=== PATIENT | male | born 1975 | race Native Hawaiian/Other Pacific Islander ===

== ENCOUNTER → 2016-10-19 | Outpatient (CLI) | payer OTHER ==
[2016-10-19 09:04] LABS: ALT 27 U/L (21-72); AST 29 U/L (17-59); Alkaline Phosphatase 66 U/L (38-126); Anion Gap 12 mmol/L; Blood Urea Nitrogen 9 mg/dL (9-20); Carbon Dioxide 27 mmol/L (22-30); Chloride 110 mmol/L (98-107); Glucose 103 mg/dL (74-99); Non-African American GFR(MDRD) >60 (>60 ml/min/1.73 sqM); Potassium 4.8 mmol/L (3.5-5.1); Sodium 149 mmol/L (137-145); Total Bilirubin 0.7 mg/dL (0.2-1.3); Total Protein 7.7 g/dL (6.3-8.2)
[2016-10-19 09:37] LABS: Basophils % (A) 1 %; CH 33.6; CHCM 33.1; Eosinophils % (A) 0 %; HCT 46.9 % (39.0-53.0); HDW 2.73; HGB 15.5 gm/dL (13.0-17.5); Luc # (Auto) 0.09; Luc % (Auto) 3; Lymphocytes # (A) 1.4 k/uL (1.0-4.8); Lymphocytes % (A) 52 %; MCH 33.7 pg (25.0-35.0); MCHC 33.1 g/dL (31.0-37.0); Macrocytosis Slight; Mean Platelet Volume 8.9; Monocytes # (A) 0.3 k/uL (0-1.0); Monocytes % (A) 10 %; Neutrophils # (A) 0.9 k/uL (1.3-7.7); Neutrophils % (A) 34 %; RDW 13.1 % (11.5-15.5); WBC 2.6 k/uL (3.8-10.6); WBC (Perox) 2.38
[2016-10-19 09:59] LABS: Manual Review Performed
[2016-10-20 14:12] LABS: LOG HIV Copies/mL 1.99 (<1.60)
== END | disposition home or self-care (01) ==
LOC: LABWHC1 08:13
PROVIDERS: ATTEND Internal Medicine Infectious Disease
DX: B20 Human immunodeficiency virus [HIV] disease (principal)
CPT/HCPCS: 36415; 80053; 85025; 86360; 87536

== ENCOUNTER → 2017-07-19 | Outpatient (CLI) | payer OTHER ==
[2017-07-19 16:52] LABS: ALT 57 U/L (21-72); AST 40 U/L (17-59); Alkaline Phosphatase 74 U/L (38-126); Anion Gap 10 mmol/L; Blood Urea Nitrogen 13 mg/dL (9-20); Calcium 9.1 mg/dL (8.4-10.2); Carbon Dioxide 25 mmol/L (22-30); Chloride 111 mmol/L (98-107); Glucose 89 mg/dL (74-99); Non-African American GFR(MDRD) >60 (>60 ml/min/1.73 sqM); Potassium 4.9 mmol/L (3.5-5.1); Sodium 146 mmol/L (137-145); Total Bilirubin 0.4 mg/dL (0.2-1.3); Total Protein 8.2 g/dL (6.3-8.2)
[2017-07-19 17:05] LABS: Anisocytosis Slight; Basophils % (A) 1 %; CH 30.2; CHCM 32.3; Eosinophils % (A) 1 %; HCT 39.7 % (39.0-53.0); HDW 3.05; Luc # (Auto) 0.08; Luc % (Auto) 2; Lymphocytes # (A) 1.3 k/uL (1.0-4.8); Lymphocytes % (A) 37 %; MCH 30.8 pg (25.0-35.0); MCHC 32.6 g/dL (31.0-37.0); MCV 94.3 fL (80.0-100.0); Mean Platelet Volume 8.9; Monocytes # (A) 0.4 k/uL (0-1.0); Monocytes % (A) 11 %; Neutrophils # (A) 1.7 k/uL (1.3-7.7); Neutrophils % (A) 48 %; RBC 4.21 m/uL (4.30-5.90); WBC 3.5 k/uL (3.8-10.6); WBC (Perox) 3.41
[2017-07-21 14:24] LABS: LOG HIV Copies/mL 5.24 (<1.60)
== END | disposition home or self-care (01) ==
LOC: LABWHC1 16:07
PROVIDERS: ATTEND Internal Medicine Infectious Disease
DX: B20 Human immunodeficiency virus [HIV] disease (principal)
CPT/HCPCS: 36415; 80053; 80074; 85025; 86360; 87536; 87901

== ENCOUNTER 2017-09-04 17:13 | Emergency (ER) | payer OTHER ==
[2017-09-04 17:28] VITALS: BP 129/84; PULSE 85; RESP 18; TEMP 99
--- NOTE | 2017-09-04 17:50 | XR ---
EXAMINATION TYPE: XR hand complete RT DATE OF EXAM: 09/04/2017 COMPARISON: 07/13/2014 HISTORY: Pain TECHNIQUE: 3 views FINDINGS: There is deformity of the distal fifth metacarpal related to old healed fracture. I see no acute fracture nor dislocation. Joint spaces are normal. IMPRESSION: Old metacarpal fracture. No change compared to old exam. No acute abnormality.
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
== END 2017-09-04 18:09 | disposition home or self-care (01) ==
LOC: EC 17:13
DX: S60.221A Contusion of right hand, initial encounter (principal); G40.909 Epilepsy, unspecified, not intractable, without status epilepticus; F17.200 Nicotine dependence, unspecified, uncomplicated; Z79.899 Other long term (current) drug therapy; Y04.0XXA Assault by unarmed brawl or fight, initial encounter; Y92.89 Other specified places as the place of occurrence of the external cause
CPT/HCPCS: 99283

== ENCOUNTER 2017-09-28 21:00 | Emergency (ER) | payer OTHER ==
[2017-09-28 21:06] VITALS: TEMP 97.8
[2017-09-28] MEDS ORDERED: ORPHENADRINE 30 MG/ML 2 ML VIAL IVP STA (21:26)
--- NOTE | 2017-09-28 21:36 | ED ---
General Adult HPI - General Chief complaint: Headache Stated complaint: muscle spasm Time Seen by Provider: 09/28/17 21:13 Source: patient, EMS, RN notes reviewed Mode of arrival: EMS Limitations: no limitations - History of Present Illness Initial comments: 42-year-old male presents emergency department with chief complaint of right- sided muscle spasm. Patient states that his aunt called 911 because she was concerned because have any seizure. Patient states that he does have a history of seizures but he was not having seizure. Patient states just having muscle spasms to the right side of his body. Patient denies any falls, stridor or injuries. Patient states this happened some time. Patient states this time they do seem to be improved. Patient denies any other symptoms at this time. Patient denies any recent fever, chills, shortness of breath, chest pain, back pain, abdominal pain, nausea vomiting, numbness or tingling, dysuria or hematuria, constipation or diarrhea, headaches or visual changes, or any other current symptoms. - Related Data Home Medications Medication Instructions Recorded Confirmed Mirtazapine 45 mg PO HS PRN 05/20/14 09/28/17 Divalproex ER [Depakote ER] 250 mg PO BID 09/04/17 09/28/17 Elviteg/Rowan/Emtric/Tenofo Dis 1 tab PO DAILY 09/04/17 09/28/17 [Stribild Tablet] Albuterol Sulfate [Proair Hfa] 2 puff INHALATION RT-Q6H PRN 09/28/17 09/28/17 Pregabalin [Lyrica] 75 mg PO BID 09/28/17 09/28/17 Allergies Allergy/AdvReac Type Severity Reaction Status Date / Time No Known Allergies Allergy Verified 09/28/17 21:33 Review of Systems ROS Statement: Those systems with pertinent positive or pertinent negative responses have been documented in the HPI. ROS Other: All systems not noted in ROS Statement are negative. 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 History of Any Multi-Drug Resistant Organisms: None Reported Past Surgical History: Joint Replacement Additional Past Surgical History / Comment(s): hip replaced, ankle pins placed Past Psychological History: No Psychological Hx Reported Smoking Status: Current every day smoker Past Alcohol Use History: Occasional Past Drug Use History: Marijuana - Past Family History Mother Family Medical History: Diabetes Mellitus General Exam Limitations: no limitations General appearance: alert, in no apparent distress Head exam: Present: atraumatic, normocephalic, normal inspection ENT exam: Present: normal exam, mucous membranes moist Neck exam: Present: normal inspection. Absent: tenderness, meningismus, lymphadenopathy Respiratory exam: Present: normal lung sounds bilaterally. Absent: respiratory distress, wheezes, rales, rhonchi, stridor Cardiovascular Exam: Present: regular rate, normal rhythm, normal heart sounds. Absent: systolic murmur, diastolic murmur, rubs, gallop, clicks Extremities exam: Present: normal inspection, full ROM, normal capillary refill. Absent: tenderness, pedal edema, joint swelling, calf tenderness Back exam: Present: normal inspection Neurological exam: Present: alert, oriented X3 Psychiatric exam: Present: normal affect, normal mood Skin exam: Present: warm, dry, intact, normal color. Absent: rash Course Vital Signs 09/28/17 21:02 Temperature 97.8 F Pulse Rate 78 Respiratory 24 Rate Blood Pressure 123/70 O2 Sat by Pulse 96 Oximetry Medical Decision Making - Medical Decision Making 42-year-old male presents emergency Department chief complaint of right-sided muscle spasm. Patient with history of muscle spasm states this is much like his typical episode. This time he is feeling much better is up walking and moving around the room. This time we discussed jail. We discussed return parameters and follow-up and all questions. Patient stated he understood he is given this plan. This time they will be discharged. Disposition Clinical Impression: Muscle spasm Narrative: right sided Disposition: HOME SELF-CARE Condition: Stable Instructions: Muscle Spasm (ED) Additional Instructions: Please use medication as discussed. Please follow up with family doctor if symptoms have not improved over the next two days. Please return to the emergency room if your symptoms increase or worsen or for any other concerns. Referrals: Vitaly Conde MD [Primary Care Provider] - 1-2 days Time of Disposition: 22:30
[2017-09-28 22:44] VITALS: BP 111/66; PULSE 77; RESP 16
== END 2017-09-28 22:44 | disposition home or self-care (01) ==
LOC: EC 21:00
DX: M62.838 Other muscle spasm (principal); G40.909 Epilepsy, unspecified, not intractable, without status epilepticus; F17.200 Nicotine dependence, unspecified, uncomplicated; Z21 Asymptomatic human immunodeficiency virus [HIV] infection status; Z79.899 Other long term (current) drug therapy
CPT/HCPCS: 99284; 96374; J2360

== ENCOUNTER 2017-11-10 10:50 | Emergency (ER) | payer OTHER ==
[2017-11-10 10:59] VITALS: RESP 16; TEMP 97.5
[2017-11-10] MEDS ORDERED: HYDROcodone/APAP 5-325MG 1 EACH TAB PO STA (11:47)
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
--- NOTE | 2017-11-10 12:32 | US ---
EXAMINATION TYPE: US scrotum with doppler. Grayscale and color Doppler Duplex imaging performed of t shwetha scrotum. DATE OF EXAM: 11/10/2017 COMPARISON: NONE CLINICAL HISTORY: Left testicular Pain 2 days, swelling . EXAM MEASUREMENTS: TESTICLES: Right Testicle: 4.2 x 3.3 x 3.0 cm Left Testicle: 4.1 x 2.8 x 2.9 cm EPIDIDYMIS HEAD: Right Epididymis: 1.6 cm Left Epididymis: 1.4 cm Doppler performed to assess for testicular vascularity; good bilateral color flow and waveforms are s een. There is no evidence of testicular torsion. Presence of hydroceles: Yes, bilateral. Larger on the left Presence of varicoceles: No Cystic area visualized right epididymal head measuring 0.6 x 0.5 cm. Left epididymis and left testicl e appear hypervascular compared to the right. IMPRESSION: 1. No evidence for torsion. 2. Bilateral hydroceles. 3. Epididymal head cyst. 4. Correlate for left-sided epididymoorchitis.
[2017-11-10 13:17] VITALS: BP 110/59; PULSE 85
[2017-11-10 13:18] LABS: Appearance,Urine Clear (Clear); Bilirubin,Urine Negative (Negative); Blood,Urine Negative (Negative); Color,Urine Yellow; Glucose,Urine (UA) Negative (Negative); Ketones,Urine Negative (Negative); Leukocyte Esterase,Urine Negative (Negative); Nitrite,Urine Negative (Negative); Protein,Urine Trace (Negative); Specific Gravity,Urine 1.023 (1.001-1.035)
[2017-11-10] MEDS ORDERED: AZITHROMYCIN 250 MG TAB PO STA (13:21)
[2017-11-10] MEDS ORDERED: cefTRIAXone 250 MG VIAL IM STA (13:21)
[2017-11-12 08:32] LABS: C. trachomatis,PCR Negative (Neg,Equiv); Chlamydia trachomatis Source Urine; N. gonorrhoeae,PCR Negative (Neg,Equiv); Neisseria Source Urine
== END 2017-11-10 14:18 | disposition home or self-care (01) ==
LOC: EC 10:50
DX: N45.1 Epididymitis (principal); G40.909 Epilepsy, unspecified, not intractable, without status epilepticus; Z21 Asymptomatic human immunodeficiency virus [HIV] infection status; F17.200 Nicotine dependence, unspecified, uncomplicated; Z79.899 Other long term (current) drug therapy
CPT/HCPCS: 81003; 87491; 87591; 87086; 93975; 76870; 99284; 96372; J0696

== ENCOUNTER → 2017-12-14 | Outpatient (CLI) | payer OTHER ==
[2017-12-14 10:52] LABS: Basophils % (A) 1 %; Eosinophils % (A) 1 %; HCT 42.4 % (39.0-53.0); HGB 14.4 gm/dL (13.0-17.5); Lymphocytes # (A) 1.6 k/uL (1.0-4.8); Lymphocytes % (A) 45 %; MCH 32.3 pg (25.0-35.0); MCHC 34.1 g/dL (31.0-37.0); MCV 94.8 fL (80.0-100.0); Mean Platelet Volume 7.9; Monocytes # (A) 0.3 k/uL (0-1.0); Monocytes % (A) 9 %; Neutrophils # (A) 1.5 k/uL (1.3-7.7); Neutrophils % (A) 42 %; Platelet Count 167 k/uL (150-450); RBC 4.47 m/uL (4.30-5.90); RDW 13.7 % (11.5-15.5); WBC 3.5 k/uL (3.8-10.6)
[2017-12-14 10:57] LABS: ALT 19 U/L (21-72); AST 18 U/L (17-59); Albumin 3.9 g/dL (3.5-5.0); Alkaline Phosphatase 65 U/L (38-126); Anion Gap 10 mmol/L; Blood Urea Nitrogen 8 mg/dL (9-20); Calcium 9.4 mg/dL (8.4-10.2); Carbon Dioxide 30 mmol/L (22-30); Chloride 105 mmol/L (98-107); Glucose 98 mg/dL (74-99); Potassium 4.8 mmol/L (3.5-5.1); Sodium 145 mmol/L (137-145); Total Bilirubin 0.4 mg/dL (0.2-1.3); Total Protein 7.3 g/dL (6.3-8.2)
[2017-12-15 12:34] LABS: T4/T8 Ratio (CD4:CD8) 0.2 (1.0-3.7)
[2017-12-15 14:02] LABS: HIV-1 RNA DETECTED (Not detected); HIV-1 RNA, Quant 43 Copies/mL (<40)
== END | disposition home or self-care (01) ==
LOC: LABWHC1 10:10
PROVIDERS: ATTEND Internal Medicine Infectious Disease
DX: B20 Human immunodeficiency virus [HIV] disease (principal)
CPT/HCPCS: 36415; 80053; 85025; 86360; 87536

== ENCOUNTER → 2018-04-11 | Outpatient (CLI) | payer OTHER ==
[2018-04-11 12:02] LABS: ALT 17 U/L (21-72); AST 16 U/L (17-59); Albumin 3.6 g/dL (3.5-5.0); Alkaline Phosphatase 81 U/L (38-126); Anion Gap 2 mmol/L; Blood Urea Nitrogen 10 mg/dL (9-20); Carbon Dioxide 27 mmol/L (22-30); Chloride 110 mmol/L (98-107); Glucose 108 mg/dL (74-99); Potassium 4.7 mmol/L (3.5-5.1); Sodium 139 mmol/L (137-145); Total Bilirubin 0.2 mg/dL (0.2-1.3); Total Protein 6.6 g/dL (6.3-8.2)
[2018-04-11 12:05] LABS: Basophils % (A) 1 %; Eosinophils # (A) 0.1 k/uL (0-0.7); Eosinophils % (A) 3 %; HCT 44.8 % (39.0-53.0); HGB 14.3 gm/dL (13.0-17.5); Lymphocytes % (A) 27 %; MCH 30.6 pg (25.0-35.0); MCHC 31.8 g/dL (31.0-37.0); MCV 96.3 fL (80.0-100.0); Mean Platelet Volume 8.1; Monocytes # (A) 0.3 k/uL (0-1.0); Monocytes % (A) 8 %; Neutrophils # (A) 2.2 k/uL (1.3-7.7); Neutrophils % (A) 59 %; Platelet Count 174 k/uL (150-450); RBC 4.66 m/uL (4.30-5.90); RDW 13.5 % (11.5-15.5); WBC 3.7 k/uL (3.8-10.6)
[2018-04-12 12:25] LABS: T4/T8 Ratio (CD4:CD8) 0.3 (1.0-3.7)
[2018-04-12 15:50] LABS: HIV-1 RNA Not detected (Not detected); HIV-1 RNA, Quant <40 Copies/mL (<40)
== END | disposition home or self-care (01) ==
LOC: LABWHC1 11:05
PROVIDERS: ATTEND Internal Medicine Infectious Disease
DX: B20 Human immunodeficiency virus [HIV] disease (principal)
CPT/HCPCS: 36415; 80053; 85025; 86360; 86709; 87536

== ENCOUNTER → 2018-06-27 | Outpatient (CLI) | payer OTHER ==
[2018-06-27 10:44] LABS: Basophils % (A) 0 %; Eosinophils # (A) 0.1 k/uL (0-0.7); Eosinophils % (A) 2 %; HCT 43.4 % (39.0-53.0); HGB 14.2 gm/dL (13.0-17.5); Lymphocytes # (A) 1.6 k/uL (1.0-4.8); Lymphocytes % (A) 22 %; MCH 32.3 pg (25.0-35.0); MCHC 32.7 g/dL (31.0-37.0); Mean Platelet Volume 7.3; Monocytes # (A) 0.5 k/uL (0-1.0); Monocytes % (A) 8 %; Neutrophils # (A) 4.7 k/uL (1.3-7.7); Neutrophils % (A) 66 %; Platelet Count 208 k/uL (150-450); RBC 4.38 m/uL (4.30-5.90); RDW 14.1 % (11.5-15.5); WBC 7.2 k/uL (3.8-10.6)
[2018-06-27 17:53] LABS: Albumin 3.8 g/dL (3.80-4.90); Albumin/Globulin Ratio 1.52 (1.20-2.10); Anion Gap 6.8 mmol/L (4.00-12.00); Calcium 8.7 mg/dL (8.7-10.3); Carbon Dioxide 27.2 mmol/L (21.6-31.8); Globulin 2.5 g/dL (2.1-3.7); Potassium 4.6 mmol/L (3.5-5.5); Total Bilirubin 0.1 mg/dL (0.3-1.2); Total Protein 6.3 g/dL (6.2-8.2)
[2018-06-28 10:58] LABS: T4/T8 Ratio (CD4:CD8) 0.4 (1.0-3.7)
[2018-06-28 15:09] LABS: HIV-1 RNA DETECTED (Not detected); HIV-1 RNA, Quant <40 Copies/mL (<40)
== END ==
LOC: LABWHC1 10:13
PROVIDERS: ATTEND Internal Medicine Infectious Disease
DX: B20 Human immunodeficiency virus [HIV] disease (principal)
CPT/HCPCS: 36415; 80053; 85025; 86360; 87536

== ENCOUNTER 2018-07-06 10:43 | Emergency (ER) | payer OTHER ==
[2018-07-06 11:13] VITALS: BP 113/68; PULSE 82; RESP 16; TEMP 98.3
--- NOTE | 2018-07-06 13:43 | ED ---
General Adult HPI - General Chief complaint: Urogenital Stated complaint: Upper leg pain Time Seen by Provider: 07/06/18 13:07 Source: patient, RN notes reviewed Mode of arrival: ambulatory - History of Present Illness Initial comments: Patient 42-year-old male significant past medical history for HIV, presented to the emergency room today with a chief complaint of mass to the right groin. Patient states that he noticed a small bump charting for 5 days ago. Patient states that his symptoms have large. He states it is mildly tender. There is some warmth. States currently on antibiotics of Bactrim that was started by his infectious disease doctor. Patient denies any other complaints or symptoms. Patient denies any recent fever, chills, shortness of breath, chest pain, back pain, abdominal pain, nausea or vomiting, numbness or tingling, dysuria or hematuria, constipation or diarrhea, headaches or visual changes, or any other complaints. - Related Data Home Medications Medication Instructions Recorded Confirmed Divalproex ER [Depakote ER] 250 mg PO BID 09/04/17 07/06/18 Elviteg/Rowan/Emtric/Tenofo Dis 1 tab PO DAILY 09/04/17 07/06/18 [Stribild Tablet] Divalproex ER [Depakote ER] 500 mg PO BID 07/06/18 07/06/18 Sulfamethox-Tmp 400-80Mg [Bactrim 2 tab PO Q12HR 07/06/18 07/06/18 SS 400-80 mg] Allergies Allergy/AdvReac Type Severity Reaction Status Date / Time No Known Allergies Allergy Verified 07/06/18 13:41 Review of Systems ROS Statement: Those systems with pertinent positive or pertinent negative responses have been documented in the HPI. ROS Other: All systems not noted in ROS Statement are negative. 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 Eye: Pupils are equal, round and reactive to light. Extra-ocular movements are intact. No nystagmus. There is normal conjunctiva bilaterally. No signs of icterus. Ears, nose, mouth and throat: There are moist mucous membranes and no oral lesions. Neck: The neck is supple, there is no tenderness or JVD. Cardiovascular: There is a regular rate and rhythm. No murmur, rub or gallop is appreciated. Respiratory: Lungs are clear to auscultation, respirations are non-labored, breath sounds are equal. No wheezes, stridor, rales, or rhonchi. Gastrointestinal: Soft, non-distended, non-tender abdomen without masses or organomegaly noted. There is no rebound or guarding present. No CVA tenderness. Musculoskeletal: Normal ROM, no tenderness. Sensation intact. Strength 5/5. Pulses equal bilaterally 2+. Neurological: A&O x 3. CN II-XII intact, There are no obvious motor or sensory deficits. Coordination appears grossly intact. Speech is normal. Skin: Skin is warm and dry and no rashes or lesions are noted. Psychiatric: Cooperative, appropriate mood & affect, normal judgment. : Last measuring approximately 2-3 cm across. Mild tenderness. No fluctuance. No increased redness. Course Vital Signs 07/06/18 11:08 Temperature 98.3 F Pulse Rate 82 Respiratory 16 Rate Blood Pressure 113/68 O2 Sat by Pulse 96 Oximetry Medical Decision Making - Medical Decision Making Patient presented to the emergency room for mass to the right groin. Ultrasound was performed to show vascular lesion. Case was discussed with attending physician Dr. Shaffer who did discuss case with Dr. Conde patient follows up with due to his history of HIV. States she was aware that there was a area to the right groin. States that most about bigger over the last few days for the patient to come to the hospital. Recommends testing for gonorrhea chlamydial and treating. Urine sample was obtained showing no sign of infection. Cultures are pending. Patient was given doses of Rocephin and azithromycin here in emergency room. Patient was going to be discharged to continue to follow up Dr. Conde. He did not want to wait for discharge instructions. 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 Patient left prior to discharge instructions. - Lab Data Lab Results 07/06/18 Range/Units 15:14 Urine Color Yellow Urine Appearance Clear (Clear) Urine pH 6.5 (5.0-8.0) Ur Specific [place] 1.021 (1.001-1.035) Urine Protein Trace H (Negative) Urine Glucose (UA) Negative (Negative) Urine Ketones Trace H (Negative) Urine Blood Negative (Negative) Urine Nitrite Negative (Negative) Urine Bilirubin Negative (Negative) Urine Urobilinogen 2.0 (<2.0) mg/dL Ur Leukocyte Esterase Negative (Negative) Disposition Clinical Impression: Right groin mass Disposition: HOME SELF-CARE Condition: Good Is patient prescribed a controlled substance at d/c from ED?: No Referrals: None,Stated [Primary Care Provider] - 1-2 days
--- NOTE | 2018-07-06 14:19 | US ---
EXAMINATION TYPE: US groin RT DATE OF EXAM: 07/06/2018 COMPARISON: NONE CLINICAL HISTORY: Pain. Right groin palpable lump x 2 days with slight discomfort. Redness to area. No injury. No surgeries to given area per patient. Superficial vascular lesion seen anterior to CFV= 5.2 x 3.5 x 1.8 cm. Possible vascular stalk seen, image 9. IMPRESSION: 1. Nonspecific vascular lesion in right groin may reflect that.
[2018-07-06] MEDS ORDERED: AZITHROMYCIN 500 MG TAB PO STA (14:36)
[2018-07-06] MEDS ORDERED: cefTRIAXone 250 MG VIAL IM STA (14:36)
[2018-07-06 15:36] LABS: Appearance,Urine Clear (Clear); Bilirubin,Urine Negative (Negative); Blood,Urine Negative (Negative); Color,Urine Yellow; Glucose,Urine (UA) Negative (Negative); Ketones,Urine Trace (Negative); Leukocyte Esterase,Urine Negative (Negative); Nitrite,Urine Negative (Negative); PH, Urine 6.5 (5.0-8.0); Protein,Urine Trace (Negative); Specific Gravity,Urine 1.021 (1.001-1.035)
[2018-07-07 12:54] LABS: C. trachomatis,PCR Negative (Neg,Equiv); Chlamydia trachomatis Source Urine; N. gonorrhoeae,PCR Negative (Neg,Equiv); Neisseria Source Urine
== END 2018-07-06 15:59 | disposition home or self-care (01) ==
LOC: EC 10:43
DX: R19.03 Right lower quadrant abdominal swelling, mass and lump (principal); G40.909 Epilepsy, unspecified, not intractable, without status epilepticus; F17.200 Nicotine dependence, unspecified, uncomplicated; Z21 Asymptomatic human immunodeficiency virus [HIV] infection status; Z79.899 Other long term (current) drug therapy; Z96.649 Presence of unspecified artificial hip joint
CPT/HCPCS: 99284; 96372; 81003; 87491; 87591; 76882; J0696

== ENCOUNTER → 2018-10-10 | Outpatient (CLI) | payer OTHER ==
[2018-10-10 10:20] LABS: Basophils % (A) 1 %; Eosinophils # (A) 0.2 k/uL (0-0.7); Eosinophils % (A) 3 %; HGB 14.9 gm/dL (13.0-17.5); Lymphocytes # (A) 1.4 k/uL (1.0-4.8); Lymphocytes % (A) 25 %; MCHC 31.7 g/dL (31.0-37.0); MCV 100.8 fL (80.0-100.0); Macrocytosis Slight; Monocytes # (A) 0.3 k/uL (0-1.0); Monocytes % (A) 6 %; Neutrophils # (A) 3.4 k/uL (1.3-7.7); Neutrophils % (A) 64 %; Platelet Count 218 k/uL (150-450); RBC 4.66 m/uL (4.30-5.90); RDW 13.9 % (11.5-15.5); WBC 5.3 k/uL (3.8-10.6)
[2018-10-10 16:39] LABS: Albumin 4.5 g/dL (3.80-4.90); Albumin/Globulin Ratio 1.67 (1.60-3.17); Anion Gap 4.6 mmol/L (4.00-12.00); Calcium 9.5 mg/dL (8.7-10.3); Carbon Dioxide 25.4 mmol/L (21.6-31.8); Globulin 2.7 g/dL (1.6-3.3); Potassium 5.1 mmol/L (3.5-5.5); Total Bilirubin 0.4 mg/dL (0.3-1.2); Total Protein 7.2 g/dL (6.2-8.2)
[2018-10-11 12:52] LABS: T4/T8 Ratio (CD4:CD8) 0.3 (1.0-3.7)
[2018-10-12 14:20] LABS: HIV-1 RNA Not detected (Not detected); HIV-1 RNA, Quant <40 Copies/mL (<40)
== END | disposition home or self-care (01) ==
LOC: LABWHC1 09:44
PROVIDERS: ATTEND Internal Medicine Infectious Disease
DX: B20 Human immunodeficiency virus [HIV] disease (principal)
CPT/HCPCS: 36415; 80053; 85025; 86360; 87536

== ENCOUNTER → 2019-04-18 | Outpatient (CLI) | payer OTHER ==
--- NOTE | 2019-04-18 15:16 | XR ---
EXAMINATION TYPE: XR Hip Complete RT DATE OF EXAM: 04/18/2019 CLINICAL HISTORY: Aseptic necrosis per order. Right hip pain for months. TECHNIQUE: AP and frogleg views of the right hip are obtained. COMPARISON: None. FINDINGS: There is no acute fracture/dislocation evident in the right hip. The joint space in the r ight hip appears within normal limits. There is subchondral lucency along superior aspect femoral he ad with subchondral cystic change suspected . Femoral head shape is maintained. The overlying soft ti ssue appears unremarkable. IMPRESSION: There is suggestion of avascular necrosis in the right hip with suspicious superior subc hondral curvilinear lucency. Findings can be confirmed with MRI if desired.
[2019-04-18 15:18] LABS: Basophils % (A) 0 %; Eosinophils # (A) 0.1 k/uL (0-0.7); Eosinophils % (A) 2 %; HCT 43.7 % (39.0-53.0); HGB 14.5 gm/dL (13.0-17.5); Lymphocytes # (A) 1.2 k/uL (1.0-4.8); Lymphocytes % (A) 24 %; MCH 33.2 pg (25.0-35.0); MCHC 33.2 g/dL (31.0-37.0); MCV 99.9 fL (80.0-100.0); Monocytes # (A) 0.4 k/uL (0-1.0); Monocytes % (A) 8 %; Neutrophils % (A) 63 %; Platelet Count 213 k/uL (150-450); RBC 4.37 m/uL (4.30-5.90); RDW 14.7 % (11.5-15.5); WBC 4.8 k/uL (3.8-10.6)
[2019-04-18 18:45] LABS: African American GFR (CKD) 93.5 (60.0-200.0); Albumin 4.2 g/dL (3.80-4.90); Albumin/Globulin Ratio 1.75 (1.60-3.17); Anion Gap 2.9 mmol/L (4.00-12.00); Calcium 9.4 mg/dL (8.7-10.3); Carbon Dioxide 25.1 mmol/L (21.6-31.8); Globulin 2.4 g/dL (1.6-3.3); Potassium 4.5 mmol/L (3.5-5.5); Total Bilirubin 0.3 mg/dL (0.3-1.2); Total Protein 6.6 g/dL (6.2-8.2)
[2019-04-19 11:25] LABS: T4/T8 Ratio (CD4:CD8) 0.4 (1.0-3.7)
== END | disposition home or self-care (01) ==
LOC: LABWHC1 14:40
PROVIDERS: ATTEND Internal Medicine Infectious Disease
DX: M87.00 Idiopathic aseptic necrosis of unspecified bone (principal); B20 Human immunodeficiency virus [HIV] disease
CPT/HCPCS: 36415; 73502; 80053; 85025; 86360; 87536

== ENCOUNTER → 2020-05-26 | Outpatient (CLI) | payer OTHER ==
[2020-05-26 12:20] LABS: Basophils # (A) 0.1 k/uL (0-0.2); Basophils % (A) 1 %; Eosinophils # (A) 0.3 k/uL (0-0.7); Eosinophils % (A) 4 %; HGB 16.3 gm/dL (13.0-17.5); Lymphocytes # (A) 1.3 k/uL (1.0-4.8); Lymphocytes % (A) 21 %; MCH 33.1 pg (25.0-35.0); MCHC 32.6 g/dL (31.0-37.0); MCV 101.5 fL (80.0-100.0); Macrocytosis Slight; Mean Platelet Volume 8.9; Monocytes # (A) 0.5 k/uL (0-1.0); Monocytes % (A) 8 %; Neutrophils # (A) 3.9 k/uL (1.3-7.7); Neutrophils % (A) 63 %; Platelet Count 193 k/uL (150-450); Potassium 4.2 mmol/L (3.5-5.1); RBC 4.92 m/uL (4.30-5.90); RDW 13.5 % (11.5-15.5); WBC 6.2 k/uL (3.8-10.6)
[2020-05-26 12:27] LABS: INR 0.9 (<1.2); Partial Thromboplastin Time 26.5 sec (22.0-30.0); Prothrombin Time 9.8 sec (9.0-12.0)
== END | disposition home or self-care (01) ==
LOC: LABPAT 10:02
PROVIDERS: ATTEND Orthopaedic Surgery
DX: Z01.818 Encounter for other preprocedural examination (principal); Z01.812 Encounter for preprocedural laboratory examination; M16.11 Unilateral primary osteoarthritis, right hip
CPT/HCPCS: 36415; 80051; 85025; 85610; 85730; 86850; 86900; 86901; 87070; 93005

== ENCOUNTER 2020-06-01 05:45 | Day surgery (SDC) | payer OTHER ==
[2020-05-26 13:20] VITALS: BMI 28.5
--- NOTE | 2020-05-31 11:49 | HP ---
HISTORY AND PHYSICAL REASON FOR ADMISSION: Surgery 06/01/2020 HISTORY OF PRESENT ILLNESS: Jose Houser is a 44-year-old patient seen with symptomatic right hip osteoarthritis. After treatment options were discussed with him, he elected to proceed with right total hip arthroplasty. Consent was obtained. PAST MEDICAL HISTORY: HIV and asthma. PAST SURGICAL HISTORY: Left total hip arthroplasty. MEDICATIONS: Clobetasol, meloxicam, ProAir, Stribild. ALLERGIES: None reported. SOCIAL HISTORY: Smokes 1/2 pack cigarettes daily. PHYSICAL EXAMINATION: Evaluation of the right hip: His range of motion is limited with severe pain. There is a positive hip impingement sign. Straight leg raise negative. Diffuse tenderness about the hip girdle. Distal neurovascular exam is intact. RADIOGRAPHS: Radiographs of the right hip revealed severe osteoarthritic changes as well as evidence for avascular necrosis. IMPRESSION: 1. Right hip osteoarthritis/avascular necrosis. 2. History of HIV. PLAN: Right total hip arthroplasty. Surgery is 06/01/2020. MMODL / IJN: [id number] /
[~2020-06-01 05:45] MED LIST: ACETAMINOPHEN TAB 500 MG TAB PO ONE; MELOXICAM 7.5 MG TAB PO ONE; TRANEXAMIC ACID 1,000 MG in SODIUM CHLORIDE 0.9% 100 ML IVPB ONE
[2020-06-01] MEDS ORDERED: fentaNYL (PF) 50 MCG/ML 2 ML AMP IVP PRN (05:57)
[2020-06-01] MEDS ORDERED: HYDROmorphone 0.5 MG/0.5 ML SYRINGE IVP PRN ×3 (05:57→09:13)
[2020-06-01] MEDS ORDERED: MIDAZOLAM 2 MG/2 ML VIAL IV PRN (05:57)
[2020-06-01] MEDS ORDERED: SCOPOLAMINE 1.5MG/72HR PATCH TRANSDERM ONE (05:57)
[2020-06-01] MEDS ORDERED: ONDANSETRON 4 MG/2 ML VIAL IVP ONE (05:57)
[2020-06-01] MEDS ORDERED: DEXAMETHASONE SOD PHOSPHATE 10 MG/ML 1 ML VIAL IV ONE (05:57)
[2020-06-01] MEDS ORDERED: ROPIVACAINE 246.25 MG, EPINEPHrine 0.5 MG, KETOROLAC 30 MG, cloNIDine HCL/PF 80 MCG, WA... MISCELLANE ONE ×5 (06:00)
[2020-06-01] MEDS ORDERED: METOCLOPRAMIDE 5 MG/ML 2 ML VIAL ONE (06:42)
[2020-06-01] MEDS: LACTATED RINGERS 1,000 ML IV SCH ×3 (07:24→19:40)
[2020-06-01] MEDS ORDERED: FAMOTIDINE 20 MG/2 ML VIAL IV ONE (07:27)
[2020-06-01] MEDS ORDERED: SUCCINYLCHOLINE CHLORIDE VIAL 200 MG/10 ML VIAL IV ONE (07:29)
[2020-06-01] MEDS ORDERED: TRANEXAMIC ACID 1,000 MG/10 ML VIAL ONE (07:29)
[2020-06-01] MEDS ORDERED: HYDROmorphone (PF) 1 MG/ML ONE (07:29)
[2020-06-01] MEDS ORDERED: ROCURONIUM 10 MG/ML (10 ML VIAL) IV ONE (07:29)
[2020-06-01] MEDS ORDERED: PROPOFOL 10 MG/ML 20 ML VIAL IV ONE (07:29)
[2020-06-01] MEDS ORDERED: LIDOCAINE 1% INJ 10MG/ML (20 ML MDV) ONE (07:29)
[2020-06-01] MEDS ORDERED: fentaNYL (PF) 50 MCG/ML 2 ML AMP ONE (07:29)
[2020-06-01] MEDS ORDERED: MIDAZOLAM 2 MG/2 ML VIAL ONE (07:29)
[2020-06-01] MEDS ORDERED: GLYCOPYRROLATE 0.2 MG/ML 2 ML VIAL ONE (07:29)
[2020-06-01] MEDS ORDERED: SODIUM CHLORIDE 0.9% 100 ML BAG ONE (07:29)
[2020-06-01] MEDS ORDERED: NEOSTIGMINE 1 MG/ML 10 ML VIAL ONE (07:29)
[2020-06-01] MEDS ORDERED: ceFAZolin 1,000 MG in SODIUM CHLORIDE 0.9% 1,000 ML IRRIGATION ONE (08:13)
--- NOTE | 2020-06-01 09:09 | FL ---
EXAMINATION TYPE: FL guidance operating room DATE OF EXAM: 06/01/2020 HISTORY: Fluoroscopy time 17 seconds of fluoroscopy provided. IMPRESSION: 1. Fluoroscopy time.
[2020-06-01] MEDS ORDERED: NALOXONE 0.4 MG/ML 1 ML VIAL IV PRN (09:13)
[2020-06-01] MEDS ORDERED: HYDROcodone/APAP 5-325MG 1 EACH TAB PO PRN (09:13)
[2020-06-01] MEDS ORDERED: HYDROmorphone 1 MG/ML 1 ML SYRINGE IVP PRN (09:13)
[2020-06-01] MEDS ORDERED: ONDANSETRON 4 MG/2 ML VIAL IVP PRN (09:13)
--- NOTE | 2020-06-01 09:13 | P.OP ---
Date of Procedure: 06/01/20 Preoperative Diagnosis: Right hip osteoarthritis Postoperative Diagnosis: Right hip osteoarthritis Procedure(s) Performed: Direct anterior right total hip arthroplasty Implants: 1. Depuy Corail KLA size 11 high offset collar press-fit femoral stem 2. Depuy pinnacle 56 mm press-fit acetabular shell 3. Depuy pinnacle acetabular liner neutral 36 mm ID 56 mm OD 4. Biolox delta ceramic femoral head +1.5 36 mm Anesthesia: ROXANN, local Surgeon: Jeet Hernandez [employer] Compliance Manager #1: Jean-Claude Lopes Estimated Blood Loss (ml): 200 Pathology: other (Femoral head) Condition: stable Disposition: PACU Indications for Procedure: 44-year-old patient seen with symptoms made right hip osteoarthritis. After treatment options were discussed, he elected to proceed with total hip arthroplasty. Operative Findings: See description of procedure Description of Procedure: The patient was taken to the operative suite. Patient underwent a general anesthetic by the department of anesthesia. Patient was then transferred to the [place] table. Patient was given preoperative IV antibiotics and TXA. Both lower extremities were placed in standard leg spars. The hip was then prepped and draped in the normal sterile orthopedic fashion. A standard anterior incision was made beginning 3 cm lateral and 1 cm distal to the ASIS extending 10 cm. Dissection was then carried down through the subcutaneous soft tissues down to the fascia overlying the tensor fascia lena. An incision was now made through the fascia. Careful dissection was taken down exposing the tensor fascia lena muscle. A Cobra retractor was now placed along the medial femoral neck and a second one along the lateral femoral neck. The venous circumflex vessels were now identified, cauterized and clipped. We identified the anterior hip capsule. An incision was made through the hip capsule along the lateral border. I performed a partial anterior capsulectomy. Retractors were now placed around the femoral neck itself. A femoral neck cut was now made with a sagittal saw. It was completed with an osteotome at the lateral neck area. The femoral head was now removed without difficulty. The extremity was now rotated to 45 of external rotation. It was locked in position. Residual labrum was now debrided out. Serial reaming was performed of the acetabulum while Get PRECIADO assisted holding an anterior retractor for exposure. Once we reached the appropriate size and a trial was position and fit nicely. The appropriate size was now chosen opened and made available. It was introduced into the acetabulum without difficulty. The C-arm/fluoroscopy was now brought into the operative field. We made sure we had a true AP pelvic view. We now under direct C- arm/fluoroscopy introduced into the acetabular component with appropriate version and inclination. I held the cup in appropriate position well Get PRECIADO used a mallet to seat the acetabular component. I noted the component now to be well seated and stable. Acetabular cup introduce her was removed. The C-arm was pulled back. An appropriate liner was introduced and clicked into position. It was felt to be stable. At this point retractors were removed. The extremity was now placed into 120 external rotation with no traction. The leg was now dropped to the ground and adducted. Appropriate retractors were now positioned along the proximal femur. We also placed our femoral look into position. Additional capsular releasing was performed to gain access to the proximal femur. We now used a box osteotome. A canal finder was now utilized. Serial broaching was now performed with the assistance of Get PRECIADO tapping the broaches down with a mallet while held the broach in appropriate rotation and position. This was done until we reached the appropriate size with good overall rotational stability. Appropriate calcar planing was performed. A trial head/neck was placed into position. The hip was now reduced. The C- arm/fluoroscopy was brought back into the operative field. I visualized in AP pelvis and ascertain reasonable leg length alignment. The trial components were well position. The C-arm/fluoroscopy was pulled back. Retractors were repositioned and the hip was dislocated. The leg was again taken down to the ground and adducted. Appropriate retractors were repositioned as well as the femoral hook. All trial components were removed. The femoral implant was opened along with the femoral head. The femoral implant was introduced on the appropriate handle into our pre-broached area. I held the component position well Get PRECIADO used a mallet to seat the femoral component. The femoral component was now noted to be well seated and stable.. The femoral head was introduced with good positioning and fixation noted. Retractors were now removed. The hip was now reduced. There appeared be good positioning of the hip confirmed on intraoperative fluoroscopy. Spot films were obtained to document this. A second gram of TXA was given. The deep and superficial soft tissues were infiltrated with local analgesic. Bipolar cautery had been utilized intermittently through the procedure for hemostasis. The wound was irrigated copiously with pulse lavage mechanical irrigation. The fascia was repaired with Vicryl suture. The subcutaneous soft tissues were repaired in layers with Vicryl suture. The skin was approximated with pernio/Dermabond. Sterile dressings were applied. Patient was then awakened, transferred to a bed and taken to recovery in stable condition. Get PRECIADO assisted with the complex procedure.
[2020-06-01] MEDS ORDERED: LACTATED RINGERS 1,000 ML IV ONE (09:17)
[2020-06-01] MEDS: HYDROcodone/APAP 5-325MG 1 EACH TAB PO PRN ×2 (13:41→18:53)
[2020-06-01] MEDS ORDERED: ALBUTEROL NEBULIZED 2.5 MG/3 ML INHALATION PRN (16:06)
[2020-06-01] MEDS: ESCITALOPRAM 10 MG TAB PO SCH (16:41)
--- NOTE | 2020-06-01 17:45 | XR ---
EXAMINATION TYPE: XR Hip Limited RT DATE OF EXAM: 06/01/2020 COMPARISON: NONE HISTORY: Surgery. Fluoroscopy. TECHNIQUE: 2 fluoroscopic images were obtained and 17 seconds fluoroscopy time was recorded for the h ip surgery. FINDINGS: 2 fluoroscopy images show bilateral hip prostheses. Right hip prosthesis appears in good po sition.
[2020-06-01] MEDS ORDERED: SENNOSIDES-DOCUSATE SODIUM 1 EACH TAB PO SCH (21:00)
--- NOTE | 2020-06-01 22:47 | P.CONS ---
History of Present Illness - Reason for Consult Consult date: 06/01/20 HIV and medical management Requesting physician: Jeet Hernandez - Chief Complaint Right hip pain x days - History of Present Illness Patient is 44-year-old male with a past medical history significant for HIV, anxiety depression and also arthritis of the right hip in this patient who is status post right hip arthroplasty this morning for symptomatic right hip osteoarthritis, post surgery the patient has been admitted to the hospital infection have been consulted for management of his underlying condition for the patient currently do not have a PCP, Dr. Conde was acting as his PCP as well as infectious disease and since his intermediate from the patient has been [place], for his HIV the patient's currently taking stribild with the patient has been tolerating also with a history of depression/anxiety and has been on Lexapro patient mentioned some improvement in his symptoms but would like to dose to be slightly adjusted up, patient is complaining of pain to the right hip post surgery more of a throbbing 6-7 out of 10 and no radiation denies any chest pain shortness of breath, no cough no abdominal pain and no diarrhea Review of Systems Positive point has been mentioned in the HPI rest of the systems are negative Past Medical History Past Medical History: Asthma, Seizure Disorder Additional Past Medical History / Comment(s): HIV, AIDS, 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 seasonal allergies History of Any Multi-Drug Resistant Organisms: None Reported Past Surgical History: Joint Replacement Additional Past Surgical History / Comment(s): lt hip replaced, ankle- pins placed Past Anesthesia/Blood Transfusion Reactions: Motion Sickness Past Psychological History: No Psychological Hx Reported Smoking Status: Current every day smoker Past Alcohol Use History: None Reported Additional Past Alcohol Use History / Comment(s): smoker for 10 years 1/2 ppd Past Drug Use History: Marijuana Additional Drug Use History / Comment(s): edibles, and smokes marijuana - Past Family History Father Family Medical History: Deep Vein Thrombosis (DVT) Mother Family Medical History: Diabetes Mellitus Medications and Allergies Home Medications Medication Instructions Recorded Confirmed Type Elviteg/Rowan/Emtric/Tenofo Dis 1 tab PO DAILY 09/04/17 05/26/20 History [Stribild Tablet] Albuterol Sulfate [Proair Hfa] 1 - 2 puff INHALATION DAILY PRN 05/26/20 05/26/20 History Clobetasol Propionate [Temovate 1 applic TOPICAL DAILY 05/26/20 05/26/20 History 0.05% Cream] Escitalopram [Lexapro] 10 mg PO DAILY 05/26/20 05/26/20 History Meloxicam [Mobic] 15 mg PO DAILY 05/26/20 05/26/20 History Triamcinolone 0.1% Cream [Kenalog 1 applicatio TOPICAL DAILY 05/26/20 05/26/20 History 0.1% Cream] Allergies Allergy/AdvReac Type Severity Reaction Status Date / Time No Known Allergies Allergy Verified 05/26/20 13:06 Physical Exam Vitals: Vital Signs Temp Pulse Pulse Resp BP BP Pulse Ox 06/01/20 14:39 97.9 F 68 18 115/68 98 06/01/20 12:15 64 122/83 98 06/01/20 12:00 82 122/78 94 L 06/01/20 11:45 67 115/77 96 06/01/20 11:30 75 113/75 97 06/01/20 11:15 74 106/60 95 06/01/20 11:00 68 111/81 99 06/01/20 10:45 77 112/77 97 06/01/20 10:29 97.9 F 65 18 121/82 98 06/01/20 10:06 61 16 113/67 100 06/01/20 09:55 63 16 105/57 99 06/01/20 09:40 62 16 102/56 100 06/01/20 09:27 97.4 F L 65 16 116/65 96 06/01/20 06:47 98.2 F 62 16 114/76 95 Intake and Output 06/01/20 06/01/20 06/01/20 06:59 14:59 22:59 Intake Total 1547 Output Total 200 Balance 1347 Intake: IV 1251 Oral 296 Output: Estimated Blood Loss 200 Other: # Voids 1 Weight 94.3 kg 94.3 kg GENERAL DESCRIPTION: Middle-aged male lying in bed, no distress. No tachypnea or accessory muscle of respiration use. HEENT: Shows Pallor , no scleral icterus. Oral mucous membrane is dry. No pharyngeal erythema or thrush NECK: Trachea central, no thyromegaly. LUNGS: Unlabored breathing. Clear to auscultation anteriorly. No wheeze or crackle. HEART: S1, S2, regular rate and rhythm. No loud murmur ABDOMEN: Soft, no tenderness , guarding or rigidity, no organomegaly EXTREMITIES: No edema of feet. SKIN: No rash, no masses palpable. NEUROLOGICAL: The patient is awake, alert, oriented x3, mood and affect normal. Assessment and Plan Assessment: 1- patient with symptomatic right hip osteoarthritis waning his medical therapy in this patient who is status post right hip arthroplasty , Post surgery patient to continue with the pain management, Lovenox And perioperative antibiotics 2- patient with HIV which is currently controlled with STRIBILD which will be continued unfortunately medications unavailable at this facility the patient has to bring his own medication 3- anxiety depression some relief with the Lexapro (1) Osteoarthritis of right hip Current Visit: Yes Status: Acute Code(s): M16.11 - UNILATERAL PRIMARY OSTEOARTHRITIS, RIGHT HIP SNOMED Code(s): 366104349598915 (2) HIV (human immunodeficiency virus infection) Current Visit: Yes Status: Acute Code(s): B20 - HUMAN IMMUNODEFICIENCY VIRUS [HIV] DISEASE SNOMED Code(s): 33379669 (3) Anxiety Current Visit: Yes Status: Acute Code(s): F41.9 - ANXIETY DISORDER, UNSPECIFIED SNOMED Code(s): 03612673 Plan: 1- patient has been advised to get his own HIV medication so he can continue 1 daily without missing any doses 2-Lexapro 10 mg daily 3- DVT GI prophylaxis We will follow on clinical condition to further adjust medication if needed Thank you for this consultation will follow this patient with you Time with Patient: Greater than 30
[2020-06-02 02:46] VITALS: RESP 18
[2020-06-02] MEDS: LACTATED RINGERS 1,000 ML IV SCH ×2 (04:17→04:36)
[2020-06-02] MEDS: HYDROcodone/APAP 5-325MG 1 EACH TAB PO PRN ×2 (04:35→12:41)
[2020-06-02 06:52] LABS: Basophils % (A) 0 %; Eosinophils % (A) 0 %; HCT 37.2 % (39.0-53.0); HGB 12.1 gm/dL (13.0-17.5); Lymphocytes # (A) 1.5 k/uL (1.0-4.8); Lymphocytes % (A) 17 %; MCH 33.7 pg (25.0-35.0); MCHC 32.6 g/dL (31.0-37.0); MCV 103.6 fL (80.0-100.0); Macrocytosis Slight; Mean Platelet Volume 8.6; Monocytes # (A) 0.6 k/uL (0-1.0); Monocytes % (A) 7 %; Neutrophils # (A) 6.5 k/uL (1.3-7.7); Neutrophils % (A) 73 %; Platelet Count 172 k/uL (150-450); RBC 3.59 m/uL (4.30-5.90); RDW 13.3 % (11.5-15.5); WBC 8.8 k/uL (3.8-10.6)
[2020-06-02] MEDS: ESCITALOPRAM 10 MG TAB PO SCH (08:15)
[2020-06-02 08:34] VITALS: BP 116/78; PULSE 71; TEMP 98.8
[2020-06-02] MEDS ORDERED: ENOXAPARIN 40 MG/0.4 ML SYRINGE SQ SCH (09:00)
[2020-06-02] MEDS ORDERED: MELOXICAM 7.5 MG TAB PO SCH (09:00)
[2020-06-02] MEDS ORDERED: ESCITALOPRAM 10 MG TAB PO SCH (09:00)
[2020-06-02 09:15] LABS: African American GFR (CKD) 83.5 (60.0-200.0); Anion Gap 4.1 mmol/L (4.00-12.00); Calcium 8.5 mg/dL (8.7-10.3); Carbon Dioxide 26.9 mmol/L (21.6-31.8); Non-African American GFR(CKD) 72.1 (60.0-200.0); Potassium 4.2 mmol/L (3.5-5.5)
--- NOTE | 2020-06-02 10:57 | P.PN ---
Subjective Progress Note Date: 06/02/20 Principal diagnosis: Status post direct anterior right total hip arthroplasty Patient is doing very well today bedside. Reasonably well with therapy. His pain is controlled. He denies any chest pain or shortness of breath. Objective - Vital Signs Vital signs: Vital Signs Temp 98.8 F 06/02/20 07:00 Pulse 71 06/02/20 07:00 Resp 18 06/02/20 01:30 BP 116/78 06/02/20 07:00 Pulse Ox 97 06/02/20 07:00 Intake & Output 06/01/20 06/02/20 06/02/20 18:59 06:59 18:59 Intake Total 1843 400 Output Total 200 Balance 1643 400 Weight 94.3 kg Intake: IV 1251 Oral 592 400 Output: Estimated Blood Loss 200 Other: # Voids 1 1 - Exam Right lower extremity: Incision is clean, dry, and intact. The foam dressing is in good condition. There is minimal soft tissue swelling and ecchymosis surrounding the medial and lateral aspects of the incision. Calf is soft, no tenderness with palpation. Plantar flexion, dorsiflexion, EHL, FHL are intact. Sensory exam to light touch throughout the extremity is intact, dorsal pedis pulses 2+. - Labs CBC & Chem 7: 06/02/20 05:52 06/02/20 05:52 Labs: Abnormal Lab Results - Last 24 Hours (Table) 06/02/20 06/02/20 Range/Units 05:52 05:52 RBC 3.59 L (4.30-5.90) m/uL Hgb 12.1 L D (13.0-17.5) gm/dL Hct 37.2 L (39.0-53.0) % MCV 103.6 H (80.0-100.0) fL BUN/Creatinine Ratio 10.00 L (12.00-20.00) Ratio Calcium 8.5 L (8.7-10.3) mg/dL Assessment and Plan Assessment: Status post direct anterior right total hip arthroplasty Plan: Pain control, plan for discharge home on oral medication DVT prophylaxis, aspirin 81 mg twice a day Wound care instructions discussed Therapy and nursing at home after discharge Medical recommendations Plan for discharge home today Time with Patient: Less than 30
--- NOTE | 2020-06-02 10:59 | P.DS ---
Providers Date of admission: 06/01/2020 Expected date of discharge: 06/02/20 Attending physician: Jeet Hernandez Consults: 06/01/20 09:13 Consult Physician Routine Consulting Provider: Prisca Avina Consult Reason/Comments: Medical management Do you want consulting provider notified?: Yes Primary care physician: Stated None Hospital Course: Date of admission: 06/01/2020 Date of discharge: 06/02/2020 Admission diagnosis: Status post direct anterior right total hip arthroplasty Discharge diagnosis: Same Attending physician: Dr. Hernandez Surgical procedures: Direct anterior right total hip arthroplasty Brief history: Patient is a 44-year-old male with a history of progressive primary right hip osteoarthritis. At this point patient has failed conservative treatment measures and has opted to proceed with a elective direct anterior right total hip arthroplasty. Hospital course: Details of patient's surgery can be found in operative report. Patient tolerated the procedure well and was subsequently transported to orthopedic floor. Patient's orthopeidc and medical care was provided daily. Patient had daily laboratory tests performed for evaluation of overall blood counts. Patient had daily physical therapy to include strengthening range of motion as well as education with walker ambulation. Patient was treated with Lovenox for their postoperative DVT prophylaxis during their inpatient stay. Patient was noted to have a relatively uneventful postoperative course. Patient reported satisfactory pain control with oral pain medications by postoperative day 0. Patient showed satisfactory progress with physical therapy. Patient moved steadily through the program and had no difficulty meeting the goals by postoperative day 1. Given patient's otherwise satisfactory course and having met physical therapy goals, plan is to discharge patient home on postoperative day 1. Discharge condition/disposition: Patient will be discharged home in stable con dition. Discharge medications: Instructions are given on resumption of patient's normal daily medications per primary care recommendation, in addition patient will be prescribed [place] 7.5 mg/325 mg, Colace 100 mg, aspirin 81 mg Discharge instructions: 1. Wound care and infection precautions, keep incision dry and covered while showering, no lotions, creams, moisturizers. No soaking, tubs, pools, hottubs. Do not scrub over the incision. 2. Weight-bear as tolerated with walker / cane until follow-up. 3. Ice and elevate when necessary. Do not exceed 20 minutes per hour with ice pack. 4. Utilize compression sleeve until seen at first follow up appointment. 5. Visiting nursing care. 6. Home physical therapy 7. Pain meds and anticoagulants per prescription. 8. Pain medication has potential to cause constipation. Increase oral fluid and fiber intake. Contact primary care provider if you have not had a bowel movement within 48 hours after discharge 9. No anti-inflammatory medication until discussed at first post operative visit, this including Motrin, Aleve, Mobic, Diclofenac,. 10. Follow up in office at 2 weeks postop with Get Lopes PA-C 11. Follow up with your primary care doctor 7-10 days after discharge. 12. Contact [facility] with any questions, . Procedures: Direct anterior right total hip arthroplasty Patient Condition at Discharge: Good Plan - Discharge Summary Discharge Rx Participant: Yes New Discharge Prescriptions: New Aspirin [Adult Low Dose Aspirin EC] 81 mg PO BID #60 tablet.dr [place] [Colace] 100 mg PO DAILY #30 capsule HYDROcodone/APAP 7.5-325MG [[place] 7.5] 1 - 2 each PO Q6HR PRN #42 tab PRN Reason: Pain No Action Elviteg/Rowan/Emtric/Tenofo Dis [Stribild Tablet] 1 tab PO DAILY Triamcinolone 0.1% Cream [Kenalog 0.1% Cream] 1 applicatio TOPICAL DAILY Albuterol Sulfate [Proair Hfa] 1 - 2 puff INHALATION DAILY PRN PRN Reason: Dyspnea Clobetasol Propionate [Temovate 0.05% Cream] 1 applic TOPICAL DAILY Escitalopram [Lexapro] 10 mg PO DAILY Meloxicam [Mobic] 15 mg PO DAILY Discharge Medication List Elviteg/Rowan/Emtric/Tenofo Dis [Stribild Tablet] 1 tab PO DAILY 09/04/17 [History] Albuterol Sulfate [Proair Hfa] 1 - 2 puff INHALATION DAILY PRN 05/26/20 [History] Clobetasol Propionate [Temovate 0.05% Cream] 1 applic TOPICAL DAILY 05/26/20 [History] Escitalopram [Lexapro] 10 mg PO DAILY 05/26/20 [History] Meloxicam [Mobic] 15 mg PO DAILY 05/26/20 [History] Triamcinolone 0.1% Cream [Kenalog 0.1% Cream] 1 applicatio TOPICAL DAILY 05/26/20 [History] Aspirin [Adult Low Dose Aspirin EC] 81 mg PO BID #60 tablet. 06/02/20 [Rx] Docusate [Colace] 100 mg PO DAILY #30 capsule 06/02/20 [Rx] HYDROcodone/APAP 7.5-325MG [[place] 7.5] 1 - 2 each PO Q6HR PRN #42 tab 06/02/20 [Rx] Follow up Appointment(s)/Referral(s): Jean-Claude Lopes PAC [PHYSICIAN [facility]] - 06/17/20 1:50 pm Activity/Diet/Wound Care/Special Instructions: Orthopedic Discharge Instructions: 1. Wound care and infection precautions, keep incision dry and covered while showering, no lotions, creams, moisturizers. No soaking, pools, hot tubs. Do not scrub over incision. Ok to remove bandage on 06/11/2020 2. Weight-bear as tolerated with walker / cane until follow-up. 3. Ice and elevate when necessary. Do not exceed 20 minutes per hour with ice pack. 4. Utilize compression sleeve until seen at first follow up appointment. 5. Pain meds and anticoagulants per prescription. 6. Pain medication has potential to cause constipation. Increase oral fluid and fiber intake. Contact primary care provider if you have not had a bowel movement within 48 hours after discharge. 7. No anti-inflammatory medication until discussed at first post operative visit, this including Motrin, Aleve, Mobic, Diclofenac. 8. Follow up in office at 2 weeks postop with Get Lopes PA-C 9. Follow up with your primary care doctor 7-10 days after discharge. 10. Contact [facility] with any questions, . Discharge Disposition: HOME WITH HOME HEALTH SERVICES
--- NOTE | 2020-06-02 14:54 | PN ---
PROGRESS NOTE DATE OF SERVICE: 06/02/2020 REASON FOR FOLLOWUP: Medical management, HIV, and anxiety, depression. INTERVAL HISTORY: The patient was seen on rounds this morning. The patient overall is feeling better. Breathing comfortably. Pain is controlled. No chest pain, shortness of breath, no abdominal pain, no diarrhea. PHYSICAL EXAMINATION: Blood pressure 116/70 with a pulse of 71, temperature 98.8. He is 97% on room air. General description is a middle-aged male, lying in bed, in no distress. RESPIRATORY SYSTEM: Unlabored breathing, clear to auscultation anteriorly. HEART: S1, S2. Regular rate and rhythm. ABDOMEN: Soft, no tenderness. LABS: Hemoglobin is 12.1, white count 8.8, creatinine 1.2. IMPRESSION/PLAN: 1. Patient with HIV. For the patient continues to be on Stribild and follow up in the office as scheduled. 2. Patient with anxiety, depression. Continue with Lexapro. 3. Status post right hip arthroplasty. Pain management and physical therapy for Ortho. MMODL / IJN: [id number] /
== END 2020-06-02 12:44 | disposition home health service (06) ==
LOC: OR 05:45 → 4SSUR 09:21 → OR 06-02 12:44
PROVIDERS: ATTEND Orthopaedic Surgery
DX: M16.11 Unilateral primary osteoarthritis, right hip (principal); M87.051 Idiopathic aseptic necrosis of right femur; M87.052 Idiopathic aseptic necrosis of left femur; B20 Human immunodeficiency virus [HIV] disease; J45.909 Unspecified asthma, uncomplicated; G40.909 Epilepsy, unspecified, not intractable, without status epilepticus; F41.9 Anxiety disorder, unspecified; F32.9 Major depressive disorder, single episode, unspecified; F17.210 Nicotine dependence, cigarettes, uncomplicated; Z96.642 Presence of left artificial hip joint; Z79.1 Long term (current) use of non-steroidal anti-inflammatories (NSAID); Z79.899 Other long term (current) drug therapy; Z82.49 Family history of ischemic heart disease and other diseases of the circulatory system; Z83.3 Family history of diabetes mellitus
CPT/HCPCS: 27130; 97116; 97110; 97161; 88305; 80048; 85025; 88311; 73501; C1776; J2250; J0171; J0330; J1100; J2710; J0690 ×2; J2405; J2001; J1650; J3010; J1885; J1170 ×2; J2795; J2704; J0735; 86850; 86900; 86901

== ENCOUNTER → 2020-09-30 | Outpatient (CLI) | payer OTHER ==
[2020-09-30 19:38] LABS: Basophils # (A) 0.05 X 10*3/uL (0.00-0.10); Basophils % (A) 0.7 %; Eosinophils # (A) 0.12 X 10*3/uL (0.04-0.35); Eosinophils % (A) 1.8 %; HCT 50.4 % (39.6-50.0); HGB 15.8 g/dL (13.0-17.0); Lymphocytes # (A) 2.26 X 10*3/uL (0.90-5.00); Lymphocytes % (A) 33.3 %; MCHC 31.3 g/dL (32.0-37.0); MCV 95.8 fL (80.0-97.0); Mean Platelet Volume 11.9 fL (9.5-12.2); Monocytes % (A) 10.3 %; Neutrophils # (A) 3.62 X 10*3/uL (1.80-7.70); Neutrophils % (A) 53.5 %; Platelet Count 259 X 10*3/uL (140-440); RBC 5.26 X 10*6/uL (4.40-5.60); RDW 14.9 % (11.5-14.5); WBC 6.78 X 10*3/uL (4.50-10.00)
[2020-09-30 19:57] LABS: Albumin 4.9 g/dL (3.80-4.90); Albumin/Globulin Ratio 1.96 (1.60-3.17); Anion Gap 5.9 mmol/L (4.00-12.00); BUN/Creat Ratio 6.67 Ratio (12.00-20.00); Calcium 9.3 mg/dL (8.7-10.3); Carbon Dioxide 29.1 mmol/L (21.6-31.8); Chol/HDL Ratio 5.66; Globulin 2.5 g/dL (1.6-3.3); LDL Cholesterol,Calculated 154.4 mg/dL (0.0-131.0); Non-African American GFR(CKD) 71.6 (60.0-200.0); Potassium 4.9 mmol/L (3.5-5.5); Total Bilirubin 0.3 mg/dL (0.3-1.2); Total Protein 7.4 g/dL (6.2-8.2); VLDL Calculation 22.6 mg/dL (5.00-40.00)
[2020-09-30 20:06] LABS: Prostate Specific Antigen 0.3 ng/mL (0.0-2.5)
[2020-09-30 23:42] LABS: Hemoglobin A1C 6.1 % (4.0-6.0)
[2020-10-01 11:57] LABS: HIV-1 RNA Not detected (Not detected); HIV-1 RNA, Quant <40 Copies/mL (<40)
[2020-10-02 10:21] LABS: T4/T8 Ratio (CD4:CD8) 0.4 (1.0-3.7)
== END | disposition home or self-care (01) ==
LOC: LABWHC1 10:35
PROVIDERS: ATTEND Internal Medicine Infectious Disease
DX: B20 Human immunodeficiency virus [HIV] disease (principal)
CPT/HCPCS: 36415; 80053; 80061; 83036; 84153; 85025; 86355; 86357; 86359; 86360; 87536

== ENCOUNTER → 2020-09-30 | Outpatient (CLI) | payer OTHER | END | disposition home or self-care (01) | LOC: LABWHC1 10:37 | PROVIDERS: ATTEND Family Medicine | DX: Z53.9 Procedure and treatment not carried out, unspecified reason (principal) ==

== ENCOUNTER 2025-02-28 09:15 | Inpatient (IN) | payer OTHER ==
[2025-02-28] MEDS: LACTATED RINGERS 1,000 ML IV SCH ×2 (11:27→16:34)
[2025-02-28 11:29] LABS: Basophils # (A) 0.09 10*3/uL (0.00-0.10); Basophils % (A) 0.9 %; Eosinophils # (A) 0.02 10*3/uL (0.04-0.35); Eosinophils % (A) 0.2 %; HCT 33.3 % (39.6-50.0); HGB 11.0 g/dL (13.0-17.0); Lymphocytes # (A) 1.12 10*3/uL (0.90-5.00); Lymphocytes % (A) 11.7 %; MCH 34.1 pg (27.0-32.0); MCHC 33.0 g/dL (32.0-37.0); MCV 103.1 fL (80.0-97.0); Monocytes # (A) 0.86 10*3/uL (0.20-1.00); Monocytes % (A) 9.0 %; Neutrophils # (A) 7.07 10*3/uL (1.80-7.70); Neutrophils % (A) 73.7 %; Platelet Count 250 10*3/uL (140-440); RBC 3.23 10*6/uL (4.40-5.60); RDW 24.4 % (11.5-14.5); WBC 9.59 10*3/uL (4.50-10.00)
[2025-02-28 11:49] LABS: Bacteria,Urine Rare /hpf; Bilirubin,Urine Negative (Negative); Blood,Urine Negative (Negative); Color,Urine Yellow; Glucose,Urine (UA) Negative (Negative); Ketones,Urine Negative (Negative); Leukocyte Esterase,Urine Small (Negative); Mucus,Urine Rare /hpf; Nitrite,Urine Negative (Negative); PH, Urine 6.5 (5.0-8.0); Protein,Urine 1+ (Negative); RBC,Urine 1 /hpf (0-5); Specific Gravity,Urine 1.029 (1.001-1.035); Squamous Epithelial Cell,Urine <1 /hpf (0-4); Urobilinogen,Urine <2.0 mg/dL (<2.0); WBC,Urine 1 /hpf (0-5)
--- NOTE | 2025-02-28 12:00 | ED ---
Weakness HPI - General Chief complaint: Weakness Stated complaint: Weakness Time Seen by Provider: 02/28/25 10:47 Source: patient, RN notes reviewed Mode of arrival: ambulatory Limitations: no limitations - History of Present Illness Initial comments: This is a 49-year-old male who presents to the emergency department for lower extremity weakness. States that for the last 20 days his legs feel like they are not working. He does report some paresthesias but states that if he tries to stand up he will just fall down. States that this encompasses both of his lower extremities. He has some cramping and discomfort associated with it as well. He was discharged from [facility] 2 days ago after being admitted for 20 days. States that he went to the facility for the same complaint. However, patient is a relatively poor historian. States that they did several tests but could not come up with an answer for the weakness. He does have a history of HIV but was not on any medication prior to that hospitalization. He was started on Biktarvy as well as several other medications when he was discharged. However, he is unsure what they are and has not started any. Patient also reports a cough and some shortness of breath for the last several days. Denies any chest pain. - Related Data Home Medications Medication Instructions Recorded Confirmed Elviteg/Cob/Emtri/Tenofo Disop 1 tab PO DAILY 09/04/17 05/26/20 [Stribild Tablet] Albuterol Sulfate [Proair Hfa] 1 - 2 puff INHALATION DAILY PRN 05/26/20 05/26/20 Clobetasol Propionate [Temovate 1 applic TOPICAL DAILY 05/26/20 05/26/20 0.05% Cream] Escitalopram [Lexapro] 10 mg PO DAILY 05/26/20 05/26/20 Meloxicam [Mobic] 15 mg PO DAILY 05/26/20 05/26/20 Triamcinolone 0.1% Cream [Kenalog 1 applicatio TOPICAL DAILY 05/26/20 05/26/20 0.1% Cream] Previous Rx's Medication Instructions Recorded Aspirin [Adult Low Dose Aspirin EC] 81 mg PO BID #60 tablet. 06/02/20 Docusate [Colace] 100 mg PO DAILY #30 capsule 06/02/20 HYDROcodone/APAP 7.5-325MG [[place] 1 - 2 each PO Q6HR PRN #42 tab 06/02/20 7.5] Allergies Allergy/AdvReac Type Severity Reaction Status Date / Time No Known Allergies Allergy Verified 02/28/25 09:38 Review of Systems ROS Statement: Those systems with pertinent positive or pertinent negative responses have been documented in the HPI. ROS Other: All systems not noted in ROS Statement are negative. 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 History of Any Multi-Drug Resistant Organisms: None Reported Past Surgical History: Joint Replacement Additional Past Surgical History / Comment(s): hip replaced, ankle pins placed Past Psychological History: No Psychological Hx Reported Smoking Status: Never smoker Past Alcohol Use History: None Reported Past Drug Use History: Marijuana - Past Family History Father Family Medical History: Deep Vein Thrombosis (DVT) Mother Family Medical History: Diabetes Mellitus General Exam Limitations: no limitations General appearance: alert, in no apparent distress Head exam: Present: atraumatic, normocephalic, normal inspection Respiratory exam: Present: normal lung sounds bilaterally. Absent: respiratory distress, wheezes, rales, rhonchi, stridor Cardiovascular Exam: Present: normal rhythm, tachycardia GI/Abdominal exam: Present: soft. Absent: distended, tenderness Neurological exam: Present: alert, oriented X3, CN II-XII intact Psychiatric exam: Present: normal affect, normal mood Skin exam: Present: warm, dry, intact, normal color. Absent: rash Course Vital Signs 02/28/25 02/28/25 02/28/25 09:34 11:57 13:52 Temperature 100.1 F H 99.8 F H Pulse Rate 121 H 103 H 113 H Respiratory 18 20 20 Rate Blood Pressure 102/62 91/61 114/70 O2 Sat by Pulse 96 98 94 L Oximetry Medical Decision Making - Medical Decision Making This is a 49 year old male who presents to the emergency department for lower extremity weakness. Was pt. sent in by a medical professional or institution? @ -No Did you speak to anyone other than the patient for history? @ -No Did you review nursing and triage notes? @ -Yes, and I agree, it is accurate with regards to the patient's symptoms. Were old charts reviewed? @ -Discharge summary from [facility] advising that the patient was admitted from 02/08-02/26. He was noted to have multifocal pneumonia and sepsis at their facility. Due to concern for pneumocystitis pneumonia he was started on Bactrim at discharge. They had also planned on doing a bronchoscopy at their facility, however this was unable to be done prior to discharge. Additionally, he was just started on Biktarvy and had not been taking any medication for the HIV prior to this. He was also noted to have multiple seizures while he was there, however they ended up resolving on their own. - Patient had a CT scan of the brain on 02/08, 02/14, and 02/17 at [facility] revealing no acute findings on any of the images. -CSF culture from 02/16: NEGATIVE -VONDA Virus DNA, PCR from 02/16: NEGATIVE -CMV antibody IGG and IGM: UNDETECTABLE -Cryptococcal antigen: NEGATIVE -Syphilis: NEGATIVE -QuantiFERON-TB Gold Plus: NEGATIVE -MRSA screen by culture: POSITIVE -Absolute CD 4 Yulan: 14 -%CD 4 Pos. Lymph: 2.4 -Abs. CD 8 supressor: 370 -%CD 8 Pos. Lymph: 61.6 -CD4/CD8 Ratio: 0.04 -Blood culture collected 02/08, resulted 02/17, POSITIVE for corynebacterium species -Fungitell: POSITIVE (>500) Differential Diagnosis? @ -Differential Weakness: Hypoglycemia, shock, sepsis, hyponatremia, anemia, infection, CA, ETOH, adverse medicine reaction, overdose, stroke, this is not meant to be an all-inclusive list. EKG interpreted by me (3pts min.)? @ -EKG interpreted by me demonstrating the following: Sinus tachycardia. Ventricular rate 105 bpm, WI interval 152 ms, QRS duration 80 ms, QTc 387 ms. X-rays interpreted by me (1pt min.)? @ -Chest x-ray obtained. My interpretation identifies multifocal airspace opacities. CT interpreted by me (1pt min.)? @ -CT scan of the chest obtained. My interpretation identifies bilateral infiltrates. CT scan of the lumbar spine obtained. My interpretation identifies no acute fractures. U/S interpreted by me (1pt. min.)? @ -Not obtained What testing was considered but not performed? (CT, X-rays, U/S, labs)? Why? @ -None What meds were considered but not given? Why? @ -None Did you discuss the management of the patient with other professionals? @ -Yes, Dr. Vargas, who accepts the patient for admission. Did you reconcile home meds? @ -No Was smoking cessation discussed for >3mins.? @ -I discussed smoking cessation for greater than 3 minutes. The risk of smoking were discussed with the patient including but not limited to risks of cancer, stroke, coronary artery disease and COPD. Also discussed with patient were multiple methods of quitting smoking. Lastly we discussed the financial cost of smoking. Was critical care preformed (if so, how long)? @ -No Were there social determinants of health that impacted care today? How? (Homelessness, low income, unemployed, alcoholism, drug addiction, transportation, low edu. Level, literacy, decrease access to med. care, retirement, rehab)? @ -No Was there de-escalation of care discussed even if they declined? (Discuss DNR or withdrawal of care, Hospice)? @ -No What co-morbidities impacted this encounter? (DM, HTN, Smoking, COPD, CAD, Cancer, CVA, Hep., AIDS, mental health diagnosis, sleep apnea, morbid obesity)? @ -HIV/AIDS, asthma, smoking Was patient admitted / discharged? @ -Admitted. Lab work demonstrates an elevated CRP of 5.5. COVID, influenza, and RSV testing negative. Urinalysis not overly suggestive of infection. Chest x-ray demonstrates concern for multifocal pneumonia. They did advise the possibility of pulmonary edema, however patient does not appear fluid overloaded and BNP not suggestive of CHF. Patient also noted to have elevated temperatures, tachycardia, and soft blood pressures. He did not initially meet all of SIRS criteria, however we did proceed with sepsis protocol in anticipation of this. Blood culture obtained and 2.5 L of LR administered per the 30 to 40 mL/kg fluid requirement. He was given ceftriaxone initially when he arrived to ensure it was administered within 3 hours. However, after the chest x-ray results returned he was started on the pneumonia protocol with the addition of azithromycin. Patient admitted to medicine for multifocal pneumonia and lower extremity weakness. Consult placed for infectious disease and neurology. PT and OT consulted as well. Case discussed with ED attending Dr. Jiménez. We did finally receive the results from patient's hospitalization at [facility], which took place from 6/21-02/26. He was treated for multifocal pneumonia and sepsis at their facility. Due to concern for pneumocystitis pneumonia he was started on Bactrim. He did have multiple other infectious disease tests done. VONDA virus, CMV, cryptococcal antigen, syphilis, and TB testing were all negative. He did have a blood culture that returned positive for corynebacterium species. Fungitell testing was also positive. He did have 3 CT scans of the brain during that hospitalization that revealed no acute process. He was also having multiple seizures at their facility, however they were able to eventually get these under control. CT scan of the chest was ordered here. This demonstrates the scattered bilateral irregular infiltrates slightly greater on the right. They advised that findings are nonspecific and they advised correlation for pneumonia and atypical pneumonia. Given the lower extremity symptoms CT scan of the lumbar spine obtained as well. No acute process was identified. Undiagnosed new problem with uncertain prognosis? @ -None Drug Therapy requiring intensive monitoring for toxicity (Heparin, Nitro, Insulin, Cardizem)? @ -None Were any procedures done? @ -None Diagnosis/symptom? @ -Multifocal pneumonia, lower extremity weakness Acute, or Chronic, or Acute on Chronic? @ -Acute Uncomplicated (without systemic symptoms) or Complicated (systemic symptoms)? @ -Complicated Side effects of treatment? @ -None Exacerbation, Progression, or Severe Exacerbation] @ -Not applicable Poses a threat to life or bodily function? @ -Yes, can lead to septic shock and - Lab Data Result diagrams: 02/28/25 11:14 02/28/25 11:14 Lab Results 02/28/25 02/28/25 02/28/25 Range/Units 11:14 11:14 11:14 WBC 9.59 (4.50-10.00) 10*3/uL RBC 3.23 L (4.40-5.60) 10*6/uL Hgb 11.0 L (13.0-17.0) g/dL Hct 33.3 L (39.6-50.0) % MCV 103.1 H (80.0-97.0) fL MCH 34.1 H (27.0-32.0) pg MCHC 33.0 (32.0-37.0) g/dL Plt Count 250 (140-440) 10*3/uL MPV 9.7 (9.5-12.2) fL Immature Gran % (Auto) 4.5 % Neutrophils % 73.7 % Lymphocytes % 11.7 % Monocytes % 9.0 % Eosinophils % 0.2 % Basophils % 0.9 % Immature Gran # 0.43 H (0.00-0.04) 10*3/uL Neutrophils # 7.07 (1.80-7.70) 10*3/uL Lymphocytes # 1.12 (0.90-5.00) 10*3/uL Monocytes # 0.86 (0.20-1.00) 10*3/uL Eosinophils # 0.02 L (0.04-0.35) 10*3/uL Basophils # 0.09 (0.00-0.10) 10*3/uL Manual Slide Review Performed Anisocytosis (manual) Present Sodium 132 L (137-145) mmol/L Potassium 4.8 (3.5-5.1) mmol/L Chloride 97 L (98-107) mmol/L Carbon Dioxide 26 (22-30) mmol/L Anion Gap 9 mmol/L BUN 19 (9-20) mg/dL Creatinine 0.93 (0.66-1.25) mg/dL Est GFR (CKD-EPI)AfAm >90 (>60 ml/min/1.73 sqM) Est GFR (CKD-EPI)NonAf >90 (>60 ml/min/1.73 sqM) Glucose 86 (74-99) mg/dL Plasma Lactic Acid Abad 1.4 (0.7-2.0) mmol/L Calcium 8.6 (8.4-10.2) mg/dL Phosphorus 7.3 H (2.5-4.5) mg/dL Magnesium 1.8 (1.6-2.3) mg/dL Total Bilirubin 0.7 (0.2-1.3) mg/dL AST 66 H (17-59) U/L ALT 63 H (4-49) U/L Alkaline Phosphatase 76 (38-126) U/L Creatine Kinase 42 L (55-170) U/L C-Reactive Protein 5.5 H (<1.0) mg/dL NT-Pro-B Natriuret Pep pg/mL Total Protein 7.1 (6.3-8.2) g/dL Albumin 3.3 L (3.5-5.0) g/dL Urine Color Urine Appearance (Clear) Urine pH (5.0-8.0) Ur Specific Morton (1.001-1.035) Urine Protein (Negative) Urine Glucose (UA) (Negative) Urine Ketones (Negative) Urine Blood (Negative) Urine Nitrite (Negative) Urine Bilirubin (Negative) Urine Urobilinogen (<2.0) mg/dL Ur Leukocyte Esterase (Negative) Urine RBC (0-5) /hpf Urine WBC (0-5) /hpf Ur Squamous Epith Cells (0-4) /hpf Urine Bacteria (None) /hpf Urine Mucus (None) /hpf Influenza Type A (PCR) (Not Detectd) Influenza Type B (PCR) (Not Detectd) RSV (PCR) (Not Detectd) SARS-CoV-2 (PCR) (Not Detectd) 02/28/25 02/28/25 02/28/25 Range/Units 11:14 11:14 13:18 WBC (4.50-10.00) 10*3/uL RBC (4.40-5.60) 10*6/uL Hgb (13.0-17.0) g/dL Hct (39.6-50.0) % MCV (80.0-97.0) fL MCH (27.0-32.0) pg MCHC (32.0-37.0) g/dL Plt Count (140-440) 10*3/uL MPV (9.5-12.2) fL Immature Gran % (Auto) % Neutrophils % % Lymphocytes % % Monocytes % % Eosinophils % % Basophils % % Immature Gran # (0.00-0.04) 10*3/uL Neutrophils # (1.80-7.70) 10*3/uL Lymphocytes # (0.90-5.00) 10*3/uL Monocytes # (0.20-1.00) 10*3/uL Eosinophils # (0.04-0.35) 10*3/uL Basophils # (0.00-0.10) 10*3/uL Manual Slide Review Anisocytosis (manual) Sodium (137-145) mmol/L Potassium (3.5-5.1) mmol/L Chloride (98-107) mmol/L Carbon Dioxide (22-30) mmol/L Anion Gap mmol/L BUN (9-20) mg/dL Creatinine (0.66-1.25) mg/dL Est GFR (CKD-EPI)AfAm (>60 ml/min/1.73 sqM) Est GFR (CKD-EPI)NonAf (>60 ml/min/1.73 sqM) Glucose (74-99) mg/dL Plasma Lactic Acid Abad (0.7-2.0) mmol/L Calcium (8.4-10.2) mg/dL Phosphorus (2.5-4.5) mg/dL Magnesium (1.6-2.3) mg/dL Total Bilirubin (0.2-1.3) mg/dL AST (17-59) U/L ALT (4-49) U/L Alkaline Phosphatase (38-126) U/L Creatine Kinase (55-170) U/L C-Reactive Protein (<1.0) mg/dL NT-Pro-B Natriuret Pep 95 pg/mL Total Protein (6.3-8.2) g/dL Albumin (3.5-5.0) g/dL Urine Color Yellow Urine Appearance Clear (Clear) Urine pH 6.5 (5.0-8.0) Ur Specific Morton 1.029 (1.001-1.035) Urine Protein 1+ H (Negative) Urine Glucose (UA) Negative (Negative) Urine Ketones Negative (Negative) Urine Blood Negative (Negative) Urine Nitrite Negative (Negative) Urine Bilirubin Negative (Negative) Urine Urobilinogen <2.0 (<2.0) mg/dL Ur Leukocyte Esterase Small H (Negative) Urine RBC 1 (0-5) /hpf Urine WBC 1 (0-5) /hpf Ur Squamous Epith Cells <1 (0-4) /hpf Urine Bacteria Rare H (None) /hpf Urine Mucus Rare H (None) /hpf Influenza Type A (PCR) Not Detected (Not Detectd) Influenza Type B (PCR) Not Detected (Not Detectd) RSV (PCR) Not Detected (Not Detectd) SARS-CoV-2 (PCR) Not Detected (Not Detectd) - Radiology Data Radiology results: report reviewed, image reviewed Disposition Clinical Impression: Multifocal pneumonia, Lower extremity weakness Disposition: ADMITTED IP TO THIS HOSP
[2025-02-28 12:06] LABS: ALT 63 U/L (4-49); African American GFR (CKD) >90 (>60 ml/min/1.73 sqM); Albumin 3.3 g/dL (3.5-5.0); Anion Gap 9 mmol/L; Blood Urea Nitrogen 19 mg/dL (9-20); Calcium 8.6 mg/dL (8.4-10.2); Carbon Dioxide 26 mmol/L (22-30); Chloride 97 mmol/L (98-107); Creatine Kinase 42 U/L (55-170); Glucose 86 mg/dL (74-99); Non-African American GFR(CKD) >90 (>60 ml/min/1.73 sqM); Sodium 132 mmol/L (137-145); Total Protein 7.1 g/dL (6.3-8.2)
[2025-02-28 12:07] LABS: Potassium 4.8 mmol/L (3.5-5.1)
[2025-02-28 12:08] LABS: AST 66 U/L (17-59); Alkaline Phosphatase 76 U/L (38-126); Magnesium 1.8 mg/dL (1.6-2.3)
--- NOTE | 2025-02-28 12:48 | XR ---
EXAMINATION TYPE: XR chest 2V DATE OF EXAM: 02/28/2025 12:37 PM COMPARISON: Chest radiographs from 05/11/2015 TECHNIQUE: XR chest 2V Frontal and lateral views of the chest. CLINICAL INDICATION:Male, 49 years old with history of Weakness; FINDINGS: Lungs/Pleura: Diffuse patchy airspace opacities. No pneumothorax or pleural effusion. Primarily withi n both mid lungs with right greater than left. Heart/mediastinum: Cardiomediastinal silhouette is unremarkable. Musculoskeletal: No acute osseous pathology. IMPRESSION: Multifocal patchy airspace opacities concerning for pneumonia versus pulmonary edema. [facility], , 02/28/2025 12:46 PM
[2025-02-28] MEDS ORDERED: PNEUMONIA PROTOCOL UTILIZED 1 EACH MISC PO PRN (13:02)
[2025-02-28] MEDS: AZITHROMYCIN 500 MG in SODIUM CHLORIDE 0.9% 250 ML IVPB STA (14:02)
[2025-02-28 14:07] LABS: Anisocytosis (M) Present
[2025-02-28 14:16] LABS: RSV Not Detected (Not Detectd)
[2025-02-28] MEDS ORDERED: KETOROLAC 15 MG/ML 1 ML VIAL IVP PRN (14:25)
[2025-02-28] MEDS ORDERED: MORPHINE SULFATE 4 MG/ML SYRINGE IV PRN (14:25)
[2025-02-28] MEDS ORDERED: ONDANSETRON 4 MG/2 ML VIAL IVP PRN (14:25)
[2025-02-28] MEDS ORDERED: NALOXONE 0.4 MG/ML 1 ML VIAL IV PRN (14:25)
[2025-02-28] MEDS: ACETAMINOPHEN TAB 500 MG TAB PO STA (14:35)
[2025-02-28] MEDS: KETOROLAC 15 MG/ML 1 ML VIAL IVP STA (14:36)
[2025-02-28] MEDS ORDERED: RX INFO: IV CONTRAST WAS GIVEN 1 EACH MISC MISCELLANE PRN (15:13)
--- NOTE | 2025-02-28 16:00 | CT ---
EXAMINATION TYPE: CT chest w con DATE OF EXAM: 02/28/2025 3:40 PM COMPARISON: Chest x-ray 02/28/2025 , CT 12/28/2011 CLINICAL INDICATION: Male, 49 years old with history of Abnormal chest x-ray, cough, HUDSON, Abnormal ch est x-ray, cough, HUDSON TECHNIQUE: Axial images were obtained at 5 mm thick sections. Reconstructed images are reviewed on LAVE[employer] computer in the coronal plane. Contrast used:80ml mL of Isovue 300 with IV Contrast, (none if empty) Oral contrast used: (none if empty) CT DLP: 1085.9 mGycm, Automated exposure control for dose reduction was used. FINDINGS: Portion of the thyroid visualized is normal. Complex pneumatocele may be in the posterior right sulcus. Scattered infiltrates are present bilaterally greater on the right. These extend from the lung apex t o the lung base. Findings are nonspecific. Correlate for pneumonia. Consider atypical pneumonia. No enlarged mediastinal or hilar adenopathy is evident. The ascending aorta diameter at the level o f the main pulmonary artery is 3.6 cm. The main pulmonary artery diameter at the bifurcation is 3.8 cm. Consider pulmonary hypertension No significant coronary artery calcifications. Limited CT sections are obtained through the upper abdomen. Multiple calcified granulomata are scatte red throughout the spleen. IMPRESSION: 1. Scattered bilateral irregular infiltrates slightly greater on the right. Findings are nonspecific. Correlate for pneumonia and atypical pneumonia. Pulmonary edema is considered less likely. Consider additional etiologies such as hypersensitivity pneumonitis. [facility], , 02/28/2025 3:57 PM
--- NOTE | 2025-02-28 16:04 | CT ---
EXAMINATION TYPE: CT lumbar spine wo con DATE OF EXAM: 02/28/2025 3:40 PM COMPARISON: None. CLINICAL INDICATION: Male, 49 years old with history of Lower extremity weakness, Lower extremity wea kness, pain TECHNIQUE: CT of the lumbar spine is performed on a spiral scan at 3 mm thick sections. Reconstructed images are performed in the coronal and sagittal planes. Contrast used: mL of , (none if empty) Oral contrast used: (none if empty) CT DLP: 1085.9 mGycm, Automated exposure control for dose reduction was used. FINDINGS: T12-L1: No focal disc herniation or significant disc bulge is evident. No spinal canal stenosis or neural foraminal stenosis is present. L1-L2: No focal disc herniation or significant disc bulge is evident. No spinal canal stenosis or n eural foraminal stenosis is present L2-L3: No focal disc herniation or significant disc bulge is evident. No spinal canal stenosis or n eural foraminal stenosis is present L3-L4: No focal disc herniation or significant disc bulge is evident. No spinal canal stenosis or n eural foraminal stenosis is present L4-L5: No focal disc herniation or significant disc bulge is evident. No spinal canal stenosis or n eural foraminal stenosis is present L5-S1: No focal disc herniation or significant disc bulge is evident. No spinal canal stenosis or n eural foraminal stenosis is present. Spina bifida occulta of L5 is present. Vertebral alignment appears normal. IMPRESSION: No suspicious acute changes to account lower extremity weakness. Follow-up MRI can be performed as cl inically indicated. [facility], , 02/28/2025 4:02 PM
[2025-02-28] MEDS: MORPHINE SULFATE 4 MG/ML SYRINGE IVP STA (16:33)
[2025-02-28] MEDS ORDERED: ALBUTEROL NEBULIZED 2.5 MG/3 ML INHALATION PRN (16:35)
[2025-02-28] MEDS ORDERED: PANTOPRAZOLE 40 MG TABLET PO SCH (16:45)
[2025-02-28] MEDS: MIDODRINE 5 MG TAB PO SCH (17:24)
[2025-02-28] MEDS: QUEtiapine 25 MG TAB PO SCH (20:13)
[2025-02-28] MEDS: levETIRAcetam 500 MG TAB PO SCH (20:14)
[2025-02-28] MEDS: DIVALPROEX 500 MG TABLET.DR PO SCH (20:14)
[2025-02-28] MEDS: HYDROcodone/APAP 5-325MG 1 EACH TAB PO PRN (22:24)
[2025-02-28] MEDS: ACETAMINOPHEN TAB 325 MG TAB PO PRN (22:24)
--- NOTE | 2025-03-01 00:16 | P.CONS ---
History of Present Illness - Reason for Consult Consult date: 02/28/25 HIV patient Requesting physician: Dian Bartlett - Chief Complaint Lower extremity weakness x 3 weeks - History of Present Illness Patient is a 49-year-old -[place] male with a past medical history significant for HIV for many years however the patient has not been on any medication for almost a year also with history of asthma and seizure disorder patient mention he was recently admitted for about 2 to 3 weeks at [facility] for lower back pain however no clear diagnosis was provided to the patient patient presented to the hospital concerning for bilateral lower extremity weakness that has been going on for about 20 days patient denies havin g any bowel or bladder problem also complaining of lower back pain mild to moderate intense without radiation denies any history of any fall denies high- grade fever or any chills on presentation to the hospital he did have low-grade fever 100.1 F patient was tachycardic mildly hypertensive and hypoxic but no need for supplemental oxygen he did have a white count 9.59 creatinine 0.93 electrolytes are normal liver enzymes mildly elevated urine has been negative influenza RSV COVID testing has been negative patient did have a chest x-ray multifocal patchy airspace opacity concerning for pneumonia versus pulmonary edema CT chest scattered bilateral clavicular lesion slightly greater on the right findings are nonspecific correlate for pneumonia and atypical pneumonia he did have a lumbar spine CT no suspicious acute changes to account for lower extremity weakness patient has been admitted to the hospital concerning for HIV and has been empirically started on Rocephin and Zithromax Review of Systems Positive point and negatives has been mentioned in the HPI, complete review of systems was performed and all other systems are negative 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 History of Any Multi-Drug Resistant Organisms: None Reported Past Surgical History: Joint Replacement Additional Past Surgical History / Comment(s): hip replaced, ankle pins placed Past Psychological History: No Psychological Hx Reported Smoking Status: Never smoker Past Alcohol Use History: None Reported Past Drug Use History: Marijuana - Past Family History Father Family Medical History: Deep Vein Thrombosis (DVT) Mother Family Medical History: Diabetes Mellitus Medications and Allergies Home Medications Medication Instructions Recorded Confirmed Type Albuterol Sulfate [Proair Hfa] 2 puff INHALATION RT-Q6H PRN 05/26/20 02/28/25 History Bictegrav/Emtricit/Tenofov Ala 1 tab PO DIRECTED 02/28/25 02/28/25 History [Biktarvy 50-200-25 mg Tablet] Divalproex [Depakote] 500 mg PO DIRECTED 02/28/25 02/28/25 History Folic Acid 1 mg PO DIRECTED 02/28/25 02/28/25 History Midodrine HCl 10 mg PO DIRECTED 02/28/25 02/28/25 History Pantoprazole [Protonix] 40 mg PO DIRECTED 02/28/25 02/28/25 History QUEtiapine [SEROquel] 12.5 mg PO DIRECTED 02/28/25 02/28/25 History Sulfamethox-Tmp 800-160Mg [Bactrim See Taper PO DIRECTED 02/28/25 02/28/25 History DS 800-160 mg] Tamsulosin [Flomax] 0.4 mg PO DIRECTED 02/28/25 02/28/25 History dexAMETHasone [Decadron] See Taper PO DIRECTED 02/28/25 02/28/25 History levETIRAcetam [Keppra] 500 mg PO DIRECTED 02/28/25 02/28/25 History Allergies Allergy/AdvReac Type Severity Reaction Status Date / Time No Known Allergies Allergy Verified 02/28/25 16:29 Physical Exam Vitals: Vital Signs Temp Pulse Resp BP Pulse Ox 02/28/25 16:30 117 H 20 84/49 94 L 02/28/25 13:52 99.8 F H 113 H 20 114/70 94 L 02/28/25 11:57 103 H 20 91/61 98 02/28/25 09:34 100.1 F H 121 H 18 102/62 96 Intake and Output 02/28/25 02/28/25 02/28/25 06:59 14:59 22:59 Other: Weight 77.111 kg GENERAL DESCRIPTION: Middle-age male lying in bed, no distress. No tachypnea or accessory muscle of respiration use. HEENT: Shows Pallor , no scleral icterus. Oral mucous membrane is dry. NECK: Trachea central, no thyromegaly. LUNGS: Unlabored breathing. Decreased breath sound at the base HEART: S1, S2, regular rate and rhythm. No loud murmur ABDOMEN: Soft, no tenderness , guarding or rigidity, no organomegaly EXTREMITIES: No edema of feet. SKIN: No rash, no masses palpable. NEUROLOGICAL: The patient is awake, alert, oriented x3, mood and affect normal. Results CBC & Chem 7: 02/28/25 11:14 02/28/25 11:14 Labs: Abnormal Lab Results - Last 24 Hours (Table) 02/28/25 02/28/25 02/28/25 Range/Units 11:14 11:14 11:14 RBC 3.23 L (4.40-5.60) 10*6/uL Hgb 11.0 L (13.0-17.0) g/dL Hct 33.3 L (39.6-50.0) % MCV 103.1 H (80.0-97.0) fL MCH 34.1 H (27.0-32.0) pg Immature Gran # 0.43 H (0.00-0.04) 10*3/uL Eosinophils # 0.02 L (0.04-0.35) 10*3/uL Sodium 132 L (137-145) mmol/L Chloride 97 L (98-107) mmol/L Phosphorus 7.3 H (2.5-4.5) mg/dL AST 66 H (17-59) U/L ALT 63 H (4-49) U/L Creatine Kinase 42 L (55-170) U/L C-Reactive Protein 5.5 H (<1.0) mg/dL Albumin 3.3 L (3.5-5.0) g/dL Urine Protein 1+ H (Negative) Ur Leukocyte Esterase Small H (Negative) Urine Bacteria Rare H (None) /hpf Urine Mucus Rare H (None) /hpf Assessment and Plan (1) Sepsis Current Visit: Yes Status: Acute Code(s): A41.9 - SEPSIS, UNSPECIFIED ORGANISM SNOMED Code(s): 45392382 (2) Noncompliance with medication regimen Current Visit: Yes Status: Acute Code(s): Z91.148 - PATIENT'S OTHER NONCOMPL WITH MEDS REGIMEN FOR OTHER REASON SNOMED Code(s): 311411225 (3) Multifocal pneumonia Current Visit: Yes Status: Acute Code(s): J18.9 - PNEUMONIA, UNSPECIFIED ORGANISM SNOMED Code(s): 887219127 (4) HIV (human immunodeficiency virus infection) Current Visit: No Status: Acute Code(s): B20 - HUMAN IMMUNODEFICIENCY VIRUS [HIV] DISEASE SNOMED Code(s): 72640488 Plan: 1patient presented hospital with lower extremity weakness did not have any bowel or bladder problem also with a history of lower back pain CT of the lumbosacral spine did not show any acute changes may benefit from further workup including MRI to better define underlying pathology and also check inflammatory markers. 2patient did have significant normality on the CT of the chest however do not have any significant respiratory symptoms pneumonia less likely but not entirely excluded with a question of fluid acquired versus atypical. 3patient with a history of HIV however has not been on any medication for almost a year we will check his CD4 count and viral load and will need a genotype to determine next antibiotic therapy 4for now continue with Rocephin and Zithromax while waiting for the workup to be completed We will follow on clinical condition and cultures to further adjust medication if needed Thank you for this consultation we will follow the patient along with you Dictation was produced using [employer] dictation software. please excuse any grammatical, word or spelling errors. Time with Patient: Greater than 30
[2025-03-01] MEDS: NON FORMULARY DRUG (Bictegrav/Emtricit/Tenofov Ala [Biktarvy 50-200-25 Mg Tablet] 1 EACH T PO SCH (08:53)
[2025-03-01] MEDS: TAMSULOSIN 0.4 MG CAP.ER.24H PO SCH (08:54)
[2025-03-01] MEDS: AZITHROMYCIN 500 MG TAB PO SCH (08:55)
[2025-03-01] MEDS: PANTOPRAZOLE 40 MG/10 ML VIAL IV SCH (08:55)
[2025-03-01] MEDS: FOLIC ACID 1 MG TAB PO SCH (08:57)
--- NOTE | 2025-03-01 09:35 | XR ---
Chest, 2 view. CLINICAL INDICATION: Male, 49 years old with history of pneumonia COMPARISON: 02/28/2025 TECHNIQUE: PA and lateral views the chest are obtained. FINDINGS: There are stable mild scattered multifocal small airspace opacities, right greater than left consiste nt with pneumonia or pulmonary edema. Heart size normal. There is no pleural effusion or pneumothorax.. The osseous structures are intact. IMPRESSION: Stable acute cardiopulmonary process in both lungs consistent with pneumonia or pulmonary edema. [facility], Workstation: [email or web address] 03/01/2025 9:33 AM
[2025-03-01 12:48] LABS: T Helper Cell (CD4) 128.0 cell/ul (443-1471); T Helper Cell (CD4) % 21.0 % (35-66); T Suppressor Cell (CD8) 362.0 cell/ul (190-832); T Suppressor Cell (CD8) % 61.0 % (9-37); T4/T8 Ratio (CD4:CD8) 0.4 (1.0-3.7)
--- NOTE | 2025-03-01 13:46 | P.HPIM ---
History of Present Illness Chief Complaint: Fall and leg weakness History of present illness; 49-year-old male with significant past medical history of HIV seizure drug abuse and nicotine dependence and several hip replacement corrections brought to the emergency department from home for evaluation of fall, patient reports he was recently discharged from [facility] ago where he stayed for 25 days however he is still experiencing symptoms. He was previously active and recently has not been able to take care of himself due to lower extremity weakness states he has 15 children and 12 grandchildren which keep him very busy. Has intermittent pain describes as tingly and sharp rates pain 5 out of 10 in the ER he was found to be febrile tachycardic and hypotensive without evidence of respiratory compromise. CT head from previous facility did not show evidence of of acute pathology In ER received chest x-ray CT scan chest and lumbar spine. Chest x-ray and chest CTA revealed evidence of alveolar edema consistent with multifocal pneumonia. CT lumbar spine showed no evidence of pathology He was admitted to medical team for management of HIV complicated by sepsis with infectious disease consulted and for management of left-sided lower extremity weakness with neurology consulted. Labs: WBC 9.59 Hgb 11 PLT 250 NA 132 K4.8 BUN 9 CR 0.93 CK 42 CRP 5.5 Procalcitonin 0.59 UA benign Quad screen negative Imaging: - EKG done in the ER showed heart rate of 105 sinus tachycardia REVIEW OF SYSTEMS: As stated above in HPI. The rest of the 14-point review of systems is negative. PHYSICAL EXAMINATION: GENERAL: The patient is alert and oriented x3, not in any acute distress. Well developed, well nourished. HEENT: Pupils are round and equally reacting to light. EOMI. No scleral icterus. No conjunctival pallor. Normocephalic, atraumatic. CARDIOVASCULAR: S1 and S2 present. No murmurs, rubs, or gallops. PULMONARY: Wheezes bilaterally ABDOMEN: Soft, nontender, nondistended, normoactive bowel sounds. No palpable organomegaly. MUSCULOSKELETAL: No joint swelling or deformity. EXTREMITIES: No cyanosis, clubbing, or pedal edema. NEUROLOGICAL: Strength right lower extremity 5 out of 5 strength left lower extremity 3 out of 5 reflexes equal bilaterally SKIN: No rashes. Assessment and Plan 49-year-old male with significant past medical history of HIV seizure drug abuse presents for lower extremity weakness that did not resolve during previous hospitalization has had difficulty taking care of himself. Imaging inconsistent with symptoms #Lower extremity weakness with pain: Potentially secondary to poly-pharmacy vs hx of multiple hip replacements vs other Neurology on consult appreciate recommendations -TSH -B12 -Folate -PT OT consult - Multimodal pain management #Multifocal pneumonia with fever and hypotension # Sepsis secondary to above ID on consult appreciate recommendations -IV Rocephin and Zithromax -Sputum culture -Legionella culture -CRP -ESR -Pro-Ruiz Chronic Conditions: #HIV with poor medication compliance Biktarvy ID consulted CD4 and CD8 count -HIV genotype #Seizure disorder Keppra and Depakote DVT ppx: SCD GI ppx: Protonix CODE STATUS: Full Dispo: Pending clinical course Mohamud Mckenna DO PGY1 Dictation was produced using [employer] dictation software. please excuse any grammatical, word or spelling errors. Dr. Ame MD I have performed a history and physical examination and medical decision making of this patient, discussed the same with the dictator, and agree with the dictators assessment and plan as written, documented as a scribe. Based on total visit time, I have performed more than 50% of this visit. 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 History of Any Multi-Drug Resistant Organisms: None Reported Past Surgical History: Joint Replacement Additional Past Surgical History / Comment(s): hip replaced, ankle pins placed Past Psychological History: No Psychological Hx Reported Smoking Status: Never smoker Past Alcohol Use History: None Reported Past Drug Use History: Marijuana - Past Family History Father Family Medical History: Deep Vein Thrombosis (DVT) Mother Family Medical History: Diabetes Mellitus Medications and Allergies Home Medications Medication Instructions Recorded Confirmed Type Albuterol Sulfate [Proair Hfa] 2 puff INHALATION RT-Q6H PRN 05/26/20 02/28/25 History Bictegrav/Emtricit/Tenofov Ala 1 tab PO DIRECTED 02/28/25 02/28/25 History [Biktarvy 50-200-25 mg Tablet] Divalproex [Depakote] 500 mg PO DIRECTED 02/28/25 02/28/25 History Folic Acid 1 mg PO DIRECTED 02/28/25 02/28/25 History Midodrine HCl 10 mg PO DIRECTED 02/28/25 02/28/25 History Pantoprazole [Protonix] 40 mg PO DIRECTED 02/28/25 02/28/25 History QUEtiapine [SEROquel] 12.5 mg PO DIRECTED 02/28/25 02/28/25 History Sulfamethox-Tmp 800-160Mg [Bactrim See Taper PO DIRECTED 02/28/25 02/28/25 History DS 800-160 mg] Tamsulosin [Flomax] 0.4 mg PO DIRECTED 02/28/25 02/28/25 History dexAMETHasone [Decadron] See Taper PO DIRECTED 02/28/25 02/28/25 History levETIRAcetam [Keppra] 500 mg PO DIRECTED 02/28/25 02/28/25 History Allergies Allergy/AdvReac Type Severity Reaction Status Date / Time No Known Allergies Allergy Verified 02/28/25 16:29 Physical Exam Vitals: Vital Signs Temp Pulse Pulse Resp BP BP Pulse Ox 03/01/25 08:00 100.3 F H 113 H 17 100/66 97 03/01/25 02:22 89/56 03/01/25 02:00 97.5 F L 107 H 16 79/38 98 02/28/25 22:00 101.0 F H 119 H 16 107/69 92 L 02/28/25 21:40 104 H 16 101/64 96 02/28/25 20:09 99.4 F 104 H 19 100/89 96 02/28/25 19:07 105 H 20 89/52 93 L 02/28/25 17:00 115 H 20 83/54 94 L 02/28/25 16:30 117 H 20 84/49 94 L 02/28/25 13:52 99.8 F H 113 H 20 114/70 94 L 02/28/25 11:57 103 H 20 91/61 98 Intake and Output 02/28/25 03/01/25 03/01/25 22:59 06:59 14:59 Intake Total 1630 Balance 1630 Intake: Intake, IV Titration 1040 Amount Lactated Ringers 1,000 ml 1040 @ 130 mls/hr IV .Q7H42M [facility] Rx#:[id number] Oral 590 Other: Voiding Method Urinal Incontinent # Voids 3 Weight 77.111 kg Results CBC & Chem 7: 02/28/25 11:14 02/28/25 11:14 Labs: Abnormal Lab Results - Last 24 Hours (Table) 02/28/25 02/28/25 02/28/25 Range/Units 11:14 11:14 11:14 RBC 3.23 L (4.40-5.60) 10*6/uL Hgb 11.0 L (13.0-17.0) g/dL Hct 33.3 L (39.6-50.0) % MCV 103.1 H (80.0-97.0) fL MCH 34.1 H (27.0-32.0) pg Immature Gran # 0.43 H (0.00-0.04) 10*3/uL Eosinophils # 0.02 L (0.04-0.35) 10*3/uL Sodium 132 L (137-145) mmol/L Chloride 97 L (98-107) mmol/L Phosphorus 7.3 H (2.5-4.5) mg/dL AST 66 H (17-59) U/L ALT 63 H (4-49) U/L Creatine Kinase 42 L (55-170) U/L C-Reactive Protein 5.5 H (<1.0) mg/dL Albumin 3.3 L (3.5-5.0) g/dL Procalcitonin (0.02-0.50) ng/mL Urine Protein 1+ H (Negative) Ur Leukocyte Esterase Small H (Negative) Urine Bacteria Rare H (None) /hpf Urine Mucus Rare H (None) /hpf 02/28/25 Range/Units 11:14 RBC (4.40-5.60) 10*6/uL Hgb (13.0-17.0) g/dL Hct (39.6-50.0) % MCV (80.0-97.0) fL MCH (27.0-32.0) pg Immature Gran # (0.00-0.04) 10*3/uL Eosinophils # (0.04-0.35) 10*3/uL Sodium (137-145) mmol/L Chloride (98-107) mmol/L Phosphorus (2.5-4.5) mg/dL AST (17-59) U/L ALT (4-49) U/L Creatine Kinase (55-170) U/L C-Reactive Protein (<1.0) mg/dL Albumin (3.5-5.0) g/dL Procalcitonin 0.59 H (0.02-0.50) ng/mL Urine Protein (Negative) Ur Leukocyte Esterase (Negative) Urine Bacteria (None) /hpf Urine Mucus (None) /hpf Thrombosis Risk Factor Assmnt - Choose All That Apply Any of the Below Risk Factors Present?: Yes Each Factor Represents 1 point: Age 41-60 years Other Risk Factors: No Thrombosis Risk Factor Assessment Total Risk Factor Score: 1 Thrombosis Risk Factor Assessment Level: Low Risk
--- NOTE | 2025-03-01 14:54 | P.PN ---
Subjective Progress Note Date: 03/01/25 Principal diagnosis: Reason for follow-up is HIV/PCP pneumonia Patient is a 49-year-old -[place] male with a past medical history significant for HIV for many years however the patient has not been on any medication for almost a year also with history of asthma and seizure disorder with recent admission at [facility] with the patient was diagnosed with a PCP pneumonia patient apparently has not completed his oral Bactrim DS therapy as per discussion with admitting physician now presented to this facility mostly with the weakness in the lower extremity. On today's evaluation that is 03/01/2024, patient did have a temperature of 100.3 F this morning and denies having any chills, patient is on room air and breathing comfortably no chest pain, did have occasional cough, the patient did not have any nausea vomiting abdominal pain or any diarrhea, still complaining of weakness to the lower extremity. Patient white count is 9.59, creatinine 0.93, CD4 count coming up to 128 Objective - Vital Signs Vital signs: Vital Signs Temp 98.4 F 03/01/25 12:26 Pulse 109 H 03/01/25 12:26 Resp 19 03/01/25 12:26 BP 98/53 03/01/25 12:26 Pulse Ox 95 03/01/25 12:26 FiO2 Intake & Output 02/28/25 03/01/25 03/01/25 18:59 06:59 18:59 Intake Total 1630 Balance 1630 Weight 77.111 kg 77.111 kg Intake: Intake, IV Titration 1040 Amount Lactated Ringers 1,000 ml 1040 @ 130 mls/hr IV .Q7H42M [facility] Rx#:[id number] Oral 590 Other: Voiding Method Urinal Urinal Incontinent Incontinent # Voids 3 - Exam GENERAL DESCRIPTION: Middle-age male lying in bed in no distress RESPIRATORY SYSTEM: Unlabored breathing , decreased breath sounds at bases HEART: S1 S2 regular rate and rhythm , ABDOMEN: Soft , no tenderness EXTREMITIES: No edema feet - Labs CBC & Chem 7: 02/28/25 11:14 02/28/25 11:14 Labs: Abnormal Lab Results - Last 24 Hours (Table) 02/28/25 02/28/25 03/01/25 Range/Units 11:14 17:46 06:11 ESR 41 H (0-20) mm/Hr C-Reactive Protein (0.00-0.80) mg/dL Procalcitonin 0.59 H (0.02-0.50) ng/mL % CD4 [place] 21 L (35-66) % Absolute CD4 [place] 128 L (443-1471) cell/ul CD4/CD8 Ratio 0.4 L (1.0-3.7) % CD8 Suppressor 61 H (9-37) % 03/01/25 Range/Units 06:11 ESR (0-20) mm/Hr C-Reactive Protein 9.80 H (0.00-0.80) mg/dL Procalcitonin (0.02-0.50) ng/mL % CD4 [place] (35-66) % Absolute CD4 [place] (443-1471) cell/ul CD4/CD8 Ratio (1.0-3.7) % CD8 Suppressor (9-37) % Assessment and Plan (1) Sepsis Current Visit: Yes Status: Acute Code(s): A41.9 - SEPSIS, UNSPECIFIED ORGANISM SNOMED Code(s): 45901407 (2) Noncompliance with medication regimen Current Visit: Yes Status: Acute Code(s): Z91.148 - PATIENT'S OTHER NONCOMPL WITH MEDS REGIMEN FOR OTHER REASON SNOMED Code(s): 596918990 (3) Multifocal pneumonia Current Visit: Yes Status: Acute Code(s): J18.9 - PNEUMONIA, UNSPECIFIED ORGANISM SNOMED Code(s): 781949094 (4) HIV (human immunodeficiency virus infection) Current Visit: No Status: Acute Code(s): B20 - HUMAN IMMUNODEFICIENCY VIRUS [HIV] DISEASE SNOMED Code(s): 06130037 (5) PCP (pneumocystis jiroveci pneumonia) Current Visit: Yes Status: Acute Code(s): B59 - PNEUMOCYSTOSIS SNOMED Code(s): 535614488 Plan: 1patient presented hospital with lower extremity weakness did not have any bowel or bladder problem also with a history of lower back pain CT of the lumbosacral spine did not show any acute changes may benefit from further workup including MRI to better define underlying pathology and also check inflammatory markers. 2patient did have significant normality on the CT of the chest however do not have any significant respiratory symptoms pneumonia less likely but not entirely excluded with a question of fluid acquired versus atypical. 3patient with a history of HIV however has not been on any medication for almost a year seem to have been recently started on antiretroviral Biktarvy at other facility not very clear if the patient was taking it on discharge his CD4 count is 128 viral load genotype is currently pending 4patient did have a PCP pneumonia but the patient has not completed his win tment we will start him on oral Bactrim DS for another 7 days Dictation was produced using [employer] dictation software. please excuse any grammatical, word or spelling errors. Time with Patient: Less than 30
[2025-03-01] MEDS: SULFAMETHOX-TMP 800-160MG 1 EACH TAB PO SCH (17:36)
--- NOTE | 2025-03-01 18:02 | P.CNNES ---
<Loly Moon - Last Filed: 03/01/25 14:01> History of Present Illness Consult date: 03/01/25 Requesting physician: Dian Bartlett Reason for Consult: bilateral lower extremity weakness History of Present Illness: Patient is a 49-year-old male with past medical history significant for seizure disorder presented to the ED for lower extremity weakness. Patient stated that for the last 20 days his legs feel like they are not working, reports that if he tries to stand up he will just fall down. He also reported some paresthesias, cramping and discomfort. Patient states that he admitted for 20 days at [facility] for similar complaints, they did several tests but could not come up with an answer for his weakness and was discharged 2 days ago and sent home. He reports not having much of sensation on his legs at baseline. He also had seizures at the [facility]. Patient also has a history of HIV. Patient was started on Biktarvy upon discharge but he has not started taking any of the discharge medications. Records from his hospitalization at [facility] showed he was admitted from 02/08- 02/26. He was treated for multifocal pneumonia and sepsis at their facility. Due to concern for pneumocystitis pneumonia he was started on Bactrim. He did have multiple other infectious disease tests done. VONDA virus, CMV, cryptococcal antigen, syphilis, and TB testing were all negative. He did have a blood cultur e that returned positive for corynebacterium species. Fungitell testing was also positive. He did have 3 CT scans of the brain during that hospitalization that revealed no acute process. He was also having multiple seizures at their facility, however they were able to eventually get these under control. CT scan of the chest was ordered here. This demonstrates the scattered bilateral irregular infiltrates slightly greater on the right. They advised that findings are nonspecific and they advised correlation for pneumonia and atypical pneumonia. Given the lower extremity symptoms CT scan of the lumbar spine obtained as well. No acute process was identified. Patient seen today under neurological consultation. Patient was diagnosed with seizure disorder when he was a teenager and has since been on Depakote. He was found to have HIV when he was in his 20s. Patient smokes a joint once every 6 months, denies smoking or drinking alcohol, quit 10 years ago. He denies being on any blood thinners. He did mention going to [place] a month ago for 1 month. He mentions having insurance issues and was not able to take any of his medications for a year, but has resumed his medications for 3 months now. He has 15 kids and 12 grand kids. Review of systems: Pertinent positives and negatives mentioned in the HPI. Rest of 14 point review of systems is negative. 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 History of Any Multi-Drug Resistant Organisms: None Reported Past Surgical History: Joint Replacement Additional Past Surgical History / Comment(s): hip replaced, ankle pins placed Past Psychological History: No Psychological Hx Reported Smoking Status: Never smoker Past Alcohol Use History: None Reported Past Drug Use History: Marijuana - Past Family History Father Family Medical History: Deep Vein Thrombosis (DVT) Mother Family Medical History: Diabetes Mellitus Medications and Allergies Home Medications Medication Instructions Recorded Confirmed Type Albuterol Sulfate [Proair Hfa] 2 puff INHALATION RT-Q6H PRN 05/26/20 02/28/25 History Bictegrav/Emtricit/Tenofov Ala 1 tab PO DIRECTED 02/28/25 02/28/25 History [Biktarvy 50-200-25 mg Tablet] Divalproex [Depakote] 500 mg PO DIRECTED 02/28/25 02/28/25 History Folic Acid 1 mg PO DIRECTED 02/28/25 02/28/25 History Midodrine HCl 10 mg PO DIRECTED 02/28/25 02/28/25 History Pantoprazole [Protonix] 40 mg PO DIRECTED 02/28/25 02/28/25 History QUEtiapine [SEROquel] 12.5 mg PO DIRECTED 02/28/25 02/28/25 History Sulfamethox-Tmp 800-160Mg [Bactrim See Taper PO DIRECTED 02/28/25 02/28/25 History DS 800-160 mg] Tamsulosin [Flomax] 0.4 mg PO DIRECTED 02/28/25 02/28/25 History dexAMETHasone [Decadron] See Taper PO DIRECTED 02/28/25 02/28/25 History levETIRAcetam [Keppra] 500 mg PO DIRECTED 02/28/25 02/28/25 History Allergies Allergy/AdvReac Type Severity Reaction Status Date / Time No Known Allergies Allergy Verified 02/28/25 16:29 Physical Examination - Vital Signs Vital Signs: Vital Signs Temp Pulse Pulse Resp BP BP Pulse Ox 03/01/25 08:00 100.3 F H 113 H 17 100/66 97 03/01/25 02:22 89/56 03/01/25 02:00 97.5 F L 107 H 16 79/38 98 02/28/25 22:00 101.0 F H 119 H 16 107/69 92 L 02/28/25 21:40 104 H 16 101/64 96 02/28/25 20:09 99.4 F 104 H 19 100/89 96 02/28/25 19:07 105 H 20 89/52 93 L 02/28/25 17:00 115 H 20 83/54 94 L 02/28/25 16:30 117 H 20 84/49 94 L 02/28/25 13:52 99.8 F H 113 H 20 114/70 94 L 02/28/25 11:57 103 H 20 91/61 98 Intake and Output 02/28/25 03/01/25 03/01/25 22:59 06:59 14:59 Intake Total 1630 Balance 1630 Intake: Intake, IV Titration 1040 Amount Lactated Ringers 1,000 ml 1040 @ 130 mls/hr IV .Q7H42M [facility] Rx#:[id number] Oral 590 Other: Voiding Method Urinal Incontinent # Voids 3 Weight 77.111 kg General: no distress, lying in bed comfortably Neuro: Patient is awake alert and oriented x 3. No dysarthria or aphasia Extraocular movements intact no nystagmus, face is symmetric, facial sensation normal. Motor: The strength over the b/l UE is 4 out of 5. The LE are 3/5. Patient able to hold the right leg off the bed, but left leg hits the bed, left LE drift. Deep tendon reflexes are symmetric 1 at the biceps, brachioradialis, knees Sensory to touch is equal on b/l UE, decreased sensation on b/l LE, right>left Cerebellar function showed no ataxia or dysmetria for [id number] testing, and heel to coffman testing Results - Laboratory Findings CBC and BMP: 02/28/25 11:14 02/28/25 11:14 Abnormal Lab Findings: Abnormal Labs 02/28/25 02/28/25 02/28/25 11:14 11:14 11:14 RBC 3.23 L Hgb 11.0 L Hct 33.3 L MCV 103.1 H MCH 34.1 H Immature Gran # 0.43 H Eosinophils # 0.02 L Sodium 132 L Chloride 97 L Phosphorus 7.3 H AST 66 H ALT 63 H Creatine Kinase 42 L C-Reactive Protein 5.5 H Albumin 3.3 L Procalcitonin Urine Protein 1+ H Ur Leukocyte Esterase Small H Urine Bacteria Rare H Urine Mucus Rare H 02/28/25 11:14 RBC Hgb Hct MCV MCH Immature Gran # Eosinophils # Sodium Chloride Phosphorus AST ALT Creatine Kinase C-Reactive Protein Albumin Procalcitonin 0.59 H Urine Protein Ur Leukocyte Esterase Urine Bacteria Urine Mucus Assessment and Plan Assessment: Bilateral lower extremity weakness, 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 daily Obtain TSH, vitamin B12, folate, ammonia level, A1c, lipid panel Currently on Rocephin and Zithromax as well as Biktarvy Consulted PT and OT Obtain MRI lumbar and thoracic spine w/wo contrast Recommend EMG outpatient, follow up with neurologist Dictation was produced using [employer] dictation software. please excuse any grammatical, word or spelling errors. Loly Moon MD PGY-2 IM <Stacie Iniguez - Last Filed: 03/01/25 18:02> Physical Examination - Vital Signs Vital Signs: Vital Signs Temp Pulse Pulse Resp BP BP Pulse Ox 03/01/25 12:26 98.4 F 109 H 19 98/53 95 03/01/25 08:00 100.3 F H 109 H 19 100/66 97 03/01/25 02:22 89/56 03/01/25 02:00 97.5 F L 107 H 16 79/38 98 02/28/25 22:00 101.0 F H 119 H 16 107/69 92 L 02/28/25 21:40 104 H 16 101/64 96 02/28/25 20:09 99.4 F 104 H 19 100/89 96 02/28/25 19:07 105 H 20 89/52 93 L Intake and Output 03/01/25 03/01/25 03/01/25 06:59 14:59 22:59 Intake Total 1630 Output Total 600 Balance 1630 -600 Intake: Intake, IV Titration 1040 Amount Lactated Ringers 1,000 ml 1040 @ 130 mls/hr IV .Q7H42M [facility] Rx#:[id number] Oral 590 Output: Urine 600 Other: Voiding Method Urinal Incontinent # Voids 3 Results - Laboratory Findings CBC and BMP: 02/28/25 11:14 02/28/25 11:14 Abnormal Lab Findings: Abnormal Labs 02/28/25 02/28/25 02/28/25 11:14 11:14 11:14 RBC 3.23 L Hgb 11.0 L Hct 33.3 L MCV 103.1 H MCH 34.1 H Immature Gran # 0.43 H Eosinophils # 0.02 L ESR Sodium 132 L Chloride 97 L Phosphorus 7.3 H AST 66 H ALT 63 H Creatine Kinase 42 L C-Reactive Protein 5.5 H Albumin 3.3 L Procalcitonin Urine Protein 1+ H Ur Leukocyte Esterase Small H Urine Bacteria Rare H Urine Mucus Rare H % CD4 Morton Absolute CD4 Morton CD4/CD8 Ratio % CD8 Suppressor 02/28/25 02/28/25 03/01/25 11:14 17:46 06:11 RBC Hgb Hct MCV MCH Immature Gran # Eosinophils # ESR 41 H Sodium Chloride Phosphorus AST ALT Creatine Kinase C-Reactive Protein Albumin Procalcitonin 0.59 H Urine Protein Ur Leukocyte Esterase Urine Bacteria Urine Mucus % CD4 [place] 21 L Absolute CD4 [place] 128 L CD4/CD8 Ratio 0.4 L % CD8 Suppressor 61 H 03/01/25 06:11 RBC Hgb Hct MCV MCH Immature Gran # Eosinophils # ESR Sodium Chloride Phosphorus AST ALT Creatine Kinase C-Reactive Protein 9.80 H Albumin Procalcitonin Urine Protein Ur Leukocyte Esterase Urine Bacteria Urine Mucus % CD4 [place] Absolute CD4 [place] CD4/CD8 Ratio % CD8 Suppressor Assessment and Plan Plan: Was present for the jain and critical components of this encounter and I agree with assessment and plan as documented above. Patient has HIV with CD4 count of 128. He has had opportunistic infection with PCP in the past. Infectious diseases following closely. Patient has presented with bilateral lower extremity weakness for last 20 to 30 days. Patient admits to localized back pain rating 4/10. Patient states that he does not feel his left leg for last 2 days. He has history of hip replacement 4 times. Patient also has history of seizure disorder since he was teenager. The last seizure was about 48 hours ago. He used to have multiple seizures per day now occurring only 2-3 times a week. On examination the strength is normal in the upper limbs except interossei which is 5-. In the lower limbs (right/left) hip flexion 3+4-/3-, ankle dorsiflexion 4-/3 3+. Deep tendon reflexes are 1 at the biceps, but absent elsewhere and plantars are flat. Agree with assessment and plan mentioned above with the resident note. Stacie Iniguez MD Time with Patient: Greater than 30
[2025-03-01] MEDS: NYSTATIN 100,000 UNIT/GM POWD 15 GM TOPICAL SCH (19:25)
[2025-03-02 01:19] LABS: Vitamin B12 301.0 pg/mL (200.0-944.0)
[2025-03-02 05:09] LABS: ALT 53 U/L (4-49); AST 41 U/L (17-59); African American GFR (CKD) >90 (>60 ml/min/1.73 sqM); Albumin 2.4 g/dL (3.5-5.0); Albumin/Globulin Ratio 0.8; Alkaline Phosphatase 81 U/L (38-126); Anion Gap 8 mmol/L; Blood Urea Nitrogen 13 mg/dL (9-20); Calcium 8.4 mg/dL (8.4-10.2); Carbon Dioxide 24 mmol/L (22-30); Chloride 101 mmol/L (98-107); Globulin 3.2 g/dL; Glucose 94 mg/dL (74-99); Non-African American GFR(CKD) 79 (>60 ml/min/1.73 sqM); Potassium 4.2 mmol/L (3.5-5.1); Sodium 133 mmol/L (137-145); Total Protein 5.6 g/dL (6.3-8.2)
[2025-03-02 09:06] LABS: Cholesterol 133.00 mg/dL (0.00-200.00); HDL Cholesterol 23.50 mg/dL (40.00-60.00); LDL Cholesterol,Calculated 85.1 mg/dL (0.0-131.0); Triglycerides 122.00 mg/dL (0.00-149.00); VLDL Calculation 24.40 mg/dL (5.00-40.00)
[2025-03-02 09:34] LABS: HCT 29.2 % (39.6-50.0); HGB 9.2 g/dL (13.0-17.0); MCH 32.9 pg (27.0-32.0); MCHC 31.5 g/dL (32.0-37.0); MCV 104.3 FL (80.0-97.0); NRBC Per 100 WBC 0 X 10*3/uL (0.00-0.01); Platelet Count 230 X 10*3/uL (140-440); RBC 2.80 X 10*6/uL (4.40-5.60); RDW 23.7 % (11.5-14.5); WBC 6.56 X 10*3/uL (4.50-10.00)
[2025-03-02 12:01] LABS: Anisocytosis (M) 3+ (None Seen); Basophils # (M) 0 X 10*3/uL (0.00-0.10); Eosinophils # (M) 0.07 X 10*3/uL (0.04-0.35); Lymphocytes # (M) 0.72 X 10*3/uL (0.90-5.00); Macrocytosis (M) 2+ (None Seen); Monocytes # (M) 0.39 X 10*3/uL (0.20-1.00); Neutrophils # (M) 5.25 X 10*3/uL (1.80-7.70); Neutrophils % (M) 80 %; Polychromasia 2+ (None Seen)
--- NOTE | 2025-03-02 14:48 | P.PN ---
Subjective Progress Note Date: 03/02/25 Patient is evaluated today in follow-up with medical floor. He continues to report that he is unable to stand on his legs. Neurology is following and patient is currently pending an MRI of the thoracic and lumbar spine as well as an EEG. He will also need evaluation by physical therapy. He continues on Biktarvy as well as IV ceftriaxone and oral Bactrim. He states that he has been unable to expectorate but will provide sputum sample when he is able to do. Labs today reveal a white blood cell count of 6.56, hemoglobin 9.2, MCV 104.3, sodium 133, BUN of 13 creatinine 1.08. CRP and ESR elevated. Procalcitonin level elevated at 2.42. His serology has come back showing T suppressor cells of 362 absolute CD4 helper #128 CD4/CD8 ratio low at 0.4. Review of Systems Constitutional: Denied any fatigue denied any fever. Cardio vascular: denied any chest pain, palpitations Gastrointestinal: denied any nausea, vomiting, diarrhea Pulmonary: Denied any shortness of breath cough Neurologic denied any new focal deficits All inpatient medications were reviewed and appropriate changes in these med ications as dictated in the interval history and assessment and plan. PHYSICAL EXAMINATION: GENERAL: The patient is alert and oriented x3, not in any acute distress. Well developed, well nourished. HEENT: Pupils are round and equally reacting to light. EOMI. No scleral icterus. No conjunctival pallor. Normocephalic, atraumatic. No pharyngeal erythema. No thyromegaly. CARDIOVASCULAR: S1 and S2 present. No murmurs, rubs, or gallops. PULMONARY: Chest is clear to auscultation, no wheezing or crackles. ABDOMEN: Soft, nontender, nondistended, normoactive bowel sounds. No palpable organomegaly. MUSCULOSKELETAL: No joint swelling or deformity. EXTREMITIES: No cyanosis, clubbing, or pedal edema. NEUROLOGICAL: Gross neurological examination did not reveal any focal deficits. SKIN: No rashes. 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 Dr. Ame MD I have performed a history and physical examination and medical decision making of this patient, discussed the same with the dictator, and agree with the dictators assessment and plan as written, documented as a scribe. Based on total visit time, I have performed more than 50% of this visit. Objective - Vital Signs Vital signs: Vital Signs Temp 99.3 F 03/02/25 08:00 Pulse 105 H 03/02/25 08:00 Resp 17 03/02/25 08:00 BP 100/62 03/02/25 08:00 Pulse Ox 92 L 03/02/25 08:00 FiO2 Intake & Output 03/01/25 03/02/25 03/02/25 18:59 06:59 18:59 Intake Total 1080 1140 Output Total 1200 Balance -120 1140 Intake: Intake, IV Titration 360 Amount Lactated Ringers 1,000 ml 360 @ 130 mls/hr IV .Q7H42M [facility] Rx#:[id number] Oral 1080 780 Output: Urine 1200 Other: Voiding Method Urinal Urinal Diaper Incontinent Diaper Incontinent Incontinent # Voids 5 2 # Bowel Movements 1 - Labs CBC & Chem 7: 03/02/25 04:02 03/02/25 04:02 Labs: Abnormal Lab Results - Last 24 Hours (Table) 02/28/25 03/01/25 03/01/25 Range/Units 17:46 06:11 06:11 RBC (4.40-5.60) X 10*6/uL Hgb (13.0-17.0) g/dL Hct (39.6-50.0) % MCV (80.0-97.0) FL MCH (27.0-32.0) pg MCHC (32.0-37.0) g/dL RDW (11.5-14.5) % ESR 41 H (0-20) mm/Hr Sodium (137-145) mmol/L ALT (4-49) U/L C-Reactive Protein 9.80 H (0.00-0.80) mg/dL Total Protein (6.3-8.2) g/dL Albumin (3.5-5.0) g/dL HDL Cholesterol (40.00-60.00) mg/dL % CD4 [place] 21 L (35-66) % Absolute CD4 [place] 128 L (443-1471) cell/ul CD4/CD8 Ratio 0.4 L (1.0-3.7) % CD8 Suppressor 61 H (9-37) % 03/02/25 03/02/25 Range/Units 04:02 04:02 RBC 2.80 L (4.40-5.60) X 10*6/uL Hgb 9.2 L (13.0-17.0) g/dL Hct 29.2 L (39.6-50.0) % MCV 104.3 H (80.0-97.0) FL MCH 32.9 H (27.0-32.0) pg MCHC 31.5 L (32.0-37.0) g/dL RDW 23.7 H (11.5-14.5) % ESR (0-20) mm/Hr Sodium 133 L (137-145) mmol/L ALT 53 H (4-49) U/L C-Reactive Protein (0.00-0.80) mg/dL Total Protein 5.6 L (6.3-8.2) g/dL Albumin 2.4 L (3.5-5.0) g/dL HDL Cholesterol 23.50 L (40.00-60.00) mg/dL % CD4 [place] (35-66) % Absolute CD4 [place] (443-1471) cell/ul CD4/CD8 Ratio (1.0-3.7) % CD8 Suppressor (9-37) % Microbiology - Last 24 Hours (Table) 02/28/25 11:14 Blood Culture - Preliminary Blood Assessment and Plan Time with Patient: Less than 30
[2025-03-03 01:11] LABS: Basophils # (A) 0.03 10*3/uL (0.00-0.10); Basophils % (A) 0.4 %; Eosinophils # (A) 0.09 10*3/uL (0.04-0.35); Eosinophils % (A) 1.3 %; HCT 28.8 % (39.6-50.0); Lymphocytes # (A) 2.03 10*3/uL (0.90-5.00); Lymphocytes % (A) 29.6 %; MCH 32.9 pg (27.0-32.0); MCHC 31.9 g/dL (32.0-37.0); MCV 102.9 fL (80.0-97.0); Monocytes # (A) 0.38 10*3/uL (0.20-1.00); Monocytes % (A) 5.5 %; Neutrophils # (A) 4.26 10*3/uL (1.80-7.70); Neutrophils % (A) 62.3 %; Platelet Count 222 10*3/uL (140-440); RBC 2.80 10*6/uL (4.40-5.60); RDW 23.2 % (11.5-14.5); WBC 6.85 10*3/uL (4.50-10.00)
[2025-03-03 01:12] LABS: HGB 9.2 g/dL (13.0-17.0)
[2025-03-03] MEDS: SODIUM CHLORIDE 0.9% 500 ML 500 ML IV ONE (04:13)
[2025-03-03 07:50] LABS: HCT 31.7 % (39.6-50.0); HGB 9.6 g/dL (13.0-17.0); MCH 31.9 pg (27.0-32.0); MCHC 30.3 g/dL (32.0-37.0); MCV 105.3 FL (80.0-97.0); NRBC Per 100 WBC 0 X 10*3/uL (0.00-0.01); Platelet Count 223 X 10*3/uL (140-440); RBC 3.01 X 10*6/uL (4.40-5.60); RDW 23.2 % (11.5-14.5); WBC 6.48 X 10*3/uL (4.50-10.00)
[2025-03-03 07:59] LABS: Anion Gap 9.40 mmol/L (4.00-12.00); BUN/Creat Ratio 8.40 Ratio (12.00-20.00); Blood Urea Nitrogen 8.4 mg/dL (9.0-27.0); Calcium 7.6 mg/dL (8.7-10.3); Carbon Dioxide 22.6 mmol/L (21.6-31.8); Chloride 102 mmol/L (96-109); Glucose 139 mg/dL (70-110); Potassium 4.0 mmol/L (3.5-5.5); Sodium 134 mmol/L (135-145)
[2025-03-03] MEDS: CYANOCOBALAMIN 1,000 MCG/ML 1 ML VIAL IM SCH (08:27)
[2025-03-03 08:32] LABS: Basophils # (A) 0.05 X 10*3/uL (0.00-0.10); Basophils % (A) 0.8 %; Eosinophils # (A) 0.08 X 10*3/uL (0.04-0.35); Eosinophils % (A) 1.2 %; Immature Grans, Automated 1.10 %; Lymphocytes # (A) 1.78 X 10*3/uL (0.90-5.00); Lymphocytes % (A) 27.5 %; Macrocytosis (M) 2+ (None Seen); Monocytes # (A) 0.39 X 10*3/uL (0.20-1.00); Monocytes % (A) 6.0 %; Neutrophils # (A) 4.11 X 10*3/uL (1.80-7.70); Neutrophils % (A) 63.4 %
--- NOTE | 2025-03-03 12:03 | P.CRDCN ---
History of Present Illness History of present illness: HISTORY OF PRESENT ILLNESS: This is a 49-year-old male with a past medical history significant for HIV, pneumonia, and seizure disorder. 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 We have been asked to see the patient in consultation for chest pain. Patient examined at the bedside. Patient states that he recently spent 3 weeks at [facility] secondary to lower extremity weakness and inability to walk. Patient states he presented to [facility] with similar symptoms. He states he is having pain in his thighs and lower back this morning. He reports a history of asthma and states he does get chest discomfort when he experiences shortness of breath. He states the pain is worse with deep inspiration. He currently denies any chest pain or pressure. He is noted to have a fever this morning. [place] and has not seen a doctor in many years due to insurance issues. He currently denies any chest pain or pressure. DIAGNOSTICS: - EKG reveals tachycardia with no signs of acute ischemia. - Chest xray stable acute cardiopulmonary process in both lungs consistent with pneumonia or pulmonary edema. - Laboratory data: Troponin negative x 2 - Current home cardiac medications include none - Most recent echocardiogram obtained in 2015 revealed ejection fraction 55%, mild MR, mild TR - Cardiac catheterization history: Patient denies REVIEW OF SYSTEMS: At the time of my exam: CONSTITUTIONAL: Denies fever or chills. HEENT: Denies blurred vision, vision changes, or eye pain. Denies hemoptysis CARDIOVASCULAR: Denies chest pain. Denies orthopnea. Denies PND. Denies palpitations RESPIRATORY: Denies shortness of breath. GASTROINTESTINAL: Denies abdominal pain. Denies nausea or vomiting. HEMATOLOGIC: Denies bleeding disorders. GENITOURINARY: Denies any blood in urine. SKIN: Denies pruitis. Denies rash. PHYSICAL EXAM: VITAL SIGNS: Reviewed. GENERAL: Well-developed in no acute distress. HEENT: Head is normocephalic. Pupils are equal, round. Sclerae anicteric. Mucous membranes of the mouth are moist. Neck supple. No JVD or thyromegaly LUNGS: Respirations even and unlabored. Lungs essentially clear to auscultation bilaterally. HEART: Regular rate and rhythm. S1 and S2 heard. ABDOMEN: Soft. Nondistended. Nontender. EXTREMITIES: Normal range of motion. No clubbing or cyanosis. Peripheral pulses intact. No lower extremity edema NEUROLOGIC: Awake and alert. Oriented x 3. ASSESSMENT: Chest pain, troponin negative x 2, appears noncardiac and reproducible with deep inspiration Shortness of breath Bilateral pneumonia Sinus tachycardia, secondary to infectious process Fever Lower extremity weakness with inability to walk Prolonged immobilization History of HIV History of seizure disorder PLAN: An acute coronary event has been ruled out Obtain 2D echo to assess cardiac structure and function Check D-dimer secondary to prolonged immobilization. If elevated obtain CTA No plans for stress testing at this time Further recommendations pending patient course Nurse practitioner note has been reviewed by physician. Signing provider agrees with the documented findings, assessment, and plan of care documented by [employer] MANAGER as a scribe. 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 History of Any Multi-Drug Resistant Organisms: None Reported Past Surgical History: Joint Replacement Additional Past Surgical History / Comment(s): hip replaced, ankle pins placed Past Psychological History: No Psychological Hx Reported Smoking Status: Never smoker Past Alcohol Use History: None Reported Past Drug Use History: Marijuana - Past Family History Father Family Medical History: Deep Vein Thrombosis (DVT) Mother Family Medical History: Diabetes Mellitus Medications and Allergies Home Medications Medication Instructions Recorded Confirmed Type Albuterol Sulfate [Proair Hfa] 2 puff INHALATION RT-Q6H PRN 05/26/20 02/28/25 History Bictegrav/Emtricit/Tenofov Ala 1 tab PO DIRECTED 02/28/25 02/28/25 History [Biktarvy 50-200-25 mg Tablet] Divalproex [Depakote] 500 mg PO DIRECTED 02/28/25 02/28/25 History Folic Acid 1 mg PO DIRECTED 02/28/25 02/28/25 History Midodrine HCl 10 mg PO DIRECTED 02/28/25 02/28/25 History Pantoprazole [Protonix] 40 mg PO DIRECTED 02/28/25 02/28/25 History QUEtiapine [SEROquel] 12.5 mg PO DIRECTED 02/28/25 02/28/25 History Sulfamethox-Tmp 800-160Mg [Bactrim See Taper PO DIRECTED 02/28/25 02/28/25 History DS 800-160 mg] Tamsulosin [Flomax] 0.4 mg PO DIRECTED 02/28/25 02/28/25 History dexAMETHasone [Decadron] See Taper PO DIRECTED 02/28/25 02/28/25 History levETIRAcetam [Keppra] 500 mg PO DIRECTED 02/28/25 02/28/25 History Allergies Allergy/AdvReac Type Severity Reaction Status Date / Time strawberry Allergy Swelling Verified 03/02/25 12:53 cranberry juice Allergy Swelling Uncoded 03/02/25 12:53 Physical Exam Vitals: Vital Signs Temp Pulse Resp BP BP Pulse Ox 03/03/25 07:45 100.6 F H 121 H 19 108/65 95 03/03/25 01:31 98.6 F 101 H 16 106/61 98 03/02/25 20:00 98.5 F 117 H 17 101/58 98 03/02/25 13:27 98.5 F 105 H 18 95/60 92 L Intake and Output 03/02/25 03/03/25 03/03/25 22:59 06:59 14:59 Intake Total 2900 Output Total 400 Balance 2900 -400 Intake: Intake, IV Titration 1280 Amount Lactated Ringers 1,000 ml 1230 @ 75 mls/hr IV .[id number] [facility] Rx#:[id number] cefTRIAXone 2 gm In 50 Sodium Chloride 0.9% 50 ml @ 100 mls/hr IVPB Q24HR [facility] Rx#:[id number] Oral 1620 Output: Urine 400 Other: Voiding Method Diaper Incontinent External Catheter # Voids 4 # Bowel Movements 2 Results 03/03/25 03:56 03/03/25 03:56 Cardiac Enzymes 03/02/25 03/03/25 Range/Units 22:34 00:31 Troponin I <0.012 <0.012 (0.000-0.034) ng/mL CBC 03/03/25 03/03/25 Range/Units 00:31 03:56 WBC 6.85 6.48 (4.50-10.00) 10*3/uL RBC 2.80 L 3.01 L (4.40-5.60) 10*6/uL Hgb 9.2 L D 9.6 L (13.0-17.0) g/dL Hct 28.8 L 31.7 L (39.6-50.0) % Plt Count 222 223 (140-440) 10*3/uL Comprehensive Metabolic Panel 03/03/25 Range/Units 03:56 Sodium 134 L (135-145) mmol/L Potassium 4.0 (3.5-5.5) mmol/L Chloride 102 (96-109) mmol/L Carbon Dioxide 22.6 (21.6-31.8) mmol/L BUN 8.4 L (9.0-27.0) mg/dL Creatinine 1.0 (0.6-1.5) mg/dL Glucose 139 H (70-110) mg/dL Calcium 7.6 L (8.7-10.3) mg/dL Current Medications Generic Name Dose Route Start Last Admin Trade Name Freq PRN Reason Stop Dose Admin Acetaminophen 650 mg 02/28/25 14:25 03/03/25 08:28 Acetaminophen Tab 325 Mg Tab PO 650 mg Q6HR PRN Administration Mild Pain or Fever > 100.5 Hydrocodone Bitart/Acetaminophen 1 each 02/28/25 14:25 03/02/25 21:19 Hydrocodone/Apap 5-325mg 1 Each Tab PO 1 each Q4HR PRN Administration Moderate Pain (Scale 4 to 6) Albuterol Sulfate 2.5 mg 02/28/25 16:35 Albuterol Nebulized 2.5 Mg/3 Ml INHALATION RT-Q6H PRN Shortness Of Breath Cyanocobalamin 1,000 mcg 03/03/25 09:00 03/03/25 08:27 Cyanocobalamin 1,000 Mcg/Ml 1 Ml Vial IM 03/06/25 08:59 1,000 mcg DAILY [facility] Administration Divalproex Sodium 500 mg 02/28/25 21:00 03/03/25 08:27 Divalproex 500 Mg Tablet.Dr PO 500 mg BID [facility] Administration Folic Acid 1 mg 03/01/25 09:00 03/03/25 08:27 Folic Acid 1 Mg Tab PO 1 mg DAILY [facility] Administration Ceftriaxone Sodium 2 gm/ 50 mls @ 100 mls/hr 03/01/25 09:00 03/03/25 08:26 Sodium Chloride IVPB 03/04/25 09:29 100 mls/hr Q24HR [facility] Administration Protocol Lactated Ringer's 1,000 mls @ 75 mls/hr 02/28/25 14:15 03/03/25 00:20 Lactated Ringers IV 75 mls/hr .[id number] [facility] Administration Ketorolac Tromethamine 15 mg 02/28/25 14:25 Ketorolac 15 Mg/Ml 1 Ml Vial IVP 03/03/25 14:26 Q6HR PRN Moderate Pain (Scale 4 to 6) Levetiracetam 500 mg 02/28/25 21:00 03/03/25 08:27 Levetiracetam 500 Mg Tab PO 500 mg BID [facility] Administration Midodrine 10 mg 02/28/25 17:30 03/02/25 17:10 Midodrine 5 Mg Tab PO 10 mg AC-TID [facility] Administration Miscellaneous Information 1 each 02/28/25 13:02 Pneumonia Protocol Utilized 1 Each Misc PO ONCE PRN Per Protocol Naloxone HCl 0.2 mg 02/28/25 14:25 Naloxone 0.4 Mg/Ml 1 Ml Vial IV Q2M PRN Opioid Reversal Non-Formulary Medication 1 tab 03/01/25 09:00 03/03/25 08:21 Bictegrav/Emtricit/Tenofov Ala [Biktarvy 50-200-25 Mg Tablet] PO Not Given DAILY [facility] Nystatin 1 applic 03/01/25 21:00 03/03/25 08:27 Nystatin 100,000 Unit/Gm Powd 15 Gm TOPICAL 1 applic BID [facility] Administration Protocol Ondansetron HCl 4 mg 02/28/25 14:25 Ondansetron 4 Mg/2 Ml Vial IVP Q8HR PRN Nausea And Vomiting Pantoprazole Sodium 40 mg 03/01/25 09:00 03/03/25 08:27 Pantoprazole 40 Mg/10 Ml Vial IV 40 mg DAILY [facility] Administration Quetiapine Fumarate 12.5 mg 02/28/25 21:00 03/03/25 08:28 Quetiapine 25 Mg Tab PO 12.5 mg BID [facility] Administration Tamsulosin HCl 0.4 mg 03/01/25 09:00 03/03/25 08:28 Tamsulosin 0.4 Mg Cap.Er.24h PO 0.4 mg DAILY [facility] Administration Trimethoprim/Sulfamethoxazole 2 each 03/01/25 16:00 03/03/25 08:28 Sulfamethox-Tmp 800-160mg 1 Each Tab PO 2 each TID [facility] Administration Intake and Output 03/02/25 03/03/25 03/03/25 22:59 06:59 14:59 Intake Total 2900 Output Total 400 Balance 2900 -400 Intake: Intake, IV Titration 1280 Amount Lactated Ringers 1,000 ml 1230 @ 75 mls/hr IV .[id number] [facility] Rx#:[id number] cefTRIAXone 2 gm In 50 Sodium Chloride 0.9% 50 ml @ 100 mls/hr IVPB Q24HR [facility] Rx#:[id number] Oral 1620 Output: Urine 400 Other: Voiding Method Diaper Incontinent External Catheter # Voids 4 # Bowel Movements 2 03/03/25 03:56 03/03/25 03:56
--- NOTE | 2025-03-03 13:24 | P.PN ---
Subjective Progress Note Date: 03/02/25 Principal diagnosis: Reason for follow-up is HIV/PCP pneumonia Patient is a 49-year-old -[place] male with a past medical history significant for HIV for many years however the patient has not been on any medication for almost a year also with history of asthma and seizure disorder with recent admission at [facility] with the patient was diagnosed with a PCP pneumonia patient apparently has not completed his oral Bactrim DS therapy as per discussion with admitting physician now presented to this facility mostly with the weakness in the lower extremity. On today's evaluation that is 03/02/2025, Patient is afebrile today patient is currently on room air and denies having any shortness of breath, the patient denies any chest pain or any worsening cough, the patient denies any nausea vomiting did not have any abdominal pain and no diarrhea still complaining of weakness in the leg but no bowel or bladder problem. Patient white count 6.56, creatinine 1.08 procalcitonin is 2.42 Objective - Vital Signs Vital signs: Vital Signs Temp 98.5 F 03/02/25 13:27 Pulse 105 H 03/02/25 13:27 Resp 18 03/02/25 13:27 BP 95/60 03/02/25 13:27 Pulse Ox 92 L 03/02/25 13:27 FiO2 Intake & Output 03/01/25 03/02/25 03/02/25 18:59 06:59 18:59 Intake Total 1080 1140 580 Output Total 1200 Balance -120 1140 580 Intake: Intake, IV Titration 360 Amount Lactated Ringers 1,000 ml 360 @ 130 mls/hr IV .[id number] [facility] Rx#:[id number] Oral 1080 780 580 Output: Urine 1200 Other: Voiding Method Urinal Urinal Diaper Incontinent Diaper Incontinent Incontinent # Voids 5 2 # Bowel Movements 1 - Exam GENERAL DESCRIPTION: Middle-age male lying in bed in no distress RESPIRATORY SYSTEM: Unlabored breathing , decreased breath sounds at bases HEART: S1 S2 regular rate and rhythm , ABDOMEN: Soft , no tenderness EXTREMITIES: No edema feet - Labs CBC & Chem 7: 03/03/25 03:56 03/03/25 03:56 Labs: Abnormal Lab Results - Last 24 Hours (Table) 03/01/25 03/02/25 03/02/25 Range/Units 06:11 04:02 04:02 RBC 2.80 L (4.40-5.60) X 10*6/uL Hgb 9.2 L (13.0-17.0) g/dL Hct 29.2 L (39.6-50.0) % MCV 104.3 H (80.0-97.0) FL MCH 32.9 H (27.0-32.0) pg MCHC 31.5 L (32.0-37.0) g/dL RDW 23.7 H (11.5-14.5) % Lymphocytes # (Manual) 0.72 L (0.90-5.00) X 10*3/uL Polychromasia 2+ A (None Seen) Anisocytosis (manual) 3+ A (None Seen) Macrocytosis (manual) 2+ A (None Seen) Elliptocytes 2+ A (None Seen) Sodium 133 L (137-145) mmol/L ALT 53 H (4-49) U/L Total Protein 5.6 L (6.3-8.2) g/dL Albumin 2.4 L (3.5-5.0) g/dL HDL Cholesterol 23.50 L (40.00-60.00) mg/dL Procalcitonin 2.42 H (0.02-0.50) ng/mL Microbiology - Last 24 Hours (Table) 02/28/25 11:14 Blood Culture - Preliminary Blood Assessment and Plan (1) Sepsis Current Visit: Yes Status: Acute Code(s): A41.9 - SEPSIS, UNSPECIFIED ORGANISM SNOMED Code(s): 08572012 (2) Noncompliance with medication regimen Current Visit: Yes Status: Acute Code(s): Z91.148 - PATIENT'S OTHER NONCOMPL WITH MEDS REGIMEN FOR OTHER REASON SNOMED Code(s): 230541464 (3) Multifocal pneumonia Current Visit: Yes Status: Acute Code(s): J18.9 - PNEUMONIA, UNSPECIFIED ORGANISM SNOMED Code(s): 676325539 (4) HIV (human immunodeficiency virus infection) Current Visit: No Status: Acute Code(s): B20 - HUMAN IMMUNODEFICIENCY VIRUS [HIV] DISEASE SNOMED Code(s): 93009474 (5) PCP (pneumocystis jiroveci pneumonia) Current Visit: Yes Status: Acute Code(s): B59 - PNEUMOCYSTOSIS SNOMED C ode(s): 564791648 Plan: 1patient presented hospital with lower extremity weakness did not have any bowel or bladder problem also with a history of lower back pain CT of the lumbosacral spine did not show any acute changes may benefit from further workup including MRI to better define underlying pathology and also check inflammatory markers. 2patient did have significant normality on the CT of the chest however do not have any significant respiratory symptoms pneumonia less likely but not entirely excluded with a question of fluid acquired versus atypical. 3patient with a history of HIV however has not been on any medication for almost a year seem to have been recently started on antiretroviral Biktarvy at other facility not very clear if the patient was taking it on discharge his CD4 count is 128 viral load genotype is currently pending 4patient did have a PCP pneumonia recently for the patient to complete his Bactrim DS which was started yesterday due to overall improvement in his fever to continue still will benefit from MRI of the lower back because of weakness in the leg discussed with admitting team Dictation was produced using [employer] dictation software. please excuse any grammatical, word or spelling errors. Time with Patient: Less than 30
[2025-03-03] MEDS ORDERED: VANCOMYCIN IV PER PHARMACY 1 EACH MISC MISCELLANE PRN (13:26)
--- NOTE | 2025-03-03 13:33 | CT ---
EXAMINATION TYPE: CT angio chest CT DLP: 248.5 mGycm, Automated exposure control for dose reduction was used. DATE OF EXAM: 03/03/2025 1:22 PM COMPARISON: Chest radiograph 03/01/2025, CT chest 02/28/2025 CLINICAL INDICATION:Male, 49 years old with history of elevated dimer, r/o PE, SOB, +HIV; SOB, elevat ed d-dimer TECHNIQUE/CONTRAST: CTA scan of the thorax is performed with IV Contrast, patient injected with 100ml mL of Isovue 370, p ulmonary embolism protocol. MIP images are created and reviewed. FINDINGS: Pulmonary Artery: There is no evidence for a filling defect within the pulmonary vasculature to sugge st acute pulmonary embolism. The pulmonary artery is not dilated measuring up to 3.6 cm suggesting p ulmonary atrial hypertension. Lungs/Pleura: No pleural effusion or pneumothorax. Worsening scattered multifocal consolidative opaci ties throughout the lungs. Few scattered pneumatoceles. Airway: Large airways are patent. Heart: Borderline prominent in size.No pericardial effusion No significant coronary artery calcificat ions. Vasculature: No evidence of aortic aneurysm. Bovine aortic arch. Mediastinum: No gross evidence of adenopathy. Musculoskeletal: No acute osseous abnormalities Soft Tissues: Unremarkable. Lower neck: No significant findings. Upper Abdomen: Splenic calcified granulomas. Small hiatal hernia. IMPRESSION: 1. No evidence of pulmonary embolism. 2. Worsening scattered multifocal consolidative opacities throughout the lungs. Consistent with pneum onia. 3. Dilated main pulmonary artery suggesting pulmonary arterial hypertension. [facility], , 03/03/2025 1:30 PM
--- NOTE | 2025-03-03 13:48 | MR ---
EXAMINATION TYPE: MR thoracic spine wo/w con DATE OF EXAM: 03/03/2025 1:11 PM COMPARISON: None. CLINICAL INDICATION: Male, 49 years old with history of lower extremity weakness; Lower extremity wea kness. TECHNIQUE: Multi planar, multi sequence imaging was performed utilizing: T1-weighted, short-tau inver nneka recovery and T2-weighted of the thoracic spine. IV Contrast: 7.5 mL Gadobutrol (None, if empty) FINDINGS: Alignment: Alignment is within normal limits. Vertebral bodies have preserved heights. Spinal cord: Spinal cord is within normal limits for signal. No abnormal post contrast enhancement. Discs: Intervertebral disc signal is maintained. No evidence of significant spinal canal or neural fo raminal stenosis. There is no evidence of extradural defects or central spinal canal narrowing at any thoracic vertebral body level Osseous structures: No abnormal bony edema on inversion recovery sequences. Multilevel osteophyte for mation and facet joint arthropathy. Scattered disc space narrowing. IMPRESSION: No evidence for significant spinal canal stenosis or neural foraminal stenosis. No abnormal enhanceme nt. [facility], , 03/03/2025 1:46 PM
[2025-03-03] MEDS ORDERED: RX INFO: IV CONTRAST WAS GIVEN 1 EACH MISC MISCELLANE PRN (14:46)
[2025-03-03] MEDS: VANCOMYCIN 1,500 MG in SODIUM CHLORIDE 0.9% 500 ML 500 ML IVPB ONE (14:47)
--- NOTE | 2025-03-03 15:18 | P.PN ---
Subjective Subjective: History of present illness; 49-year-old male with significant past medical history of HIV seizure drug abuse and nicotine dependence and several hip replacement corrections brought to the emergency department from home for evaluation of fall, patient reports he was recently discharged from [facility] 4 days ago where he stayed for 25 days however he is still experiencing symptoms. He was previously active and recently has not been able to take care of himself due to lower extremity weakness states he has 15 chil dren and 12 grandchildren which keep him very busy. Has intermittent pain describes as tingly and sharp rates pain 5 out of 10 in the ER he was found to be febrile tachycardic and hypotensive without evidence of respiratory compromise. CT head from previous facility did not show evidence of of acute pathology In ER received chest x-ray CT scan chest and lumbar spine. Chest x-ray and chest CTA revealed evidence of alveolar edema consistent with multifocal pneumonia. CT lumbar spine showed no evidence of pathology He was admitted to medical team for management of HIV complicated by sepsis with infectious disease consulted and for management of left-sided lower extremity weakness with neurology consulted. Labs: WBC 9.59 Hgb 11 PLT 250 NA 132 K4.8 BUN 9 CR 0.93 CK 42 CRP 5.5 Procalcitonin 0.59 UA benign Quad screen negative 03/03/2025: Patient seen at bedside reports still feeling febrile. Patient is complaining of back pain as well as twitching in legs that is new. Patient seen and evaluated by neurology. Is going for MRI today of lumbar spine. Patient informed of pain management orders all questions addressed at bedside. Pertinent positives and negatives discussed above, a complete review of systems was preformed and all the other sytems were negative. Vitals Signs Reveiwed. General: non toxic, no distress, appears at stated age, normal weight Derm: no unusual rashes/lesions, warm Head: atraumatic, normocephalic, symmetric Eyes: EOMI, no lid lag, anicteric sclera, pupils equal round reactive to light ENT: Nose and ears atraumatic Neck: No cervical lymphadenopathy, trachea midline, supple Mouth: no lip lesion, mucus membranes moist Cardiovascular: S1S2 reg, no murmur, positive dorsalis pedis pulse bilateral, no edema Lungs: Decreased air entry bilaterally, no rhonchi, no rales, no accessory muscle use Abdominal: soft, nontender to palpation, no guarding Ext: muscle strength 5 out of 5 in all 4 extremities grossly, no gross muscle atrophy, no contractures, Neuro: CN II-XI grossly intact, no gross focal neuro deficits Psych: Alert, oriented, appropriate affect Data Reveiwed Today: Assessment and Plan 49-year-old male with significant past medical history of HIV seizure drug abuse presents for lower extremity weakness that did not resolve during previous hospitalization has had difficulty taking care of himself. Imaging inconsistent with symptoms #Lower extremity weakness with pain: Potentially secondary to poly-pharmacy vs hx of multiple hip replacements vs other Neurology on consult appreciate recommendations -PT OT consult - Multimodal pain management MRI lumbar spine #Multifocal pneumonia with fever and hypotension # Sepsis secondary to above ID on consult appreciate recommendations -IV Rocephin and Zithromax Lactic acid: 2.92.0 PCP pneumonia course incomplete add Bactrim p.o. 7 days D-dimer elevated 7.09 SubQ heparin 5000 every 8 hours Chronic Conditions: #HIV with poor medication compliance Biktarvy ID consulted CD4: 129 Viral load pending -HIV genotype #Seizure disorder Keppra and Depakote DVT ppx: SubQ heparin GI ppx: Protonix CODE STATUS: Full Dispo: Pending clinical course Mohamud Mckenna DO PGY1 Dictation was produced using [employer] dictation software. please excuse any grammatical, word or spelling errors. Dr. Ame MD I have performed a history and physical examination and medical decision making of this patient, discussed the same with the dictator, and agree with the dictators assessment and plan as written, documented as a scribe. Based on total visit time, I have performed more than 50% of this visit. Objective - Vital Signs Vital signs: Vital Signs Temp 98.5 F 03/03/25 13:40 Pulse 100 03/03/25 13:40 Resp 18 03/03/25 13:40 BP 94/59 03/03/25 13:40 Pulse Ox 96 03/03/25 13:40 FiO2 Intake & Output 03/02/25 03/03/25 03/03/25 18:59 06:59 18:59 Intake Total 3480 Output Total 400 Balance 3480 -400 Intake: Intake, IV Titration 1280 Amount Lactated Ringers 1,000 ml 1230 @ 75 mls/hr IV .[id number] [facility] Rx#:[id number] cefTRIAXone 2 gm In 50 Sodium Chloride 0.9% 50 ml @ 100 mls/hr IVPB Q24HR [facility] Rx#:[id number] Oral 2200 Output: Urine 400 Other: Voiding Method Diaper Diaper Diaper Incontinent Incontinent Incontinent External Catheter External Catheter # Voids 4 # Bowel Movements 2 - Labs CBC & Chem 7: 03/03/25 03:56 03/03/25 03:56 Labs: Abnormal Lab Results - Last 24 Hours (Table) 03/03/25 03/03/25 03/03/25 Range/Units 00:31 00:31 03:56 RBC 2.80 L 3.01 L (4.40-5.60) 10*6/uL Hgb 9.2 L D 9.6 L (13.0-17.0) g/dL Hct 28.8 L 31.7 L (39.6-50.0) % MCV 102.9 H 105.3 H (80.0-97.0) fL MCH 32.9 H (27.0-32.0) pg MCHC 31.9 L 30.3 L (32.0-37.0) g/dL RDW 23.2 H 23.2 H (11.5-14.5) % Immature Gran # 0.06 H 0.07 H (0.00-0.04) 10*3/uL Macrocytosis (manual) 2+ A (None Seen) Elliptocytes 2+ A (None Seen) D-Dimer (<0.60) mg/L FEU Sodium (135-145) mmol/L BUN (9.0-27.0) mg/dL BUN/Creatinine Ratio (12.00-20.00) Ratio Glucose (70-110) mg/dL Plasma Lactic Acid Abad 2.9 H* (0.7-2.0) mmol/L Calcium (8.7-10.3) mg/dL 03/03/25 03/03/25 Range/Units 03:56 09:56 RBC (4.40-5.60) 10*6/uL Hgb (13.0-17.0) g/dL Hct (39.6-50.0) % MCV (80.0-97.0) fL MCH (27.0-32.0) pg MCHC (32.0-37.0) g/dL RDW (11.5-14.5) % Immature Gran # (0.00-0.04) 10*3/uL Macrocytosis (manual) (None Seen) Elliptocytes (None Seen) D-Dimer 7.09 H (<0.60) mg/L FEU Sodium 134 L (135-145) mmol/L BUN 8.4 L (9.0-27.0) mg/dL BUN/Creatinine Ratio 8.40 L (12.00-20.00) Ratio Glucose 139 H (70-110) mg/dL Plasma Lactic Acid Abad (0.7-2.0) mmol/L Calcium 7.6 L (8.7-10.3) mg/dL Microbiology - Last 24 Hours (Table) 02/28/25 11:14 Blood Culture - Preliminary Blood
--- NOTE | 2025-03-03 15:33 | P.CONS ---
History of Present Illness - Reason for Consult Consult date: 03/03/25 rehab recommendations - Chief Complaint debility - History of Present Illness Mr Garcia is a 49 y/o male, ambidextrous who moves around alot, occasionally stays with his uncle. Prior to admission, he was ambulating w/o an assistive device. He was independent for basic/advanced ADLs. He reports his uncle is local, has multiple children but none able to assist or local. Patient recently seen by our services at [facility] during his admission, PMR recommended ANGELO at that time. Patient presented to [facility] on 02/28/25 with complaints of bilateral leg weakness, patient discharged from [facility] a couple of days prior. CT chest with opacities. He was started on Rocephin for pneumonia, was recently treated for PJP at [facility]. He has been non complaint with his medications, was started on Biktarvy at [facility] for HIV but did not berry picker his prescription. He is on Bactrim chronically. He is pending MRI T and L spine and an EEG. Neurology following. PM&R consulted for rehab recommendations. Patient is pending therapy evaluations. 03/03: Patient laying in bed, states he is very weak and has not been able to do much besides walk to and from the bathroom due to his leg weakness. He admits to 'hopping around' a lot to see the world. He reports he used to be able to walk up to 30 miles a day. He denies CP, SOB, and abdominal pain. He reports his right leg feels numb and his left leg is throbbing in nature. He does feel that he has been able to move his legs a bit better the last 24 hrs. He reports low back pain, states he does not want to seem like he is seeking pain meds so he has been trying to use his pain medication sparingly. Patient with chronic weakness and non compliance medically. Recommending a possible group type home scenario where he is able to get assistance after ANGELO. 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 History of Any Multi-Drug Resistant Organisms: None Reported Past Surgical History: Joint Replacement Additional Past Surgical History / Comment(s): hip replaced, ankle pins placed Past Psychological History: No Psychological Hx Reported Smoking Status: Never smoker Past Alcohol Use History: None Reported Past Drug Use History: Marijuana - Past Family History Father Family Medical History: Deep Vein Thrombosis (DVT) Mother Family Medical History: Diabetes Mellitus Medications and Allergies Home Medications Medication Instructions Recorded Confirmed Type Albuterol Sulfate [Proair Hfa] 2 puff INHALATION RT-Q6H PRN 05/26/20 02/28/25 History Bictegrav/Emtricit/Tenofov Ala 1 tab PO DIRECTED 02/28/25 02/28/25 History [Biktarvy 50-200-25 mg Tablet] Divalproex [Depakote] 500 mg PO DIRECTED 02/28/25 02/28/25 History Folic Acid 1 mg PO DIRECTED 02/28/25 02/28/25 History Midodrine HCl 10 mg PO DIRECTED 02/28/25 02/28/25 History Pantoprazole [Protonix] 40 mg PO DIRECTED 02/28/25 02/28/25 History QUEtiapine [SEROquel] 12.5 mg PO DIRECTED 02/28/25 02/28/25 History Sulfamethox-Tmp 800-160Mg [Bactrim See Taper PO DIRECTED 02/28/25 02/28/25 History DS 800-160 mg] Tamsulosin [Flomax] 0.4 mg PO DIRECTED 02/28/25 02/28/25 History dexAMETHasone [Decadron] See Taper PO DIRECTED 02/28/25 02/28/25 History levETIRAcetam [Keppra] 500 mg PO DIRECTED 02/28/25 02/28/25 History Allergies Allergy/AdvReac Type Severity Reaction Status Date / Time strawberry Allergy Swelling Verified 03/02/25 12:53 cranberry juice Allergy Swelling Uncoded 03/02/25 12:53 Physical Exam Vitals: Vital Signs Temp Pulse Resp BP BP Pulse Ox 03/03/25 07:45 100.6 F H 121 H 19 108/65 95 03/03/25 01:31 98.6 F 101 H 16 106/61 98 03/02/25 20:00 98.5 F 117 H 17 101/58 98 03/02/25 13:27 98.5 F 105 H 18 95/60 92 L Intake and Output 03/02/25 03/03/25 03/03/25 22:59 06:59 14:59 Intake Total 2900 Output Total 400 Balance 2900 -400 Intake: Intake, IV Titration 1280 Amount Lactated Ringers 1,000 ml 1230 @ 75 mls/hr IV .[id number] [facility] Rx#:[id number] cefTRIAXone 2 gm In 50 Sodium Chloride 0.9% 50 ml @ 100 mls/hr IVPB Q24HR [facility] Rx#:[id number] Oral 1620 Output: Urine 400 Other: Voiding Method Diaper Diaper Incontinent Incontinent External Catheter External Catheter # Voids 4 # Bowel Movements 2 General: WD, unkept appearing male, laying in bed, alert, NAD HEENT: head normocephalic, atraumatic; moist mucous membranes, external ears int act with hearing intact to conversational speech, glasses on, poor dentition CV: library monitor on, no acute cardiac distress Lungs: even, unlabored respirations on room air, intermittent cough Abdomen: soft, NT, ND MSK: full ROM bilateral UE, LE weakness- poor effort MMT: Moves UE to antigravity w/o difficulty- was in process of getting blood draw R HF 3+/5, KE 4/5, DF 4- with giveaway- poor effort; L HF 2/5 poor effort, KE 3- /5, DF 4-/5 with giveaway poor effort Neuro: Alert, hyperverbal No clonus CN 2-12 grossly intact Sensation decreased RLE > LLE Proprioception: intact right great toe, impaired left great toe Psych: mood calm Extremities: calves supple, non tender, no LE edema Skin: multiple areas of scabbing and wounds face, arms Results CBC & Chem 7: 03/03/25 03:56 03/03/25 03:56 Labs: Abnormal Lab Results - Last 24 Hours (Table) 03/01/25 03/03/25 03/03/25 Range/Units 06:11 00:31 00:31 RBC 2.80 L (4.40-5.60) 10*6/uL Hgb 9.2 L D (13.0-17.0) g/dL Hct 28.8 L (39.6-50.0) % MCV 102.9 H (80.0-97.0) fL MCH 32.9 H (27.0-32.0) pg MCHC 31.9 L (32.0-37.0) g/dL RDW 23.2 H (11.5-14.5) % Immature Gran # 0.06 H (0.00-0.04) 10*3/uL Macrocytosis (manual) (None Seen) Elliptocytes (None Seen) D-Dimer (<0.60) mg/L FEU Sodium (135-145) mmol/L BUN (9.0-27.0) mg/dL BUN/Creatinine Ratio (12.00-20.00) Ratio Glucose (70-110) mg/dL Plasma Lactic Acid Abad 2.9 H* (0.7-2.0) mmol/L Calcium (8.7-10.3) mg/dL Procalcitonin 2.42 H (0.02-0.50) ng/mL 03/03/25 03/03/25 03/03/25 Range/Units 03:56 03:56 09:56 RBC 3.01 L (4.40-5.60) 10*6/uL Hgb 9.6 L (13.0-17.0) g/dL Hct 31.7 L (39.6-50.0) % MCV 105.3 H (80.0-97.0) fL MCH (27.0-32.0) pg MCHC 30.3 L (32.0-37.0) g/dL RDW 23.2 H (11.5-14.5) % Immature Gran # 0.07 H (0.00-0.04) 10*3/uL Macrocytosis (manual) 2+ A (None Seen) Elliptocytes 2+ A (None Seen) D-Dimer 7.09 H (<0.60) mg/L FEU Sodium 134 L (135-145) mmol/L BUN 8.4 L (9.0-27.0) mg/dL BUN/Creatinine Ratio 8.40 L (12.00-20.00) Ratio Glucose 139 H (70-110) mg/dL Plasma Lactic Acid Abad (0.7-2.0) mmol/L Calcium 7.6 L (8.7-10.3) mg/dL Procalcitonin (0.02-0.50) ng/mL Microbiology - Last 24 Hours (Table) 02/28/25 11:14 Blood Culture - Preliminary Blood Assessment and Plan Assessment: # acute on chronic myelopathy with debility,likely related to poor medical compliance and HIV -neurology following -pending imaging -MRI T and L spine #impaired gait and ADLs #AIDS -Biktarvy, chronic suppressive abx #Status epilepticus -Depakote, Keppra #Multifocal pneumonia -Rocephin #Pain Management -Toradol prn, [place] 5/325 mg Q 4 hrs prn #Your medical dx and management Dispo: Patient with chronic weakness and non compliance medically. Recommending a possible group type home scenario where he is able to get assistance after ANGELO. patient seen in collaboration with Dr Turcios Thank you for consulting our services.
[2025-03-03] MEDS: HEPARIN SODIUM,PORCINE 5,000 UNIT/ML 1 ML VIAL SQ SCH (17:14)
--- NOTE | 2025-03-03 18:38 | P.PN ---
Subjective Progress Note Date: 03/03/25 I am seeing the patient for the first time during this hospital admission. Please refer to my colleagues team note for further details. Patient is not a great historian but it seems the patient has history of HIV seems appears the patient has sepsis secondary due to multifocal pneumonia. 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 Patient went for MRI thoracic but did not complete the MRI lumbar since patient stated that he is claustrophobic. Objective - Vital Signs Vital signs: Vital Signs Temp 98.5 F 03/03/25 13:40 Pulse 120 H 03/03/25 17:36 Resp 18 03/03/25 13:40 BP 109/55 03/03/25 17:36 Pulse Ox 92 L 03/03/25 17:36 FiO2 Intake & Output 03/02/25 03/03/25 03/03/25 18:59 06:59 18:59 Intake Total 3480 1480 Output Total 400 Balance 3480 -400 1480 Intake: Intake, IV Titration 1280 Amount Lactated Ringers 1,000 ml 1230 @ 75 mls/hr IV .[id number] [facility] Rx#:[id number] cefTRIAXone 2 gm In 50 Sodium Chloride 0.9% 50 ml @ 100 mls/hr IVPB Q24HR [facility] Rx#:[id number] Oral 2200 1480 Output: Urine 400 Other: Voiding Method Diaper Diaper Diaper Incontinent Incontinent Incontinent External Catheter External Catheter # Voids 4 4 # Bowel Movements 2 3 - Exam General: Laying in bed and is not in acute distress. He was shivering upon taking the covers off and states he has been cold for 3 days. Neuro: Limited because of cooperation. Patient is awake alert oriented to self place and time. He is following simple commands. No facial weakness. No dysarthria Motor: Assessment of individual muscle strength is limited because of his overall cooperation. He is able to lift the bilateral upper extremity above gravity but again I had to motivate him to lift up the upper extremity. In the lower extremity he was able to lift up the right lower extremity above gravity. Left lower initially he was not picking up but upon lifted up the left upper extremity he was able to remain at above gravity. Also spontaneously he was able to cross his leg the left leg over the right. He was wiggling his toes. Sensation is decreased to touch over the left lower to touch. Reflexes is 2 positive throughout. - Labs CBC & Chem 7: 03/03/25 03:56 03/03/25 03:56 Labs: Abnormal Lab Results - Last 24 Hours (Table) 03/03/25 03/03/25 03/03/25 Range/Units 00:31 00:31 03:56 RBC 2.80 L 3.01 L (4.40-5.60) 10*6/uL Hgb 9.2 L D 9.6 L (13.0-17.0) g/dL Hct 28.8 L 31.7 L (39.6-50.0) % MCV 102.9 H 105.3 H (80.0-97.0) fL MCH 32.9 H (27.0-32.0) pg MCHC 31.9 L 30.3 L (32.0-37.0) g/dL RDW 23.2 H 23.2 H (11.5-14.5) % Immature Gran # 0.06 H 0.07 H (0.00-0.04) 10*3/uL Macrocytosis (manual) 2+ A (None Seen) Elliptocytes 2+ A (None Seen) D-Dimer (<0.60) mg/L FEU Sodium (135-145) mmol/L BUN (9.0-27.0) mg/dL BUN/Creatinine Ratio (12.00-20.00) Ratio Glucose (70-110) mg/dL Plasma Lactic Acid Abad 2.9 H* (0.7-2.0) mmol/L Calcium (8.7-10.3) mg/dL 03/03/25 03/03/25 Range/Units 03:56 09:56 RBC (4.40-5.60) 10*6/uL Hgb (13.0-17.0) g/dL Hct (39.6-50.0) % MCV (80.0-97.0) fL MCH (27.0-32.0) pg MCHC (32.0-37.0) g/dL RDW (11.5-14.5) % Immature Gran # (0.00-0.04) 10*3/uL Macrocytosis (manual) (None Seen) Elliptocytes (None Seen) D-Dimer 7.09 H (<0.60) mg/L FEU Sodium 134 L (135-145) mmol/L BUN 8.4 L (9.0-27.0) mg/dL BUN/Creatinine Ratio 8.40 L (12.00-20.00) Ratio Glucose 139 H (70-110) mg/dL Plasma Lactic Acid Abad (0.7-2.0) mmol/L Calcium 7.6 L (8.7-10.3) mg/dL Microbiology - Last 24 Hours (Table) 02/28/25 11:14 Blood Culture - Preliminary Blood Assessment and Plan Assessment: This is a 49-year-old gentleman with history of self HIV extremity weakness and it seems left more than right seems his absolute CD4 count is low of 128. Bilateral lower extremity weakness left more than right, possible concern for HIV induced myopathy CT lumbar sacral is negative Sepsis secondary due to multifocal pneumonia History of seizure Underlying history of HIV but it seems that the patient has not been taking any medication for almost a year and his CD4 count is 128 Plan: Pending MRI lumbar Will consider lumbar puncture once the MRI of the lumbar is completed Recommend EMG with nerve conduction study as an outpatient of the lowers. TSH is 2.4, hemoglobin A1c is 5 point vitamin B12 is [address] Iniguez started vitamin B12 1000 mcg daily p.o. MRI thoracic spine is reported as no evidence for significant spinal canal stenosis or neuroforaminal stenosis. No abnormal enhancement Pending folate level Pulmonary EEG is negative for any seizure PT and OT are consulted ID team is on board Cardiology is consulted Will defer the rest of the medical management to primary other specialist Time with Patient: Less than 30
[2025-03-04] MEDS: VANCOMYCIN 1,500 MG in SODIUM CHLORIDE 0.9% 500 ML 500 ML IVPB SCH (02:24)
--- NOTE | 2025-03-04 04:15 | EEG ---
ELECTROENCEPHALOGRAM REPORT CLINICAL HISTORY: This is a 49-year-old gentleman with history of seizure, who presents with leg weakness. The video EEG is obtained to evaluate for seizure epileptiform activity. RELEVANT MEDICATION: Depakote, Keppra, Seroquel. EEG TYPE: This is a routine 21-channel EEG with video using the 10/20 electrode placement system. DESCRIPTION: Wakefulness and drowsiness are obtained. During awake state, the posterior- dominant rhythm consists of [id number] voltage of 9 to 9.5 hertz activity, that is well modulated, well sustained. There was no physiological stage 2 sleep architecture. There is no focal slowing. There is bilateral temporal sweat artifact as well as the patient has diffuse mild myogenic artifact. Interictal and ictal are none. ACTIVATION PROCEDURE: Photic stimulation did not evoke a posterior driving response. There is no abnormality during the photic stimulation. Hyperventilation is not performed. CLINICAL INTERPRETATION: This is a normal routine EEG during awake and drowsy state. There is no focal slowing, epileptiform discharge, or seizure on the EEG. A normal routine EEG does not rule out underlying epilepsy. Clinical correlation is recommended. MMPEPEL / IJN: [id number] / JIMY
[2025-03-04 05:37] LABS: African American GFR (CKD) >90 (>60 ml/min/1.73 sqM); Non-African American GFR(CKD) >90 (>60 ml/min/1.73 sqM)
[2025-03-04 08:02] LABS: Basophils # (A) 0.03 10*3/uL (0.00-0.10); Basophils % (A) 0.4 %; Eosinophils # (A) 0.05 10*3/uL (0.04-0.35); Eosinophils % (A) 0.7 %; HCT 28.4 % (39.6-50.0); HGB 9.4 g/dL (13.0-17.0); Lymphocytes # (A) 2.39 10*3/uL (0.90-5.00); Lymphocytes % (A) 34.8 %; MCH 33.5 pg (27.0-32.0); MCHC 33.1 g/dL (32.0-37.0); MCV 101.1 fL (80.0-97.0); Monocytes # (A) 0.31 10*3/uL (0.20-1.00); Monocytes % (A) 4.5 %; Neutrophils # (A) 4.02 10*3/uL (1.80-7.70); Neutrophils % (A) 58.7 %; Platelet Count 204 10*3/uL (140-440); RBC 2.81 10*6/uL (4.40-5.60); RDW 22.6 % (11.5-14.5); WBC 6.86 10*3/uL (4.50-10.00)
[2025-03-04 08:18] LABS: ALT 39 U/L (4-49); AST 29 U/L (17-59); African American GFR (CKD) >90 (>60 ml/min/1.73 sqM); Albumin 2.4 g/dL (3.5-5.0); Albumin/Globulin Ratio 0.7; Alkaline Phosphatase 70 U/L (38-126); Anion Gap 8 mmol/L; Blood Urea Nitrogen 9 mg/dL (9-20); Calcium 7.8 mg/dL (8.4-10.2); Carbon Dioxide 22 mmol/L (22-30); Chloride 103 mmol/L (98-107); Globulin 3.3 g/dL; Glucose 110 mg/dL (74-99); Non-African American GFR(CKD) 90 (>60 ml/min/1.73 sqM); Potassium 4.3 mmol/L (3.5-5.1); Sodium 133 mmol/L (137-145); Total Protein 5.7 g/dL (6.3-8.2)
[2025-03-04 09:26] LABS: Anisocytosis (M) Present; Ovalocytes Present; Poikilocytosis (M) Present
[2025-03-04 09:56] LABS: Glucose,Whole Blood 133 mg/dL (70-110)
--- NOTE | 2025-03-04 12:15 | P.PN ---
Subjective HISTORY OF PRESENT ILLNESS: This is a 49-year-old male with a past medical history significant for HIV, pneumonia, and seizure disorder. 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 We have been asked to see the patient in consultation for chest pain. Patient examined at the bedside. Patient states that he recently spent 3 weeks at [facility] secondary to lower extremity weakness and inability to walk. Patient states he presented to [facility] with similar symptoms. He states he is having pain in his thighs and lower back this morning. He reports a history of asthma and states he does get chest discomfort when he experiences shortness of breath. He states the pain is worse with deep inspiration. He currently denies any chest pain or pressure. He is noted to have a fever this morning. [place] and has not seen a doctor in many years due to insurance issues. He currently denies any chest pain or pressure. DIAGNOSTICS: - EKG reveals tachycardia with no signs of acute ischemia. - Chest xray stable acute cardiopulmonary process in both lungs consistent with pneumonia or pulmonary edema. - Laboratory data: Troponin negative x 2 - Current home cardiac medications include none - Most recent echocardiogram obtained in 2014 revealed ejection fraction 55%, mild MR, mild TR - Cardiac catheterization history: Patient denies 03/04/2025 Patient examined this morning at the bedside. Patient currently denies chest pain or pressure. He denies shortness of breath. He does report some increased mobility of his right lower extremity. Patient was found to have elevated D- dimer yesterday. He underwent CTA which was negative for pulmonary embolism. 2D echo remains pending. PHYSICAL EXAM: VITAL SIGNS: Reviewed. GENERAL: Well-developed in no acute distress. HEENT: Head is normocephalic. Pupils are equal, round. Sclerae anicteric. Mucous membranes of the mouth are moist. Neck supple. No JVD or thyromegaly LUNGS: Respirations even and unlabored. Lungs essentially clear to auscultation bilaterally. HEART: Regular rate and rhythm. S1 and S2 heard. ABDOMEN: Soft. Nondistended. Nontender. EXTREMITIES: Normal range of motion. No clubbing or cyanosis. Peripheral pulses intact. No lower extremity edema NEUROLOGIC: Awake and alert. Oriented x 3. ASSESSMENT: Chest pain, troponin negative x 2, appears noncardiac and reproducible with deep inspiration Shortness of breath Bilateral pneumonia Sinus tachycardia, secondary to infectious process Fever Lower extremity weakness with inability to walk Prolonged immobilization History of HIV History of seizure disorder PLAN: An acute coronary event has been ruled out 2D echo ordered. Await results. No plans for stress testing at this time Further recommendations pending patient course Nurse practitioner note has been reviewed by physician. Signing provider agrees with the documented findings, assessment, and plan of care documented by COMPANION CAREGIVER as a scribe. Objective - Vital Signs Vital signs: Vital Signs Temp 99.7 F H 03/04/25 07:59 Pulse 115 H 03/04/25 07:59 Resp 32 H 03/04/25 07:59 BP 120/61 03/04/25 07:59 Pulse Ox 90 L 03/04/25 07:59 FiO2 Intake & Output 03/03/25 03/04/25 03/04/25 18:59 06:59 18:59 Intake Total 1480 Balance 1480 Intake: Oral 1480 Other: Voiding Method Diaper Diaper Bedside Commode Incontinent Diaper External Catheter # Voids 4 2 # Bowel Movements 3 2 - Labs CBC & Chem 7: 03/04/25 07:44 03/04/25 07:44 Labs: Abnormal Lab Results - Last 24 Hours (Table) 03/03/25 03/03/25 03/04/25 Range/Units 14:14 14:14 07:44 RBC 2.81 L (4.40-5.60) 10*6/uL Hgb 9.4 L (13.0-17.0) g/dL Hct 28.4 L (39.6-50.0) % MCV 101.1 H (80.0-97.0) fL MCH 33.5 H (27.0-32.0) pg RDW 22.6 H (11.5-14.5) % Immature Gran # 0.06 H (0.00-0.04) 10*3/uL ESR 44 H (0-20) mm/Hr Sodium (137-145) mmol/L Glucose (74-99) mg/dL POC Glucose (mg/dL) (70-110) mg/dL Calcium (8.4-10.2) mg/dL C-Reactive Protein 5.40 H (0.00-0.80) mg/dL Total Protein (6.3-8.2) g/dL Albumin (3.5-5.0) g/dL 03/04/25 03/04/25 Range/Units 07:44 09:54 RBC (4.40-5.60) 10*6/uL Hgb (13.0-17.0) g/dL Hct (39.6-50.0) % MCV (80.0-97.0) fL MCH (27.0-32.0) pg RDW (11.5-14.5) % Immature Gran # (0.00-0.04) 10*3/uL ESR (0-20) mm/Hr Sodium 133 L (137-145) mmol/L Glucose 110 H (74-99) mg/dL POC Glucose (mg/dL) 133 H (70-110) mg/dL Calcium 7.8 L (8.4-10.2) mg/dL C-Reactive Protein (0.00-0.80) mg/dL Total Protein 5.7 L (6.3-8.2) g/dL Albumin 2.4 L (3.5-5.0) g/dL Microbiology - Last 24 Hours (Table) 02/28/25 11:14 Blood Culture - Preliminary Blood
--- NOTE | 2025-03-04 13:05 | P.PN ---
Subjective Subjective: History of present illness; 49-year-old male with significant past medical history of HIV seizure drug abuse and nicotine dependence and several hip replacement corrections brought to the emergency department from home for evaluation of fall, patient reports he was recently discharged from [facility] 4 days ago where he stayed for 25 days however he is still experiencing symptoms. He was previously active and recently has not been able to take care of himself due to lower extremity weakness states he has 15 chil dren and 12 grandchildren which keep him very busy. Has intermittent pain describes as tingly and sharp rates pain 5 out of 10 in the ER he was found to be febrile tachycardic and hypotensive without evidence of respiratory compromise. CT head from previous facility did not show evidence of of acute pathology In ER received chest x-ray CT scan chest and lumbar spine. Chest x-ray and chest CTA revealed evidence of alveolar edema consistent with multifocal pneumonia. CT lumbar spine showed no evidence of pathology He was admitted to medical team for management of HIV complicated by sepsis with infectious disease consulted and for management of left-sided lower extremity weakness with neurology consulted. 03/03/2025: Patient seen at bedside reports still feeling febrile. Patient is co mplaining of back pain as well as twitching in legs that is new. Patient seen and evaluated by neurology. Is going for MRI today of lumbar spine. Patient informed of pain management orders all questions addressed at bedside. 03/04/2025: Patient seen at bedside still complaining of pain and twitching, seen by neurology received MRI yesterday complained of claustrophobia for lumbar however no claustrophobia during thoracic MRI. Questions discussed with patient Pertinent positives and negatives discussed above, a complete review of systems was preformed and all the other sytems were negative. Vitals Signs Reveiwed. General: non toxic, no distress, appears at stated age, normal weight Derm: no unusual rashes/lesions, warm Head: atraumatic, normocephalic, symmetric Eyes: EOMI, no lid lag, anicteric sclera, pupils equal round reactive to light ENT: Nose and ears atraumatic Neck: No cervical lymphadenopathy, trachea midline, supple Mouth: no lip lesion, mucus membranes moist Cardiovascular: S1S2 reg, no murmur, positive dorsalis pedis pulse bilateral, no edema Lungs: Decreased air entry bilaterally, no rhonchi, no rales, no accessory muscle use Abdominal: soft, nontender to palpation, no guarding Ext: muscle strength 5 out of 5 in all 4 extremities grossly, no gross muscle a trophy, no contractures, Neuro: CN II-XI grossly intact, no gross focal neuro deficits Psych: Alert, oriented, appropriate affect Data Reveiwed Today: Assessment and Plan 49-year-old male with significant past medical history of HIV seizure drug abuse presents for lower extremity weakness that did not resolve during previous hospitalization has had difficulty taking care of himself. Imaging inconsistent with symptoms #Lower extremity weakness with pain: Potentially secondary to poly-pharmacy vs hx of multiple hip replacements vs other Neurology on consult appreciate recommendations -PT OT consult - Multimodal pain management Thoracic MRI revealed no pathology that may contribute to leg weakness, refused lumbar MRI due to claustrophobia -Lumbar MRI pending -If MRI negative, possible lumbar puncture #Multifocal pneumonia with fever and hypotension # Sepsis secondary to above ID on consult appreciate recommendations -IV Rocephin and Zithromax Lactic acid: 2.92.0 PCP pneumonia course incomplete add Bactrim p.o. 7 days D-dimer elevated 7.09 SubQ heparin 5000 every 8 hours CTA revealed no evidence of PE #New onset diarrhea secondary to antibiotics Stool culture pending C. difficile toxin negative Chronic Conditions: #HIV with poor medication compliance Biktarvy ID consulted CD4: 129 Viral load pending -HIV genotype #Seizure disorder Keppra and Depakote EEG negative DVT ppx: SubQ heparin GI ppx: Protonix CODE STATUS: Full Dispo: Pending clinical course Mohamud Mckenna DO PGY1 Dictation was produced using [email or web address] dictation software. please excuse any g rammatical, word or spelling errors. Dr. Ame MD I have performed a history and physical examination and medical decision making of this patient, discussed the same with the dictator, and agree with the dictators assessment and plan as written, documented as a scribe. Based on total visit time, I have performed more than 50% of this visit. Objective - Vital Signs Vital signs: Vital Signs Temp 99.7 F H 03/04/25 07:59 Pulse 115 H 03/04/25 07:59 Resp 32 H 03/04/25 07:59 BP 120/61 03/04/25 07:59 Pulse Ox 90 L 03/04/25 07:59 FiO2 Intake & Output 03/03/25 03/04/25 03/04/25 18:59 06:59 18:59 Intake Total 1480 Balance 1480 Intake: Oral 1480 Other: Voiding Method Diaper Diaper Incontinent External Catheter # Voids 4 2 # Bowel Movements 3 2 - Labs CBC & Chem 7: 03/04/25 07:44 03/04/25 07:44 Labs: Abnormal Lab Results - Last 24 Hours (Table) 03/03/25 03/03/25 03/03/25 Range/Units 09:56 14:14 14:14 RBC (4.40-5.60) 10*6/uL Hgb (13.0-17.0) g/dL Hct (39.6-50.0) % MCV (80.0-97.0) fL MCH (27.0-32.0) pg RDW (11.5-14.5) % Immature Gran # (0.00-0.04) 10*3/uL ESR 44 H (0-20) mm/Hr D-Dimer 7.09 H (<0.60) mg/L FEU Sodium (137-145) mmol/L Glucose (74-99) mg/dL POC Glucose (mg/dL) (70-110) mg/dL Calcium (8.4-10.2) mg/dL C-Reactive Protein 5.40 H (0.00-0.80) mg/dL Total Protein (6.3-8.2) g/dL Albumin (3.5-5.0) g/dL 03/04/25 03/04/25 03/04/25 Range/Units 07:44 07:44 09:54 RBC 2.81 L (4.40-5.60) 10*6/uL Hgb 9.4 L (13.0-17.0) g/dL Hct 28.4 L (39.6-50.0) % MCV 101.1 H (80.0-97.0) fL MCH 33.5 H (27.0-32.0) pg RDW 22.6 H (11.5-14.5) % Immature Gran # 0.06 H (0.00-0.04) 10*3/uL ESR (0-20) mm/Hr D-Dimer (<0.60) mg/L FEU Sodium 133 L (137-145) mmol/L Glucose 110 H (74-99) mg/dL POC Glucose (mg/dL) 133 H (70-110) mg/dL Calcium 7.8 L (8.4-10.2) mg/dL C-Reactive Protein (0.00-0.80) mg/dL Total Protein 5.7 L (6.3-8.2) g/dL Albumin 2.4 L (3.5-5.0) g/dL Microbiology - Last 24 Hours (Table) 02/28/25 11:14 Blood Culture - Preliminary Blood
[2025-03-04] MEDS: ALPRAZolam 0.25 MG TAB PO STA (14:31)
--- NOTE | 2025-03-04 14:52 | P.PN ---
Subjective Progress Note Date: 03/04/25 Plan follow-up with the patient Patient feels his strength in the lowers are improving. He has been performing exercises according to him while in bed. Objective - Vital Signs Vital signs: Vital Signs Temp 98.8 F 03/04/25 12:50 Pulse 94 03/04/25 13:20 Resp 32 H 03/04/25 12:50 BP 96/60 03/04/25 14:35 Pulse Ox 94 L 03/04/25 12:50 FiO2 Intake & Output 03/03/25 03/04/25 03/04/25 18:59 06:59 18:59 Intake Total 1480 Balance 1480 Intake: Oral 1480 Other: Voiding Method Diaper Diaper Bedside Commode Incontinent Diaper External Catheter # Voids 4 2 # Bowel Movements 3 2 - Exam General: Laying in bed and is not in acute distress. He was shivering upon taking the covers off and states he has been cold for 3 days. Neuro: Limited because of cooperation. Patient is awake alert oriented to self place and time. He is following simple commands. No facial weakness. No dysarthria Motor: Assessment of individual muscle strength is limited because of his overall cooperation. He is able to lift the bilateral upper and lower above gravity in the upper seems stronger than the lowers but it seems strength is better today compared to yesterday. Could not assess individual muscle strength because of his overall cooperation. Sensation is decreased to touch over the left lower to touch. - Labs CBC & Chem 7: 03/04/25 07:44 03/04/25 07:44 Labs: Abnormal Lab Results - Last 24 Hours (Table) 03/03/25 03/03/25 03/04/25 Range/Units 14:14 14:14 07:44 RBC 2.81 L (4.40-5.60) 10*6/uL Hgb 9.4 L (13.0-17.0) g/dL Hct 28.4 L (39.6-50.0) % MCV 101.1 H (80.0-97.0) fL MCH 33.5 H (27.0-32.0) pg RDW 22.6 H (11.5-14.5) % Immature Gran # 0.06 H (0.00-0.04) 10*3/uL ESR 44 H (0-20) mm/Hr Sodium (137-145) mmol/L Glucose (74-99) mg/dL POC Glucose (mg/dL) (70-110) mg/dL Calcium (8.4-10.2) mg/dL C-Reactive Protein 5.40 H (0.00-0.80) mg/dL Total Protein (6.3-8.2) g/dL Albumin (3.5-5.0) g/dL 03/04/25 03/04/25 Range/Units 07:44 09:54 RBC (4.40-5.60) 10*6/uL Hgb (13.0-17.0) g/dL Hct (39.6-50.0) % MCV (80.0-97.0) fL MCH (27.0-32.0) pg RDW (11.5-14.5) % Immature Gran # (0.00-0.04) 10*3/uL ESR (0-20) mm/Hr Sodium 133 L (137-145) mmol/L Glucose 110 H (74-99) mg/dL POC Glucose (mg/dL) 133 H (70-110) mg/dL Calcium 7.8 L (8.4-10.2) mg/dL C-Reactive Protein (0.00-0.80) mg/dL Total Protein 5.7 L (6.3-8.2) g/dL Albumin 2.4 L (3.5-5.0) g/dL Microbiology - Last 24 Hours (Table) 02/28/25 11:14 Blood Culture - Preliminary Blood Assessment and Plan Assessment: This is a 49-year-old gentleman with history of self HIV extremity weakness and it seems left more than right seems his absolute CD4 count is low of 128. Bilateral lower extremity weakness left more than right, possible concern for HIV induced myopathy CT lumbar sacral is negative Sepsis secondary due to multifocal pneumonia History of seizure Underlying history of HIV but it seems that the patient has not been taking any medication for almost a year and his CD4 count is 128 Plan: Pending MRI lumbar Will consider lumbar puncture once the MRI of the lumbar is completed. At this time patient wants to hold off Lumbar puncture. Recommend EMG with nerve conduction study as an outpatient of the [facility]. TSH is 2.4, hemoglobin A1c is 5 point vitamin B12 is [address] Iniguez started vitamin B12 1000 mcg daily p.o. MRI thoracic spine is reported as no evidence for significant spinal canal st enosis or neuroforaminal stenosis. No abnormal enhancement RBC folate level: 492 Routine EEG is normal. PT and OT are consulted ID team is on board Cardiology is consulted Will defer the rest of the medical management to primary other specialist Time with Patient: Less than 30
--- NOTE | 2025-03-04 16:06 | P.PN ---
Subjective Progress Note Date: 03/03/25 Principal diagnosis: Reason for follow-up is HIV/PCP pneumonia Patient is a 49-year-old -[place] male with a past medical history significant for HIV for many years however the patient has not been on any medication for almost a year also with history of asthma and seizure disorder with recent admission at [facility] with the patient was diagnosed with a PCP pneumonia patient apparently has not completed his oral Bactrim DS therapy as per discussion with admitting physician now presented to this facility mostly with the weakness in the lower extremity. On today's evaluation that is 03/03/2025, patient did have a fever of 100.6 F this morning patient is currently breathing comfortably and is on room air P denies having chest pain equal did have a cough but not bringing up any sputum no abdominal pain no diarrhea. Patient white count 6.48, creatinine is 1.0 stool for C. difficile is negative Objective - Vital Signs Vital signs: Vital Signs Temp 100.6 F H 03/03/25 07:45 Pulse 121 H 03/03/25 07:45 Resp 19 03/03/25 07:45 BP 108/65 03/03/25 07:45 Pulse Ox 95 03/03/25 07:45 FiO2 Intake & Output 03/02/25 03/03/25 03/03/25 18:59 06:59 18:59 Intake Total 3480 Output Total 400 Balance 3480 -400 Intake: Intake, IV Titration 1280 Amount Lactated Ringers 1,000 ml 1230 @ 75 mls/hr IV .[id number] [place] Rx#:[id number] cefTRIAXone 2 gm In 50 Sodium Chloride 0.9% 50 ml @ 100 mls/hr IVPB Q24HR [place] Rx#:[id number] Oral 2200 Output: Urine 400 Other: Voiding Method Diaper Diaper Diaper Incontinent Incontinent Incontinent External Catheter External Catheter # Voids 4 # Bowel Movements 2 - Exam GENERAL DESCRIPTION: Middle-age male lying in bed in no distress RESPIRATORY SYSTEM: Unlabored breathing , decreased breath sounds at bases HEART: S1 S2 regular rate and rhythm , ABDOMEN: Soft , no tenderness EXTREMITIES: No edema feet - Labs CBC & Chem 7: 03/04/25 07:44 03/04/25 07:44 Labs: Abnormal Lab Results - Last 24 Hours (Table) 03/01/25 03/03/25 03/03/25 Range/Units 06:11 00:31 00:31 RBC 2.80 L (4.40-5.60) 10*6/uL Hgb 9.2 L D (13.0-17.0) g/dL Hct 28.8 L (39.6-50.0) % MCV 102.9 H (80.0-97.0) fL MCH 32.9 H (27.0-32.0) pg MCHC 31.9 L (32.0-37.0) g/dL RDW 23.2 H (11.5-14.5) % Immature Gran # 0.06 H (0.00-0.04) 10*3/uL Macrocytosis (manual) (None Seen) Elliptocytes (None Seen) D-Dimer (<0.60) mg/L FEU Sodium (135-145) mmol/L BUN (9.0-27.0) mg/dL BUN/Creatinine Ratio (12.00-20.00) Ratio Glucose (70-110) mg/dL Plasma Lactic Acid Abad 2.9 H* (0.7-2.0) mmol/L Calcium (8.7-10.3) mg/dL Procalcitonin 2.42 H (0.02-0.50) ng/mL 03/03/25 03/03/25 03/03/25 Range/Units 03:56 03:56 09:56 RBC 3.01 L (4.40-5.60) 10*6/uL Hgb 9.6 L (13.0-17.0) g/dL Hct 31.7 L (39.6-50.0) % MCV 105.3 H (80.0-97.0) fL MCH (27.0-32.0) pg MCHC 30.3 L (32.0-37.0) g/dL RDW 23.2 H (11.5-14.5) % Immature Gran # 0.07 H (0.00-0.04) 10*3/uL Macrocytosis (manual) 2+ A (None Seen) Elliptocytes 2+ A (None Seen) D-Dimer 7.09 H (<0.60) mg/L FEU Sodium 134 L (135-145) mmol/L BUN 8.4 L (9.0-27.0) mg/dL BUN/Creatinine Ratio 8.40 L (12.00-20.00) Ratio Glucose 139 H (70-110) mg/dL Plasma Lactic Acid Abad (0.7-2.0) mmol/L Calcium 7.6 L (8.7-10.3) mg/dL Procalcitonin (0.02-0.50) ng/mL Microbiology - Last 24 Hours (Table) 02/28/25 11:14 Blood Culture - Preliminary Blood Assessment and Plan (1) Sepsis Current Visit: Yes Status: Acute Code(s): A41.9 - SEPSIS, UNSPECIFIED ORGANISM SNOMED Code(s): 84302927 (2) Noncompliance with medication regimen Current Visit: Yes Status: Acute Code(s): Z91.148 - PATIENT'S OTHER NONCOMPL WITH MEDS REGIMEN FOR OTHER REASON SNOMED Code(s): 946595788 (3) Multifocal pneumonia Current Visit: Yes Status: Acute Code(s): J18.9 - PNEUMONIA, UNSPECIFIED OR GANISM SNOMED Code(s): 353970884 (4) HIV (human immunodeficiency virus infection) Current Visit: No Status: Acute Code(s): B20 - HUMAN IMMUNODEFICIENCY VIRUS [HIV] DISEASE SNOMED Code(s): 62400051 (5) PCP (pneumocystis jiroveci pneumonia) Current Visit: Yes Status: Acute Code(s): B59 - PNEUMOCYSTOSIS SNOMED Code(s): 414197019 Plan: 1patient presented hospital with lower extremity weakness did not have any bowel or bladder problem also with a history of lower back pain CT of the lumbosacral spine did not show any acute changes may benefit from further workup including MRI to better define underlying pathology and also check inflammatory markers. 2patient did have significant normality on the CT of the chest however do not have any significant respiratory symptoms pneumonia less likely but not entirely excluded with a question of fluid acquired versus atypical. 3patient with a history of HIV however has not been on any medication for almost a year seem to have been recently started on antiretroviral Biktarvy at other facility not very clear if the patient was taking it on discharge his CD4 count is 128 viral load genotype is currently pending 4patient did have a PCP pneumonia recently for the patient has not completed his Bactrim DS therapy which was started still running a fever which is concerning still waiting for the MRI of the lumbar spine blood culture repeated vancomycin has been added Dictation was produced using [employer] dictation software. please excuse any gr ammatical, word or spelling errors. Time with Patient: Less than 30
--- NOTE | 2025-03-04 16:07 | P.PN ---
Subjective Progress Note Date: 03/04/25 Principal diagnosis: Reason for follow-up is HIV/PCP pneumonia Patient is a 49-year-old -[place] male with a past medical history significant for HIV for many years however the patient has not been on any medication for almost a year also with history of asthma and seizure disorder with recent admission at [facility] with the patient was diagnosed with a PCP pneumonia patient apparently has not completed his oral Bactrim DS therapy as per discussion with admitting physician now presented to this facility mostly with the weakness in the lower extremity. On today's evaluation that is 03/04/2025, Patient did have a low-grade fever of 99.7 F this morning patient is breathing comfortably currently on room air still complaining of cough but not bringing up any sputum no vomiting or diarrhea has been reported. Patient white count 6.86, creatinine 0.98 blood cultures so far negative thoracic spine MRI did not show any acute abnormality Objective - Vital Signs Vital signs: Vital Signs Temp 99.7 F H 03/04/25 07:59 Pulse 115 H 03/04/25 07:59 Resp 32 H 03/04/25 07:59 BP 120/61 03/04/25 07:59 Pulse Ox 90 L 03/04/25 07:59 FiO2 Intake & Output 03/03/25 03/04/25 03/04/25 18:59 06:59 18:59 Intake Total 1480 Balance 1480 Intake: Oral 1480 Other: Voiding Method Diaper Diaper Incontinent External Catheter # Voids 4 2 # Bowel Movements 3 2 - Exam GENERAL DESCRIPTION: Middle-age male lying in bed in no distress RESPIRATORY SYSTEM: Unlabored breathing , decreased breath sounds at bases HEART: S1 S2 regular rate and rhythm , ABDOMEN: Soft , no tenderness EXTREMITIES: No edema feet - Labs CBC & Chem 7: 03/04/25 07:44 03/04/25 07:44 Labs: Abnormal Lab Results - Last 24 Hours (Table) 03/03/25 03/03/25 03/04/25 Range/Units 14:14 14:14 07:44 RBC 2.81 L (4.40-5.60) 10*6/uL Hgb 9.4 L (13.0-17.0) g/dL Hct 28.4 L (39.6-50.0) % MCV 101.1 H (80.0-97.0) fL MCH 33.5 H (27.0-32.0) pg RDW 22.6 H (11.5-14.5) % Immature Gran # 0.06 H (0.00-0.04) 10*3/uL ESR 44 H (0-20) mm/Hr Sodium (137-145) mmol/L Glucose (74-99) mg/dL POC Glucose (mg/dL) (70-110) mg/dL Calcium (8.4-10.2) mg/dL C-Reactive Protein 5.40 H (0.00-0.80) mg/dL Total Protein (6.3-8.2) g/dL Albumin (3.5-5.0) g/dL 03/04/25 03/04/25 Range/Units 07:44 09:54 RBC (4.40-5.60) 10*6/uL Hgb (13.0-17.0) g/dL Hct (39.6-50.0) % MCV (80.0-97.0) fL MCH (27.0-32.0) pg RDW (11.5-14.5) % Immature Gran # (0.00-0.04) 10*3/uL ESR (0-20) mm/Hr Sodium 133 L (137-145) mmol/L Glucose 110 H (74-99) mg/dL POC Glucose (mg/dL) 133 H (70-110) mg/dL Calcium 7.8 L (8.4-10.2) mg/dL C-Reactive Protein (0.00-0.80) mg/dL Total Protein 5.7 L (6.3-8.2) g/dL Albumin 2.4 L (3.5-5.0) g/dL Microbiology - Last 24 Hours (Table) 02/28/25 11:14 Blood Culture - Preliminary Blood Assessment and Plan (1) Sepsis Current Visit: Yes Status: Acute Code(s): A41.9 - SEPSIS, UNSPECIFIED ORGANISM SNOMED Code(s): 67498993 (2) Noncompliance with medication regimen Current Visit: Yes Status: Acute Code(s): Z91.148 - PATIENT'S OTHER NONCOMPL WITH MEDS REGIMEN FOR OTHER REASON SNOMED Code(s): 985536773 (3) Multifocal pneumonia Current Visit: Yes Status: Acute Code(s): J18.9 - PNEUMONIA, UNSPECIFIED ORGANISM SNOMED Code(s): 372865145 (4) HIV (human immunodeficiency virus infection) Current Visit: No Status: Acute Code(s): B20 - HUMAN IMMUNODEFICIENCY VIRUS [HIV] DISEASE SNOMED Code(s): 30035266 (5) PCP (pneumocystis jiroveci pneumonia) Current Visit: Yes Status: Acute Code(s): B59 - PNEUMOCYSTOSIS SNOMED C ode(s): 444435819 Plan: 1patient presented hospital with lower extremity weakness did not have any bowel or bladder problem also with a history of lower back pain CT of the lumbosacral spine did not show any acute changes may benefit from further workup including MRI to better define underlying pathology and also check inflammatory markers. 2patient did have significant normality on the CT of the chest however do not have any significant respiratory symptoms pneumonia less likely but not entirely excluded with a question of fluid acquired versus atypical. 3patient with a history of HIV however has not been on any medication for almost a year seem to have been recently started on antiretroviral Biktarvy at other facility not very clear if the patient was taking it on discharge his CD4 count is 128 viral load genotype is currently pending 4patient did have a PCP pneumonia recently for the patient has not completed his Bactrim DS therapy which was started still running a fever which is concerning still waiting for the MRI of the lumbar spine blood culture was repeated yesterday Vanco was added we will wait for the MRI of the lumbar spine and the patient not able to cough up any sputum sample may benefit from pulmonary evaluation for bronchoscopy and lavage Dictation was produced using [employer] dictation software. please excuse any gramm atical, word or spelling errors. Time with Patient: Less than 30
--- NOTE | 2025-03-04 16:40 | MR ---
EXAMINATION TYPE: MR lumbar spine wo/w con DATE OF EXAM: 03/04/2025 4:12 PM COMPARISON: MR thoracic spine 03/03/2025, CT lumbar spine 02/28/2025 CLINICAL INDICATION: Male, 49 years old with history of lower extremity weakness, Lower extremity wea kness. IV Contrast: 8ml cc Gadobutrol TECHNIQUE: Multiplanar, multisequence images of the lumbar spine were acquired without and with 8ml mL intraveno us Gadobutrol gadolinium contrast. FINDINGS: Alignment: The lumbar vertebral bodies have preserved heights and alignment. Cord: The conus medullaris and the distal spinal cord appear unremarkable with regards to their signa l intensity and morphology. Bones/Discs: Diffuse low-dose T1 signal in the osseous structures. No focal enhancing lesion. Interve rtebral disc signal is maintained. L1-L2: No significant disc pathology. Spinal canal is patent. The neural foramen are patent. L2-L3: No significant disc pathology. Spinal canal is patent. The neural foramen are patent. L3-L4: Mild broad-based disc bulge. No spinal canal stenosis. Bilateral facet arthropathy. Mild bilat eral neural foraminal stenosis. L4-L5: No significant disc pathology. Spinal canal is patent. The neural foramen are patent. L5-S1: No significant disc pathology. Spinal canal is patent. The neural foramen are patent. Other findings: None. IMPRESSION: 1. No definitive evidence of disc herniation or significant spinal canal stenosis. 2. Mild degenerative disc disease and facet arthropathy at L3-L4. 3. Diffuse red marrow conversion can be seen in the setting of tobacco abuse, anemia, or myeloprolife rative disorder. No focal enhancing osseous lesion. [facility], , 03/04/2025 4:38 PM
[2025-03-04] MEDS: IBUPROFEN 400 MG TAB PO PRN (21:43)
[2025-03-05 08:49] LABS: Basophils # (A) 0.03 10*3/uL (0.00-0.10); Basophils % (A) 0.5 %; Eosinophils # (A) 0.04 10*3/uL (0.04-0.35); Eosinophils % (A) 0.7 %; HCT 28.0 % (39.6-50.0); HGB 9.1 g/dL (13.0-17.0); Lymphocytes # (A) 2.47 10*3/uL (0.90-5.00); Lymphocytes % (A) 44.7 %; MCH 32.9 pg (27.0-32.0); MCHC 32.5 g/dL (32.0-37.0); MCV 101.1 fL (80.0-97.0); Monocytes # (A) 0.28 10*3/uL (0.20-1.00); Monocytes % (A) 5.1 %; Neutrophils # (A) 2.61 10*3/uL (1.80-7.70); Neutrophils % (A) 47.2 %; Platelet Count 209 10*3/uL (140-440); RBC 2.77 10*6/uL (4.40-5.60); RDW 22.8 % (11.5-14.5); WBC 5.53 10*3/uL (4.50-10.00)
[2025-03-05 09:04] LABS: ALT 32 U/L (4-49); AST 23 U/L (17-59); African American GFR (CKD) 72 (>60 ml/min/1.73 sqM); Albumin 2.4 g/dL (3.5-5.0); Albumin/Globulin Ratio 0.7; Alkaline Phosphatase 66 U/L (38-126); Anion Gap 8 mmol/L; Blood Urea Nitrogen 15 mg/dL (9-20); Calcium 7.7 mg/dL (8.4-10.2); Carbon Dioxide 22 mmol/L (22-30); Chloride 103 mmol/L (98-107); Globulin 3.3 g/dL; Glucose 79 mg/dL (74-99); Non-African American GFR(CKD) 62 (>60 ml/min/1.73 sqM); Potassium 4.5 mmol/L (3.5-5.1); Sodium 133 mmol/L (137-145); Total Protein 5.7 g/dL (6.3-8.2)
[2025-03-05 11:07] LABS: Anisocytosis (M) Present
--- NOTE | 2025-03-05 12:38 | CA ---
Transthoracic Echo Report Name: Jose Houser Age: 49 Gender: M : 1975 Exam Date: 03/05/2025 07:46 Exam Location: [facility] Ht (in): 72 Wt (lb): 170 Ordering Physician: Ellie Lyons Attending/Referring Phys: [id number], [facility] Management Department Chair Yeni Aguilera, TASH Procedure CPT: Indications: CP, pna, hx of HIV Cardiac Hx: Technical Quality: Good Contrast 1: Total Dose (mL): Contrast 2: Total Dose (mL): MEASUREMENTS (Male / Female) Normal Values 2D ECHO LV Diastolic Diameter PLAX 5.0 cm 4.2 - 5.9 / 3.9 - 5.3 cm LV Systolic Diameter PLAX 3.7 cm IVS Diastolic Thickness 1.0 cm 0.6 - 1.0 / 0.6 - 0.9 cm LVPW Diastolic Thickness 1.1 cm 0.6 - 1.0 / 0.6 - 0.9 cm LV Relative Wall Thickness 0.4 RV Internal Dim ED PLAX 2.8 cm LA Systolic Diameter LX 4.0 cm 3.0 - 4.0 / 2.7 - 3.8 cm LV Diastolic Volume MOD BP 69.4 cm??? 67 - 155 / 56 - 104 cm??? LV Systolic Volume MOD BP 30.6 cm??? - 58 / 19 - 49 cm??? LV Ejection Fraction MOD BP 55.9 % >= 55 % LV Cardiac Index MOD BP 1589.4 cm???/min???m??? LV Diastolic Volume MOD 4C 86.7 cm??? LV Systolic Volume MOD 4C 34.2 cm??? LV Ejection Fraction MOD 4C 60.5 % LV Cardiac Index MOD 4C 2146.8 cm???/min???m??? LV Diastolic Length 4C 9.1 cm LV Systolic Length 4C 7.6 cm LV Diastolic Volume MOD 2C 43.5 cm??? LV Systolic Volume MOD 2C 25.9 cm??? LV Ejection Fraction MOD 2C 40.5 % LV Cardiac Index MOD 2C 722.2 cm???/min???m??? LV Diastolic Length 2C 7.0 cm LV Systolic Length 2C 7.1 cm LA Volume 50.4 cm??? 18 - 58 / 22 - 52 cm??? LA Volume Index 25.4 cm???/m??? 16 - 28 cm???/m??? M-MODE Aortic Root Diameter MM 3.5 cm LA Systolic Diameter MM 3.6 cm LA Ao Ratio MM 1.0 AV Cusp Separation MM 2.3 cm DOPPLER MV Area PHT 3.0 cm??? Mitral E Point Velocity 66.9 cm/s Mitral A Point Velocity 54.3 cm/s Mitral E to A Ratio 1.2 MV Deceleration Time 252.8 ms TR Peak Velocity 225.2 cm/s TR Peak Gradient 20.3 mmHg Right Ventricular Systolic Press 24.7 mmHg FINDINGS Left Ventricle Left ventricular ejection fraction is estimated at 45-50 %. Left ventricular cavity size normal. Left ventricular wall thickness normal. Mildly reduced global left ventricular systolic function. Right Ventricle Normal right ventricular size and function. Right ventricular systolic pressure within normal limits. Right Atrium Normal right atrial size. Left Atrium Normal left atrial size. Mitral Valve Structurally normal mitral valve. Trace mitral regurgitation. No mitral stenosis. Aortic Valve Trileaflet aortic valve. No aortic valve stenosis or regurgitation. Tricuspid Valve Structurally normal tricuspid valve. Mild tricuspid regurgitation. No tricuspid stenosis. Pulmonic Valve Structurally normal pulmonic valve. Trace pulmonic regurgitation. No pulmonic stenosis. Pericardium No pericardial or pleural effusion. Aorta Normal size aortic root and proximal ascending aorta. CONCLUSIONS Mildly impaired LV function with EF between 45 to 50% Previewed by: Dr. Caio Esquivel MD (Electronically Signed) Final Date: 05 March 2025 12:37
--- NOTE | 2025-03-05 12:52 | P.PN ---
Subjective HISTORY OF PRESENT ILLNESS: This is a 49-year-old male with a past medical history significant for HIV, pneumonia, and seizure disorder. 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 We have been asked to see the patient in consultation for chest pain. Patient examined at the bedside. Patient states that he recently spent 3 weeks at [facility] secondary to lower extremity weakness and inability to walk. Patient states he presented to [facility] with similar symptoms. He states he is having pain in his thighs and lower back this morning. He reports a history of asthma and states he does get chest discomfort when he experiences shortness of breath. He states the pain is worse with deep inspiration. He currently denies any chest pain or pressure. He is noted to have a fever this morning. [place] and has not seen a doctor in many years due to insurance issues. He currently denies any chest pain or pressure. DIAGNOSTICS: - EKG reveals tachycardia with no signs of acute ischemia. - Chest xray stable acute cardiopulmonary process in both lungs consistent with pneumonia or pulmonary edema. - Laboratory data: Troponin negative x 2 - Current home cardiac medications include none - Most recent echocardiogram obtained in 2014 revealed ejection fraction 55%, mild MR, mild TR - Cardiac catheterization history: Patient denies 03/04/2025 Patient examined this morning at the bedside. Patient currently denies chest pain or pressure. He denies shortness of breath. He does report some increased mobility of his right lower extremity. Patient was found to have elevated D- dimer yesterday. He underwent CTA which was negative for pulmonary embolism. 2D echo remains pending. 03/05/2025 Patient examined this morning the bedside. Patient currently denies chest pain or pressure. He denies shortness of breath. Echocardiogram completed revealing ejection fraction 45 to 50% with trace MR and mild TR. PHYSICAL EXAM: VITAL SIGNS: Reviewed. GENERAL: Well-developed in no acute distress. HEENT: Head is normocephalic. Pupils are equal, round. Sclerae anicteric. Mucous membranes of the mouth are moist. Neck supple. No JVD or thyromegaly LUNGS: Respirations even and unlabored. Lungs essentially clear to auscultation bilaterally. HEART: Regular rate and rhythm. S1 and S2 heard. ABDOMEN: Soft. Nondistended. Nontender. EXTREMITIES: Normal range of motion. No clubbing or cyanosis. Peripheral pulses intact. No lower extremity edema NEUROLOGIC: Awake and alert. Oriented x 3. ASSESSMENT: Chest pain, troponin negative x 2, appears noncardiac and reproducible with deep inspiration Shortness of breath Bilateral pneumonia Sinus tachycardia, secondary to infectious process Fever Lower extremity weakness with inability to walk Prolonged immobilization History of HIV History of seizure disorder PLAN: An acute coronary event has been ruled out No plans for stress testing at this time No further inpatient recommendations from a cardiology standpoint We will sign off. Please reconsult if needed. Nurse practitioner note has been reviewed by physician. Signing provider agrees with the documented findings, assessment, and plan of care documented by [employer] as a scribe. Objective - Vital Signs Vital signs: Vital Signs Temp 97.8 F 03/05/25 12:50 Pulse 62 03/05/25 12:50 Resp 16 03/05/25 12:50 BP 91/52 03/05/25 12:50 Pulse Ox 95 03/05/25 12:50 FiO2 Intake & Output 03/04/25 03/05/25 03/05/25 18:59 06:59 18:59 Intake Total 1560 240 Output Total 400 Balance 1560 -160 Intake: Oral 1560 240 Output: Urine 400 Other: Voiding Method Bedside Commode Bedside Commode Diaper Diaper Diaper External Catheter # Voids 4 2 - Labs CBC & Chem 7: 03/05/25 08:24 03/05/25 08:24 Labs: Abnormal Lab Results - Last 24 Hours (Table) 03/05/25 03/05/25 Range/Units 08:24 08:24 RBC 2.77 L (4.40-5.60) 10*6/uL Hgb 9.1 L (13.0-17.0) g/dL Hct 28.0 L (39.6-50.0) % MCV 101.1 H (80.0-97.0) fL MCH 32.9 H (27.0-32.0) pg RDW 22.8 H (11.5-14.5) % Immature Gran # 0.10 H (0.00-0.04) 10*3/uL Sodium 133 L (137-145) mmol/L Creatinine 1.33 H (0.66-1.25) mg/dL Calcium 7.7 L (8.4-10.2) mg/dL Total Protein 5.7 L (6.3-8.2) g/dL Albumin 2.4 L (3.5-5.0) g/dL Microbiology - Last 24 Hours (Table) 03/03/25 21:00 Stool Culture - Preliminary Stool 03/03/25 14:14 Blood Culture - Preliminary Blood
[2025-03-05] MEDS: VANCOMYCIN TROUGH DUE 1 EACH MISC MISCELLANE ONE (14:19)
--- NOTE | 2025-03-05 14:20 | P.PN ---
Subjective Subjective: History of present illness; 49-year-old male with significant past medical history of HIV seizure drug abuse and nicotine dependence and several hip replacement corrections brought to the emergency department from home for evaluation of fall, patient reports he was recently discharged from [facility] 4 days ago where he stayed for 25 days however he is still experiencing symptoms. He was previously active and recently has not been able to take care of himself due to lower extremity weakness states he has 15 chil dren and 12 grandchildren which keep him very busy. Has intermittent pain describes as tingly and sharp rates pain 5 out of 10 in the ER he was found to be febrile tachycardic and hypotensive without evidence of respiratory compromise. CT head from previous facility did not show evidence of of acute pathology In ER received chest x-ray CT scan chest and lumbar spine. Chest x-ray and chest CTA revealed evidence of alveolar edema consistent with multifocal pneumonia. CT lumbar spine showed no evidence of pathology He was admitted to medical team for management of HIV complicated by sepsis with infectious disease consulted and for management of left-sided lower extremity weakness with neurology consulted. 03/03/2025: Patient seen at bedside reports still feeling febrile. Patient is co mplaining of back pain as well as twitching in legs that is new. Patient seen and evaluated by neurology. Is going for MRI today of lumbar spine. Patient informed of pain management orders all questions addressed at bedside. 03/04/2025: Patient seen at bedside still complaining of pain and twitching, seen by neurology received MRI yesterday complained of claustrophobia for lumbar however no claustrophobia during thoracic MRI. Questions discussed with patient Pertinent positives and negatives discussed above, a complete review of systems was preformed and all the other sytems were negative. Vitals Signs Reveiwed. General: non toxic, no distress, appears at stated age, normal weight Derm: no unusual rashes/lesions, warm Head: atraumatic, normocephalic, symmetric Eyes: EOMI, no lid lag, anicteric sclera, pupils equal round reactive to light ENT: Nose and ears atraumatic Neck: No cervical lymphadenopathy, trachea midline, supple Mouth: no lip lesion, mucus membranes moist Cardiovascular: S1S2 reg, no murmur, positive dorsalis pedis pulse bilateral, no edema Lungs: Decreased air entry bilaterally, no rhonchi, no rales, no accessory muscle use Abdominal: soft, nontender to palpation, no guarding Ext: muscle strength 5 out of 5 in all 4 extremities grossly, no gross muscle a trophy, no contractures, Neuro: CN II-XI grossly intact, no gross focal neuro deficits Psych: Alert, oriented, appropriate affect Data Reveiwed Today: Assessment and Plan 49-year-old male with significant past medical history of HIV seizure drug abuse presents for lower extremity weakness that did not resolve during previous hospitalization has had difficulty taking care of himself. Imaging inconsistent with symptoms #Lower extremity weakness with pain: Potentially secondary to poly-pharmacy vs hx of multiple hip replacements vs other Neurology on consult appreciate recommendations -PT OT consult - Multimodal pain management Thoracic MRI revealed no pathology that may contribute to leg weakness, refused lumbar MRI due to claustrophobia -Lumbar MRI pending -MRI negative for acute changes to cause neurological symptoms. Consider lumbar puncture to evaluate fever and weakness further #Multifocal pneumonia with fever and hypotension # Sepsis secondary to above ID on consult appreciate recommendations -IV Rocephin and Zithromax Lactic acid: 2.92.0 PCP pneumonia course incomplete add Bactrim p.o. 7 days D-dimer elevated 7.09 SubQ heparin 5000 every 8 hours CTA revealed no evidence of PE #New onset diarrhea secondary to antibiotics Stool culture pending C. difficile toxin negative Chronic Conditions: #HIV with poor medication compliance Biktarvy ID consulted CD4: 129 Viral load pending -HIV genotype #Seizure disorder Keppra and Depakote EEG negative DVT ppx: SubQ heparin GI ppx: Protonix CODE STATUS: Full Dispo: Pending clinical course Mohamud Mckenna DO PGY1 Dictation was produced using for[MD] dictation software. please excuse any grammatical, word or spelling errors. Dr. Ame MD I have performed a history and physical examination and medical decision making of this patient, discussed the same with the dictator, and agree with the dicta tors assessment and plan as written, documented as a scribe. Based on total visit time, I have performed more than 50% of this visit. Objective - Vital Signs Vital signs: Vital Signs Temp 97.4 F L 03/05/25 07:40 Pulse 79 03/05/25 07:40 Resp 16 03/05/25 07:40 BP 93/57 03/05/25 07:40 Pulse Ox 90 L 03/05/25 07:40 FiO2 Intake & Output 03/04/25 03/05/25 03/05/25 18:59 06:59 18:59 Intake Total 1560 240 Balance 1560 240 Intake: Oral 1560 240 Other: Voiding Method Bedside Commode Bedside Commode Diaper Diaper # Voids 4 2 - Labs CBC & Chem 7: 03/05/25 08:24 03/05/25 08:24 Labs: Abnormal Lab Results - Last 24 Hours (Table) 03/04/25 03/05/25 03/05/25 Range/Units 09:54 08:24 08:24 RBC 2.77 L (4.40-5.60) 10*6/uL Hgb 9.1 L (13.0-17.0) g/dL Hct 28.0 L (39.6-50.0) % MCV 101.1 H (80.0-97.0) fL MCH 32.9 H (27.0-32.0) pg RDW 22.8 H (11.5-14.5) % Immature Gran # 0.10 H (0.00-0.04) 10*3/uL Sodium 133 L (137-145) mmol/L Creatinine 1.33 H (0.66-1.25) mg/dL POC Glucose (mg/dL) 133 H (70-110) mg/dL Calcium 7.7 L (8.4-10.2) mg/dL Total Protein 5.7 L (6.3-8.2) g/dL Albumin 2.4 L (3.5-5.0) g/dL Microbiology - Last 24 Hours (Table) 03/03/25 21:00 Stool Culture - Preliminary Stool 03/03/25 14:14 Blood Culture - Preliminary Blood
[2025-03-05 15:00] LABS: African American GFR (CKD) >90 (>60 ml/min/1.73 sqM); Non-African American GFR(CKD) 82 (>60 ml/min/1.73 sqM)
[2025-03-06 05:44] LABS: ALT 27 U/L (4-49); AST 27 U/L (17-59); African American GFR (CKD) >90 (>60 ml/min/1.73 sqM); Albumin 2.3 g/dL (3.5-5.0); Albumin/Globulin Ratio 0.7; Alkaline Phosphatase 67 U/L (38-126); Anion Gap 8 mmol/L; Blood Urea Nitrogen 11 mg/dL (9-20); Calcium 7.6 mg/dL (8.4-10.2); Carbon Dioxide 24 mmol/L (22-30); Chloride 100 mmol/L (98-107); Globulin 3.3 g/dL; Glucose 96 mg/dL (74-99); Non-African American GFR(CKD) 86 (>60 ml/min/1.73 sqM); Potassium 5.3 mmol/L (3.5-5.1); Sodium 132 mmol/L (137-145); Total Protein 5.6 g/dL (6.3-8.2)
[2025-03-06 08:07] LABS: HCT 28.9 % (39.6-50.0); HGB 9.0 g/dL (13.0-17.0); MCH 31.8 pg (27.0-32.0); MCHC 31.1 g/dL (32.0-37.0); MCV 102.1 FL (80.0-97.0); NRBC Per 100 WBC 0 X 10*3/uL (0.00-0.01); Platelet Count 235 X 10*3/uL (140-440); RBC 2.83 X 10*6/uL (4.40-5.60); RDW 22.5 % (11.5-14.5); WBC 6.24 X 10*3/uL (4.50-10.00)
--- NOTE | 2025-03-06 08:19 | P.PN ---
Subjective Progress Note Date: 03/05/25 Principal diagnosis: Reason for follow-up is HIV/PCP pneumonia Patient is a 49-year-old -[place] male with a past medical history significant for HIV for many years however the patient has not been on any medication for almost a year also with history of asthma and seizure disorder with recent admission at [facility] with the patient was diagnosed with a PCP pneumonia patient apparently has not completed his oral Bactrim DS therapy as per discussion with admitting physician now presented to this facility mostly with the weakness in the lower extremity. On today's evaluation that is 03/05/2025,the patient denies any fever or any chills, patient is breathing comfortably on 3 L nasal cannula oxygen, the patient denies chest pain shortness of breath and complaining of cough mention bringing up some sputum however could not find a cough to get out of a sample no abdominal pain no diarrhea. Patient did have a white count of 5.53 creatinine is 1.33 Vanco trough is 17 blood cultures have been negative lumbar spine MRI no definite evidence of disc herniation or discitis echocardiogram mildly impaired LV function no vegetation Objective - Vital Signs Vital signs: Vital Signs Temp 99.6 F 03/05/25 19:23 Pulse 98 03/05/25 19:23 Resp 16 03/05/25 19:23 BP 99/57 03/05/25 19:23 Pulse Ox 94 L 03/05/25 19:23 FiO2 Intake & Output 03/05/25 03/05/25 03/06/25 06:59 18:59 06:59 Intake Total 1560 240 Output Total 850 400 Balance 1560 -610 -400 Intake: Oral 1560 240 Output: Urine 850 400 Other: Voiding Method Bedside Commode Diaper Diaper Diaper External Catheter External Catheter # Voids 2 - Exam GENERAL DESCRIPTION: Middle-age male lying in bed in no distress RESPIRATORY SYSTEM: Unlabored breathing , decreased breath sounds at bases HEART: S1 S2 regular rate and rhythm , ABDOMEN: Soft , no tenderness EXTREMITIES: No edema feet - Labs CBC & Chem 7: 03/06/25 04:55 03/06/25 04:55 Labs: Abnormal Lab Results - Last 24 Hours (Table) 03/05/25 03/05/25 Range/Units 08:24 08:24 RBC 2.77 L (4.40-5.60) 10*6/uL Hgb 9.1 L (13.0-17.0) g/dL Hct 28.0 L (39.6-50.0) % MCV 101.1 H (80.0-97.0) fL MCH 32.9 H (27.0-32.0) pg RDW 22.8 H (11.5-14.5) % Immature Gran # 0.10 H (0.00-0.04) 10*3/uL Sodium 133 L (137-145) mmol/L Creatinine 1.33 H (0.66-1.25) mg/dL Calcium 7.7 L (8.4-10.2) mg/dL Total Protein 5.7 L (6.3-8.2) g/dL Albumin 2.4 L (3.5-5.0) g/dL Microbiology - Last 24 Hours (Table) 03/03/25 14:14 Blood Culture - Preliminary Blood 02/28/25 11:14 Blood Culture - Final Blood 03/03/25 21:00 Stool Culture - Preliminary Stool Assessment and Plan (1) Sepsis Current Visit: Yes Status: Acute Code(s): A41.9 - SEPSIS, UNSPECIFIED ORGANISM SNOMED Code(s): 18941010 (2) Noncompliance with medication regimen Current Visit: Yes Status: Acute Code(s): Z91.148 - PATIENT'S OTHER NONCOMPL WITH MEDS REGIMEN FOR OTHER REASON SNOMED Code(s): 824836737 (3) Multifocal pneumonia Current Visit: Yes Status: Acute Code(s): J18.9 - PNEUMONIA, UNSPECIFIED ORGANISM SNOMED Code(s): 051333482 (4) HIV (human immunodeficiency virus infection) Current Visit: No Status: Acute Code(s): B20 - HUMAN IMMUNODEFICIENCY VIRUS [HIV] DISEASE SNOMED Code(s): 21088681 (5) PCP (pneumocystis jiroveci pneumonia) Current Visit: Yes Status: Acute Code(s): B59 - PNEUMOCYSTOSIS SNOMED C ode(s): 975725000 Plan: 1patient presented hospital with lower extremity weakness did not have any bowel or bladder problem did have MRI of the thoracic as well as lumbar spine did not mention any features of discitis or osteomyelitis 2patient did have significant abnormality on the CT of the chest and a recent history of PCP pneumonia more likely etiology of his fever is pneumonia which seem to be responding after addition of the vancomycin however we need to pend sputum so we can narrow down his antibiotics this has been discussed again with the nursing staff continue with the Bactrim DS as well Dictation was produced using [employer] dictation software. please excuse any grammatical, word or spelling errors.
[2025-03-06 08:47] LABS: Basophils # (A) 0.04 X 10*3/uL (0.00-0.10); Basophils % (A) 0.6 %; Eosinophils # (A) 0.05 X 10*3/uL (0.04-0.35); Eosinophils % (A) 0.8 %; Immature Grans, Automated 0.60 %; Lymphocytes # (A) 3.47 X 10*3/uL (0.90-5.00); Lymphocytes % (A) 55.6 %; Macrocytosis (M) 2+ (None Seen); Monocytes # (A) 0.37 X 10*3/uL (0.20-1.00); Monocytes % (A) 5.9 %; Neutrophils # (A) 2.27 X 10*3/uL (1.80-7.70); Neutrophils % (A) 36.5 %
[2025-03-06] MEDS: PANTOPRAZOLE 40 MG TABLET PO SCH (08:57)
[2025-03-06] MEDS ORDERED: VANCOMYCIN TROUGH DUE 1 EACH MISC MISCELLANE ONE (11:49)
[2025-03-06 13:02] VITALS: BMI 23.0
--- NOTE | 2025-03-06 14:26 | P.PN ---
Subjective Progress Note Date: 03/06/25 Principal diagnosis: Reason for follow-up is HIV/PCP pneumonia Patient is a 49-year-old -Af[place] male with a past medical history significant for HIV for many years however the patient has not been on any medication for almost a year also with history of asthma and seizure disorder with recent admission at [facility] with the patient was diagnosed with a PCP pneumonia patient apparently has not completed his oral Bactrim DS therapy as per discussion with admitting physician now presented to this facility mostly with the weakness in the lower extremity. On today's evaluation that is 03/06/2025,the patient did spike a fever 100.9 F this morning patient was mildly tachycardic still complaining of shortness of breath and did have a cough but not able to bring up any sputum is requiring increased nasal oxygen no nausea vomiting no abdominal pain no diarrhea. Patient white count is 6.24 creatinine 1.01 Vanco trough is 17 blood culture have been negative sputum blood collected Objective - Vital Signs Vital signs: Vital Signs Temp 100.9 F H 03/06/25 08:00 Pulse 101 H 03/06/25 08:35 Resp 18 03/06/25 08:35 BP 100/61 03/06/25 08:00 Pulse Ox 94 L 03/06/25 08:00 FiO2 Intake & Output 03/05/25 03/06/25 03/06/25 18:59 06:59 18:59 Intake Total 240 Output Total 850 400 Balance -610 -400 Intake: Oral 240 Output: Urine 850 400 Other: Voiding Method Diaper Diaper Diaper External Catheter External Catheter External Catheter # Voids 1 1 - Exam GENERAL DESCRIPTION: Middle-age male lying in bed in no distress RESPIRATORY SYSTEM: Unlabored breathing , decreased breath sounds at bases HEART: S1 S2 regular rate and rhythm , ABDOMEN: Soft , no tenderness EXTREMITIES: No edema feet - Labs CBC & Chem 7: 03/06/25 04:55 03/06/25 04:55 Labs: Abnormal Lab Results - Last 24 Hours (Table) 03/06/25 03/06/25 Range/Units 04:55 04:55 RBC 2.83 L (4.40-5.60) X 10*6/uL Hgb 9.0 L (13.0-17.0) g/dL Hct 28.9 L (39.6-50.0) % MCV 102.1 H (80.0-97.0) FL MCHC 31.1 L (32.0-37.0) g/dL RDW 22.5 H (11.5-14.5) % Macrocytosis (manual) 2+ A (None Seen) Sodium 132 L (137-145) mmol/L Potassium 5.3 H (3.5-5.1) mmol/L Calcium 7.6 L (8.4-10.2) mg/dL Total Bilirubin 0.1 L (0.2-1.3) mg/dL Total Protein 5.6 L (6.3-8.2) g/dL Albumin 2.3 L (3.5-5.0) g/dL Microbiology - Last 24 Hours (Table) 03/03/25 14:14 Blood Culture - Preliminary Blood 02/28/25 11:14 Blood Culture - Final Blood 03/03/25 21:00 Stool Culture - Preliminary Stool Assessment and Plan (1) Sepsis Current Visit: Yes Status: Acute Code(s): A41.9 - SEPSIS, UNSPECIFIED ORGANISM SNOMED Code(s): 06811788 (2) Noncompliance with medication regimen Current Visit: Yes Status: Acute Code(s): Z91.148 - PATIENT'S OTHER NONCOMPL WITH MEDS REGIMEN FOR OTHER REASON SNOMED Code(s): 727108168 (3) Multifocal pneumonia Current Visit: Yes Status: Acute Code(s): J18.9 - PNEUMONIA, UNSPECIFIED ORGANISM SNOMED Code(s): 707618172 (4) HIV (human immunodeficiency virus infection) Current Visit: No Status: Acute Code(s): B20 - HUMAN IMMUNODEFICIENCY VIRUS [HIV] DISEASE SNOMED Code(s): 87327233 (5) PCP (pneumocystis jiroveci pneumonia) Current Visit: Yes Status: Acute Code(s): B59 - PNEUMOCYSTOSIS SNOMED Code(s): 844964418 Plan: 1patient presented hospital with lower extremity weakness did not have any bowel or bladder problem did have MRI of the thoracic as well as lumbar spine did not mention any features of discitis or osteomyelitis 2patient is more likely clinically behaving as a partially treated PCP pneumonia as no other obvious focus of infection Bactrim has been switched over to IV will add prednisone and discontinue the vancomycin care has been discussed in detail with the admitting physician, pulmonary consultation for lavage and deep sample has been discussed as well Dictation was produced using [employer] dictation software. please excuse any grammatical, word or spelling errors. Time with Patient: Less than 30
--- NOTE | 2025-03-06 14:41 | P.PN ---
Subjective Subjective: History of present illness; 49-year-old male with significant past medical history of HIV seizure drug abuse and nicotine dependence and several hip replacement corrections brought to the emergency department from home for evaluation of fall, patient reports he was recently discharged from [facility] days ago where he stayed for 25 days however he is still experiencing symptoms. He was previously active and recently has not been able to take care of himself due to lower extremity weakness states he has 15 chil dren and 12 grandchildren which keep him very busy. Has intermittent pain describes as tingly and sharp rates pain 5 out of 10 in the ER he was found to be febrile tachycardic and hypotensive without evidence of respiratory compromise. CT head from previous facility did not show evidence of of acute pathology In ER received chest x-ray CT scan chest and lumbar spine. Chest x-ray and chest CTA revealed evidence of alveolar edema consistent with multifocal pneumonia. CT lumbar spine showed no evidence of pathology He was admitted to medical team for management of HIV complicated by sepsis with infectious disease consulted and for management of left-sided lower extremity weakness with neurology consulted. 03/03/2025: Patient seen at bedside reports still feeling febrile. Patient is co mplaining of back pain as well as twitching in legs that is new. Patient seen and evaluated by neurology. Is going for MRI today of lumbar spine. Patient informed of pain management orders all questions addressed at bedside. 03/04/2025: Patient seen at bedside still complaining of pain and twitching, seen by neurology received MRI yesterday complained of claustrophobia for lumbar however no claustrophobia during thoracic MRI. Questions discussed with patient 03/05/2025: Patient does not have any other symptoms still experiencing pain went for MRI today better than previous 03/06/2025: Patient seen and examined at bedside symptoms have remained unchanged, remains febrile still complaining of back pain Pertinent positives and negatives discussed above, a complete review of systems was preformed and all the other sytems were negative. Vitals Signs Reveiwed. General: non toxic, no distress, appears at stated age, normal weight Derm: no unusual rashes/lesions, warm Head: atraumatic, normocephalic, symmetric Eyes: EOMI, no lid lag, anicteric sclera, pupils equal round reactive to light ENT: Nose and ears atraumatic Neck: No cervical lymphadenopathy, trachea midline, supple Mouth: no lip lesion, mucus membranes moist Cardiovascular: S1S2 reg, no murmur, positive dorsalis pedis pulse bilateral, no edema Lungs: Decreased air entry bilaterally, no rhonchi, no rales, no accessory muscle use Abdominal: soft, nontender to palpation, no guarding Ext: muscle strength 5 out of 5 in all 4 extremities grossly, no gross muscle atrophy, no contractures, Neuro: CN II-XI grossly intact, no gross focal neuro deficits Psych: Alert, oriented, appropriate affect Data Reveiwed Today: Assessment and Plan 49-year-old male with significant past medical history of HIV seizure drug abuse presents for lower extremity weakness that did not resolve during previous hospitalization has had difficulty taking care of himself. Imaging inconsistent with symptoms #Lower extremity weakness with pain: Potentially secondary to poly-pharmacy vs hx of multiple hip replacements vs other Neurology on consult appreciate recommendations -PT OT consult - Multimodal pain management Thoracic and lumbar MRIs revealed no acute pathology or changes consistent with lower extremity weakness -No longer considering lumbar puncture, source of infection likely pneumonia #Multifocal pneumonia with fever and hypotension # Sepsis secondary to above ID on consult appreciate recommendations IV Bactrim, vancomycin Lactic acid: 2.92.0 PCP pneumonia course incomplete add Bactrim p.o. 7 days D-dimer elevated 7.09 SubQ heparin 5000 every 8 hours CTA revealed no evidence of PE Blood cultures negative #diarrhea secondary to antibiotics Stool culture pending C. difficile toxin negative Chronic Conditions: #HIV with poor medication compliance Biktarvy ID consulted CD4: 129 Viral load pending -HIV genotype #Seizure disorder Keppra and Depakote EEG negative DVT ppx: SubQ heparin GI ppx: Protonix CODE STATUS: Full Dispo: Pending clinical course Mohamud Mckenna DO PGY1 Dictation was produced using [employer] dictation software. please excuse any grammatical, word or spelling errors. Dr. Ame MD I have performed a history and physical examination and medical decision making of this patient, discussed the same with the dictator, and agree with the dictators assessment and plan as written, documented as a scribe. Based on total visit time, I have performed more than 50% of this visit. Objective - Vital Signs Vital signs: Vital Signs Temp 100.9 F H 03/06/25 08:00 Pulse 101 H 03/06/25 08:35 Resp 18 03/06/25 08:35 BP 100/61 03/06/25 08:00 Pulse Ox 94 L 03/06/25 08:00 FiO2 Intake & Output 03/05/25 03/06/25 03/06/25 18:59 06:59 18:59 Intake Total 240 Output Total 850 400 Balance -610 -400 Intake: Oral 240 Output: Urine 850 400 Other: Voiding Method Diaper Diaper Diaper External Catheter External Catheter External Catheter # Voids 1 1 - Labs CBC & Chem 7: 03/06/25 04:55 03/06/25 04:55 Labs: Abnormal Lab Results - Last 24 Hours (Table) 03/06/25 03/06/25 Range/Units 04:55 04:55 RBC 2.83 L (4.40-5.60) X 10*6/uL Hgb 9.0 L (13.0-17.0) g/dL Hct 28.9 L (39.6-50.0) % MCV 102.1 H (80.0-97.0) FL MCHC 31.1 L (32.0-37.0) g/dL RDW 22.5 H (11.5-14.5) % Macrocytosis (manual) 2+ A (None Seen) Sodium 132 L (137-145) mmol/L Potassium 5.3 H (3.5-5.1) mmol/L Calcium 7.6 L (8.4-10.2) mg/dL Total Bilirubin 0.1 L (0.2-1.3) mg/dL Total Protein 5.6 L (6.3-8.2) g/dL Albumin 2.3 L (3.5-5.0) g/dL Microbiology - Last 24 Hours (Table) 03/03/25 14:14 Blood Culture - Preliminary Blood 02/28/25 11:14 Blood Culture - Final Blood 03/03/25 21:00 Stool Culture - Preliminary Stool
[2025-03-06] MEDS ORDERED: WATER IVPB SCH ×4 (16:27)
[2025-03-06] MEDS: DEXTROSE 5% IVPB SCH (16:27)
[2025-03-06] MEDS: SULFAMETHOX TMP IVPB SCH (16:27)
[2025-03-06] MEDS ORDERED: WATER IVPB ONE (16:27)
[2025-03-06] MEDS ORDERED: DEXTROSE 5% IVPB SCH ×4 (16:27)
[2025-03-06] MEDS ORDERED: DEXTROSE 5% IVPB ONE (16:27)
[2025-03-06] MEDS ORDERED: SULFAMETHOX TMP IVPB ONE (16:27)
[2025-03-06] MEDS: WATER IVPB SCH (16:27)
[2025-03-06] MEDS ORDERED: SULFAMETHOX TMP IVPB SCH ×4 (16:27)
[2025-03-06] MEDS: predniSONE 20 MG TAB PO SCH (16:28)
--- NOTE | 2025-03-07 13:35 | P.PN ---
Subjective Progress Note Date: 03/07/25 I am following-up with the patient and states he has drastic improvement in his walking compared to initial presentation. Now he is able to walk with the walker. Objective - Vital Signs Vital signs: Vital Signs Temp 97.6 F 03/07/25 11:44 Pulse 82 03/07/25 11:44 Resp 16 03/07/25 11:44 BP 97/61 03/07/25 11:44 Pulse Ox 93 L 03/07/25 11:44 FiO2 Intake & Output 03/06/25 03/07/25 03/07/25 18:59 06:59 18:59 Intake Total 236 Output Total 300 Balance -64 Weight 77.111 kg Intake: Oral 236 Output: Urine 300 Other: Voiding Method Diaper Diaper Diaper External Catheter External Catheter # Voids 3 3 3 - Exam General: Sitting on side of bed and is not in acute distress. Neuro: Patient is awake alert oriented to self place and time. He is following simple commands. No facial weakness. No dysarthria Motor: Strength is uppers were somewhat limited because of cooperation but arm extensors are 5/5 bilaterally. Flexors or farm seems 5-/5 bilaterally. Lowers: Right lower is 5/5 while left lower is 3-4. Reflex: 2+ in uppers while lowers are 1+ - Labs CBC & Chem 7: 03/06/25 04:55 03/06/25 04:55 Labs: Microbiology - Last 24 Hours (Table) 03/03/25 14:14 Blood Culture - Preliminary Blood 03/03/25 21:00 Stool Culture - Preliminary Stool Assessment and Plan Assessment: This is a 49-year-old gentleman with history of self HIV extremity weakness and it seems left more than right seems his absolute CD4 count is low of 128. 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 Mild degenerative disc disease and facet arthropathy at L3-L4. Diffuse red marrow conversion can be seen in the setting of tobacco abuse, anemia or myeloproliferative disorder. No focal enhancing osseous lesion. Patient feels he is improving much better compared to initial presentation. Continue with Physical therapy and occupation therapy. At this time patient wants to hold off Lumbar puncture. Recommend EMG with nerve conduction study as an outpatient of the [facility]. TSH is 2.4, hemoglobin A1c is 5 point vitamin B12 is [address] Iniguez started vitamin B12 1000 mcg daily p.o. MRI thoracic spine is reported as no evidence for significant spinal canal stenosis or neuroforaminal stenosis. No abnormal enhancement RBC folate level: 492 Routine EEG is normal. PT and OT are consulted ID team is on board Cardiology is consulted Will defer the rest of the medical management to primary other specialist Upon discharge, recommend the patient to follow-up with outpatient neurologist within 2-3 weeks. Will follow-up with patient sporadically. Dr. Iniguez will resume neurology service this Monday A.M. (03/10/2025). Time with Patient: Less than 30
--- NOTE | 2025-03-07 13:59 | P.PN ---
Subjective Subjective: History of present illness; 49-year-old male with significant past medical history of HIV seizure drug abuse and nicotine dependence and several hip replacement corrections brought to the emergency department from home for evaluation of fall, patient reports he was recently discharged from [facility] 4 days ago where he stayed for 25 days however he is still experiencing symptoms. He was previously active and recently has not been able to take care of himself due to lower extremity weakness states he has 15 chil dren and 12 grandchildren which keep him very busy. Has intermittent pain describes as tingly and sharp rates pain 5 out of 10 in the ER he was found to be febrile tachycardic and hypotensive without evidence of respiratory compromise. CT head from previous facility did not show evidence of of acute pathology In ER received chest x-ray CT scan chest and lumbar spine. Chest x-ray and chest CTA revealed evidence of alveolar edema consistent with multifocal pneumonia. CT lumbar spine showed no evidence of pathology He was admitted to medical team for management of HIV complicated by sepsis with infectious disease consulted and for management of left-sided lower extremity weakness with neurology consulted. 03/03/2025: Patient seen at bedside reports still feeling febrile. Patient is co mplaining of back pain as well as twitching in legs that is new. Patient seen and evaluated by neurology. Is going for MRI today of lumbar spine. Patient informed of pain management orders all questions addressed at bedside. 03/04/2025: Patient seen at bedside still complaining of pain and twitching, seen by neurology received MRI yesterday complained of claustrophobia for lumbar however no claustrophobia during thoracic MRI. Questions discussed with patient 03/05/2025: Patient does not have any other symptoms still experiencing pain went for MRI today better than previous 03/06/2025: Patient seen and examined at bedside symptoms have remained unchanged, remains febrile still complaining of back pain 03/07/2025: Patient seen at bedside feeling better than previous days, still concerned about leg weakness. Asked about possible discharge to rehab after medical optimization. Pertinent positives and negatives discussed above, a complete review of systems was preformed and all the other sytems were negative. Vitals Signs Reveiwed. General: non toxic, no distress, appears at stated age, normal weight Derm: no unusual rashes/lesions, warm Head: atraumatic, normocephalic, symmetric Eyes: EOMI, no lid lag, anicteric sclera, pupils equal round reactive to light ENT: Nose and ears atraumatic Neck: No cervical lymphadenopathy, trachea midline, supple Mouth: no lip lesion, mucus membranes moist Cardiovascular: S1S2 reg, no murmur, positive dorsalis pedis pulse bilateral, no edema Lungs: Decreased air entry bilaterally, no rhonchi, no rales, no accessory muscle use Abdominal: soft, nontender to palpation, no guarding Ext: muscle strength 5 out of 5 in all 4 extremities grossly, no gross muscle atrophy, no contractures, Neuro: CN II-XI grossly intact, no gross focal neuro deficits Psych: Alert, oriented, appropriate affect Data Reveiwed Today: Assessment and Plan 49-year-old male with significant past medical history of HIV seizure drug abuse presents for lower extremity weakness that did not resolve during previous hospitalization has had difficulty taking care of himself. Imaging inconsistent with symptoms #Lower extremity weakness with pain: Potentially secondary to poly-pharmacy vs hx of multiple hip replacements vs other Neurology on consult appreciate recommendations -PT OT consult - Multimodal pain management Thoracic and lumbar MRIs revealed no acute pathology or changes consistent with lower extremity weakness -No longer considering lumbar puncture, source of infection likely pneumonia Consider discharge to rehab #Multifocal pneumonia with fever and hypotension # Sepsis secondary to above ID on consult appreciate recommendations IV Bactrim, vancomycin Lactic acid: 2.92.0 D-dimer elevated 7.09 SubQ heparin 5000 every 8 hours CTA revealed no evidence of PE Blood cultures negative Highest fever within 24 hours 100.9 currently afebrile Chronic Conditions: #HIV with poor medication compliance Biktarvy ID consulted CD4: 129 Viral load pending -HIV genotype #Seizure disorder Keppra and Depakote EEG negative DVT ppx: SubQ heparin GI ppx: Protonix CODE STATUS: Full Dispo: Pending clinical course Mohamud Mckenna DO PGY1 Dictation was produced using [employer] dictation software. please excuse any grammatical, word or spelling errors. Dr. Ame MD I have performed a history and physical examination and medical decision making of this patient, discussed the same with the dictator, and agree with the dictators assessment and plan as written, documented as a scribe. Based on total visit time, I have performed more than 50% of this visit. Objective - Vital Signs Vital signs: Vital Signs Temp 97.6 F 07/18/25 11:44 Pulse 82 03/07/25 11:44 Resp 16 03/07/25 11:44 BP 97/61 03/07/25 11:44 Pulse Ox 93 L 03/07/25 11:44 FiO2 Intake & Output 03/06/25 03/07/25 03/07/25 18:59 06:59 18:59 Intake Total 236 Output Total 300 Balance -64 Weight 77.111 kg Intake: Oral 236 Output: Urine 300 Other: Voiding Method Diaper Diaper Diaper External Catheter External Catheter # Voids 3 3 3 - Labs CBC & Chem 7: 03/06/25 04:55 03/06/25 04:55 Labs: Microbiology - Last 24 Hours (Table) 03/03/25 21:00 Stool Culture - Final Stool 03/03/25 14:14 Blood Culture - Preliminary Blood
--- NOTE | 2025-03-07 15:47 | P.PN ---
Subjective Progress Note Date: 03/07/25 Principal diagnosis: Reason for follow-up is HIV/PCP pneumonia Patient is a 49-year-old -[place] male with a past medical history significant for HIV for many years however the patient has not been on any medication for almost a year also with history of asthma and seizure disorder with recent admission at [facility] with the patient was diagnosed with a PCP pneumonia patient apparently has not completed his oral Bactrim DS therapy as per discussion with admitting physician now presented to this facility mostly with the weakness in the lower extremity. On today's evaluation that is 03/07/2025, the patient did have resolution of his fever and afebrile today, the patient is on room air and breathing comfortably, the Pt denies having any chest pain and cough decrease intensity, the patient denies having any abdominal pain no vomiting or any diarrhea. No new lab has been obtained today blood culture has been negative Objective - Vital Signs Vital signs: Vital Signs Temp 97.6 F 03/07/25 11:44 Pulse 82 03/07/25 11:44 Resp 16 03/07/25 11:44 BP 97/61 03/07/25 11:44 Pulse Ox 93 L 03/07/25 11:44 FiO2 Intake & Output 03/06/25 03/07/25 03/07/25 18:59 06:59 18:59 Intake Total 236 Output Total 300 Balance -64 Weight 77.111 kg Intake: Oral 236 Output: Urine 300 Other: Voiding Method Diaper Diaper Diaper External Catheter External Catheter # Voids 3 3 3 - Exam GENERAL DESCRIPTION: Middle-age male lying in bed in no distress RESPIRATORY SYSTEM: Unlabored breathing , decreased breath sounds at bases HEART: S1 S2 regular rate and rhythm , ABDOMEN: Soft , no tenderness EXTREMITIES: No edema feet - Labs CBC & Chem 7: 03/06/25 04:55 03/06/25 04:55 Labs: Microbiology - Last 24 Hours (Table) 03/03/25 21:00 Stool Culture - Final Stool 03/03/25 14:14 Blood Culture - Preliminary Blood Assessment and Plan (1) Sepsis Current Visit: Yes Status: Acute Code(s): A41.9 - SEPSIS, UNSPECIFIED ORGANISM SNOMED Code(s): 91738566 (2) Noncompliance with medication regimen Current Visit: Yes Status: Acute Code(s): Z91.148 - PATIENT'S OTHER NONCOMPL WITH MEDS REGIMEN FOR OTHER REASON SNOMED Code(s): 709858117 (3) Multifocal pneumonia Current Visit: Yes Status: Acute Code(s): J18.9 - PNEUMONIA, UNSPECIFIED ORGANISM SNOMED Code(s): 564811590 (4) HIV (human immunodeficiency virus infection) Current Visit: No Status: Acute Code(s): B20 - HUMAN IMMUNODEFICIENCY VIRUS [HIV] DISEASE SNOMED Code(s): 95870220 (5) PCP (pneumocystis jiroveci pneumonia) Current Visit: Yes Status: Acute Code(s): B59 - PNEUMOCYSTOSIS SNOMED Code(s): 963303922 Plan: 1patient presented hospital with lower extremity weakness did not have any bowel or bladder problem did have MRI of the thoracic as well as lumbar spine did not mention any features of discitis or osteomyelitis 2patient is more likely clinically behaving as a partially treated PCP pneumonia as no other obvious focus of infection Bactrim has been switched over to IV yesterday and prednisone was added did have clinical response fever has resolved feeling better we will continue with the current treatment for now and monitor clinical course closely Dictation was produced using [employer] dictation software. please excuse any grammatical, word or spelling errors. Time with Patient: Less than 30
[2025-03-08 08:54] LABS: HCT 29.1 % (39.6-50.0); HGB 9.2 g/dL (13.0-17.0); MCH 31.7 pg (27.0-32.0); MCHC 31.6 g/dL (32.0-37.0); MCV 100.3 FL (80.0-97.0); NRBC Per 100 WBC 0 X 10*3/uL (0.00-0.01); Platelet Count 292 X 10*3/uL (140-440); RBC 2.90 X 10*6/uL (4.40-5.60); RDW 21.6 % (11.5-14.5); WBC 4.78 X 10*3/uL (4.50-10.00)
[2025-03-08 09:32] LABS: Basophils # (A) 0 X 10*3/uL (0.00-0.10); Basophils % (A) 0 %; Eosinophils # (A) 0 X 10*3/uL (0.04-0.35); Eosinophils % (A) 0 %; Immature Grans, Automated 0.20 %; Lymphocytes # (A) 1.75 X 10*3/uL (0.90-5.00); Lymphocytes % (A) 36.6 %; Monocytes # (A) 0.21 X 10*3/uL (0.20-1.00); Monocytes % (A) 4.4 %; Neutrophils # (A) 2.81 X 10*3/uL (1.80-7.70); Neutrophils % (A) 58.8 %
[2025-03-08 11:58] LABS: ALT 31 U/L (10-49); AST 30 U/L (14-35); Albumin 2.7 g/dL (3.8-4.9); Albumin/Globulin Ratio 0.68 Ratio (1.60-3.17); Alkaline Phosphatase 66 U/L (41-126); Anion Gap 11.40 mmol/L (4.00-12.00); BUN/Creat Ratio 16.18 Ratio (12.00-20.00); Blood Urea Nitrogen 17.8 mg/dL (9.0-27.0); Calcium 8.1 mg/dL (8.7-10.3); Carbon Dioxide 22.6 mmol/L (21.6-31.8); Chloride 96 mmol/L (96-109); Globulin 4.0 g/dL (1.6-3.3); Glucose 118 mg/dL (70-110); Potassium 5.6 mmol/L (3.5-5.5); Sodium 130 mmol/L (135-145); Total Protein 6.7 g/dL (6.2-8.2)
--- NOTE | 2025-03-08 14:36 | P.PN ---
Subjective Progress Note Date: 03/08/25 History of present illness; 49-year-old male with significant past medical history of HIV seizure drug abuse and nicotine dependence and several hip replacement corrections brought to the emergency department from home for evaluation of fall, patient reports he was recently discharged from [facility] days ago where he stayed for 25 days however he is still experiencing symptoms. He was previously active and recently has not been able to take care of himself due to lower extremity weakness states he has 15 children and 12 grandchildren which keep him very busy. Has intermittent pain describes as tingly and sharp rates pain 5 out of 10 in the ER he was found to be febrile tachycardic and hypotensive without evidence of respiratory compromise. CT head from previous facility did not show evidence of of acute pathology In ER received chest x-ray CT scan chest and lumbar spine. Chest x-ray and chest CTA revealed evidence of alveolar edema consistent with multifocal pneumonia. CT lumbar spine showed no evidence of pathology He was admitted to medical team for management of HIV complicated by sepsis with infectious disease consulted and for management of left-sided lower extremity weakness with neurology consulted. 03/03/2025: Patient seen at bedside reports still feeling febrile. Patient is complaining of back pain as well as twitching in legs that is new. Patient seen and evaluated by neurology. Is going for MRI today of lumbar spine. Patient informed of pain management orders all questions addressed at bedside. 03/04/2025: Patient seen at bedside still complaining of pain and twitching, seen by neurology received MRI yesterday complained of claustrophobia for lumbar however no claustrophobia during thoracic MRI. Questions discussed with patient 03/05/2025: Patient does not have any other symptoms still experiencing pain went for MRI today better than previous 03/06/2025: Patient seen and examined at bedside symptoms have remained unchanged, remains febrile still complaining of back pain 03/07/2025: Patient seen at bedside feeling better than previous days, still concerned about leg weakness. Asked about possible discharge to rehab after medical optimization. 03/08/2025: Patient seen at bedside, no significant overnight events. States he is feeling quite well, the best he has felt since arriving to the hospital. Reports his breathing is better as well and he is been able to ambulate around the room with his walker. Pertinent positives and negatives discussed above, a complete review of systems was preformed and all the other sytems were negative. Vitals Signs Reveiwed. General: non toxic, no distress, appears at stated age, normal weight Derm: no unusual rashes/lesions, warm Head: atraumatic, normocephalic, symmetric Eyes: EOMI, no lid lag, anicteric sclera, pupils equal round reactive to light ENT: Nose and ears atraumatic Neck: No cervical lymphadenopathy, trachea midline, supple Mouth: no lip lesion, mucus membranes moist Cardiovascular: S1S2 reg, no murmur, positive dorsalis pedis pulse bilateral, no edema Lungs: Decreased air entry bilaterally, no rhonchi, no rales, no accessory muscle use Abdominal: soft, nontender to palpation, no guarding Ext: muscle strength 5 out of 5 in all 4 extremities grossly, no gross muscle atrophy, no contractures, Neuro: CN II-XI grossly intact, no gross focal neuro deficits Psych: Alert, oriented, appropriate affect Data Reveiwed Today: Assessment and Plan 49-year-old male with significant past medical history of HIV seizure drug abuse presents for lower extremity weakness that did not resolve during previous hospitalization has had difficulty taking care of himself. Imaging inconsistent with symptoms #Lower extremity weakness with pain: Potentially secondary to poly-pharmacy vs hx of multiple hip replacements vs other Neurology on consult appreciate recommendations -PT OT recommend outpatient rehab - Multimodal pain management Thoracic and lumbar MRIs revealed no acute pathology or changes consistent with lower extremity weakness -No longer considering lumbar puncture, source of infection likely pneumonia Pending auth for acute rehab #Multifocal pneumonia with fever and hypotension # Sepsis secondary to above ID on consult appreciate recommendations IV Bactrim, vancomycin Lactic acid: 2.92.0 D-dimer elevated 7.09 SubQ heparin 5000 every 8 hours CTA revealed no evidence of PE Blood cultures negative Highest fever within 24 hours 100.9 currently afebrile Chronic Conditions: #HIV with poor medication compliance Biktarvy ID consulted CD4: 129 Viral load pending -HIV genotype #Seizure disorder Keppra and Depakote EEG negative DVT ppx: SubQ heparin GI ppx: Protonix CODE STATUS: Full Dispo: Pending clinical course Christian Lopez MD PGY2 FM Dictation was produced using [employer] dictation software. please excuse any grammatical, word or spelling errors. Anticipated discharge place: Acute rehab Anticipated discharge time: Likely 03/10/2025 Attestation/ Metal Fabricator Helper Note: Attestation to Progress Note, Participation (I saw and evaluated the patient with the Resident, and I reviewed and discussed the patient with the Resident and agree with the Resident's findings and plans as documented above., management reviewed and discussed), I agree with findings & plan, Provider Signature (YUMIKO TILLEY, [facility]) Objective - Vital Signs Vital signs: Vital Signs Temp 97.4 F L 03/08/25 07:11 Pulse 68 03/08/25 07:11 Resp 15 03/08/25 07:11 BP 98/64 03/08/25 07:11 Pulse Ox 96 03/08/25 07:11 FiO2 Intake & Output 03/07/25 03/08/25 03/08/25 18:59 06:59 18:59 Intake Total 2160 Balance 2160 Intake: Oral 2160 Other: Voiding Method Diaper Bedside Commode Urinal Diaper # Voids 0 2 - Labs CBC & Chem 7: 03/16/25 08:28 03/16/25 08:28 Labs: Microbiology - Last 24 Hours (Table) 03/03/25 21:00 Stool Culture - Final Stool
--- NOTE | 2025-03-08 14:47 | P.PN ---
Subjective Progress Note Date: 03/08/25 Principal diagnosis: Reason for follow-up is HIV/PCP pneumonia Patient is a 49-year-old -Nigerian male with a past medical history significant for HIV for many years however the patient has not been on any medication for almost a year also with history of asthma and seizure disorder with recent admission at [facility] with the patient was diagnosed with a PCP pneumonia patient apparently has not completed his oral Bactrim DS therapy as per discussion with admitting physician now presented to this facility mostly with the weakness in the lower extremity. On today's evaluation that is 03/08/2024, patient did have a temperature of 97.4 F this morning and denies having any chills, patient is on room air and breathing comfortably no chest pain and cough has decreased in intensity, the patient did not have any nausea vomiting abdominal pain or any diarrhea, patient complains almost no rash to the chin area minimal rotation and pain. Patient white count is 4.78, creatinine is 1.1 Objective - Vital Signs Vital signs: Vital Signs Temp 97.4 F L 03/08/25 12:00 Pulse 90 03/08/25 12:00 Resp 16 03/08/25 12:00 BP 112/74 03/08/25 12:00 Pulse Ox 94 L 03/08/25 12:00 FiO2 Intake & Output 03/07/25 03/08/25 03/08/25 18:59 06:59 18:59 Intake Total 2160 Balance 2160 Intake: Oral 2160 Other: Voiding Method Diaper Bedside Commode Bedside Commode Urinal Urinal Diaper Diaper # Voids 0 2 - Exam GENERAL DESCRIPTION: Middle-age male lying in bed in no distress HEENT: Chin area did have ulcerated and nodular skin lesion with some surrounding erythema RESPIRATORY SYSTEM: Unlabored breathing , decreased breath sounds at bases HEART: S1 S2 regular rate and rhythm , ABDOMEN: Soft , no tenderness EXTREMITIES: No edema feet - Labs CBC & Chem 7: 03/08/25 04:38 03/08/25 04:38 Labs: Abnormal Lab Results - Last 24 Hours (Table) 03/08/25 03/08/25 Range/Units 04:38 04:38 RBC 2.90 L (4.40-5.60) X 10*6/uL Hgb 9.2 L (13.0-17.0) g/dL Hct 29.1 L (39.6-50.0) % MCV 100.3 H (80.0-97.0) FL MCHC 31.6 L (32.0-37.0) g/dL RDW 21.6 H (11.5-14.5) % Eosinophils # 0 L (0.04-0.35) X 10*3/uL Elliptocytes 2+ A (None Seen) Sodium 130 L (135-145) mmol/L Potassium 5.6 H (3.5-5.5) mmol/L Glucose 118 H (70-110) mg/dL Calcium 8.1 L (8.7-10.3) mg/dL Total Bilirubin <0.2 L (0.3-1.2) mg/dL Albumin 2.7 L (3.8-4.9) g/dL Globulin 4.0 H (1.6-3.3) g/dL Albumin/Globulin Ratio 0.68 L (1.60-3.17) Ratio Microbiology - Last 24 Hours (Table) 03/03/25 21:00 Stool Culture - Final Stool Assessment and Plan (1) Sepsis Current Visit: Yes Status: Acute Code(s): A41.9 - SEPSIS, UNSPECIFIED ORGAN ISM SNOMED Code(s): 52236210 (2) Noncompliance with medication regimen Current Visit: Yes Status: Acute Code(s): Z91.148 - PATIENT'S OTHER NONCOMPL WITH MEDS REGIMEN FOR OTHER REASON SNOMED Code(s): 809634228 (3) Multifocal pneumonia Current Visit: Yes Status: Acute Code(s): J18.9 - PNEUMONIA, UNSPECIFIED ORGANISM SNOMED Code(s): 486300510 (4) HIV (human immunodeficiency virus infection) Current Visit: No Status: Acute Code(s): B20 - HUMAN IMMUNODEFICIENCY VIRUS [HIV] DISEASE SNOMED Code(s): 90406948 (5) PCP (pneumocystis jiroveci pneumonia) Current Visit: Yes Status: Acute Code(s): B59 - PNEUMOCYSTOSIS SNOMED Code(s): 406430792 (6) Skin ulcer of chin Current Visit: Yes Status: Acute Code(s): L98.499 - NON-PRESSURE CHRONIC ULCER OF SKIN OF SITES W UNSP SEVERITY SNOMED Code(s): 618369970 Plan: 1patient presented hospital with lower extremity weakness did not have any bowel or bladder problem did have MRI of the thoracic as well as lumbar spine did not mention any features of discitis or osteomyelitis 2patient is more likely clinically behaving as a partially treated PCP pneumonia as no other obvious focus of infection Bactrim has been switched over to IV yesterday and prednisone has been added to have resolution of his fever 3patient now complaining of more pain to the ulcerated nodular lesion to the chin area concerning for possible Kaposi's sarcoma with secondary bacterial versus herpetic lesion we will obtain local culture as well as HSV PCR patient benefit from general surgery evaluation for biopsy of the skin lesion to rule out Kaposi's sarcoma further treatment on the basis of this initial investigation Dictation was produced using [employer] dictation software. please excuse any grammatical, word or spelling errors. Time with Patient: Greater than 30
[2025-03-09 08:38] LABS: Basophils # (A) 0.01 10*3/uL (0.00-0.10); Basophils % (A) 0.2 %; Eosinophils # (A) 0.00 10*3/uL (0.04-0.35); Eosinophils % (A) 0.0 %; HCT 31.0 % (39.6-50.0); HGB 10.0 g/dL (13.0-17.0); Lymphocytes # (A) 0.94 10*3/uL (0.90-5.00); Lymphocytes % (A) 21.3 %; MCH 32.1 pg (27.0-32.0); MCHC 32.3 g/dL (32.0-37.0); MCV 99.4 fL (80.0-97.0); Monocytes # (A) 0.24 10*3/uL (0.20-1.00); Monocytes % (A) 5.4 %; Neutrophils # (A) 3.22 10*3/uL (1.80-7.70); Neutrophils % (A) 72.9 %; Platelet Count 321 10*3/uL (140-440); RBC 3.12 10*6/uL (4.40-5.60); RDW 21.6 % (11.5-14.5); WBC 4.42 10*3/uL (4.50-10.00)
[2025-03-09] MEDS: SODIUM CHLORIDE 0.9% 1,000 ML IV SCH (08:41)
[2025-03-09 08:48] LABS: ALT 38 U/L (4-49); AST 42 U/L (17-59); African American GFR (CKD) >90 (>60 ml/min/1.73 sqM); Albumin 3.1 g/dL (3.5-5.0); Albumin/Globulin Ratio 0.7; Alkaline Phosphatase 78 U/L (38-126); Anion Gap 9 mmol/L; Blood Urea Nitrogen 15 mg/dL (9-20); Calcium 8.7 mg/dL (8.4-10.2); Carbon Dioxide 23 mmol/L (22-30); Chloride 105 mmol/L (98-107); Globulin 4.2 g/dL; Glucose 114 mg/dL (74-99); Non-African American GFR(CKD) >90 (>60 ml/min/1.73 sqM); Potassium 5.0 mmol/L (3.5-5.1); Sodium 137 mmol/L (137-145); Total Protein 7.3 g/dL (6.3-8.2)
--- NOTE | 2025-03-09 10:57 | P.PN ---
Subjective Progress Note Date: 03/08/25 History of present illness; 49-year-old male with significant past medical history of HIV seizure drug abuse and nicotine dependence and several hip replacement corrections brought to the emergency department from home for evaluation of fall, patient reports he was recently discharged from [facility] 4 days ago where he stayed for 25 days however he is still experiencing symptoms. He was previously active and recently has not been able to take care of himself due to lower extremity weakness states he has 15 children and 12 grandchildren which keep him very busy. Has intermittent pain describes as tingly and sharp rates pain 5 out of 10 in the ER he was found to be febrile tachycardic and hypotensive without evidence of respiratory compromise. CT head from previous facility did not show evidence of of acute pathology In ER received chest x-ray CT scan chest and lumbar spine. Chest x-ray and chest CTA revealed evidence of alveolar edema consistent with multifocal pneumonia. CT lumbar spine showed no evidence of pathology He was admitted to medical team for management of HIV complicated by sepsis with infectious disease consulted and for management of left-sided lower extremity weakness with neurology consulted. 03/03/2025: Patient seen at bedside reports still feeling febrile. Patient is complaining of back pain as well as twitching in legs that is new. Patient seen and evaluated by neurology. Is going for MRI today of lumbar spine. Patient informed of pain management orders all questions addressed at bedside. 03/04/2025: Patient seen at bedside still complaining of pain and twitching, seen by neurology received MRI yesterday complained of claustrophobia for lumbar however no claustrophobia during thoracic MRI. Questions discussed with patient 03/05/2025: Patient does not have any other symptoms still experiencing pain went for MRI today better than previous 03/06/2025: Patient seen and examined at bedside symptoms have remained unch anged, remains febrile still complaining of back pain 03/07/2025: Patient seen at bedside feeling better than previous days, still concerned about leg weakness. Asked about possible discharge to rehab after medical optimization. 03/08/2025: Patient seen at bedside, no significant overnight events. States he is feeling quite well, the best he has felt since arriving to the hospital. Reports his breathing is better as well and he is been able to ambulate around the room with his walker. 03/09/2025: Patient seen at bedside no significant overnight events patient is feeling better compared to admission. Patient reports dizziness that has been ongoing since previous admission however patient is able to walk from bed to bathroom without significant limitation. Explained likely due to hypotension and ongoing sepsis. Pertinent positives and negatives discussed above, a complete review of systems was preformed and all the other sytems were negative. Vitals Signs Reveiwed. General: non toxic, no distress, appears at stated age, normal weight Derm: no unusual rashes/lesions, warm Head: atraumatic, normocephalic, symmetric Eyes: EOMI, no lid lag, anicteric sclera, pupils equal round reactive to light ENT: Nose and ears atraumatic Neck: No cervical lymphadenopathy, trachea midline, supple Mouth: no lip lesion, mucus membranes moist Cardiovascular: S1S2 reg, no murmur, positive dorsalis pedis pulse bilateral, no edema Lungs: Decreased air entry bilaterally, no rhonchi, no rales, no accessory muscle use Abdominal: soft, nontender to palpation, no guarding Ext: muscle strength 5 out of 5 in all 4 extremities grossly, no gross muscle atrophy, no contractures, Neuro: CN II-XI grossly intact, no gross focal neuro deficits Psych: Alert, oriented, appropriate affect Data Reveiwed Today: Assessment and Plan 49-year-old male with significant past medical history of HIV seizure drug abuse presents for lower extremity weakness that did not resolve during previous hospitalization has had difficulty taking care of himself. Imaging inconsistent with symptoms #Lower extremity weakness with pain: Potentially secondary to poly-pharmacy vs hx of multiple hip replacements vs other Neurology on consult appreciate recommendations -PT OT recommend outpatient rehab - Multimodal pain management Thoracic and lumbar MRIs revealed no acute pathology or changes consistent with lower extremity weakness -No longer considering lumbar puncture, source of infection likely pneumonia Pending auth for acute rehab #Multifocal pneumonia with fever and hypotension # Sepsis secondary to above #Hyponatremia (130 ( ID on consult appreciate recommendations IV Bactrim, vancomycin Lactic acid: 2.92.0 D-dimer elevated 7.09 SubQ heparin 5000 every 8 hours CTA revealed no evidence of PE Blood cultures negative Highest fever within 24 hours 100.9 currently afebrile Switch from LR to NS (100 mL/h) 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 please excuse any grammatical, word or spelling errors. Anticipated discharge place: Acute rehab Anticipated discharge time: Likely 03/10/2025 Attestation/ Back Shoe Operator Note: Attestation to Progress Note, Participation (I saw and evaluated the patient with the Resident, and I reviewed and discussed the patient with the Resident and agree with the Resident's findings and plans as documented above., management reviewed and discussed), I agree with findings & plan, Provider Signature (YUMIKO TILLEY, [facility]) Objective - Vital Signs Vital signs: Vital Signs Temp 97.9 F 03/09/25 05:53 Pulse 75 03/09/25 05:53 Resp 16 03/09/25 05:53 BP 109/50 03/09/25 05:53 Pulse Ox 93 L 03/09/25 05:53 FiO2 Intake & Output 03/08/25 03/09/25 03/09/25 18:59 06:59 18:59 Intake Total 1620 Balance 1620 Intake: Oral 1620 Other: Voiding Method Bedside Commode Bedside Commode Urinal Urinal Diaper Diaper # Voids 0 3 - Labs CBC & Chem 7: 03/16/25 08:28 03/16/25 08:28 Labs: Abnormal Lab Results - Last 24 Hours (Table) 03/08/25 03/08/25 Range/Units 04:38 04:38 RBC 2.90 L (4.40-5.60) X 10*6/uL Hgb 9.2 L (13.0-17.0) g/dL Hct 29.1 L (39.6-50.0) % MCV 100.3 H (80.0-97.0) FL MCHC 31.6 L (32.0-37.0) g/dL RDW 21.6 H (11.5-14.5) % Eosinophils # 0 L (0.04-0.35) X 10*3/uL Elliptocytes 2+ A (None Seen) Sodium 130 L (135-145) mmol/L Potassium 5.6 H (3.5-5.5) mmol/L Glucose 118 H (70-110) mg/dL Calcium 8.1 L (8.7-10.3) mg/dL Total Bilirubin <0.2 L (0.3-1.2) mg/dL Albumin 2.7 L (3.8-4.9) g/dL Globulin 4.0 H (1.6-3.3) g/dL Albumin/Globulin Ratio 0.68 L (1.60-3.17) Ratio Microbiology - Last 24 Hours (Table) 03/03/25 14:14 Blood Culture - Final Blood
[2025-03-09] MEDS: TRIAMCINOLONE 0.1% CREAM 80 GM TUBE TOPICAL SCH (12:20)
--- NOTE | 2025-03-09 18:09 | P.PN ---
Subjective Progress Note Date: 03/09/25 Principal diagnosis: Reason for follow-up is HIV/PCP pneumonia Patient is a 49-year-old -[place] male with a past medical history significant for HIV for many years however the patient has not been on any medication for almost a year also with history of asthma and seizure disorder with recent admission at [facility] with the patient was diagnosed with a PCP pneumonia patient apparently has not completed his oral Bactrim DS therapy as per discussion with admitting physician now presented to this facility mostly with the weakness in the lower extremity. On today's evaluation that is 03/09/2025, Patient is afebrile patient is currently on room air and denies having any shortness of breath, the patient denies any chest pain or cough, the patient denies any nausea vomiting did not have any abdominal pain and no diarrhea has been complaining of mostly rash to the chin area and some weakness to the leg. Patient white count is 4.42 creatinine 0.89, viral as well as bacterial culture to the facial region are currently pending Objective - Vital Signs Vital signs: Vital Signs Temp 97.9 F 03/09/25 05:53 Pulse 75 03/09/25 05:53 Resp 16 03/09/25 05:53 BP 109/50 03/09/25 05:53 Pulse Ox 93 L 03/09/25 05:53 FiO2 Intake & Output 03/08/25 03/09/25 03/09/25 18:59 06:59 18:59 Intake Total 1620 Balance 1620 Intake: Oral 1620 Other: Voiding Method Bedside Commode Bedside Commode Bedside Commode Urinal Urinal Urinal Diaper Diaper Diaper # Voids 0 3 3 - Exam GENERAL DESCRIPTION: Middle-age male lying in bed in no distress HEENT: Chin area did have ulcerated and nodular skin lesion with some surrounding erythema RESPIRATORY SYSTEM: Unlabored breathing , decreased breath sounds at bases HEART: S1 S2 regular rate and rhythm , ABDOMEN: Soft , no tenderness EXTREMITIES: No edema feet - Labs CBC & Chem 7: 03/09/25 08:13 03/09/25 08:13 Labs: Abnormal Lab Results - Last 24 Hours (Table) 03/08/25 03/09/25 03/09/25 Range/Units 04:38 08:13 08:13 WBC 4.42 L (4.50-10.00) 10*3/uL RBC 3.12 L (4.40-5.60) 10*6/uL Hgb 10.0 L (13.0-17.0) g/dL Hct 31.0 L (39.6-50.0) % MCV 99.4 H (80.0-97.0) fL MCH 32.1 H (27.0-32.0) pg RDW 21.6 H (11.5-14.5) % MPV 9.4 L (9.5-12.2) fL Eosinophils # 0.00 L (0.04-0.35) 10*3/uL Sodium 130 L (135-145) mmol/L Potassium 5.6 H (3.5-5.5) mmol/L Glucose 118 H 114 H (70-110) mg/dL Calcium 8.1 L (8.7-10.3) mg/dL Total Bilirubin <0.2 L (0.3-1.2) mg/dL Albumin 2.7 L 3.1 L (3.8-4.9) g/dL Globulin 4.0 H (1.6-3.3) g/dL Albumin/Globulin Ratio 0.68 L (1.60-3.17) Ratio Microbiology - Last 24 Hours (Table) 03/03/25 14:14 Blood Culture - Final Blood Assessment and Plan (1) Sepsis Current Visit: Yes Status: Acute Code(s): A41.9 - SEPSIS, UNSPECIFIED ORGANISM SNOMED Code(s): 47961556 (2) Noncompliance with medication regimen Current Visit: Yes Status: Acute Code(s): Z91.148 - PATIENT'S OTHER NONCOMPL WITH MEDS REGIMEN FOR OTHER REASON SNOMED Code(s): 563182125 (3) Multifocal pneumonia Current Visit: Yes Status: Acute Code(s): J18.9 - PNEUMONIA, UNSPECIFIED ORGANISM SNOMED Code(s): 361261515 (4) HIV (human immunodeficiency virus infection) Current Visit: No Status: Acute Code(s): B20 - HUMAN IMMUNODEFICIENCY VIRUS [HIV] DISEASE SNOMED Code(s): 51335302 (5) PCP (pneumocystis jiroveci pneumonia) Current Visit: Yes Status: Acute Code(s): B59 - PNEUMOCYSTOSIS SNOMED Code(s): 063983771 (6) Skin ulcer of chin Current Visit: Yes Status: Acute Code(s): L98.499 - NON-PRESSURE CHRONIC ULCER OF SKIN OF SITES W UNSP SEVERITY SNOMED Code(s): 228403232 Plan: 1patient presented hospital with lower extremity weakness did not have any magen l or bladder problem did have MRI of the thoracic as well as lumbar spine did not mention any features of discitis or osteomyelitis 2patient is more likely clinically behaving as a partially treated PCP pneumonia as no other obvious focus of infection Bactrim has been switched over to IV and prednisone has been added to have resolution of his fever which we will continue for now while watching his kidney function closely 3patient did have ulcerated nodular lesion to the chin area concerning for possible Kaposi's sarcoma with secondary bacterial versus herpetic lesion, local culture and HSV PCR has been obtained yesterday results are pending if negative will benefit from biopsy Dictation was produced using [employer] dictation software. please excuse any grammatical, word or spelling errors. Time with Patient: Less than 30
[2025-03-10 07:52] LABS: HCT 29.9 % (39.6-50.0); HGB 9.2 g/dL (13.0-17.0); MCH 31.1 pg (27.0-32.0); MCHC 30.8 g/dL (32.0-37.0); MCV 101.0 FL (80.0-97.0); NRBC Per 100 WBC 0 X 10*3/uL (0.00-0.01); Platelet Count 334 X 10*3/uL (140-440); RBC 2.96 X 10*6/uL (4.40-5.60); RDW 21.2 % (11.5-14.5); WBC 4.08 X 10*3/uL (4.50-10.00)
[2025-03-10 08:02] LABS: ALT 35 U/L (10-49); AST 27 U/L (14-35); Albumin 2.9 g/dL (3.8-4.9); Albumin/Globulin Ratio 0.76 Ratio (1.60-3.17); Alkaline Phosphatase 60 U/L (41-126); Anion Gap 10.70 mmol/L (4.00-12.00); BUN/Creat Ratio 12.33 Ratio (12.00-20.00); Blood Urea Nitrogen 11.1 mg/dL (9.0-27.0); Calcium 8.4 mg/dL (8.7-10.3); Carbon Dioxide 22.3 mmol/L (21.6-31.8); Chloride 101 mmol/L (96-109); Globulin 3.8 g/dL (1.6-3.3); Glucose 124 mg/dL (70-110); Potassium 5.1 mmol/L (3.5-5.5); Sodium 134 mmol/L (135-145); Total Protein 6.7 g/dL (6.2-8.2)
[2025-03-10 12:36] LABS: Basophils # (A) 0 X 10*3/uL (0.00-0.10); Basophils % (A) 0 %; Eosinophils # (A) 0 X 10*3/uL (0.04-0.35); Eosinophils % (A) 0 %; Immature Grans, Automated 0.50 %; Lymphocytes # (A) 1.29 X 10*3/uL (0.90-5.00); Lymphocytes % (A) 31.6 %; Monocytes # (A) 0.24 X 10*3/uL (0.20-1.00); Monocytes % (A) 5.9 %; Neutrophils # (A) 2.53 X 10*3/uL (1.80-7.70); Neutrophils % (A) 62.0 %
--- NOTE | 2025-03-10 13:28 | P.GSCN ---
History of Present Illness Consult date: 03/10/25 History of present illness: CHIEF COMPLAINT: Bilateral leg weakness HISTORY OF PRESENT ILLNESS: This is a 49-year-old male who presented to the emergency room with bilateral lower extremity weakness. He is admitted with pneumonia. Patient with a known history of HIV and seizure drug abuse. Surgical service consulted for skin biopsy of lesion on chin for possible K aposi's sarcoma due to his HIV. Patient reports that he has had the skin lesion for multiple years, possibly up to 10 years. Patient reports that the skin lesion gets bigger and smaller. Currently now it is scabbed and painful. PAST MEDICAL HISTORY: See below PAST SURGICAL HISTORY: See below MEDICATIONS: See below ALLERGIES: See below SOCIAL HISTORY: No illicit drug use. REVIEW OF SYSTEMS: CONSTITUTIONAL: Denies fever or chills. HEENT: Denies blurred vision, vision changes, or eye pain. Denies hemoptysis CARDIOVASCULAR: Denies chest pain or pressure. RESPIRATORY: No shortness of breath. GASTROINTESTINAL: See HPI for pertinent findings HEMATOLOGIC: Denies bleeding disorders. GENITOURINARY: Denies any blood in urine or increased urinary frequency. SKIN: Denies pruitis. Denies rash. PHYSICAL EXAM: VITAL SIGNS: Reviewed GENERAL: Well-developed in no acute distress. HEENT: Patient with large crusty scabbing noted on chin. Painful. ABDOMEN: Soft. Nondistended. Nontender NEUROLOGIC: Alert and oriented. Cranial nerves II through XII grossly intact. LABORATORY DATA: WBC 4.08 Hgb 9.2 platelets 334 sodium is 134 potassium is 5.1 creatinine 0.9 IMAGING: ASSESSMENT: 1. Skin lesion of the chin 2. History of HIV PLAN: - Further recommendations forthcoming per surgeon regarding possible biopsy of skin lesion - Continue supportive care Physician Multimedia Educational Specialist note has been reviewed by physician. Signing provider agrees with the documented findings, assessment, and plan of care. 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 History of Any Multi-Drug Resistant Organisms: None Reported Past Surgical History: Joint Replacement Additional Past Surgical History / Comment(s): hip replaced, ankle pins placed Past Psychological History: No Psychological Hx Reported Smoking Status: Never smoker Past Alcohol Use History: None Reported Past Drug Use History: Marijuana - Past Family History Father Family Medical History: Deep Vein Thrombosis (DVT) Mother Family Medical History: Diabetes Mellitus Medications and Allergies Home Medications Medication Instructions Recorded Confirmed Type Albuterol Sulfate [Proair Hfa] 2 puff INHALATION RT-Q6H PRN 05/26/20 02/28/25 History Bictegrav/Emtricit/Tenofov Ala 1 tab PO DIRECTED 02/28/25 02/28/25 History [Biktarvy 50-200-25 mg Tablet] Divalproex [Depakote] 500 mg PO DIRECTED 02/28/25 02/28/25 History Folic Acid 1 mg PO DIRECTED 02/28/25 02/28/25 History Midodrine HCl 10 mg PO DIRECTED 02/28/25 02/28/25 History Pantoprazole [Protonix] 40 mg PO DIRECTED 02/28/25 02/28/25 History QUEtiapine [SEROquel] 12.5 mg PO DIRECTED 02/28/25 02/28/25 History Sulfamethox-Tmp 800-160Mg [Bactrim See Taper PO DIRECTED 02/28/25 02/28/25 History DS 800-160 mg] Tamsulosin [Flomax] 0.4 mg PO DIRECTED 02/28/25 02/28/25 History dexAMETHasone [Decadron] See Taper PO DIRECTED 02/28/25 02/28/25 History levETIRAcetam [Keppra] 500 mg PO DIRECTED 02/28/25 02/28/25 History Allergies Allergy/AdvReac Type Severity Reaction Status Date / Time strawberry Allergy Swelling Verified 03/02/25 12:53 cranberry juice Allergy Swelling Uncoded 03/02/25 12:53 Surgical - Exam Vital Signs Temp Pulse Resp BP Pulse Ox 100.1 F H 121 H 18 102/62 96 02/28/25 09:34 02/28/25 09:34 02/28/25 09:34 02/28/25 09:34 02/28/25 09:34 Results - Labs 03/10/25 04:44 03/10/25 04:44 Abnormal Lab Results - Last 24 Hours (Table) 03/08/25 03/10/25 03/10/25 Range/Units 15:39 04:44 04:44 WBC 4.08 L (4.50-10.00) X 10*3/uL RBC 2.96 L (4.40-5.60) X 10*6/uL Hgb 9.2 L (13.0-17.0) g/dL Hct 29.9 L (39.6-50.0) % MCV 101.0 H (80.0-97.0) FL MCHC 30.8 L (32.0-37.0) g/dL RDW 21.2 H (11.5-14.5) % Eosinophils # 0 L (0.04-0.35) X 10*3/uL Sodium 134 L (135-145) mmol/L Glucose 124 H (70-110) mg/dL Calcium 8.4 L (8.7-10.3) mg/dL Total Bilirubin <0.2 L (0.3-1.2) mg/dL Albumin 2.9 L (3.8-4.9) g/dL Globulin 3.8 H (1.6-3.3) g/dL Albumin/Globulin Ratio 0.76 L (1.60-3.17) Ratio HSV II DNA PCR DETECTED A (Not detected) Microbiology - Last 24 Hours (Table) 03/08/25 15:39 Gram Stain - Preliminary Face Wound Culture - Preliminary Diabetes panel 03/10/25 Range/Units 04:44 Sodium 134 L (135-145) mmol/L Potassium 5.1 (3.5-5.5) mmol/L Chloride 101 (96-109) mmol/L Carbon Dioxide 22.3 (21.6-31.8) mmol/L BUN 11.1 (9.0-27.0) mg/dL Creatinine 0.9 (0.6-1.5) mg/dL Glucose 124 H (70-110) mg/dL Calcium 8.4 L (8.7-10.3) mg/dL AST 27 (14-35) U/L ALT 35 (10-49) U/L Alkaline Phosphatase 60 (41-126) U/L Total Protein 6.7 (6.2-8.2) g/dL Albumin 2.9 L (3.8-4.9) g/dL Calcium panel 03/10/25 Range/Units 04:44 Calcium 8.4 L (8.7-10.3) mg/dL Albumin 2.9 L (3.8-4.9) g/dL Pituitary panel 03/10/25 Range/Units 04:44 Sodium 134 L (135-145) mmol/L Potassium 5.1 (3.5-5.5) mmol/L Chloride 101 (96-109) mmol/L Carbon Dioxide 22.3 (21.6-31.8) mmol/L BUN 11.1 (9.0-27.0) mg/dL Creatinine 0.9 (0.6-1.5) mg/dL Glucose 124 H (70-110) mg/dL Calcium 8.4 L (8.7-10.3) mg/dL Adrenal panel 03/10/25 Range/Units 04:44 Sodium 134 L (135-145) mmol/L Potassium 5.1 (3.5-5.5) mmol/L Chloride 101 (96-109) mmol/L Carbon Dioxide 22.3 (21.6-31.8) mmol/L BUN 11.1 (9.0-27.0) mg/dL Creatinine 0.9 (0.6-1.5) mg/dL Glucose 124 H (70-110) mg/dL Calcium 8.4 L (8.7-10.3) mg/dL Total Bilirubin <0.2 L (0.3-1.2) mg/dL AST 27 (14-35) U/L ALT 35 (10-49) U/L Alkaline Phosphatase 60 (41-126) U/L Total Protein 6.7 (6.2-8.2) g/dL Albumin 2.9 L (3.8-4.9) g/dL
--- NOTE | 2025-03-10 14:32 | P.PN ---
Subjective Progress Note Date: 03/10/25 Progress Note Date: 03/08/25 History of present illness; 49-year-old male with significant past medical history of HIV seizure drug abuse and nicotine dependence and several hip re placement corrections brought to the emergency department from home for evaluation of fall, patient reports he was recently discharged from [facility] 4 days ago where he stayed for 25 days however he is still experiencing symptoms. He was previously active and recently has not been able to take care of himself due to lower extremity weakness states he has 15 children and 12 grandchildren which keep him very busy. Has intermittent pain describes as tingly and sharp rates pain 5 out of 10 in the ER he was found to be febrile tachycardic and hypotensive without evidence of respiratory compromise. CT head from previous facility did not show evidence of of acute pathology In ER received chest x-ray CT scan chest and lumbar spine. Chest x-ray and chest CTA revealed evidence of alveolar edema consistent with multifocal pneumonia. CT lumbar spine showed no evidence of pathology He was admitted to medical team for management of HIV complicated by sepsis with infectious disease consulted and for management of left-sided lower extremity weakness with neurology consulted. 03/03/2025: Patient seen at bedside reports still feeling febrile. Patient is complaining of back pain as well as twitching in legs that is new. Patient seen and evaluated by neurology. Is going for MRI today of lumbar spine. Patient informed of pain management orders all questions addressed at bedside. 03/04/2025: Patient seen at bedside still complaining of pain and twitching, seen by neurology received MRI yesterday complained of claustrophobia for lumbar however no claustrophobia during thoracic MRI. Questions discussed with patient 03/05/2025: Patient does not have any other symptoms still experiencing pain went for MRI today better than previous 03/06/2025: Patient seen and examined at bedside symptoms have remained unchanged, remains febrile still complaining of back pain 03/07/2025: Patient seen at bedside feeling better than previous days, still concerned about leg weakness. Asked about possible discharge to rehab after medical optimization. 03/08/2025: Patient seen at bedside, no significant overnight events. States he is feeling quite well, the best he has felt since arriving to the hospital. Reports his breathing is better as well and he is been able to ambulate around the room with his walker. 03/09/2025: Patient seen at bedside no significant overnight events patient is feeling better compared to admission. Patient reports dizziness that has been ongoing since previous admission however patient is able to walk from bed to bathroom without significant limitation. Explained likely due to hypotension and ongoing sepsis. Pertinent positives and negatives discussed above, a complete review of systems was preformed and all the other sytems were negative. Vitals Signs Reveiwed. General: non toxic, no distress, appears at stated age, normal weight Derm: no unusual rashes/lesions, warm Head: atraumatic, normocephalic, symmetric Eyes: EOMI, no lid lag, anicteric sclera, pupils equal round reactive to light ENT: Nose and ears atraumatic Neck: No cervical lymphadenopathy, trachea midline, supple Mouth: no lip lesion, mucus membranes moist Cardiovascular: S1S2 reg, no murmur, positive dorsalis pedis pulse bilateral, no edema Lungs: Decreased air entry bilaterally, no rhonchi, no rales, no accessory muscle use Abdominal: soft, nontender to palpation, no guarding Ext: muscle strength 5 out of 5 in all 4 extremities grossly, no gross muscle atrophy, no contractures, Neuro: CN II-XI grossly intact, no gross focal neuro deficits Psych: Alert, oriented, appropriate affect Data Reveiwed Today: Assessment and Plan 49-year-old male with significant past medical history of HIV seizure drug abuse presents for lower extremity weakness that did not resolve during previous hospitalization has had difficulty taking care of himself. Imaging inconsistent with symptoms #Lower extremity weakness with pain: Potentially secondary to poly-pharmacy vs hx of multiple hip replacements vs other Neurology on consult appreciate recommendations -PT OT recommend outpatient rehab - Multimodal pain management Thoracic and lumbar MRIs revealed no acute pathology or changes consistent with lower extremity weakness -No longer considering lumbar puncture, source of infection likely pneumonia Pending auth for acute rehab #Multifocal pneumonia with fever and hypotension # Sepsis secondary to above #Hyponatremia (130 ( ID on consult appreciate recommendations IV Bactrim, vancomycin Lactic acid: 2.92.0 D-dimer elevated 7.09 SubQ heparin 5000 every 8 hours CTA revealed no evidence of PE Blood cultures negative Highest fever within 24 hours 100.9 currently afebrile Switch from LR to NS (100 mL/h) 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 please excuse any grammatical, word or spelling errors. Anticipated discharge place: Acute rehab Anticipated discharge time: Likely 03/10/2025 Progress Note Date: 03/08/25 History of present illness; 49-year-old male with significant past medical history of HIV seizure drug abuse and nicotine dependence and several hip replacement corrections brought to the emergency department from home for evaluation of fall, patient reports he was recently discharged from [facility] 4 days ago where he stayed for 25 days however he is still experiencing symptoms. He was previously active and recently has not been able to take care of himself due to lower extremity weakness states he has 15 children and 12 grandchildren which keep him very busy. Has intermittent pain describes as tingly and sharp rates pain 5 out of 10 in the ER he was found to be febrile tachycardic and hypotensive without evidence of respiratory compromise. CT head from previous facility did not show evidence of of acute pathology In ER received chest x-ray CT scan chest and lumbar spine. Chest x-ray and chest CTA revealed evidence of alveolar edema consistent with multifocal pneumonia. CT lumbar spine showed no evidence of pathology He was admitted to medical team for management of HIV complicated by sepsis with infectious disease consulted and for management of left-sided lower extremity weakness with neurology consulted. 03/03/2025: Patient seen at bedside reports still feeling febrile. Patient is complaining of back pain as well as twitching in legs that is new. Patient seen and evaluated by neurology. Is going for MRI today of lumbar spine. Patient informed of pain management orders all questions addressed at bedside. 03/04/2025: Patient seen at bedside still complaining of pain and twitching, seen by neurology received MRI yesterday complained of claustrophobia for lumbar however no claustrophobia during thoracic MRI. Questions discussed with patient 03/05/2025: Patient does not have any other symptoms still experiencing pain went for MRI today better than previous 03/06/2025: Patient seen and examined at bedside symptoms have remained unchanged, remains febrile still complaining of back pain 03/07/2025: Patient seen at bedside feeling better than previous days, still concerned about leg weakness. Asked about possible discharge to rehab after medical optimization. 03/08/2025: Patient seen at bedside, no significant overnight events. States he is feeling quite well, the best he has felt since arriving to the hospital. Reports his breathing is better as well and he is been able to ambulate around the room with his walker. 03/09/2025: Patient seen at bedside no significant overnight events patient is feeling better compared to admission. Patient reports dizziness that has been ongoing since previous admission however patient is able to walk from bed to bathroom without significant limitation. Explained likely due to hypotension and ongoing sepsis. 03/10/2025: Patient seen at bedside slowly improving, still feeling dizzy, working on ambulating otherwise no complaint Pertinent positives and negatives discussed above, a complete review of systems was preformed and all the other sytems were negative. Vitals Signs Reveiwed. General: non toxic, no distress, appears at stated age, normal weight Derm: no unusual rashes/lesions, warm Head: atraumatic, normocephalic, symmetric Eyes: EOMI, no lid lag, anicteric sclera, pupils equal round reactive to light ENT: Nose and ears atraumatic Neck: No cervical lymphadenopathy, trachea midline, supple Mouth: no lip lesion, mucus membranes moist Cardiovascular: S1S2 reg, no murmur, positive dorsalis pedis pulse bilateral, no edema Lungs: Decreased air entry bilaterally, no rhonchi, no rales, no accessory muscle use Abdominal: soft, nontender to palpation, no guarding Ext: muscle strength 5 out of 5 in all 4 extremities grossly, no gross muscle atrophy, no contractures, Neuro: CN II-XI grossly intact, no gross focal neuro deficits Psych: Alert, oriented, appropriate affect Data Reveiwed Today: Assessment and Plan 49-year-old male with significant past medical history of HIV seizure drug abuse presents for lower extremity weakness that did not resolve during previous hospitalization has had difficulty taking care of himself. Imaging inconsistent with symptoms #Lower extremity weakness with pain: Potentially secondary to poly-pharmacy vs hx of multiple hip replacements vs other Neurology on consult appreciate recommendations -PT OT recommend outpatient rehab - Multimodal pain management Thoracic and lumbar MRIs revealed no acute pathology or changes consistent with lower extremity weakness -No longer considering lumbar puncture, source of infection likely pneumonia Pending auth for acute rehab #Multifocal pneumonia with fever and hypotension # Sepsis secondary to above #Hyponatremia (130 ( ID on consult appreciate recommendations IV Bactrim, vancomycin Lactic acid: 2.92.0 D-dimer elevated 7.09 SubQ heparin 5000 every 8 hours CTA revealed no evidence of PE Blood cultures negative Highest fever within 24 hours 100.9 currently afebrile Switch from LR to NS (100 mL/h) 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 please excuse any grammatical, word or spelling errors. Anticipated discharge place: Acute rehab Anticipated discharge time: Pending control of hypertension Objective - Vital Signs Vital signs: Vital Signs Temp 98.1 F 03/10/25 12:36 Pulse 68 03/10/25 12:36 Resp 16 03/10/25 12:36 BP 111/72 03/10/25 12:36 Pulse Ox 99 03/10/25 12:36 FiO2 Intake & Output 03/09/25 03/10/25 03/10/25 18:59 06:59 18:59 Intake Total 540 360 Output Total 900 1300 Balance -360 -940 Intake: Oral 540 360 Output: Urine 900 1300 Other: Voiding Method Bedside Commode Bedside Commode Bedside Commode Urinal Urinal Urinal Diaper Diaper Diaper # Voids 1 - Labs CBC & Chem 7: 03/16/25 08:28 03/16/25 08:28 Labs: Abnormal Lab Results - Last 24 Hours (Table) 03/08/25 03/10/25 03/10/25 Range/Units 15:39 04:44 04:44 WBC 4.08 L (4.50-10.00) X 10*3/uL RBC 2.96 L (4.40-5.60) X 10*6/uL Hgb 9.2 L (13.0-17.0) g/dL Hct 29.9 L (39.6-50.0) % MCV 101.0 H (80.0-97.0) FL MCHC 30.8 L (32.0-37.0) g/dL RDW 21.2 H (11.5-14.5) % Eosinophils # 0 L (0.04-0.35) X 10*3/uL Sodium 134 L (135-145) mmol/L Glucose 124 H (70-110) mg/dL Calcium 8.4 L (8.7-10.3) mg/dL Total Bilirubin <0.2 L (0.3-1.2) mg/dL Albumin 2.9 L (3.8-4.9) g/dL Globulin 3.8 H (1.6-3.3) g/dL Albumin/Globulin Ratio 0.76 L (1.60-3.17) Ratio HSV II DNA PCR DETECTED A (Not detected) Microbiology - Last 24 Hours (Table) 03/08/25 15:39 Gram Stain - Preliminary Face Wound Culture - Preliminary Assessment and Plan Assessment: Attestation Attestation/ Salad Maker Note: Attestation to Progress Note, Participation (I saw and evaluated the patient with the Resident, and I reviewed and discussed the patient with the Resident and agree with the Resident's findings and plans as documented above., management reviewed and discussed), I agree with findings & plan, Provider Signature (RENETTA TILLEY, PAVITHRA Paez Time with Patient: Greater than 30
--- NOTE | 2025-03-10 22:25 | P.PN ---
Subjective Progress Note Date: 03/10/25 Principal diagnosis: Reason for follow-up is HIV/PCP pneumonia Patient is a 49-year-old -[place] male with a past medical history significant for HIV for many years however the patient has not been on any medication for almost a year also with history of asthma and seizure disorder with recent admission at [facility] with the patient was diagnosed with a PCP pneumonia patient apparently has not completed his oral Bactrim DS therapy as per discussion with admitting physician now presented to this facility mostly with the weakness in the lower extremity. On today's evaluation that is 03/10/2025, patient has been afebrile, patient is breathing comfortably and is currently on room air, patient denies having any chest pain and cough has decreased in intensity remains to be dry in nature, patient denies nausea vomiting or diarrhea and no abdominal pain, rash to the chin area has decreased in intensity. Patient white count is 4.08 creatinine 0.9 potassium is 5.1 Objective - Vital Signs Vital signs: Vital Signs Temp 98.1 F 03/10/25 12:36 Pulse 68 03/10/25 12:36 Resp 16 03/10/25 12:36 BP 111/72 03/10/25 12:36 Pulse Ox 99 03/10/25 12:36 FiO2 Intake & Output 03/09/25 03/10/25 03/10/25 18:59 06:59 18:59 Intake Total 540 360 Output Total 900 1300 Balance -360 -940 Intake: Oral 540 360 Output: Urine 900 1300 Other: Voiding Method Bedside Commode Bedside Commode Bedside Commode Urinal Urinal Urinal Diaper Diaper Diaper # Voids 1 - Exam GENERAL DESCRIPTION: Middle-age male lying in bed in no distress HEENT: Chin area did have ulcerated and nodular skin lesion with some surrounding erythema RESPIRATORY SYSTEM: Unlabored breathing , decreased breath sounds at bases HEART: S1 S2 regular rate and rhythm , ABDOMEN: Soft , no tenderness EXTREMITIES: No edema feet - Labs CBC & Chem 7: 03/10/25 04:44 03/10/25 04:44 Labs: Abnormal Lab Results - Last 24 Hours (Table) 03/08/25 03/10/25 03/10/25 Range/Units 15:39 04:44 04:44 WBC 4.08 L (4.50-10.00) X 10*3/uL RBC 2.96 L (4.40-5.60) X 10*6/uL Hgb 9.2 L (13.0-17.0) g/dL Hct 29.9 L (39.6-50.0) % MCV 101.0 H (80.0-97.0) FL MCHC 30.8 L (32.0-37.0) g/dL RDW 21.2 H (11.5-14.5) % Eosinophils # 0 L (0.04-0.35) X 10*3/uL Sodium 134 L (135-145) mmol/L Glucose 124 H (70-110) mg/dL Calcium 8.4 L (8.7-10.3) mg/dL Total Bilirubin <0.2 L (0.3-1.2) mg/dL Albumin 2.9 L (3.8-4.9) g/dL Globulin 3.8 H (1.6-3.3) g/dL Albumin/Globulin Ratio 0.76 L (1.60-3.17) Ratio HSV II DNA PCR DETECTED A (Not detected) Microbiology - Last 24 Hours (Table) 03/08/25 15:39 Gram Stain - Preliminary Face Wound Culture - Preliminary Assessment and Plan (1) Sepsis Current Visit: Yes Status: Acute Code(s): A41.9 - SEPSIS, UNSPECIFIED ORGANISM SNOMED Code(s): 68709651 (2) Noncompliance with medication regimen Current Visit: Yes Status: Acute Code(s): Z91.148 - PATIENT'S OTHER NONCOMPL WITH MEDS REGIMEN FOR OTHER REASON SNOMED Code(s): 334466090 (3) Multifocal pneumonia Current Visit: Yes Status: Acute Code(s): J18.9 - PNEUMONIA, UNSPECIFIED ORGANISM SNOMED Code(s): 626024098 (4) HIV (human immunodeficiency virus infection) Current Visit: No Status: Acute Code(s): B20 - HUMAN IMMUNODEFICIENCY VIRUS [HIV] DISEASE SNOMED Code(s): 68779613 (5) PCP (pneumocystis jiroveci pneumonia) Current Visit: Yes Status: Acute Code(s): B59 - PNEUMOCYSTOSIS SNOMED Code(s): 357007567 (6) Skin ulcer of chin Current Visit: Yes Status: Acute Code(s): L98.499 - NON-PRESSURE CHRONIC ULCER OF SKIN OF SITES W UNSP SEVERITY SNOMED Code(s): 020683200 Plan: 1patient presented hospital with lower extremity weakness did not have any bow el or bladder problem did have MRI of the thoracic as well as lumbar spine did not mention any features of discitis or osteomyelitis 2patient is more likely clinically behaving as a partially treated PCP pneumonia as no other obvious focus of infection currently on IV Bactrim prednisone will be cut back to 40 mg daily 3patient did have ulcerated nodular lesion to the chin area concerning for pos sible Kaposi's sarcoma with secondary bacterial versus herpetic lesion, local culture negative HSV PCR came back positive Valtrex will be added and will see clinical response Dictation was produced using [employer] dictation software. please excuse any grammatical, word or spelling errors. Time with Patient: Less than 30
[2025-03-11] MEDS: predniSONE 20 MG TAB PO SCH (08:37)
[2025-03-11 08:47] LABS: Basophils # (A) 0.00 10*3/uL (0.00-0.10); Basophils % (A) 0.0 %; Eosinophils # (A) 0.00 10*3/uL (0.04-0.35); Eosinophils % (A) 0.0 %; HCT 29.8 % (39.6-50.0); HGB 9.7 g/dL (13.0-17.0); Lymphocytes # (A) 1.06 10*3/uL (0.90-5.00); Lymphocytes % (A) 27.0 %; MCH 32.4 pg (27.0-32.0); MCHC 32.6 g/dL (32.0-37.0); MCV 99.7 fL (80.0-97.0); Monocytes # (A) 0.31 10*3/uL (0.20-1.00); Monocytes % (A) 7.9 %; Neutrophils # (A) 2.52 10*3/uL (1.80-7.70); Neutrophils % (A) 64.3 %; Platelet Count 367 10*3/uL (140-440); RBC 2.99 10*6/uL (4.40-5.60); RDW 21.2 % (11.5-14.5); WBC 3.92 10*3/uL (4.50-10.00)
[2025-03-11 09:05] LABS: ALT 26 U/L (4-49); AST 22 U/L (17-59); African American GFR (CKD) >90 (>60 ml/min/1.73 sqM); Albumin 2.9 g/dL (3.5-5.0); Albumin/Globulin Ratio 0.7; Alkaline Phosphatase 106 U/L (38-126); Anion Gap 8 mmol/L; Blood Urea Nitrogen 11 mg/dL (9-20); Calcium 8.5 mg/dL (8.4-10.2); Carbon Dioxide 22 mmol/L (22-30); Chloride 105 mmol/L (98-107); Globulin 3.9 g/dL; Glucose 151 mg/dL (74-99); Non-African American GFR(CKD) >90 (>60 ml/min/1.73 sqM); Potassium 5.1 mmol/L (3.5-5.1); Sodium 135 mmol/L (137-145); Total Protein 6.8 g/dL (6.3-8.2)
--- NOTE | 2025-03-11 12:29 | P.PN ---
Subjective Progress Note Date: 03/11/25 SURGICAL PROGRESS NOTE CHIEF COMPLAINT: Bilateral leg weakness HISTORY OF PRESENT ILLNESS: Surgical service following in regards to lesion on the chin. Lesion per patient is still painful with scabbing and crusting noted. HSV II DNA PCR detected PHYSICAL EXAM: VITAL SIGNS: Reviewed. GENERAL: no acute distress. SKIN: Chin with skin lesion that is crusting and scabbed ASSESSMENT: 1. Skin lesion of the chin 2. History of HIV PLAN: - Awaiting culture results - Further recommendations forthcoming per surgeon Physician Lead Housekeeper note has been reviewed by physician. Signing provider agrees with the documented findings, assessment, and plan of care. Objective - Vital Signs Vital signs: Vital Signs Temp 97.7 F 03/11/25 07:30 Pulse 71 03/11/25 07:30 Resp 16 03/11/25 07:30 BP 102/56 03/11/25 07:30 Pulse Ox 97 03/11/25 07:30 FiO2 Intake & Output 03/10/25 03/11/25 03/11/25 18:59 06:59 18:59 Intake Total 1160 2440 Output Total 900 800 300 Balance 260 1640 -300 Intake: Intake, IV Titration 1600 Amount Sodium Chloride 0.9% 1, 1100 000 ml @ 100 mls/hr IV . Q10H [facility] Rx#:[id number] Sulfamethox-Tmp 80-16Mg/ 500 ml 480 mg In Dextrose 5% in Water 500 ml @ 333.33 mls/hr IVPB Q8HR [facility] Rx#: [id number] Oral 1160 840 Output: Urine 900 800 300 Other: Voiding Method Bedside Commode Bedside Commode Urinal Urinal Urinal Diaper Diaper - Labs CBC & Chem 7: 03/11/25 08:18 03/11/25 08:18 Labs: Abnormal Lab Results - Last 24 Hours (Table) 03/10/25 03/11/25 03/11/25 Range/Units 04:44 08:18 08:18 WBC 3.92 L (4.50-10.00) 10*3/uL RBC 2.99 L (4.40-5.60) 10*6/uL Hgb 9.7 L (13.0-17.0) g/dL Hct 29.8 L (39.6-50.0) % MCV 99.7 H (80.0-97.0) fL MCH 32.4 H (27.0-32.0) pg RDW 21.2 H (11.5-14.5) % Eosinophils # 0 L 0.00 L (0.04-0.35) X 10*3/uL Sodium 135 L (137-145) mmol/L Glucose 151 H (74-99) mg/dL Albumin 2.9 L (3.5-5.0) g/dL Microbiology - Last 24 Hours (Table) 03/08/25 15:39 Gram Stain - Preliminary Face Wound Culture - Preliminary
--- NOTE | 2025-03-11 15:15 | P.PN ---
Subjective Progress Note Date: 03/11/25 Principal diagnosis: Reason for follow-up is HIV/PCP pneumonia Patient is a 49-year-old -[place] male with a past medical history significant for HIV for many years however the patient has not been on any medication for almost a year also with history of asthma and seizure disorder with recent admission at [facility] with the patient was diagnosed with a PCP pneumonia patient apparently has not completed his oral Bactrim DS therapy as per discussion with admitting physician now presented to this facility mostly with the weakness in the lower extremity. On today's evaluation that is 03/11/2025, Patient is afebrile this morning patient denies having any chest pain shortness of breath and cough is decreased in intensity, the patient is currently on room air, patient denies any abdominal pain no diarrhea no nausea no vomiting, rash to the chin is currently gone. Patient did have a white count of 3.92, creatinine 0.78 Objective - Vital Signs Vital signs: Vital Signs Temp 98.4 F 03/11/25 12:49 Pulse 86 03/11/25 12:49 Resp 18 03/11/25 12:49 BP 99/62 03/11/25 12:49 Pulse Ox 96 03/11/25 12:49 FiO2 Intake & Output 03/10/25 03/11/25 03/11/25 18:59 06:59 18:59 Intake Total 1160 2440 Output Total 696 159 8555 Balance 260 1640 -1050 Intake: Intake, IV Titration 1600 Amount Sodium Chloride 0.9% 1, 1100 000 ml @ 100 mls/hr IV . Q10H [facility] Rx#:[id number] Sulfamethox-Tmp 80-16Mg/ 500 ml 480 mg In Dextrose 5% in Water 500 ml @ 333.33 mls/hr IVPB Q8HR [facility] Rx#: [id number] Oral 1160 840 Output: Urine 626 731 6786 Other: Voiding Method Bedside Commode Bedside Commode Urinal Urinal Urinal Diaper Diaper - Exam GENERAL DESCRIPTION: Middle-age male lying in bed in no distress HEENT: Chin area did have ulcerated and nodular skin lesion with some surrounding erythema RESPIRATORY SYSTEM: Unlabored breathing , decreased breath sounds at bases HEART: S1 S2 regular rate and rhythm , ABDOMEN: Soft , no tenderness EXTREMITIES: No edema feet - Labs CBC & Chem 7: 03/11/25 08:18 03/11/25 08:18 Labs: Abnormal Lab Results - Last 24 Hours (Table) 03/11/25 03/11/25 Range/Units 08:18 08:18 WBC 3.92 L (4.50-10.00) 10*3/uL RBC 2.99 L (4.40-5.60) 10*6/uL Hgb 9.7 L (13.0-17.0) g/dL Hct 29.8 L (39.6-50.0) % MCV 99.7 H (80.0-97.0) fL MCH 32.4 H (27.0-32.0) pg RDW 21.2 H (11.5-14.5) % Eosinophils # 0.00 L (0.04-0.35) 10*3/uL Sodium 135 L (137-145) mmol/L Glucose 151 H (74-99) mg/dL Albumin 2.9 L (3.5-5.0) g/dL Microbiology - Last 24 Hours (Table) 03/08/25 15:39 Gram Stain - Preliminary Face Wound Culture - Preliminary Assessment and Plan (1) Sepsis Current Visit: Yes Status: Acute Code(s): A41.9 - SEPSIS, UNSPECIFIED ORGANISM SNOMED Code(s): 68051701 (2) Noncompliance with medication regimen Current Visit: Yes Status: Acute Code(s): Z91.148 - PATIENT'S OTHER NONCOMPL WITH MEDS REGIMEN FOR OTHER REASON SNOMED Code(s): 125612716 (3) Multifocal pneumonia Current Visit: Yes Status: Acute Code(s): J18.9 - PNEUMONIA, UNSPECIFIED ORGANISM SNOMED Code(s): 203850322 (4) HIV (human immunodeficiency virus infection) Current Visit: No Status: Acute Code(s): B20 - HUMAN IMMUNODEFICIENCY VIRUS [HIV] DISEASE SNOMED Code(s): 17680787 (5) PCP (pneumocystis jiroveci pneumonia) Current Visit: Yes Status: Acute Code(s): B59 - PNEUMOCYSTOSIS SNOMED Code(s): 989419678 (6) Skin ulcer of chin Current Visit: Yes Status: Acute Code(s): L98.499 - NON-PRESSURE CHRONIC ULCER OF SKIN OF SITES W UNSP SEVERITY SNOMED Code(s): 834691437 Plan: 1patient presented hospital with lower extremity weakness did not have any bowel or bladder problem did have MRI of the thoracic as well as lumbar spine did not mention any features of discitis or osteomyelitis 2patient is more likely clinically behaving as a partially treated PCP pneumonia as no other obvious focus of infection currently on IV Bactrim prednisone will be cut back to 40 mg daily 3patient did have ulcerated nodular lesion to the chin area concerning for possible Kaposi's sarcoma with secondary bacterial versus herpetic lesion, local culture negative so far, HSV PCR came back positive Valtrex was added yesterday to continue and monitor clinical course closely Dictation was produced using [employer] dictation software. please excuse any grammatical, word or spelling errors. Time with Patient: Less than 30
--- NOTE | 2025-03-11 15:17 | P.PN ---
Subjective Progress Note Date: 03/11/25 History of present illness; 49-year-old male with significant past medical history of HIV seizure drug abuse and nicotine dependence and several hip replacement corrections brought to the emergency department from home for evaluation of fall, patient reports he was recently discharged from [facility] 4 days ago where he stayed for 25 days however he is still experiencing symptoms. He was previously active and recently has not been able to take care of himself due to lower extremity weakness states he has 15 children and 12 grandchildren which keep him very busy. Has intermittent pain describes as tingly and sharp rates pain 5 out of 10 in the ER he was found to be febrile tachycardic and hypotensive without evidence of respiratory compromise. CT head from previous facility did not show evidence of of acute pathology In ER received chest x-ray CT scan chest and lumbar spine. Chest x-ray and chest CTA revealed evidence of alveolar edema consistent with multifocal pneumonia. CT lumbar spine showed no evidence of pathology He was admitted to medical team for management of HIV complicated by sepsis with infectious disease consulted and for management of left-sided lower extremity weakness with neurology consulted. 03/03/2025: Patient seen at bedside reports still feeling febrile. Patient is complaining of back pain as well as twitching in legs that is new. Patient seen and evaluated by neurology. Is going for MRI today of lumbar spine. Patient informed of pain management orders all questions addressed at bedside. 03/04/2025: Patient seen at bedside still complaining of pain and twitching, seen by neurology received MRI yesterday complained of claustrophobia for lumbar however no claustrophobia during thoracic MRI. Questions discussed with patient 03/05/2025: Patient does not have any other symptoms still experiencing pain went for MRI today better than previous 03/06/2025: Patient seen and examined at bedside symptoms have remained unchanged, remains febrile still complaining of back pain 03/07/2025: Patient seen at bedside feeling better than previous days, still concerned about leg weakness. Asked about possible discharge to rehab after medical optimization. 03/08/2025: Patient seen at bedside, no significant overnight events. States he is feeling quite well, the best he has felt since arriving to the hospital. Reports his breathing is better as well and he is been able to ambulate around the room with his walker. 03/09/2025: Patient seen at bedside no significant overnight events patient is feeling better compared to admission. Patient reports dizziness that has been ongoing since previous admission however patient is able to walk from bed to bathroom without significant limitation. Explained likely due to hypotension and ongoing sepsis. Pertinent positives and negatives discussed above, a complete review of systems was preformed and all the other sytems were negative. Vitals Signs Reveiwed. General: non toxic, no distress, appears at stated age, normal weight Derm: Skin lesion on chin concerning for kaposi sarcoma Head: atraumatic, normocephalic, symmetric Eyes: EOMI, no lid lag, anicteric sclera, pupils equal round reactive to light ENT: Nose and ears atraumatic Neck: No cervical lymphadenopathy, trachea midline, supple Mouth: no lip lesion, mucus membranes moist Cardiovascular: S1S2 reg, no murmur, positive dorsalis pedis pulse bilateral, no edema Lungs: Decreased air entry bilaterally, no rhonchi, no rales, no accessory muscle use Abdominal: soft, nontender to palpation, no guarding Ext: muscle strength 5 out of 5 in all 4 extremities grossly, no gross muscle atrophy, no contractures, Neuro: CN II-XI grossly intact, no gross focal neuro deficits Psych: Alert, oriented, appropriate affect Data Reveiwed Today: Assessment and Plan 49-year-old male with significant past medical history of HIV seizure drug abuse presents for lower extremity weakness that did not resolve during previous hos pitalization has had difficulty taking care of himself. Imaging inconsistent with symptoms #Lower extremity weakness with pain: Potentially secondary to poly-pharmacy vs hx of multiple hip replacements vs other Neurology on consult appreciate recommendations -PT OT recommend outpatient rehab - Multimodal pain management Thoracic and lumbar MRIs revealed no acute pathology or changes consistent with lower extremity weakness -No longer considering lumbar puncture, source of infection likely pneumonia Pending auth for acute rehab #Multifocal pneumonia with fever and hypotension # Sepsis secondary to above #Hyponatremia (resolved) #Dizziness ID on consult appreciate recommendations IV Bactrim, vancomycin Blood cultures negative No fever within the last 72 hours Switch from LR to NS (100 mL/h) Titrate down fluids as tolerated 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 Consulted surgery appreciate recommendation Wound culture pending -Added Valtrex QD Chronic Conditions: #Eczema Begin triamcinolone cream #HIV with poor medication compliance Biktarvy ID consulted CD4: 129 Viral load pending -HIV genotype #Seizure disorder Keppra and Depakote EEG negative DVT ppx: SubQ heparin GI ppx: Protonix CODE STATUS: Full Dispo: Pending clinical course Objective - Vital Signs Vital signs: Vital Signs Temp 97.7 F 03/11/25 07:30 Pulse 71 03/11/25 07:30 Resp 16 03/11/25 07:30 BP 102/56 03/11/25 07:30 Pulse Ox 97 03/11/25 07:30 FiO2 Intake & Output 03/10/25 03/11/25 03/11/25 18:59 06:59 18:59 Intake Total 1160 2440 Output Total 900 800 Balance 260 1640 Intake: Intake, IV Titration 1600 Amount Sodium Chloride 0.9% 1, 1100 000 ml @ 100 mls/hr IV . Q10H [facility] Rx#:[id number] Sulfamethox-Tmp 80-16Mg/ 500 ml 480 mg In Dextrose 5% in Water 500 ml @ 333.33 mls/hr IVPB Q8HR [facility] Rx#: [id number] Oral 1160 840 Output: Urine 900 800 Other: Voiding Method Bedside Commode Bedside Commode Urinal Urinal Diaper Diaper - Labs CBC & Chem 7: 03/16/25 08:28 03/16/25 08:28 Labs: Abnormal Lab Results - Last 24 Hours (Table) 03/08/25 03/10/25 03/11/25 Range/Units 15:39 04:44 08:18 WBC 3.92 L (4.50-10.00) 10*3/uL RBC 2.99 L (4.40-5.60) 10*6/uL Hgb 9.7 L (13.0-17.0) g/dL Hct 29.8 L (39.6-50.0) % MCV 99.7 H (80.0-97.0) fL MCH 32.4 H (27.0-32.0) pg RDW 21.2 H (11.5-14.5) % Eosinophils # 0 L 0.00 L (0.04-0.35) X 10*3/uL Sodium (137-145) mmol/L Glucose (74-99) mg/dL Albumin (3.5-5.0) g/dL HSV II DNA PCR DETECTED A (Not detected) 03/11/25 Range/Units 08:18 WBC (4.50-10.00) 10*3/uL RBC (4.40-5.60) 10*6/uL Hgb (13.0-17.0) g/dL Hct (39.6-50.0) % MCV (80.0-97.0) fL MCH (27.0-32.0) pg RDW (11.5-14.5) % Eosinophils # (0.04-0.35) X 10*3/uL Sodium 135 L (137-145) mmol/L Glucose 151 H (74-99) mg/dL Albumin 2.9 L (3.5-5.0) g/dL HSV II DNA PCR (Not detected) Microbiology - Last 24 Hours (Table) 03/08/25 15:39 Gram Stain - Preliminary Face Wound Culture - Preliminary Assessment and Plan Assessment: Attestation Attestation/ Tube Drawing Supervisor Note: Attestation to Progress Note, Participation (I saw and evaluated the patient with the Resident, and I reviewed and discussed the patient with the Resident and agree with the Resident's findings and plans as d ocumented above., management reviewed and discussed), I agree with findings & plan, Provider Signature (RENETTA TILLEY, PAVITHRA Paez Time with Patient: Greater than 30
[2025-03-12] MEDS: DEXTROSE 5% IVPB SCH ×2 (02:39→20:28)
[2025-03-12] MEDS: WATER IVPB SCH ×2 (02:39→20:28)
[2025-03-12] MEDS: SULFAMETHOX TMP IVPB SCH ×2 (02:39→20:28)
[2025-03-12 08:09] LABS: ALT 28 U/L (10-49); AST 18 U/L (14-35); Albumin 2.9 g/dL (3.8-4.9); Albumin/Globulin Ratio 0.76 Ratio (1.60-3.17); Alkaline Phosphatase 70 U/L (41-126); Anion Gap 8.50 mmol/L (4.00-12.00); BUN/Creat Ratio 11.11 Ratio (12.00-20.00); Blood Urea Nitrogen 10.0 mg/dL (9.0-27.0); Calcium 8.5 mg/dL (8.7-10.3); Carbon Dioxide 22.5 mmol/L (21.6-31.8); Chloride 103 mmol/L (96-109); Globulin 3.8 g/dL (1.6-3.3); Glucose 80 mg/dL (70-110); Potassium 4.9 mmol/L (3.5-5.5); Sodium 134 mmol/L (135-145); Total Protein 6.7 g/dL (6.2-8.2)
[2025-03-12 08:18] LABS: Basophils # (A) 0 X 10*3/uL (0.00-0.10); Basophils % (A) 0 %; Eosinophils # (A) 0 X 10*3/uL (0.04-0.35); Eosinophils % (A) 0 %; HCT 30.1 % (39.6-50.0); HGB 9.4 g/dL (13.0-17.0); Immature Grans, Automated 0.60 %; Lymphocytes # (A) 1.29 X 10*3/uL (0.90-5.00); Lymphocytes % (A) 24.2 %; MCH 31.9 pg (27.0-32.0); MCHC 31.2 g/dL (32.0-37.0); MCV 102.0 FL (80.0-97.0); Monocytes # (A) 0.89 X 10*3/uL (0.20-1.00); Monocytes % (A) 16.7 %; NRBC Per 100 WBC 0.02 X 10*3/uL (0.00-0.01); Neutrophils # (A) 3.13 X 10*3/uL (1.80-7.70); Neutrophils % (A) 58.5 %; Platelet Count 409 X 10*3/uL (140-440); RBC 2.95 X 10*6/uL (4.40-5.60); RDW 22.2 % (11.5-14.5); WBC 5.34 X 10*3/uL (4.50-10.00)
--- NOTE | 2025-03-12 12:06 | P.PN ---
Subjective Progress Note Date: 03/12/25 SURGICAL PROGRESS NOTE CHIEF COMPLAINT: Bilateral leg weakness HISTORY OF PRESENT ILLNESS: Surgical service following in regards to lesion on the chin. Lesion per patient is still painful with scabbing and crusting noted. HSV II DNA PCR detected PHYSICAL EXAM: VITAL SIGNS: Reviewed. GENERAL: no acute distress. SKIN: Chin with skin lesion that is crusting and scabbed ASSESSMENT: 1. Skin lesion of the chin 2. History of HIV PLAN: -Patient scheduled for biopsy of chin skin lesion tomorrow with Dr. Morales at bedside Physician Heavy Mobile Equipment Repairer note has been reviewed by physician. Signing provider agrees with the documented findings, assessment, and plan of care. Objective - Vital Signs Vital signs: Vital Signs Temp 98.3 F 03/12/25 08:00 Pulse 77 03/12/25 08:00 Resp 18 03/12/25 08:00 BP 90/52 03/12/25 08:00 Pulse Ox 96 03/12/25 08:00 FiO2 Intake & Output 03/11/25 03/12/25 03/12/25 18:59 06:59 18:59 Intake Total 1160 300 Output Total 2400 1025 Balance -1240 -725 Intake: Oral 1160 300 Output: Urine 2400 1025 Other: Voiding Method Urinal Urinal Urinal # Voids 1 - Labs CBC & Chem 7: 03/12/25 05:50 03/12/25 05:50 Labs: Abnormal Lab Results - Last 24 Hours (Table) 03/12/25 03/12/25 Range/Units 05:50 05:50 RBC 2.95 L (4.40-5.60) X 10*6/uL Hgb 9.4 L (13.0-17.0) g/dL Hct 30.1 L (39.6-50.0) % MCV 102.0 H (80.0-97.0) FL MCHC 31.2 L (32.0-37.0) g/dL RDW 22.2 H (11.5-14.5) % Eosinophils # 0 L (0.04-0.35) X 10*3/uL NRBC/100 WBC Diff 0.02 H (0.00-0.01) X 10*3/uL Sodium 134 L (135-145) mmol/L BUN/Creatinine Ratio 11.11 L (12.00-20.00) Ratio Calcium 8.5 L (8.7-10.3) mg/dL Total Bilirubin <0.2 L (0.3-1.2) mg/dL Albumin 2.9 L (3.8-4.9) g/dL Globulin 3.8 H (1.6-3.3) g/dL Albumin/Globulin Ratio 0.76 L (1.60-3.17) Ratio
--- NOTE | 2025-03-12 17:22 | P.PN ---
Subjective Progress Note Date: 03/12/25 Subjective History of present illness; 49-year-old male with significant past medical history of HIV seizure drug abuse and nicotine dependence and several hip replacement corrections brought to the emergency department from home for evaluation of fall, patient reports he was recently discharged from [facility] 4 days ago where he stayed for 25 days however he is still experiencing symptoms. He was previously active and recently has not been able to take care of himself due to lower extremity weakness states he has 15 children and 12 grandchildren which keep him very busy. Has intermittent pain describes as tingly and sharp rates pain 5 out of 10 in the ER he was found to be febrile tachycardic and hypotensive without evidence of respiratory compromise. CT head from previous facility did not show evidence of of acute pathology In ER received chest x-ray CT scan chest and lumbar spine. Chest x-ray and chest CTA revealed evidence of alveolar edema consistent with multifocal pneumonia. CT lumbar spine showed no evidence of pathology He was admitted to medical team for management of HIV complicated by sepsis with infectious disease consulted and for management of left-sided lower extremity weakness with neurology consulted. 03/03/2025: Patient seen at bedside reports still feeling febrile. Patient is complaining of back pain as well as twitching in legs that is new. Patient seen and evaluated by neurology. Is going for MRI today of lumbar spine. Patient informed of pain management orders all questions addressed at bedside. 03/04/2025: Patient seen at bedside still complaining of pain and twitching, seen by neurology received MRI yesterday complained of claustrophobia for lumbar however no claustrophobia during thoracic MRI. Questions discussed with patient 03/05/2025: Patient does not have any other symptoms still experiencing pain went for MRI today better than previous 03/06/2025: Patient seen and examined at bedside symptoms have remained unchanged, remains febrile still complaining of back pain 03/07/2025: Patient seen at bedside feeling better than previous days, still concerned about leg weakness. Asked about possible discharge to rehab after medical optimization. 03/08/2025: Patient seen at bedside, no significant overnight events. States he is feeling quite well, the best he has felt since arriving to the hospital. Reports his breathing is better as well and he is been able to ambulate around the room with his walker. 03/09/2025: Patient seen at bedside no significant overnight events patient is feeling better compared to admission. Patient reports dizziness that has been ongoing since previous admission however patient is able to walk from bed to bathroom without significant limitation. Explained likely due to hypotension and ongoing sepsis. Pertinent positives and negatives discussed above, a complete review of systems was preformed and all the other sytems were negative. Vitals Signs Reveiwed. General: non toxic, no distress, appears at stated age, normal weight Derm: Skin lesion on chin concerning for kaposi sarcoma Head: atraumatic, normocephalic, symmetric Eyes: EOMI, no lid lag, anicteric sclera, pupils equal round reactive to light ENT: Nose and ears atraumatic Neck: No cervical lymphadenopathy, trachea midline, supple Mouth: no lip lesion, mucus membranes moist Cardiovascular: S1S2 reg, no murmur, positive dorsalis pedis pulse bilateral, no edema Lungs: Decreased air entry bilaterally, no rhonchi, no rales, no accessory muscle use Abdominal: soft, nontender to palpation, no guarding Ext: muscle strength 5 out of 5 in all 4 extremities grossly, no gross muscle atrophy, no contractures, Neuro: CN II-XI grossly intact, no gross focal neuro deficits Psych: Alert, oriented, appropriate affect Data Reveiwed Today: Assessment and Plan 49-year-old male with significant past medical history of HIV seizure drug abuse presents for lower extremity weakness that did not resolve during previous hospitalization has had difficulty taking care of himself. Imaging inconsistent with symptoms #Lower extremity weakness with pain: Potentially secondary to poly-pharmacy vs hx of multiple hip replacements vs other Neurology on consult appreciate recommendations -PT OT recommend outpatient rehab - Multimodal pain management Thoracic and lumbar MRIs revealed no acute pathology or changes consistent with lower extremity weakness -No longer considering lumbar puncture, source of infection likely pneumonia Pending auth for acute rehab #Multifocal pneumonia with fever and hypotension # Sepsis secondary to above #Hyponatremia (resolved) #Dizziness ID on consult appreciate recommendations IV Bactrim, vancomycin Blood cultures negative No fever within the last 72 hours Switch from LR to NS (50 mL/h) Titrate down fluids as tolerated 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 Consulted surgery appreciate recommendation -Plan for bedside biopsy tomorrow Wound culture pending -Added Valtrex QD Chronic Conditions: #Eczema Begin triamcinolone cream #HIV with poor medication compliance Biktarvy ID consulted CD4: 129 Viral load pending -HIV genotype #Seizure disorder Keppra and Depakote EEG negative DVT ppx: SubQ heparin GI ppx: Protonix CODE STATUS: Full Dispo: Pending stable BP Objective - Vital Signs Vital signs: Vital Signs Temp 98.5 F 03/12/25 01:11 Pulse 84 03/12/25 01:11 Resp 18 03/12/25 01:11 BP 106/63 03/12/25 01:11 Pulse Ox 96 03/12/25 01:11 FiO2 Intake & Output 03/11/25 03/12/25 03/12/25 18:59 06:59 18:59 Intake Total 1160 300 Output Total 2400 1025 Balance -1240 -725 Intake: Oral 1160 300 Output: Urine 2400 1025 Other: Voiding Method Urinal Urinal # Voids 1 - Labs CBC & Chem 7: 03/16/25 08:28 03/16/25 08:28 Labs: Abnormal Lab Results - Last 24 Hours (Table) 03/11/25 03/11/25 Range/Units 08:18 08:18 WBC 3.92 L (4.50-10.00) 10*3/uL RBC 2.99 L (4.40-5.60) 10*6/uL Hgb 9.7 L (13.0-17.0) g/dL Hct 29.8 L (39.6-50.0) % MCV 99.7 H (80.0-97.0) fL MCH 32.4 H (27.0-32.0) pg RDW 21.2 H (11.5-14.5) % Eosinophils # 0.00 L (0.04-0.35) 10*3/uL Sodium 135 L (137-145) mmol/L Glucose 151 H (74-99) mg/dL Albumin 2.9 L (3.5-5.0) g/dL Assessment and Plan Assessment: Attestation Attestation/ Phthalic Acid Purifier Note: Attestation to Progress Note, Participation (I saw and evaluated the patient with the Resident, and I reviewed and discussed the patient with the Resident and agree with the Resident's findings and plans as documented above., management reviewed and discussed), I agree with findings & plan, Provider Signature (PAVITHRA JACKSON MD Time with Patient: Greater than 30
[2025-03-13 06:57] LABS: Basophils # (A) 0.01 10*3/uL (0.00-0.10); Basophils % (A) 0.3 %; Eosinophils # (A) 0.01 10*3/uL (0.04-0.35); Eosinophils % (A) 0.3 %; HCT 29.5 % (39.6-50.0); HGB 9.2 g/dL (13.0-17.0); Lymphocytes # (A) 1.35 10*3/uL (0.90-5.00); Lymphocytes % (A) 34.9 %; MCH 31.7 pg (27.0-32.0); MCHC 31.2 g/dL (32.0-37.0); MCV 101.7 fL (80.0-97.0); Monocytes # (A) 0.65 10*3/uL (0.20-1.00); Monocytes % (A) 16.8 %; Neutrophils # (A) 1.84 10*3/uL (1.80-7.70); Neutrophils % (A) 47.4 %; Platelet Count 356 10*3/uL (140-440); RBC 2.90 10*6/uL (4.40-5.60); RDW 22.6 % (11.5-14.5); WBC 3.87 10*3/uL (4.50-10.00)
--- NOTE | 2025-03-13 08:56 | P.PN ---
Subjective Progress Note Date: 03/12/25 Patient was seen for follow-up. Patient states he is feeling much better. He is getting more stronger. Patient is laying comfortably in the bed. Objective - Vital Signs Vital signs: Vital Signs Temp 98.3 F 03/12/25 16:23 Pulse 94 03/12/25 16:23 Resp 20 03/12/25 16:23 BP 114/72 03/12/25 16:23 Pulse Ox 97 03/12/25 16:23 FiO2 Intake & Output 03/12/25 03/12/25 03/13/25 06:59 18:59 06:59 Intake Total 300 2100 Output Total 1025 Balance -725 2100 Intake: Oral 300 2100 Output: Urine 1025 Other: Voiding Method Urinal Urinal # Voids 2 # Bowel Movements 1 - Exam Patient is alert and awake in no distress. Speech and language functions are normal. Muscle strength is completely normal in the arms and legs distally and proximally except for left hip which is 5-, perhaps related to previous multiple hip surgeries. The strength appears back to normal. Deep tendon reflexes are trace to 1 in the upper limbs, 1 at the knees and plantars flat. - Labs CBC & Chem 7: 03/13/25 06:36 03/12/25 05:50 Labs: Abnormal Lab Results - Last 24 Hours (Table) 03/12/25 03/12/25 Range/Units 05:50 05:50 RBC 2.95 L (4.40-5.60) X 10*6/uL Hgb 9.4 L (13.0-17.0) g/dL Hct 30.1 L (39.6-50.0) % MCV 102.0 H (80.0-97.0) FL MCHC 31.2 L (32.0-37.0) g/dL RDW 22.2 H (11.5-14.5) % Eosinophils # 0 L (0.04-0.35) X 10*3/uL NRBC/100 WBC Diff 0.02 H (0.00-0.01) X 10*3/uL Sodium 134 L (135-145) mmol/L BUN/Creatinine Ratio 11.11 L (12.00-20.00) Ratio Calcium 8.5 L (8.7-10.3) mg/dL Total Bilirubin <0.2 L (0.3-1.2) mg/dL Albumin 2.9 L (3.8-4.9) g/dL Globulin 3.8 H (1.6-3.3) g/dL Albumin/Globulin Ratio 0.76 L (1.60-3.17) Ratio Assessment and Plan Assessment: This is a 49-year-old gentleman with history of HIV, with CD4 128, presents with extremity weakness and it seems left more than right. 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 Mild degenerative disc disease and facet arthropathy at L3-L4. Diffuse red marrow conversion can be seen in the setting of tobacco abuse, anemia or myeloproliferative disorder. No focal enhancing osseous lesion. Patient's strength in the legs have remarkably improved. It appears to be almost back to baseline. Continue with Physical therapy and occupation therapy. No indication for lumbar puncture as patient's strength is back to normal. Recommend EMG with nerve conduction study as an outpatient of the lowers, only if symptoms persist. TSH is 2.4, hemoglobin A1c is 5.6 vitamin B12 is 301 on vitamin B12 1000 mcg daily p.o. MRI thoracic spine is reported as no evidence for significant spinal canal stenosis or neuroforaminal stenosis. No abnormal enhancement RBC folate level: 492 Routine EEG is normal. PT and OT are consulted ID team is on board Cardiology is consulted Will defer the rest of the medical management to primary other specialist Upon discharge, recommend the patient to follow-up with outpatient neurologist within 2-3 weeks. Neurologically clear for discharge.
[2025-03-13 09:01] LABS: Anisocytosis (M) Present; Ovalocytes Present
[2025-03-13 09:12] LABS: ALT 22 U/L (4-49); AST 17 U/L (17-59); African American GFR (CKD) >90 (>60 ml/min/1.73 sqM); Albumin 2.9 g/dL (3.5-5.0); Albumin/Globulin Ratio 0.8; Alkaline Phosphatase 68 U/L (38-126); Anion Gap 9 mmol/L; Blood Urea Nitrogen 9 mg/dL (9-20); Calcium 8.9 mg/dL (8.4-10.2); Carbon Dioxide 22 mmol/L (22-30); Chloride 104 mmol/L (98-107); Globulin 3.8 g/dL; Glucose 110 mg/dL (74-99); Non-African American GFR(CKD) >90 (>60 ml/min/1.73 sqM); Potassium 4.2 mmol/L (3.5-5.1); Sodium 135 mmol/L (137-145); Total Protein 6.7 g/dL (6.3-8.2)
[2025-03-13] MEDS: LIDOCAINE 1%-EPI 1:100,000 20 ML VIAL SQ SCH (14:25)
--- NOTE | 2025-03-13 14:40 | P.PN ---
Subjective Progress Note Date: 03/12/25 Principal diagnosis: Reason for follow-up is HIV/PCP pneumonia Patient is a 49-year-old -English male with a past medical history significant for HIV for many years however the patient has not been on any medication for almost a year also with history of asthma and seizure disorder with recent admission at [facility] with the patient was diagnosed with a PCP pneumonia patient apparently has not completed his oral Bactrim DS therapy as per discussion with admitting physician now presented to this facility mostly with the weakness in the lower extremity. On today's evaluation that is 03/12/2025,the patient denies any fever or any chills, patient is breathing comfortably on room air, the patient denies chest pain shortness of breath and cough has decreased in intensity, patient denies abdominal pain, no nausea vomiting or diarrhea. Discomfort with touching the area has decreased. Patient white count is 5.54 creatinine 0.9 Objective - Vital Signs Vital signs: Vital Signs Temp 98.4 F 03/12/25 12:29 Pulse 96 03/12/25 12:29 Resp 16 03/12/25 12:29 BP 92/49 03/12/25 12:29 Pulse Ox 94 L 03/12/25 12:29 FiO2 Intake & Output 03/11/25 03/12/25 03/12/25 18:59 06:59 18:59 Intake Total 1160 300 Output Total 2400 1025 Balance -1240 -725 Intake: Oral 1160 300 Output: Urine 2400 1025 Other: Voiding Method Urinal Urinal Urinal # Voids 1 - Exam GENERAL DESCRIPTION: Middle-age male lying in bed in no distress HEENT: Chin area did have ulcerated and nodular skin lesion with some surrounding erythema RESPIRATORY SYSTEM: Unlabored breathing , decreased breath sounds at bases HEART: S1 S2 regular rate and rhythm , ABDOMEN: Soft , no tenderness EXTREMITIES: No edema feet - Labs CBC & Chem 7: 03/13/25 06:36 03/13/25 08:46 Labs: Abnormal Lab Results - Last 24 Hours (Table) 03/12/25 03/12/25 Range/Units 05:50 05:50 RBC 2.95 L (4.40-5.60) X 10*6/uL Hgb 9.4 L (13.0-17.0) g/dL Hct 30.1 L (39.6-50.0) % MCV 102.0 H (80.0-97.0) FL MCHC 31.2 L (32.0-37.0) g/dL RDW 22.2 H (11.5-14.5) % Eosinophils # 0 L (0.04-0.35) X 10*3/uL NRBC/100 WBC Diff 0.02 H (0.00-0.01) X 10*3/uL Sodium 134 L (135-145) mmol/L BUN/Creatinine Ratio 11.11 L (12.00-20.00) Ratio Calcium 8.5 L (8.7-10.3) mg/dL Total Bilirubin <0.2 L (0.3-1.2) mg/dL Albumin 2.9 L (3.8-4.9) g/dL Globulin 3.8 H (1.6-3.3) g/dL Albumin/Globulin Ratio 0.76 L (1.60-3.17) Ratio Assessment and Plan (1) Sepsis Current Visit: Yes Status: Acute Code(s): A41.9 - SEPSIS, UNSPECIFIED ORGANISM SNOMED Code(s): 13737033 (2) Noncompliance with medication regimen Current Visit: Yes Status: Acute Code(s): Z91.148 - PATIENT'S OTHER NONCOMPL WITH MEDS REGIMEN FOR OTHER REASON SNOMED Code(s): 607230061 (3) Multifocal pneumonia Current Visit: Yes Status: Acute Code(s): J18.9 - PNEUMONIA, UNSPECIFIED ORGANISM SNOMED Code(s): 158046473 (4) HIV (human immunodeficiency virus infection) Current Visit: No Status: Acute Code(s): B20 - HUMAN IMMUNODEFICIENCY VIRUS [HIV] DISEASE SNOMED Code(s): 17535024 (5) PCP (pneumocystis jiroveci pneumonia) Current Visit: Yes Status: Acute Code(s): B59 - PNEUMOCYSTOSIS SNOMED Code(s): 207975105 (6) Skin ulcer of chin Current Visit: Yes Status: Acute Code(s): L98.499 - NON-PRESSURE CHRONIC ULCER OF SKIN OF SITES W UNSP SEVERITY SNOMED Code(s): 838264514 Plan: 1patient presented hospital with lower extremity weakness did not have any bowel or bladder problem did have MRI of the thoracic as well as lumbar spine did not mention any features of discitis or osteomyelitis 2patient is more likely clinically behaving as a partially treated PCP pneumonia as no other obvious focus of infection currently on IV Bactrim along with the prednisone 40 mg daily 3patient did have ulcerated nodular lesion to the chin area concerning for possible Kaposi's sarcoma with secondary bacterial versus herpetic lesion, local culture negative so far, HSV PCR came back positive Valtrex was added the lesion seem to be drying out still waiting for the biopsy Dictation was produced using [employer] dictation software. please excuse any grammatical, word or spelling errors. Time with Patient: Less than 30
--- NOTE | 2025-03-13 14:41 | P.PN ---
Subjective Progress Note Date: 03/13/25 Principal diagnosis: Reason for follow-up is HIV/PCP pneumonia Patient is a 49-year-old -[place] male with a past medical history significant for HIV for many years however the patient has not been on any medication for almost a year also with history of asthma and seizure disorder with recent admission at [facility] with the patient was diagnosed with a PCP pneumonia patient apparently has not completed his oral Bactrim DS therapy as per discussion with admitting physician now presented to this facility mostly with the weakness in the lower extremity. On today's evaluation that is 03/13/2025,the patient remains to be afebrile, patient is on room air not requiring supplemental oxygen and mentioned breathing comfortably with no chest pain or cough.Patient denies having any nausea or vomiting, no abdominal pain and no diarrhea has been reported. Patient white count is 3.87 creatinine 0.80 Objective - Vital Signs Vital signs: Vital Signs Temp 98.6 F 03/13/25 12:21 Pulse 79 03/13/25 12:21 Resp 16 03/13/25 12:21 BP 116/72 03/13/25 12:21 Pulse Ox 96 03/13/25 12:21 FiO2 Intake & Output 03/12/25 03/13/25 03/13/25 18:59 06:59 18:59 Intake Total 2100 Output Total 1400 Balance 2100 -1400 Intake: Oral 2100 Output: Urine 1400 Other: Voiding Method Urinal Urinal Urinal # Voids 2 2 # Bowel Movements 1 - Exam GENERAL DESCRIPTION: Middle-age male lying in bed in no distress HEENT: Chin area did have ulcerated and nodular skin lesion with some surroun ding erythema RESPIRATORY SYSTEM: Unlabored breathing , decreased breath sounds at bases HEART: S1 S2 regular rate and rhythm , ABDOMEN: Soft , no tenderness EXTREMITIES: No edema feet - Labs CBC & Chem 7: 03/13/25 06:36 03/13/25 08:46 Labs: Abnormal Lab Results - Last 24 Hours (Table) 03/13/25 03/13/25 Range/Units 06:36 08:46 WBC 3.87 L (4.50-10.00) 10*3/uL RBC 2.90 L (4.40-5.60) 10*6/uL Hgb 9.2 L (13.0-17.0) g/dL Hct 29.5 L (39.6-50.0) % MCV 101.7 H (80.0-97.0) fL MCHC 31.2 L (32.0-37.0) g/dL RDW 22.6 H (11.5-14.5) % MPV 9.3 L (9.5-12.2) fL Eosinophils # 0.01 L (0.04-0.35) 10*3/uL Sodium 135 L (137-145) mmol/L Glucose 110 H (74-99) mg/dL Total Bilirubin <0.1 L (0.2-1.3) mg/dL Albumin 2.9 L (3.5-5.0) g/dL Microbiology - Last 24 Hours (Table) 03/08/25 15:39 Gram Stain - Final Face Wound Culture - Final Staphlyococcus pettenkoferi Assessment and Plan (1) Sepsis Current Visit: Yes Status: Acute Code(s): A41.9 - SEPSIS, UNSPECIFIED ORGANISM SNOMED Code(s): 49494160 (2) Noncompliance with medication regimen Current Visit: Yes Status: Acute Code(s): Z91.148 - PATIENT'S OTHER NONCOMPL WITH MEDS REGIMEN FOR OTHER REASON SNOMED Code(s): 453122446 (3) Multifocal pneumonia Current Visit: Yes Status: Acute Code(s): J18.9 - PNEUMONIA, UNSPECIFIED ORGANISM SNOMED Code(s): 865448196 (4) HIV (human immunodeficiency virus infection) Current Visit: No Status: Acute Code(s): B20 - HUMAN IMMUNODEFICIENCY VIRUS [HIV] DISEASE SNOMED Code(s): 16735445 (5) PCP (pneumocystis jiroveci pneumonia) Current Visit: Yes Status: Acute Code(s): B59 - PNEUMOCYSTOSIS SNOMED Code(s): 835319073 (6) Skin ulcer of chin Current Visit: Yes Status: Acute Code(s): L98.499 - NON-PRESSURE CHRONIC ULCER OF SKIN OF SITES W UNSP SEVERITY SNOMED Code(s): 367512315 Plan: 1patient presented hospital with lower extremity weakness did not have any bowel or bladder problem did have MRI of the thoracic as well as lumbar spine did not mention any features of discitis or osteomyelitis 2patient is more likely clinically behaving as a partially treated PCP pneumonia as no other obvious focus of infection currently on IV Bactrim along with the prednisone 40 mg daily, plan will be to switch him to Bactrim DS p.o. to finish a total of 3-week course of therapy 3patient did have ulcerated nodular lesion to the chin area concerning for possible Kaposi's sarcoma with secondary bacterial versus herpetic lesion, local culture negative so far, HSV PCR came back positive Valtrex was added the lesion seem to be drying out still waiting for the biopsy, scheduled for this afternoon as per discussion with the surgery Dictation was produced using [employer] software. please excuse any grammatical, word or spelling errors.
--- NOTE | 2025-03-13 15:09 | P.PN ---
Subjective Progress Note Date: 03/13/25 History of present illness; 49-year-old male with significant past medical history of HIV seizure drug abuse and nicotine dependence and several hip replacement corrections brought to the emergency department from home for evaluation of fall, patient reports he was recently discharged from [facility] 4 days ago where he stayed for 25 days however he is still experiencing symptoms. He was previously active and recently has not been able to take care of himself due to lower extremity weakness states he has 15 children and 12 grandchildren which keep him very busy. Has intermittent pain describes as tingly and sharp rates pain 5 out of 10 in the ER he was found to be febrile tachycardic and hypotensive without evidence of respiratory compromise. CT head from previous facility did not show evidence of of acute pathology In ER received chest x-ray CT scan chest and lumbar spine. Chest x-ray and chest CTA revealed evidence of alveolar edema consistent with multifocal pneumonia. CT lumbar spine showed no evidence of pathology He was admitted to medical team for management of HIV complicated by sepsis with infectious disease consulted and for management of left-sided lower extremity weakness with neurology consulted. 03/03/2025: Patient seen at bedside reports still feeling febrile. Patient is complaining of back pain as well as twitching in legs that is new. Patient seen and evaluated by neurology. Is going for MRI today of lumbar spine. Patient informed of pain management orders all questions addressed at bedside. 03/04/2025: Patient seen at bedside still complaining of pain and twitching, seen by neurology received MRI yesterday complained of claustrophobia for lumbar however no claustrophobia during thoracic MRI. Questions discussed with patient 03/05/2025: Patient does not have any other symptoms still experiencing pain went for MRI today better than previous 03/06/2025: Patient seen and examined at bedside symptoms have remained unchanged, remains febrile still complaining of back pain 03/07/2025: Patient seen at bedside feeling better than previous days, still concerned about leg weakness. Asked about possible discharge to rehab after medical optimization. 03/08/2025: Patient seen at bedside, no significant overnight events. States he is feeling quite well, the best he has felt since arriving to the hospital. Reports his breathing is better as well and he is been able to ambulate around the room with his walker. 03/09/2025: Patient seen at bedside no significant overnight events patient is feeling better compared to admission. Patient reports dizziness that has been ongoing since previous admission however patient is able to walk from bed to bathroom without significant limitation. Explained likely due to hypotension and ongoing sepsis. 03/13/2025: Patient seen at bedside no acute overnight events in the patient reports still dizzy after decreasing IV fluid. Reports increased urination. Pertinent positives and negatives discussed above, a complete review of systems was preformed and all the other sytems were negative. Vitals Signs Reveiwed. General: non toxic, no distress, appears at stated age, normal weight Derm: Skin lesion on chin concerning for kaposi sarcoma Head: atraumatic, normocephalic, symmetric Eyes: EOMI, no lid lag, anicteric sclera, pupils equal round reactive to light ENT: Nose and ears atraumatic Neck: No cervical lymphadenopathy, trachea midline, supple Mouth: no lip lesion, mucus membranes moist Cardiovascular: S1S2 reg, no murmur, positive dorsalis pedis pulse bilateral, no edema Lungs: Decreased air entry bilaterally, no rhonchi, no rales, no accessory muscle use Abdominal: soft, nontender to palpation, no guarding Ext: muscle strength 5 out of 5 in all 4 extremities grossly, no gross muscle atrophy, no contractures, Neuro: CN II-XI grossly intact, no gross focal neuro deficits Psych: Alert, oriented, appropriate affect Data Reveiwed Today: Assessment and Plan 49-year-old male with significant past medical history of HIV seizure drug abuse presents for lower extremity weakness that did not resolve during previous hospitalization has had difficulty taking care of himself. Imaging inconsistent with symptoms #Lower extremity weakness with pain: Potentially secondary to poly-pharmacy vs hx of multiple hip replacements vs other Neurology on consult appreciate recommendations -PT OT recommend outpatient rehab - Multimodal pain management Thoracic and lumbar MRIs revealed no acute pathology or changes consistent with lower extremity weakness -No longer considering lumbar puncture, source of infection likely pneumonia Patient can walk unassisted plan to discharge home #Multifocal pneumonia with fever and hypotension # Sepsis secondary to above #Hyponatremia (resolved) #Dizziness ID on consult appreciate recommendations IV Bactrim, vancomycin Blood cultures negative No fever within the last 72 hours Switch from LR to NS (50 mL/h) Titrate down fluids as tolerated 500 mL bolus, increased to 100 mL/h Titrate down more gradually 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 Consulted surgery appreciate recommendation -Plan for bedside biopsy tomorrow Wound culture pending -Added Valtrex QD Chronic Conditions: #Eczema Begin triamcinolone cream #HIV with poor medication compliance Biktarvy ID consulted CD4: 129 Viral load pending -HIV genotype #Seizure disorder Keppra and Depakote EEG negative DVT ppx: SubQ heparin GI ppx: Protonix CODE STATUS: Full Dispo: Pending stable BP Objective - Vital Signs Vital signs: Vital Signs Temp 98.6 F 03/13/25 12:21 Pulse 79 03/13/25 12:21 Resp 16 03/13/25 12:21 BP 116/72 03/13/25 12:21 Pulse Ox 96 03/13/25 12:21 FiO2 Intake & Output 03/12/25 03/13/25 03/13/25 18:59 06:59 18:59 Intake Total 2100 Output Total 1400 Balance 2100 -1400 Intake: Oral 2100 Output: Urine 1400 Other: Voiding Method Urinal Urinal Urinal # Voids 2 2 # Bowel Movements 1 - Labs CBC & Chem 7: 03/16/25 08:28 03/16/25 08:28 Labs: Abnormal Lab Results - Last 24 Hours (Table) 03/13/25 03/13/25 Range/Units 06:36 08:46 WBC 3.87 L (4.50-10.00) 10*3/uL RBC 2.90 L (4.40-5.60) 10*6/uL Hgb 9.2 L (13.0-17.0) g/dL Hct 29.5 L (39.6-50.0) % MCV 101.7 H (80.0-97.0) fL MCHC 31.2 L (32.0-37.0) g/dL RDW 22.6 H (11.5-14.5) % MPV 9.3 L (9.5-12.2) fL Eosinophils # 0.01 L (0.04-0.35) 10*3/uL Sodium 135 L (137-145) mmol/L Glucose 110 H (74-99) mg/dL Total Bilirubin <0.1 L (0.2-1.3) mg/dL Albumin 2.9 L (3.5-5.0) g/dL Microbiology - Last 24 Hours (Table) 03/08/25 15:39 Gram Stain - Final Face Wound Culture - Final Staphlyococcus pettenkoferi Assessment and Plan Assessment: Attestation Attestation/ Product Developer Note: Attestation to Progress Note, Participation (I saw and evaluated the patient with the Resident, and I reviewed and discussed the patient with the Resident and agree with the Resident's findings and plans as d ocumented above., management reviewed and discussed), I agree with findings & plan, Provider Signature (RENETTA TILLEY, PAVITHRA Paez Time with Patient: Greater than 30
[2025-03-14] MEDS: WATER IVPB SCH (03:22)
[2025-03-14] MEDS: SULFAMETHOX TMP IVPB SCH (03:22)
[2025-03-14] MEDS: DEXTROSE 5% IVPB SCH (03:22)
[2025-03-14 07:57] LABS: Basophils # (A) 0 X 10*3/uL (0.00-0.10); Basophils % (A) 0 %; Eosinophils # (A) 0.01 X 10*3/uL (0.04-0.35); Eosinophils % (A) 0.2 %; HCT 30.7 % (39.6-50.0); HGB 9.5 g/dL (13.0-17.0); Immature Grans, Automated 0.20 %; Lymphocytes # (A) 1.66 X 10*3/uL (0.90-5.00); Lymphocytes % (A) 38.1 %; MCH 32.3 pg (27.0-32.0); MCHC 30.9 g/dL (32.0-37.0); MCV 104.4 FL (80.0-97.0); Monocytes # (A) 0.59 X 10*3/uL (0.20-1.00); Monocytes % (A) 13.5 %; NRBC Per 100 WBC 0.02 X 10*3/uL (0.00-0.01); Neutrophils # (A) 2.09 X 10*3/uL (1.80-7.70); Neutrophils % (A) 48.0 %; Platelet Count 321 X 10*3/uL (140-440); RBC 2.94 X 10*6/uL (4.40-5.60); RDW 23.3 % (11.5-14.5); WBC 4.36 X 10*3/uL (4.50-10.00)
[2025-03-14] MEDS: SODIUM CHLORIDE 0.9% 500 ML 500 ML IV ONE (08:18)
--- NOTE | 2025-03-14 08:54 | P.PCN ---
Date of Procedure: 03/13/25 Preoperative Diagnosis: Skin lesion, face Postoperative Diagnosis: Skin lesion, face Procedure(s) Performed: Excision skin lesion face Anesthesia: local Surgeon: Jia Morales Pathology: other (Skin lesion, chin) Condition: stable Disposition: floor Indications for Procedure: 49-year-old male with large skin lesion on his chin. He does have history of HIV with suspicion of Kaposi's sarcoma. Plan is for excision of lesion for biopsy. Risks, benefits and alternatives were provided to the patient. All questions answered. Operative Findings: 2 x 1 cm skin lesion excised Description of Procedure: Patient was prepped and draped in regular sterile fashion. Local anesthetic was administered and elliptical incision was made around the skin lesion site on the chin. Excision was made of lesion approximately 2 x 1 cm. Hemostasis was maintained. Wound was then closed with interrupted 3-0 nylon suture. Sterile dressing was applied. The patient tolerated the procedure well.
[2025-03-14 10:42] LABS: ALT 21 U/L (10-49); AST 17 U/L (14-35); Albumin 2.8 g/dL (3.8-4.9); Albumin/Globulin Ratio 0.74 Ratio (1.60-3.17); Alkaline Phosphatase 60 U/L (41-126); Anion Gap 9.70 mmol/L (4.00-12.00); BUN/Creat Ratio 11.78 Ratio (12.00-20.00); Blood Urea Nitrogen 10.6 mg/dL (9.0-27.0); Calcium 8.6 mg/dL (8.7-10.3); Carbon Dioxide 23.3 mmol/L (21.6-31.8); Chloride 103 mmol/L (96-109); Globulin 3.8 g/dL (1.6-3.3); Glucose 87 mg/dL (70-110); Potassium 4.6 mmol/L (3.5-5.5); Sodium 136 mmol/L (135-145); Total Protein 6.6 g/dL (6.2-8.2)
--- NOTE | 2025-03-14 14:37 | P.PN ---
Subjective Progress Note Date: 03/14/25 History of present illness; 49-year-old male with significant past medical history of HIV seizure drug abuse and nicotine dependence and several hip replacement corrections brought to the emergency department from home for evaluation of fall, patient reports he was recently discharged from [facility] 4 days ago where he stayed for 25 days however he is still experiencing symptoms. He was previously active and recently has not been able to take care of himself due to lower extremity weakness states he has 15 children and 12 grandchildren which keep him very busy. Has intermittent pain describes as tingly and sharp rates pain 5 out of 10 in the ER he was found to be febrile tachycardic and hypotensive without evidence of respiratory compromise. CT head from previous facility did not show evidence of of acute pathology In ER received chest x-ray CT scan chest and lumbar spine. Chest x-ray and chest CTA revealed evidence of alveolar edema consistent with multifocal pneumonia. CT lumbar spine showed no evidence of pathology He was admitted to medical team for management of HIV complicated by sepsis with infectious disease consulted and for management of left-sided lower extremity weakness with neurology consulted. 03/03/2025: Patient seen at bedside reports still feeling febrile. Patient is complaining of back pain as well as twitching in legs that is new. Patient seen and evaluated by neurology. Is going for MRI today of lumbar spine. Patient informed of pain management orders all questions addressed at bedside. 03/04/2025: Patient seen at bedside still complaining of pain and twitching, seen by neurology received MRI yesterday complained of claustrophobia for lumbar however no claustrophobia during thoracic MRI. Questions discussed with patient 03/05/2025: Patient does not have any other symptoms still experiencing pain went for MRI today better than previous 03/06/2025: Patient seen and examined at bedside symptoms have remained unchanged, remains febrile still complaining of back pain 03/07/2025: Patient seen at bedside feeling better than previous days, still concerned about leg weakness. Asked about possible discharge to rehab after medical optimization. 03/08/2025: Patient seen at bedside, no significant overnight events. States he is feeling quite well, the best he has felt since arriving to the hospital. Reports his breathing is better as well and he is been able to ambulate around the room with his walker. 03/09/2025: Patient seen at bedside no significant overnight events patient is feeling better compared to admission. Patient reports dizziness that has been ongoing since previous admission however patient is able to walk from bed to bathroom without significant limitation. Explained likely due to hypotension and ongoing sepsis. 03/13/2025: Patient seen at bedside no acute overnight events in the patient reports still dizzy after decreasing IV fluid. Reports increased urination. 03/14/2025: Patient seen at bedside, still feeling dizzy, otherwise significantly improved Pertinent positives and negatives discussed above, a complete review of systems was preformed and all the other sytems were negative. Vitals Signs Reveiwed. General: non toxic, no distress, appears at stated age, normal weight Derm: Skin lesion on chin concerning for kaposi sarcoma Head: atraumatic, normocephalic, symmetric Eyes: EOMI, no lid lag, anicteric sclera, pupils equal round reactive to light ENT: Nose and ears atraumatic Neck: No cervical lymphadenopathy, trachea midline, supple Mouth: no lip lesion, mucus membranes moist Cardiovascular: S1S2 reg, no murmur, positive dorsalis pedis pulse bilateral, no edema Lungs: Decreased air entry bilaterally, no rhonchi, no rales, no accessory muscle use Abdominal: soft, nontender to palpation, no guarding Ext: muscle strength 5 out of 5 in all 4 extremities grossly, no gross muscle atrophy, no contractures, Neuro: CN II-XI grossly intact, no gross focal neuro deficits Psych: Alert, oriented, appropriate affect Data Reveiwed Today: Assessment and Plan 49-year-old male with significant past medical history of HIV seizure drug abuse presents for lower extremity weakness that did not resolve during previous hospitalization has had difficulty taking care of himself. Imaging inconsistent with symptoms #Lower extremity weakness with pain: Potentially secondary to poly-pharmacy vs hx of multiple hip replacements vs other Neurology on consult appreciate recommendations -PT OT recommend outpatient rehab - Multimodal pain management Thoracic and lumbar MRIs revealed no acute pathology or changes consistent with lower extremity weakness -No longer considering lumbar puncture, source of infection likely pneumonia Patient can walk unassisted plan to discharge home #Multifocal pneumonia with fever and hypotension # Sepsis secondary to above #Hyponatremia (resolved) #Dizziness ID on consult appreciate recommendations IV Bactrim, vancomycin Blood cultures negative No fever within the last 72 hours Switch from LR to NS (50 mL/h) Titrate down fluids as tolerated 500 mL bolus, increased to 75 mL/h Titrate down more gradually 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 Consulted surgery appreciate recommendation -Plan for bedside biopsy tomorrow Wound culture pending -Added Valtrex QD Chronic Conditions: #Eczema Begin triamcinolone cream #HIV with poor medication compliance Biktarvy ID consulted CD4: 129 Viral load pending -HIV genotype #Seizure disorder Keppra and Depakote EEG negative DVT ppx: SubQ heparin GI ppx: Protonix CODE STATUS: Full Dispo: Pending stable BP Objective - Vital Signs Vital signs: Vital Signs Temp 98.3 F 03/14/25 07:41 Pulse 81 03/14/25 07:41 Resp 16 03/14/25 07:41 BP 89/54 03/14/25 07:41 Pulse Ox 94 L 03/14/25 07:41 FiO2 Intake & Output 03/13/25 03/14/25 03/14/25 18:59 06:59 18:59 Intake Total 1160 Output Total 800 1300 Balance 360 -1300 Intake: Oral 1160 Output: Urine 800 1300 Other: Voiding Method Urinal Urinal # Voids 3 3 # Bowel Movements 1 - Labs CBC & Chem 7: 03/16/25 08:28 03/16/25 08:28 Labs: Abnormal Lab Results - Last 24 Hours (Table) 03/13/25 03/13/25 Range/Units 06:36 08:46 Eosinophils # 0.01 L (0.04-0.35) 10*3/uL Sodium 135 L (137-145) mmol/L Glucose 110 H (74-99) mg/dL Total Bilirubin <0.1 L (0.2-1.3) mg/dL Albumin 2.9 L (3.5-5.0) g/dL Assessment and Plan Assessment: Attestation Attestation/ Pre Fabricator Note: Attestation to Progress Note, Participation (I saw and evaluated the patient with the Resident, and I reviewed and discussed the patient with the Resident and agree with the Resident's findings and plans as documented above., management reviewed and discussed), I agree with findings & plan, Provider Signature (RENETTA TILLEY, PAVITHRA Paez Time with Patient: Greater than 30
--- NOTE | 2025-03-14 15:49 | P.PN ---
Subjective Progress Note Date: 03/14/25 Principal diagnosis: Reason for follow-up is HIV/PCP pneumonia Patient is a 49-year-old -[place] male with a past medical history significant for HIV for many years however the patient has not been on any medication for almost a year also with history of asthma and seizure disorder with recent admission at [facility] with the patient was diagnosed with a PCP pneumonia patient apparently has not completed his oral Bactrim DS therapy as per discussion with admitting physician now presented to this facility mostly with the weakness in the lower extremity. On today's evaluation that is 03/14/2025, the patient continues to be afebrile, the patient is on room air and breathing comfortably, the Pt denies having any chest pain and cough has decreased in intensity, the patient denies having any abdominal pain no vomiting or any diarrhea. Patient white count is 4.36, creatinine 0.9 Objective - Vital Signs Vital signs: Vital Signs Temp 98.7 F 03/14/25 13:47 Pulse 87 03/14/25 13:47 Resp 16 03/14/25 13:47 BP 89/47 03/14/25 13:47 Pulse Ox 94 L 03/14/25 13:47 FiO2 Intake & Output 03/13/25 03/14/25 03/14/25 18:59 06:59 18:59 Intake Total 1160 Output Total 800 1300 700 Balance 360 -1300 -700 Intake: Oral 1160 Output: Urine 800 1300 700 Other: Voiding Method Urinal Urinal Urinal # Voids 3 3 # Bowel Movements 1 - Exam GENERAL DESCRIPTION: Middle-age male lying in bed in no distress HEENT: Chin area did have ulcerated and nodular skin lesion with some surroundin g erythema RESPIRATORY SYSTEM: Unlabored breathing , decreased breath sounds at bases HEART: S1 S2 regular rate and rhythm , ABDOMEN: Soft , no tenderness EXTREMITIES: No edema feet - Labs CBC & Chem 7: 03/14/25 06:01 03/14/25 06:01 Labs: Abnormal Lab Results - Last 24 Hours (Table) 03/14/25 03/14/25 Range/Units 06:01 06:01 WBC 4.36 L (4.50-10.00) X 10*3/uL RBC 2.94 L (4.40-5.60) X 10*6/uL Hgb 9.5 L (13.0-17.0) g/dL Hct 30.7 L (39.6-50.0) % MCV 104.4 H (80.0-97.0) FL MCH 32.3 H (27.0-32.0) pg MCHC 30.9 L (32.0-37.0) g/dL RDW 23.3 H (11.5-14.5) % Eosinophils # 0.01 L (0.04-0.35) X 10*3/uL NRBC/100 WBC Diff 0.02 H (0.00-0.01) X 10*3/uL BUN/Creatinine Ratio 11.78 L (12.00-20.00) Ratio Calcium 8.6 L (8.7-10.3) mg/dL Total Bilirubin <0.2 L (0.3-1.2) mg/dL Albumin 2.8 L (3.8-4.9) g/dL Globulin 3.8 H (1.6-3.3) g/dL Albumin/Globulin Ratio 0.74 L (1.60-3.17) Ratio Assessment and Plan (1) Sepsis Current Visit: Yes Status: Acute Code(s): A41.9 - SEPSIS, UNSPECIFIED ORGANISM SNOMED Code(s): 00348113 (2) Noncompliance with medication regimen Current Visit: Yes Status: Acute Code(s): Z91.148 - PATIENT'S OTHER NONCOMPL WITH MEDS REGIMEN FOR OTHER REASON SNOMED Code(s): 660732033 (3) Multifocal pneumonia Current Visit: Yes Status: Acute Code(s): J18.9 - PNEUMONIA, UNSPECIFIED ORGANISM SNOMED Code(s): 787879046 (4) HIV (human immunodeficiency virus infection) Current Visit: No Status: Acute Code(s): B20 - HUMAN IMMUNODEFICIENCY VIRUS [HIV] DISEASE SNOMED Code(s): 70554134 (5) PCP (pneumocystis jiroveci pneumonia) Current Visit: Yes Status: Acute Code(s): B59 - PNEUMOCYSTOSIS SNOMED Code(s): 019802168 (6) Skin ulcer of chin Current Visit: Yes Status: Acute Code(s): L98.499 - NON-PRESSURE CHRONIC ULCER OF SKIN OF SITES W UNSP SEVERITY SNOMED Code(s): 773915220 Plan: 1patient presented hospital with lower extremity weakness did not have any bowel or bladder problem did have MRI of the thoracic as well as lumbar spine d id not mention any features of discitis or osteomyelitis 2patient is more likely clinically behaving as a partially treated PCP pneumonia as no other obvious focus of infection currently on IV Bactrim along with the prednisone 40 mg daily, plan will be to switch him to Bactrim DS, plan is to switch Bactrim to p.o. on discharge to finish total of 3-week course of therapy 3patient did have ulcerated nodular lesion to the chin area concerning for possible Kaposi's sarcoma with secondary bacterial versus herpetic lesion, local culture grew Staphylococcus species sensitive to Bactrim , HSV PCR came back positive currently covered with the Valtrex and status post biopsy results will be followed Dictation was produced using [employer] dictation software. please excuse any grammatical, word or spelling errors. Time with Patient: Less than 30
--- NOTE | 2025-03-14 18:35 | P.PN ---
Subjective Progress Note Date: 03/14/25 Patient was seen for follow-up. Patient states he is feeling much better. He is getting more stronger. Patient is laying comfortably in the bed. Patient states that he walked to the end of the hallway with the therapist and holding onto the walker. Patient states that he cannot walk by himself. However he believes that his legs are getting much stronger as compared to how he was. He has good resistance. Objective - Vital Signs Vital signs: Vital Signs Temp 98.7 F 03/14/25 13:47 Pulse 87 03/14/25 13:47 Resp 16 03/14/25 13:47 BP 89/47 03/14/25 13:47 Pulse Ox 94 L 03/14/25 13:47 FiO2 Intake & Output 03/13/25 03/14/25 03/14/25 18:59 06:59 18:59 Intake Total 1160 240 Output Total 800 1300 700 Balance 360 -1300 -460 Intake: Oral 1160 240 Output: Urine 800 1300 700 Other: Voiding Method Urinal Urinal Urinal # Voids 3 3 1 # Bowel Movements 1 - Exam Patient is alert and awake in no distress. Speech and language functions are normal. Muscle strength is completely normal in the arms and legs distally and proximally except for left hip which is 5-, perhaps related to previous multiple hip surgeries. The strength appears back to normal. Deep tendon reflexes are trace to 1 in the upper limbs, 1 at the knees and plantars flat. - Labs CBC & Chem 7: 03/14/25 06:01 03/14/25 06:01 Labs: Abnormal Lab Results - Last 24 Hours (Table) 03/14/25 03/14/25 Range/Units 06:01 06:01 WBC 4.36 L (4.50-10.00) X 10*3/uL RBC 2.94 L (4.40-5.60) X 10*6/uL Hgb 9.5 L (13.0-17.0) g/dL Hct 30.7 L (39.6-50.0) % MCV 104.4 H (80.0-97.0) FL MCH 32.3 H (27.0-32.0) pg MCHC 30.9 L (32.0-37.0) g/dL RDW 23.3 H (11.5-14.5) % Eosinophils # 0.01 L (0.04-0.35) X 10*3/uL NRBC/100 WBC Diff 0.02 H (0.00-0.01) X 10*3/uL BUN/Creatinine Ratio 11.78 L (12.00-20.00) Ratio Calcium 8.6 L (8.7-10.3) mg/dL Total Bilirubin <0.2 L (0.3-1.2) mg/dL Albumin 2.8 L (3.8-4.9) g/dL Globulin 3.8 H (1.6-3.3) g/dL Albumin/Globulin Ratio 0.74 L (1.60-3.17) Ratio Assessment and Plan Assessment: This is a 49-year-old gentleman with history of HIV, with CD4 128, presents with extremity weakness and it seems left more than right. 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 Mild degenerative disc disease and facet arthropathy at L3-L4. Diffuse red marrow conversion can be seen in the setting of tobacco abuse, anemia or myeloproliferative disorder. No focal enhancing osseous lesion. Patient's strength in the legs have remarkably improved. It appears to be almos t back to baseline. Continue with Physical therapy and occupation therapy. No indication for lumbar puncture as patient's strength is back to normal. Recommend EMG with nerve conduction study as an outpatient of the [facility], only if symptoms persist. TSH is 2.4, hemoglobin A1c is 5.6 vitamin B12 is 301 on vitamin B12 1000 mcg daily p.o. MRI thoracic spine is reported as no evidence for significant spinal canal stenosis or neuroforaminal stenosis. No abnormal enhancement RBC folate level: 492 Routine EEG is normal. PT and OT are consulted ID team is on board Cardiology is consulted Will defer the rest of the medical management to primary other specialist Upon discharge, recommend the patient to follow-up with outpatient neurologist within 2-3 weeks. Neurologically clear for discharge. We will sign off. Please reconsult if any concerns.
[2025-03-14] MEDS: CYANOCOBALAMIN 500 MCG TAB PO SCH (21:46)
--- NOTE | 2025-03-14 22:40 | P.PN ---
Subjective Patient seen and evaluated bedside. Patient doing well minimal pain from surgical site no difficulty with the Objective - Vital Signs Vital signs: Vital Signs Temp 98.6 F 03/14/25 19:43 Pulse 85 03/14/25 19:43 Resp 16 03/14/25 19:43 BP 91/36 03/14/25 19:43 Pulse Ox 97 03/14/25 19:43 FiO2 Intake & Output 03/14/25 03/14/25 03/15/25 06:59 18:59 06:59 Intake Total 720 Output Total 1300 700 Balance -1300 20 Intake: Oral 720 Output: Urine 1300 700 Other: Voiding Method Urinal Urinal # Voids 3 1 - Exam General no acute distress HEENT multiple lesions nonbleeding surgical site clean dry and intact Cardiovascular regular rate and rhythm Pulmonary nonlabored breathing Abdomen soft nontender nondistended no guarding rebound tenderness - Labs CBC & Chem 7: 03/14/25 06:01 03/14/25 06:01 Labs: Abnormal Lab Results - Last 24 Hours (Table) 03/14/25 03/14/25 Range/Units 06:01 06:01 WBC 4.36 L (4.50-10.00) X 10*3/uL RBC 2.94 L (4.40-5.60) X 10*6/uL Hgb 9.5 L (13.0-17.0) g/dL Hct 30.7 L (39.6-50.0) % MCV 104.4 H (80.0-97.0) FL MCH 32.3 H (27.0-32.0) pg MCHC 30.9 L (32.0-37.0) g/dL RDW 23.3 H (11.5-14.5) % Eosinophils # 0.01 L (0.04-0.35) X 10*3/uL NRBC/100 WBC Diff 0.02 H (0.00-0.01) X 10*3/uL BUN/Creatinine Ratio 11.78 L (12.00-20.00) Ratio Calcium 8.6 L (8.7-10.3) mg/dL Total Bilirubin <0.2 L (0.3-1.2) mg/dL Albumin 2.8 L (3.8-4.9) g/dL Globulin 3.8 H (1.6-3.3) g/dL Albumin/Globulin Ratio 0.74 L (1.60-3.17) Ratio Assessment and Plan Assessment: 49-year-old male with HIV noncompliant on medications Rule out Kaposi's sarcoma Status post excisional biopsy Okay for discharge Time with Patient: Less than 30
[2025-03-15 09:57] LABS: Basophils # (A) 0 X 10*3/uL (0.00-0.10); Basophils % (A) 0 %; Eosinophils # (A) 0.01 X 10*3/uL (0.04-0.35); Eosinophils % (A) 0.3 %; HCT 30.9 % (39.6-50.0); HGB 9.4 g/dL (13.0-17.0); Immature Grans, Automated 0.30 %; Lymphocytes # (A) 1.32 X 10*3/uL (0.90-5.00); Lymphocytes % (A) 37.4 %; MCH 31.9 pg (27.0-32.0); MCHC 30.4 g/dL (32.0-37.0); MCV 104.7 FL (80.0-97.0); Monocytes # (A) 0.51 X 10*3/uL (0.20-1.00); Monocytes % (A) 14.4 %; NRBC Per 100 WBC 0 X 10*3/uL (0.00-0.01); Neutrophils # (A) 1.68 X 10*3/uL (1.80-7.70); Neutrophils % (A) 47.6 %; Platelet Count 330 X 10*3/uL (140-440); RBC 2.95 X 10*6/uL (4.40-5.60); RDW 23.9 % (11.5-14.5); WBC 3.53 X 10*3/uL (4.50-10.00)
[2025-03-15 10:08] LABS: ALT 18 U/L (10-49); AST 14 U/L (14-35); Albumin 3.0 g/dL (3.8-4.9); Albumin/Globulin Ratio 0.86 Ratio (1.60-3.17); Alkaline Phosphatase 62 U/L (41-126); Anion Gap 9.80 mmol/L (4.00-12.00); BUN/Creat Ratio 12.56 Ratio (12.00-20.00); Blood Urea Nitrogen 11.3 mg/dL (9.0-27.0); Calcium 8.5 mg/dL (8.7-10.3); Carbon Dioxide 22.2 mmol/L (21.6-31.8); Chloride 103 mmol/L (96-109); Globulin 3.5 g/dL (1.6-3.3); Glucose 89 mg/dL (70-110); Potassium 4.7 mmol/L (3.5-5.5); Sodium 135 mmol/L (135-145); Total Protein 6.5 g/dL (6.2-8.2)
--- NOTE | 2025-03-15 12:38 | P.PN ---
Subjective Subjective: History of present illness; 49-year-old male with significant past medical history of HIV seizure drug abuse and nicotine dependence and several hip replacement corrections brought to the emergency department from home for evaluation of fall, patient reports he was recently discharged from [facility] 4 days ago where he stayed for 25 days however he is still experiencing symptoms. He was previously active and recently has not been able to take care of himself due to lower extremity weakness states he has 15 children and 12 grandchildren which keep him very busy. Has intermittent pain describes as tingly and sharp rates pain 5 out of 10 in the ER he was found to be febrile tachycardic and hypotensive without evidence of respiratory compromise. CT head from previous facility did not show evidence of of acute p athology In ER received chest x-ray CT scan chest and lumbar spine. Chest x-ray and chest CTA revealed evidence of alveolar edema consistent with multifocal pneumonia. CT lumbar spine showed no evidence of pathology He was admitted to medical team for management of HIV complicated by sepsis with infectious disease consulted and for management of left-sided lower extremity weakness with neurology consulted. 03/03/2025: Patient seen at bedside reports still feeling febrile. Patient is complaining of back pain as well as twitching in legs that is new. Patient seen and evaluated by neurology. Is going for MRI today of lumbar spine. Patient informed of pain management orders all questions addressed at bedside. 03/04/2025: Patient seen at bedside still complaining of pain and twitching, seen by neurology received MRI yesterday complained of claustrophobia for lumbar however no claustrophobia during thoracic MRI. Questions discussed with patient 03/05/2025: Patient does not have any other symptoms still experiencing pain went for MRI today better than previous 03/06/2025: Patient seen and examined at bedside symptoms have remained unchanged, remains febrile still complaining of back pain 03/07/2025: Patient seen at bedside feeling better than previous days, still concerned about leg weakness. Asked about possible discharge to rehab after medical optimization. 03/08/2025: Patient seen at bedside, no significant overnight events. States he is feeling quite well, the best he has felt since arriving to the hospital. Reports his breathing is better as well and he is been able to ambulate around the room with his walker. 03/09/2025: Patient seen at bedside no significant overnight events patient is feeling better compared to admission. Patient reports dizziness that has been ongoing since previous admission however patient is able to walk from bed to bathroom without significant limitation. Explained likely due to hypotension and ongoing sepsis. 03/13/2025: Patient seen at bedside no acute overnight events in the patient reports still dizzy after decreasing IV fluid. Reports increased urination. 03/14/2025: Patient seen at bedside, still feeling dizzy, otherwise significantly improved. 03/15/2025: Patient seen at bedside. Reports persistent dizziness however this has been chronically known to patient. Shortness of breath, chest pain, nausea and vomiting. Pertinent positives and negatives discussed above, a complete review of systems was preformed and all the other sytems were negative. Vitals Signs Reviewed. General: non toxic, no distress, appears at stated age, normal weight Derm: Skin lesion on chin concerning for kaposi sarcoma Head: atraumatic, normocephalic, symmetric Eyes: EOMI, no lid lag, anicteric sclera, pupils equal round reactive to light ENT: Nose and ears atraumatic Neck: No cervical lymphadenopathy, trachea midline, supple Mouth: no lip lesion, mucus membranes moist Cardiovascular: S1S2 reg, no murmur, positive dorsalis pedis pulse bilateral, no edema Lungs: Decreased air entry bilaterally, no rhonchi, no rales, no accessory muscle use Abdominal: soft, nontender to palpation, no guarding Ext: muscle strength 5 out of 5 in all 4 extremities grossly, no gross muscle atrophy, no contractures, Neuro: CN II-XI grossly intact, no gross focal neuro deficits Psych: Alert, oriented, appropriate affect Data Reveiwed Today: 03/15/2025 Assessment and Plan 49-year-old male with significant past medical history of HIV seizure drug abuse presents for lower extremity weakness that did not resolve during previous hospitalization has had difficulty taking care of himself. Imaging inconsistent with symptoms #Lower extremity weakness with pain: Potentially secondary to poly-pharmacy vs hx of multiple hip replacements vs other Neurology on consult appreciate recommendations -PT OT recommend outpatient rehab - Multimodal pain management Thoracic and lumbar MRIs revealed no acute pathology or changes consistent with lower extremity weakness -No longer considering lumbar puncture, source of infection likely pneumonia Patient can walk unassisted plan to discharge home #Multifocal pneumonia with fever and hypotension # Sepsis secondary to above #Hyponatremia (resolved) #Dizziness ID on consult appreciate recommendations IV Bactrim, vancomycin Blood cultures negative Discontinued fluids. Monitor blood pressure. 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 Objective - Vital Signs Vital signs: Vital Signs Temp 97.9 F 03/15/25 07:40 Pulse 78 03/15/25 08:00 Resp 16 03/15/25 08:00 BP 97/58 03/15/25 07:40 Pulse Ox 97 03/15/25 07:40 FiO2 Intake & Output 03/14/25 03/15/25 03/15/25 18:59 06:59 18:59 Intake Total 720 240 Output Total 700 Balance 20 240 Intake: Oral 720 240 Output: Urine 700 Other: Voiding Method Urinal Urinal # Voids 1 3 - Labs CBC & Chem 7: 03/16/25 08:28 03/16/25 08:28 Labs: Abnormal Lab Results - Last 24 Hours (Table) 03/15/25 03/15/25 Range/Units 06:45 06:45 WBC 3.53 L (4.50-10.00) X 10*3/uL RBC 2.95 L (4.40-5.60) X 10*6/uL Hgb 9.4 L (13.0-17.0) g/dL Hct 30.9 L (39.6-50.0) % MCV 104.7 H (80.0-97.0) FL MCHC 30.4 L (32.0-37.0) g/dL RDW 23.9 H (11.5-14.5) % Neutrophils # 1.68 L (1.80-7.70) X 10*3/uL Eosinophils # 0.01 L (0.04-0.35) X 10*3/uL Calcium 8.5 L (8.7-10.3) mg/dL Total Bilirubin <0.2 L (0.3-1.2) mg/dL Albumin 3.0 L (3.8-4.9) g/dL Globulin 3.5 H (1.6-3.3) g/dL Albumin/Globulin Ratio 0.86 L (1.60-3.17) Ratio Assessment and Plan Assessment: Attestation Attestation/ Retanned Leather Roller Note: Attestation to Progress Note, Participation (I saw and evaluated the patient with the Resident, and I reviewed and discussed the patient with the Resident and agree with the Resident's findings and plans as documented above., management reviewed and discussed), I agree with findings & plan, Provider Signature (RENETTA TILLEY, PAVITHRA Paez
--- NOTE | 2025-03-15 15:35 | P.PN ---
Subjective Progress Note Date: 03/15/25 Principal diagnosis: Reason for follow-up is HIV/PCP pneumonia Patient is a 49-year-old -[place] male with a past medical history significant for HIV for many years however the patient has not been on any medication for almost a year also with history of asthma and seizure disorder with recent admission at [facility] with the patient was diagnosed with a PCP pneumonia patient apparently has not completed his oral Bactrim DS therapy as per discussion with admitting physician now presented to this facility mostly with the weakness in the lower extremity. On today's evaluation that is 03/15/2025, patient did have a temperature of 98.8 F this afternoon and denies having any chills, patient is on room air and breathing comfortably no chest pain and cough is decreased in intensity mostly dry, the patient did not have any nausea vomiting abdominal pain or any diarrhea, patient seem to be playing with his IV and is of no use nursing staff asking for switching him to pills. Patient white count is 3.53, creatinine 0.9 potassium is 4.7 Objective - Vital Signs Vital signs: Vital Signs Temp 98.8 F 03/15/25 12:03 Pulse 103 H 03/15/25 12:03 Resp 16 03/15/25 12:03 BP 92/57 03/15/25 12:03 Pulse Ox 96 03/15/25 12:03 FiO2 Intake & Output 03/14/25 03/15/25 03/15/25 18:59 06:59 18:59 Intake Total 720 195 Output Total 700 Balance 20 1954 Intake: Oral 720 195 Output: Urine 700 Other: Voiding Method Urinal Urinal # Voids 1 3 5 # Bowel Movements 1 - Exam GENERAL DESCRIPTION: Middle-age male lying in bed in no distress HEENT: Chin area did have ulcerated and nodular skin lesion with some surrounding erythema RESPIRATORY SYSTEM: Unlabored breathing , decreased breath sounds at bases HEART: S1 S2 regular rate and rhythm , ABDOMEN: Soft , no tenderness EXTREMITIES: No edema feet - Labs CBC & Chem 7: 03/15/25 06:45 03/15/25 06:45 Labs: Abnormal Lab Results - Last 24 Hours (Table) 03/15/25 03/15/25 Range/Units 06:45 06:45 WBC 3.53 L (4.50-10.00) X 10*3/uL RBC 2.95 L (4.40-5.60) X 10*6/uL Hgb 9.4 L (13.0-17.0) g/dL Hct 30.9 L (39.6-50.0) % MCV 104.7 H (80.0-97.0) FL MCHC 30.4 L (32.0-37.0) g/dL RDW 23.9 H (11.5-14.5) % Neutrophils # 1.68 L (1.80-7.70) X 10*3/uL Eosinophils # 0.01 L (0.04-0.35) X 10*3/uL Calcium 8.5 L (8.7-10.3) mg/dL Total Bilirubin <0.2 L (0.3-1.2) mg/dL Albumin 3.0 L (3.8-4.9) g/dL Globulin 3.5 H (1.6-3.3) g/dL Albumin/Globulin Ratio 0.86 L (1.60-3.17) Ratio Assessment and Plan (1) Sepsis Current Visit: Yes Status: Acute Code(s): A41.9 - SEPSIS, UNSPECIFIED ORGANISM SNOMED Code(s): 91275737 (2) Noncompliance with medication regimen Current Visit: Yes Status: Acute Code(s): Z91.148 - PATIENT'S OTHER NONCOMPL WITH MEDS REGIMEN FOR OTHER REASON SNOMED Code(s): 556835149 (3) Multifocal pneumonia Current Visit: Yes Status: Acute Code(s): J18.9 - PNEUMONIA, UNSPECIFIED ORGANISM SNOMED Code(s): 166552291 (4) HIV (human immunodeficiency virus infection) Current Visit: No Status: Acute Code(s): B20 - HUMAN IMMUNODEFICIENCY VIRUS [HIV] DISEASE SNOMED Code(s): 22242637 (5) PCP (pneumocystis jiroveci pneumonia) Current Visit: Yes Status: Acute Code(s): B59 - PNEUMOCYSTOSIS SNOMED Code(s): 909484484 (6) Skin ulcer of chin Current Visit: Yes Status: Acute Code(s): L98.499 - NON-PRESSURE CHRONIC ULCER OF SKIN OF SITES W UNSP SEVERITY SNOMED Code(s): 157135623 Plan: 1patient presented hospital with lower extremity weakness did not have any bowel or bladder problem did have MRI of the thoracic as well as lumbar spine did not mention any features of discitis or osteomyelitis 2patient is more likely clinically behaving as a partially treated PCP pneumonia seem to have issues with his IV access has received adequate IV Bactrim will be switched over to oral Bactrim DS dose confirmed with the pharmacist it will be 2 tablets every 6 hours total duration will be 3 weeks including the days of IV he is currently on 40 mg of prednisone daily that will be switched to 20 mg as of tomorrow 3patient did have ulcerated nodular lesion to the chin area concerning for possible Kaposi's sarcoma with secondary bacterial versus herpetic lesion, local culture grew Staphylococcus species sensitive to Bactrim , 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 please excuse any grammatical, word or spelling errors. Time with Patient: Less than 30
[2025-03-15] MEDS: SULFAMETHOX-TMP 800-160MG 1 EACH TAB PO SCH (17:30)
[2025-03-16 08:43] LABS: Basophils # (A) 0.01 10*3/uL (0.00-0.10); Basophils % (A) 0.3 %; Eosinophils # (A) 0.01 10*3/uL (0.04-0.35); Eosinophils % (A) 0.3 %; HCT 32.3 % (39.6-50.0); HGB 10.4 g/dL (13.0-17.0); Lymphocytes # (A) 1.28 10*3/uL (0.90-5.00); Lymphocytes % (A) 33.7 %; MCH 34.0 pg (27.0-32.0); MCHC 32.2 g/dL (32.0-37.0); MCV 105.6 fL (80.0-97.0); Monocytes # (A) 0.55 10*3/uL (0.20-1.00); Monocytes % (A) 14.5 %; Neutrophils # (A) 1.94 10*3/uL (1.80-7.70); Neutrophils % (A) 50.9 %; Platelet Count 320 10*3/uL (140-440); RBC 3.06 10*6/uL (4.40-5.60); RDW 24.4 % (11.5-14.5); WBC 3.80 10*3/uL (4.50-10.00)
[2025-03-16 09:01] LABS: ALT 17 U/L (4-49); AST 16 U/L (17-59); African American GFR (CKD) >90 (>60 ml/min/1.73 sqM); Albumin 3.5 g/dL (3.5-5.0); Albumin/Globulin Ratio 0.9; Alkaline Phosphatase 93 U/L (38-126); Anion Gap 10 mmol/L; Blood Urea Nitrogen 17 mg/dL (9-20); Calcium 9.2 mg/dL (8.4-10.2); Carbon Dioxide 23 mmol/L (22-30); Chloride 104 mmol/L (98-107); Globulin 3.9 g/dL; Glucose 94 mg/dL (74-99); Non-African American GFR(CKD) >90 (>60 ml/min/1.73 sqM); Potassium 4.0 mmol/L (3.5-5.1); Sodium 137 mmol/L (137-145); Total Protein 7.4 g/dL (6.3-8.2)
--- NOTE | 2025-03-16 10:20 | P.PN ---
Subjective Subjective: 49-year-old male with significant past medical history of HIV seizure drug abuse and nicotine dependence and several hip replacement corrections brought to the emergency department from home for evaluation of fall, patient reports he was recently discharged from [facility] 4 days ago where he stayed for 25 days however he is still experiencing symptoms. He was previously active and recently has not been able to take care of himself due to lower extremity weakness states he has 15 children and 12 grandchildren which keep him very busy. Has intermittent pain describes as tingly and sharp rates pain 5 out of 10 in the ER he was found to be febrile tachycardic and hypotensive without evidence of respiratory compromise. CT head from previous facility did not show evidence of of acute pathology In ER received chest x-ray CT scan chest and lumbar spine. Chest x-ray and chest CTA revealed evidence of alveolar edema consistent with multifocal pneumonia. CT lumbar spine showed no evidence of pathology He was admitted to medical team for management of HIV complicated by sepsis with infectious disease consulted and for management of left-sided lower extremity weakness with neurology consulted. While admitted patient was seen and evaluated by neurology he received CT of the lumbar spine and thoracic spine as well as MRI of the thoracic and lumbar spine, all imaging did not reveal pathology that would contribute to symptoms. He also received laboratories to evaluate alternative causes including TSH, folate, B12, A1c, EEG, which returned within normal limits. Throughout the duration of his admission he was seen by PT and OT and he was able to ambulate by the end of his admission In addition the patient complained of chest pain and he was seen by cardiology where he received an echocardiogram which resulted within normal limits in addition troponins returned negative, determined that chest pain is likely secondary to multifocal pneumonia. Patient was frequently monitored with repeat EKGs throughout the course of his admission all of which were stable. Throughout the course of admission the patient was followed by infectious disease for the management of HIV complicated by sepsis secondary to multifocal pneumonia. On admission the patient was tachycardic with a fever up to 103. Patient was initiated on HIV therapy, Bactrim and steroids. Bactrim was converted to IV then vancomycin was added. Alternative sources of infection were considered, MRI and CT scans were reviewed which showed no evidence of osteomyelitis, team ultimately determined that infectious source was multifocal pneumonia. Patient's vitals were monitored, oxygen demands blood pressure were followed and controlled as needed with nasal cannula and IV fluids. Oxygen supplementation IV fluids were titrated down and no longer requiring support at time of discharge. In the meantime a face lesion was discovered on physical exam, biopsy was taken which returned positive for HSV and culture grew bacteria, Valtrex was added for concern for Kaposi's sarcoma. Patient will continue Valtrex outpatient as well as p.o. Bactrim and prednisone. 03/16/2025: Patient seen and examined at bedside no acute overnight events feeling significantly improved off of IV Pertinent positives and negatives discussed above, a complete review of systems was preformed and all the other sytems were negative. Vitals Signs Reviewed. General: non toxic, no distress, appears at stated age, normal weight Derm: Skin lesion on chin concerning for kaposi sarcoma Head: atraumatic, normocephalic, symmetric Eyes: EOMI, no lid lag, anicteric sclera, pupils equal round reactive to light ENT: Nose and ears atraumatic Neck: No cervical lymphadenopathy, trachea midline, supple Mouth: no lip lesion, mucus membranes moist Cardiovascular: S1S2 reg, no murmur, positive dorsalis pedis pulse bilateral, no edema Lungs: Decreased air entry bilaterally, no rhonchi, no rales, no accessory muscle use Abdominal: soft, nontender to palpation, no guarding Ext: muscle strength 5 out of 5 in all 4 extremities grossly, no gross muscle at rophy, no contractures, Neuro: CN II-XI grossly intact, no gross focal neuro deficits Psych: Alert, oriented, appropriate affect Data Reveiwed Today: 03/15/2025 Assessment and Plan 49-year-old male with significant past medical history of HIV seizure drug abuse presents for lower extremity weakness that did not resolve during previous hospitalization has had difficulty taking care of himself. Imaging inconsistent with symptoms #Lower extremity weakness with pain: Potentially secondary to poly-pharmacy vs hx of multiple hip replacements vs other (Resolved) Neurology signed off -PT OT cleared for home discharge, pending housing - Multimodal pain management Thoracic and lumbar MRIs revealed no acute pathology or changes consistent with lower extremity weakness -No longer considering lumbar puncture, source of infection likely pneumonia Patient can walk unassisted plan to discharge home #Multifocal pneumonia with fever and hypotension # Sepsis secondary to above #Hyponatremia (resolved) #Dizziness ID on consult appreciate recommendations PO Bactrim, prednisone Blood cultures negative Discontinued fluids. Monitor blood pressure. 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 Consulted surgery appreciate recommendation Wound culture pending - Continue Valtrex QD Chronic Conditions: #Eczema Begin triamcinolone cream #HIV with poor medication compliance Biktarvy ID consulted CD4: 129 Viral load pending -HIV genotype #Seizure disorder Keppra and Depakote EEG negative DVT ppx: SubQ heparin GI ppx: Protonix CODE STATUS: Full Dispo: Pending housing, plan 03/17 Objective - Vital Signs Vital signs: Vital Signs Temp 98.0 F 03/16/25 08:00 Pulse 82 03/16/25 08:00 Resp 16 03/16/25 08:00 BP 96/62 03/16/25 08:00 Pulse Ox 95 03/16/25 08:00 FiO2 Intake & Output 03/15/25 03/16/25 03/16/25 18:59 06:59 18:59 Intake Total 2195 Balance 2194 Intake: Oral 2194 Other: Voiding Method Urinal # Voids 4 3 # Bowel Movements 1 - Labs CBC & Chem 7: 03/16/25 08:28 03/16/25 08:28 Labs: Abnormal Lab Results - Last 24 Hours (Table) 03/16/25 03/16/25 Range/Units 08:28 08:28 WBC 3.80 L (4.50-10.00) 10*3/uL RBC 3.06 L (4.40-5.60) 10*6/uL Hgb 10.4 L (13.0-17.0) g/dL Hct 32.3 L (39.6-50.0) % MCV 105.6 H (80.0-97.0) fL MCH 34.0 H (27.0-32.0) pg RDW 24.4 H (11.5-14.5) % Eosinophils # 0.01 L (0.04-0.35) 10*3/uL AST 16 L (17-59) U/L Assessment and Plan Assessment: Attestation Attestation/ Director Title Note: Attestation to Progress Note, Participation (I saw and evaluated the patient with the Resident, and I reviewed and discussed the patient with the Resident and agree with the Resident's findings and plans as documented above., management reviewed and discussed), I agree with findings & plan, Provider Signature (PAVITHRA JACKSON MD Time with Patient: Greater than 30
--- NOTE | 2025-03-16 15:54 | P.PN ---
Subjective Progress Note Date: 03/16/25 Principal diagnosis: Reason for follow-up is HIV/PCP pneumonia Patient is a 49-year-old -Nigerian male with a past medical history significant for HIV for many years however the patient has not been on any medication for almost a year also with history of asthma and seizure disorder with recent admission at [facility] with the patient was diagnosed with a PCP pneumonia patient apparently has not completed his oral Bactrim DS therapy as per discussion with admitting physician now presented to this facility mostly with the weakness in the lower extremity. On today's evaluation that is 03/16/2025, Patient is afebrile patient is currently on room air and denies having any shortness of breath, the patient denies any chest pain or cough, the patient denies any nausea vomiting did not have any abdominal pain and no diarrhea. Patient white count is 3.80, creatinine 0.91 Objective - Vital Signs Vital signs: Vital Signs Temp 98.2 F 03/16/25 12:27 Pulse 97 03/16/25 12:27 Resp 16 03/16/25 12:27 BP 97/60 03/16/25 12:27 Pulse Ox 96 03/16/25 12:27 FiO2 Intake & Output 03/15/25 03/16/25 03/16/25 18:59 06:59 18:59 Intake Total 2195 1618 Balance 2195 1618 Intake: Oral 2195 1618 Other: Voiding Method Urinal # Voids 4 3 5 # Bowel Movements 1 1 - Exam GENERAL DESCRIPTION: Middle-age male lying in bed in no distress HEENT: Chin area did have ulcerated and nodular skin lesion with some surrounding erythema RESPIRATORY SYSTEM: Unlabored breathing , decreased breath sounds at bases HEART: S1 S2 regular rate and rhythm , ABDOMEN: Soft , no tenderness EXTREMITIES: No edema feet - Labs CBC & Chem 7: 03/16/25 08:28 03/16/25 08:28 Labs: Abnormal Lab Results - Last 24 Hours (Table) 03/16/25 03/16/25 Range/Units 08:28 08:28 WBC 3.80 L (4.50-10.00) 10*3/uL RBC 3.06 L (4.40-5.60) 10*6/uL Hgb 10.4 L (13.0-17.0) g/dL Hct 32.3 L (39.6-50.0) % MCV 105.6 H (80.0-97.0) fL MCH 34.0 H (27.0-32.0) pg RDW 24.4 H (11.5-14.5) % Eosinophils # 0.01 L (0.04-0.35) 10*3/uL AST 16 L (17-59) U/L Assessment and Plan (1) Sepsis Current Visit: Yes Status: Acute Code(s): A41.9 - SEPSIS, UNSPECIFIED ORGANISM SNOMED Code(s): 95593512 (2) Noncompliance with medication regimen Current Visit: Yes Status: Acute Code(s): Z91.148 - PATIENT'S OTHER NONCOMPL WITH MEDS REGIMEN FOR OTHER REASON SNOMED Code(s): 025504374 (3) Multifocal pneumonia Current Visit: Yes Status: Acute Code(s): J18.9 - PNEUMONIA, UNSPECIFIED ORGANISM SNOMED Code(s): 108641540 (4) HIV (human immunodeficiency virus infection) Current Visit: No Status: Acute Code(s): B20 - HUMAN IMMUNODEFICIENCY VIRUS [HIV] DISEASE SNOMED Code(s): 00520812 (5) PCP (pneumocystis jiroveci pneumonia) Current Visit: Yes Status: Acute Code(s): B59 - PNEUMOCYSTOSIS SNOMED Code(s): 069989330 (6) Skin ulcer of chin Current Visit: Yes Status: Acute Code(s): L98.499 - NON-PRESSURE CHRONIC ULCER OF SKIN OF SITES W UNSP SEVERITY SNOMED Code(s): 560160316 Plan: 1patient presented hospital with lower extremity weakness did not have any bowel or bladder problem did have MRI of the thoracic as well as lumbar spine did not mention any features of discitis or osteomyelitis 2patient is more likely clinically behaving as a partially treated PCP pneumonia seem to have issues with his IV access has received adequate IV Bactrim will be switched over to oral Bactrim DS dose confirmed with the pharmacist it will be 2 tablets every 6 hours total duration will be 3 weeks including the days of IV has received prednisone will be switched to 20 mg daily 3patient did have ulcerated nodular lesion to the chin area 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 please excuse any grammatical, word or spelling errors. Time with Patient: Less than 30
--- NOTE | 2025-03-16 16:17 | P.PN ---
Progress Note - Text Progress Note Date: 03/16/25 No acute events overnight General no acute distress HEENT multiple lesions nonbleeding surgical site clean dry and intact Cardiovascular regular rate and rhythm Pulmonary nonlabored breathing Abdomen soft nontender nondistended no guarding rebound tenderness Assessment and Plan Assessment: 49-year-old male with HIV noncompliant on medications S/p excisional biopsy -Okay for discharge Jean-Claude Kate DO [facility] [phone]
[2025-03-17 01:14] VITALS: RESP 16
[2025-03-17 12:12] VITALS: BP 115/63; PULSE 96; TEMP 98.2
--- NOTE | 2025-03-17 19:23 | P.DS ---
Providers Date of admission: 02/28/25 15:41 Expected date of discharge: 03/17/25 Attending physician: Garcia Vargas MD Consults: 02/28/25 14:25 Consult Physician Urgent Consulting Provider: Prisca Avina Consult Reason/Comments: Multifocal pneumonia, HIV patient Do you want consulting provider notified?: Yes 02/28/25 16:06 Consult Physician Urgent Consulting Provider: Stacie Iniguez Consult Reason/Comments: Bilateral lower extremity weakness Do you want consulting provider notified?: Yes 03/03/25 10:36 Consult Physician Urgent Consulting Provider: Branden Turcios Consult Reason/Comments: IPR Do you want consulting provider notified?: Yes Primary care physician: Massimo Wu - Discharge Diagnosis(es) (1) PCP (pneumocystis jiroveci pneumonia) Status: Acute (2) Multifocal pneumonia Status: Acute (3) Skin ulcer of chin Status: Acute (4) Lower extremity weakness Status: Acute (5) Noncompliance with medication regimen Status: Acute (6) HIV (human immunodeficiency virus infection) Status: Acute Hospital Course: 49-year-old male with significant past medical history of HIV seizure drug abuse and nicotine dependence and several hip replacement corrections brought to the emergency department from home for evaluation of fall, patient reports he was recently discharged from [facility] 4 days ago where he stayed for 25 days however he is still experiencing symptoms. He was previously active and recently has not been able to take care of himself due to lower extremity w eakness states he has 15 children and 12 grandchildren which keep him very busy. Has intermittent pain describes as tingly and sharp rates pain 5 out of 10 in the ER he was found to be febrile tachycardic and hypotensive without evidence of respiratory compromise. CT head from previous facility did not show evidence of of acute pathology In ER received chest x-ray CT scan chest and lumbar spine. Chest x-ray and chest CTA revealed evidence of alveolar edema consistent with multifocal pneumonia. CT lumbar spine showed no evidence of pathology He was admitted to medical team for management of HIV complicated by sepsis with infectious disease consulted and for management of left-sided lower extremity weakness with neurology consulted. While admitted patient was seen and evaluated by neurology he received CT of the lumbar spine and thoracic spine as well as MRI of the thoracic and lumbar spine, all imaging did not reveal pathology that would contribute to symptoms. He also received laboratories to evaluate alternative causes including TSH, folate, B12, A1c, EEG, which returned within normal limits. Throughout the duration of his admission he was seen by PT and OT and he was able to ambulate by the end of his admission. In addition the patient complained of chest pain and he was seen by cardiology where he received an echocardiogram which resulted within normal limits in add ition troponins returned negative, determined that chest pain is likely secondary to multifocal pneumonia. Patient was frequently monitored with repeat EKGs throughout the course of his admission all of which were stable. Throughout the course of admission the patient was followed by infectious disease for the management of HIV complicated by sepsis secondary to multifocal pneumonia. On admission the patient was tachycardic with a fever up to 103. Patient was initiated on HIV therapy, Bactrim and steroids. Bactrim was converted to IV then vancomycin was added. Alternative sources of infection were considered, MRI and CT scans were reviewed which showed no evidence of osteomyelitis, team ultimately determined that infectious source was multifocal pneumonia. Patient's CD4 is 129. Patient's vitals were monitored, oxygen demands blood pressure were followed and controlled as needed with nasal cannula and IV fluids. Oxygen supplementation IV fluids were titrated down and no longer requiring support at time of discharge. In the meantime a face lesion was discovered on physical exam, biopsy was taken which returned positive for HSV and culture grew bacteria, Valtrex was added for concern for Kaposi's sarcoma. Patient will continue Valtrex outpatient as well as p.o. Bactrim and prednisone. General: non toxic, no distress, appears at stated age, normal weight Derm: Bandage on chin from biopsy Head: atraumatic, normocephalic, symmetric Eyes: no lid lag, anicteric sclera ENT: Nose and ears atraumatic Neck: trachea midline, supple Mouth: no lip lesion, mucus membranes moist Cardiovascular: S1S2 reg, no murmur, positive dorsalis pedis pulse bilateral, no edema Lungs: Lungs CTA, no rhonchi, no rales, no accessory muscle use Abdominal: soft, nontender to palpation, no guarding Ext: Muscle strength 3/5 in LLE, no gross muscle atrophy, no contractures, Neuro: no gross focal neuro deficits Psych: Alert, oriented, appropriate affect Patient left AMA before discharge instructions given to him. Prescriptions were sent to pharmacy. 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 Plan - Discharge Summary Discharge Rx Participant: No New Discharge Prescriptions: New Bictegrav/Emtricit/Tenofov Ala [Biktarvy 50-200-25 mg Tablet] 1 tab PO DAILY 30 Days #30 cap valACYclovir HCL [Valtrex] 1,000 mg PO Q8HR 30 Days #90 tab Continue Albuterol Sulfate [Proair Hfa] 2 puff INHALATION RT-Q6H PRN PRN Reason: Shortness Of Breath Midodrine HCl 10 mg PO DIRECTED Tamsulosin [Flomax] 0.4 mg PO DIRECTED QUEtiapine [SEROquel] 12.5 mg PO DIRECTED levETIRAcetam [Keppra] 500 mg PO DIRECTED Divalproex [Depakote] 500 mg PO DIRECTED Pantoprazole [Protonix] 40 mg PO DIRECTED Folic Acid 1 mg PO DIRECTED dexAMETHasone [Decadron] See Taper PO DIRECTED Discontinued Bictegrav/Emtricit/Tenofov Ala [Biktarvy 50-200-25 mg Tablet] 1 tab PO DIRECTED No Action Sulfamethox-Tmp 800-160Mg [Bactrim DS 800-160 mg] See Taper PO DIRECTED Discharge Medication List Albuterol Sulfate [Proair Hfa] 2 puff INHALATION RT-Q6H PRN 05/26/20 [History] Divalproex [Depakote] 500 mg PO DIRECTED 02/28/25 [History] Folic Acid 1 mg PO DIRECTED 02/28/25 [History] Midodrine HCl 10 mg PO DIRECTED 02/28/25 [History] Pantoprazole [Protonix] 40 mg PO DIRECTED 02/28/25 [History] QUEtiapine [SEROquel] 12.5 mg PO DIRECTED 02/28/25 [History] Sulfamethox-Tmp 800-160Mg [Bactrim DS 800-160 mg] See Taper PO DIRECTED 02/28/25 [History] Tamsulosin [Flomax] 0.4 mg PO DIRECTED 02/28/25 [History] dexAMETHasone [Decadron] See Taper PO DIRECTED 02/28/25 [History] levETIRAcetam [Keppra] 500 mg PO DIRECTED 02/28/25 [History] Bictegrav/Emtricit/Tenofov Ala [Biktarvy 50-200-25 mg Tablet] 1 tab PO DAILY 30 Days #30 cap 03/11/25 [Rx] valACYclovir HCL [Valtrex] 1,000 mg PO Q8HR 30 Days #90 tab 03/17/25 [Rx] Follow up Appointment(s)/Referral(s): Massimo Wu MD [Primary Care Provider] - 1-2 days Patient Instructions/Handouts: HIV Infection (DC) Discharge Disposition: LEFT AGAINST MEDICAL ADVICE
--- NOTE | 2025-03-18 14:39 | P.PN ---
Subjective Progress Note Date: 03/17/25 Principal diagnosis: Reason for follow-up is HIV/PCP pneumonia Patient is a 49-year-old -[place] male with a past medical history significant for HIV for many years however the patient has not been on any medication for almost a year also with history of asthma and seizure disorder with recent admission at [facility] with the patient was diagnosed with a PCP pneumonia patient apparently has not completed his oral Bactrim DS therapy as per discussion with admitting physician now presented to this facility mostly with the weakness in the lower extremity. On today's evaluation that is 03/17/2025, patient has been afebrile, patient is breathing comfortably and is currently on room air, patient denies having any chest pain and cough has decreased intensity mostly dry, patient denies nausea vomiting or diarrhea and no abdominal pain. Patient did not have a lab draw today Objective - Vital Signs Vital signs: Vital Signs Temp 98.2 F 03/17/25 12:12 Pulse 96 03/17/25 12:12 Resp 16 03/17/25 12:12 BP 115/63 03/17/25 12:12 Pulse Ox 95 03/17/25 12:12 FiO2 Intake & Output 03/16/25 03/17/25 03/17/25 18:59 06:59 18:59 Intake Total 1618 1160 598 Balance 1618 1160 598 Intake: Oral 1618 1160 598 Other: Voiding Method Urinal # Voids 5 4 # Bowel Movements 1 - Exam GENERAL DESCRIPTION: Middle-age male lying in bed in no distress HEENT: Chin area did have ulcerated and nodular skin lesion with some surrounding erythema RESPIRATORY SYSTEM: Unlabored breathing , decreased breath sounds at bases HEART: S1 S2 regular rate and rhythm , ABDOMEN: Soft , no tenderness EXTREMITIES: No edema feet - Labs CBC & Chem 7: 03/16/25 08:28 03/16/25 08:28 Assessment and Plan (1) Sepsis Status: Acute Code(s): A41.9 - SEPSIS, UNSPECIFIED ORGANISM SNOMED Code(s): 68432425 (2) Noncompliance with medication regimen Status: Acute Code(s): Z91.148 - PATIENT'S OTHER NONCOMPL WITH MEDS REGIMEN FOR OTHER REASON SNOMED Code(s): 893681316 (3) Multifocal pneumonia Status: Acute Code(s): J18.9 - PNEUMONIA, UNSPECIFIED ORGANISM SNOMED Code(s): 425048698 (4) HIV (human immunodeficiency virus infection) Status: Acute Code(s): B20 - HUMAN IMMUNODEFICIENCY VIRUS [HIV] DISEASE SNOMED Code(s): 40210403 (5) PCP (pneumocystis jiroveci pneumonia) Status: Acute Code(s): B59 - PNEUMOCYSTOSIS SNOMED Code(s): 299124520 (6) Skin ulcer of chin Status: Acute Code(s): L98.499 - NON-PRESSURE CHRONIC ULCER OF SKIN OF SITES W UNSP SEVERITY SNOMED Code(s): 117614245 Plan: 1patient presented hospital with lower extremity weakness did not have any bowel or bladder problem did have MRI of the thoracic as well as lumbar spine did not mention any features of discitis or osteomyelitis 2patient is more likely clinically behaving as a partially treated PCP pneumonia seem to have issues with his IV access has received adequate IV Bactrim will be switched over to oral Bactrim DS dose confirmed with the pharmacist it will be 2 tablets every 6 hours total duration will be 3 weeks including the days of IV he has received while inpatient, prednisone 20 mg daily to continue for another week 3patient did have ulcerated nodular lesion to the chin area concerning for possible Kaposi's sarcoma with secondary bacterial versus herpetic lesion, local culture grew Staphylococcus species sensitive to Bactrim , 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 please excuse any grammatical, word or spelling errors. Time with Patient: Less than 30
== END 2025-03-17 16:26 | disposition left against medical advice (07) | DRG 890 ==
LOC: EC 09:15 → 5NMEDONC 15:41
PROVIDERS: ADMIT Internal Medicine; ATTEND Internal Medicine
PROC: 0HB1XZZ Excision of Face Skin, External Approach (ICD-10-PCS; principal; 2025-03-13)
DX: A41.89 Other specified sepsis (principal); B59 Pneumocystosis; B20 Human immunodeficiency virus [HIV] disease; G95.89 Other specified diseases of spinal cord; C46.0 Kaposi's sarcoma of skin; E87.1 Hypo-osmolality and hyponatremia; K52.1 Toxic gastroenteritis and colitis; D53.9 Nutritional anemia, unspecified; F03.90 Unspecified dementia, unspecified severity, without behavioral disturbance, psychotic disturbance, mood disturbance, and anxiety; F19.10 Other psychoactive substance abuse, uncomplicated; G40.909 Epilepsy, unspecified, not intractable, without status epilepticus; L98.491 Non-pressure chronic ulcer of skin of other sites limited to breakdown of skin; B95.7 Other staphylococcus as the cause of diseases classified elsewhere; B00.9 Herpesviral infection, unspecified; T37.5X6A Underdosing of antiviral drugs, initial encounter; T36.95XA Adverse effect of unspecified systemic antibiotic, initial encounter; F40.240 Claustrophobia; R53.81 Other malaise; R79.89 Other specified abnormal findings of blood chemistry; Z91.198 Patient's noncompliance with other medical treatment and regimen for other reason; W18.30XA Fall on same level, unspecified, initial encounter; Y92.009 Unspecified place in unspecified non-institutional (private) residence as the place of occurrence of the external cause; Z79.82 Long term (current) use of aspirin; Z79.1 Long term (current) use of non-steroidal anti-inflammatories (NSAID); Z91.148 Patient's other noncompliance with medication regimen for other reason; Z87.891 Personal history of nicotine dependence; Z79.899 Other long term (current) drug therapy; Z96.641 Presence of right artificial hip joint
CPT/HCPCS: 36415; 71046; 71260; 71275; 72131; 72157; 72158; 80048; 80053; 80061; 80202; 81001; 82140; 82550; 82565; 82607; 82747; 83036; 83605; 83735; 83880; 84100; 84145; 84443; 84484; 85025; 85379; 85652; 86140; 86360; 87040; 87045; 87046; 87070; 87077; 87186; 87205; 87324; 87449; 87529; 87636; 87901; 88305; 88312; 88341; 88342; 93005; 93306; 95816; 96361; 96365; 96366; 96367; 96375; 99285